=== PATIENT | male | born 1965 | race African-American/Black ===

== ENCOUNTER 2018-10-18 07:04 | Inpatient (IN) ==
[2018-10-18] MEDS ORDERED: LEVAQUIN 750 MG/D5W 750 MG/150 ML IVPB IV ONE (08:15)
[2018-10-18] MEDS ORDERED: NS 1,000 ML IV ONE ×3 (08:15→14:42)
[2018-10-18] MEDS ORDERED: TYLENOL PO ONE (08:15)
[2018-10-18 09:55] LABS: HEMATOCRIT 22.2 % (42.0-52.0); HEMOGLOBIN 7.2 g/dL (14.0-18.0); IMM GRAN# 0.03 X1000 (0.0-0.04); IMM GRAN% 5.1 % (0.0-0.5); LYMPH# 0.22 X1000 (1.2-3.4); LYMPH% 37.3 % (20.5-51.1); MCH 30.8 PG (27-31); MCHC 32.4 g/dL (33-37); MCV 94.9 FL (81-99); MONO# 0.06 X1000 (0.11-0.59); MONO% 10.2 % (1.7-9.3); NEUT# 0.28 X1000 (1.4-6.5); NEUT% 47.4 % (42.2-75.2); PLT 19 X1000 (130-400); RBC 2.34 XMIL (4.7-6.1); WBC 0.59 X1000 (4.8-10.8)
[2018-10-18 09:59] LABS: ALBUMIN 2.6 g/dL (3.5-5.0); CALCIUM 7.7 mg/dL (8.8-10.2); CREATININE 1.3 mg/dL (0.7-1.2); POTASSIUM 4.7 mmol/L (3.5-5.1); TOTAL PROTEIN 6.4 g/dL (6.3-8.3)
[2018-10-18 10:00] LABS: LYMPHS 36 % (21-51); MONO 8 % (1-9); SEGS 56 % (42-75)
[2018-10-18 10:01] LABS: ANISOCYTOSIS 3+; POIKILOCYTOSIS OCCASIONAL
--- NOTE | 2018-10-18 10:02 | Diag Imaging Result Doc PS360 ---
EXAM: CHEST-PORTABLE HISTORY: cough TECHNIQUE: Portable chest COMPARISON: 08/21/2018 FINDINGS: There is opacification of the right apex similar to the prior exam. The right middle and lower lobes are actually better expanded on the current study. The left lung remains well expanded and clear. No cardiomegaly. No change in the left jugular line. No pneumothorax. IMPRESSION: Slight interval improvement in the expansion of the right lung although there is persistent consolidation of the upper lobe. Electronically signed by Shelton Link 10/18/2018 10:00 AM
[2018-10-18 10:33] LABS: INFLUENZA A NEGATIVE (NEGATIVE); INFLUENZA B NEGATIVE (NEGATIVE)
[2018-10-18] MEDS ORDERED: ZOFRAN IV ONE (11:13)
[2018-10-18] MEDS ORDERED: MORPHINE IV ONE ×2 (11:13→12:30)
[2018-10-18 13:35] LABS: BILIRUBIN URINE NEGATIVE (NEGATIVE); BLOOD URINE 3+ (NEGATIVE); CLARITY CLEAR (CLEAR); COLOR AMBER; KETONE URINE NEGATIVE (NEGATIVE); LEUKOCYTES URINE 1+ (NEGATIVE); NITRITE URINE POSITIVE (NEGATIVE); PROTEIN URINE 1+(30 mg/dL) mg/dL (NEGATIVE); SP GRAVITY URINE 1.015; UROBILINOGEN URINE 4 mg/dL
[2018-10-18 13:45] LABS: URINE BACTERIA 2+ /HFP; URINE EPITHELIAL CELLS <10 /HPF (<10); URINE SOURCE CLEAN CATCH; URINE WBC <10 /HPF (<10)
[2018-10-18] MEDS ORDERED: VANCOMYCIN IV PER PHARMACY MISC SCH (14:30)
[2018-10-18] MEDS ORDERED: VANCOMYCIN 2,100 MG in NS 500 ML IV ONE (15:00)
[2018-10-18 15:04] LABS: UR AMPHETAMINES QUAL NONE DETECTED (NONE DETECT); UR BARBITUATES QUAL NONE DETECTED (NONE DETECT); UR BENZODIAZEPIN QUAL NONE DETECTED (NONE DETECT); UR COCAINE QUAL PRESUMPTIVE POSITIVE (NONE DETECT); UR METHADONE QUAL NONE DETECTED (NONE DETECT); UR METHAMPHETAMINE QUAL NONE DETECTED (NONE DETECT); UR OPIATES QUAL PRESUMPTIVE POSITIVE (NONE DETECT); UR OXYCODONE QUAL NONE DETECTED (NONE DETECT)
[2018-10-18 15:05] LABS: UR CANNABINOIDS QUAL NONE DETECTED (NONE DETECT); UR PCP QUAL NONE DETECTED (NONE DETECT); UR PROPOXYPHENE QUAL NONE DETECTED (NONE DETECT); UR TCA QUAL NONE DETECTED (NONE DETECT)
--- NOTE | 2018-10-18 19:22 | PROVIDER DOCUMENTATION ---
This chart was entered by Doreen Longo Scribe, acting as scribe for Asad Aburto MD. HPI-General Adult - General Chief Complaint: Generalized Pain Stated Complaint: pain Time Seen by Provider: 10/18/18 07:08 Source: patient Allergies/Adverse Reactions: Patient Allergies Allergy/AdvReac Type Severity Reaction Status Date / Time No Known Allergies Allergy Verified 08/16/18 11:10 Home Medications: Home Medication List Medication Instructions Recorded Confirmed Last Taken Type Carvedilol [Coreg] 12.5 mg PO Q12HR #60 tab 07/07/18 10/18/18 08/19/18 18:00 Rx Clopidogrel Bisulfate [Plavix] 75 mg PO DAILY #30 tab 07/07/18 10/18/18 08:00 Rx Folic Acid 1 mg PO DAILY #30 tab 07/07/18 10/18/18 08/19/18 08:00 Rx Guaifenesin/Dm [Robitussin-Dm] 10 ml PO Q4H PRN PRN #1 bottle 07/07/18 10/18/18 Unknown Rx Hydralazine [Apresoline] 50 mg PO TID #90 tab 07/07/18 10/18/18 08/19/18 08:00 Rx Hydrocodone/APAP 7.5 mg/325 mg 1 - 2 ea PO Q6H PRN PRN #30 tab 07/07/1808/20/18 12:00 Rx [Redding-7.5] Losartan [Cozaar] 100 mg PO DAILY #60 tab 07/07/18 10/18/18 08/19/18 08:00 Rx Metformin [Glucophage] 500 mg PO BID CC #60 tab 07/07/18 10/18/18 08/19/18 08: 00 Rx Hydrocodone/Acetaminophen [Redding 1 each PO Q4H PRN PRN #30 tablet 08/21/1810/18 Unknown Rx 5-325 Tablet] - History of Present Illness -Gen Adult Nature of Presenting Problems: 52 yobm presents to the ed with c/o generalized pain. pt sts went to the [employer] store 1 day prior and bought bengay and rubbed over his body. since he has had bodyaches. pt also c/o cough and nasal discharge (clear) Location of Pain/Injury: reports: generalized (bodyaches) Pain Radiation: reports: no radiation Quality of Pain: reports: aching Severity: reports: moderate Onset/Duration: reports: 24 hours ago Timing: reports: still present Context/Activities at Onset: reports: light activity Modifying Factors: improves with: nothing. worse with: movement, palpation Associated Symptoms: reports: cough, fatigue, fever/chills (99.9), genitourinary problems (hematuria), malaise, muscle aches, sinus congestion/ drainage. denies: back/neck pain, chest pain, diarrhea, dizziness, headaches, nausea, shortness of breath, weakness Similar Symptoms Previously?: No Recently seen or treated by another doctor?: Yes (sees dr david for cancer) Review of Systems - Adult - REVIEW OF SYSTEMS - ADULT Constitutional: reports: chills, fever (99.9) Eyes: reports: no symptoms reported Ears, Nose, Mouth & Throat: reports: see HPI, sinus problem. denies: nose pain (postive runny nose) Cardiovascular: reports: no symptoms reported Respiratory: reports: see HPI, cough. denies: shortness of breath, wheezing Gastrointestinal: denies: abdominal pain, diarrhea, nausea, vomiting Genitourinary: reports: see HPI, hematuria. denies: dysuria Musculoskeletal: reports: see HPI, muscle aches (generalized). denies: neck pain Integumentary: reports: no symptoms reported Neurological: denies: dizziness/vertigo, headache/migraines Psychiatric: reports: insomnia Endocrine: reports: no symptoms reported Hematologic/Lymphatic: reports: no symptoms reported Allergic/Immunologic: reports: no symptoms reported All Other Systems: Reviewed and Negative Past History - Adult - PAST MEDICAL HISTORY-ADULT Review of Records: reports: Old Records Reviewed, Nursing Assessment Review, Medications Reviewed, Social history reviewed & non-contributory. Major Childhood Illnesses: reports: other (HEP C) Cardiovascular: reports: blood clots, HTN Respiratory: reports: cancer Gastrointestinal: reports: GERD Genitourinary: reports: denies history Musculoskeletal: reports: cancer, chronic pain Neurological: reports: denies history Psychiatric: reports: denies history Endocrine/Immune: reports: Diabetes Diabetes Type: Type 2 Other Conditions: reports: denies history - PRIOR SURGERIES/PROCEDURES Surgical/Procedure History: reports: reviewed, not pertinent, other (port placed left upper chest wall) - IMMUNIZATION STATUS Childhood Immunizations: See Nurse Assessment Flu Vaccine: See Nurse Assessment - FAMILY HISTORY Family History: reviewed, not pertinent - SOCIAL HISTORY Smoking: cigarettes, greater than 1 pack/day Provider spent 3-5 mins advising pt. on dangers of tobacco.: Discussed manners to quit use, and f/u contacts for add'l counseling. Substance Use: denies Alcohol Use Frequency: never Living Situation: family Physical Exam-General - PHYSICAL EXAM-ADULT Initial Vital Signs Reviewed: Yes - CONSTITUTIONAL General Appearance: alert, no apparent distress - EYES Eyes: PERRL/EOMI, pink conjunctivae - HEAD, EARS, NOSE, MOUTH & THROAT HENMT: moist mucous membranes, normal ENT inspection - NECK Neck: full range of motion, supple, normal inspection - RESPIRATORY Respiratory: chest non-tender, lungs clear, normal breath sounds - CARDIOVASCULAR Cardiovascular: normal peripheral pulses, tachycardia (113) - CHEST (BREASTS) Chest/Breast: other (has port placed in left upper chest with drainage and crusting seen. pt has 1cm openoing of skin close to port. looks infected) - GASTROINTESTINAL (ABDOMEN) Abdominal Exam: normal bowel sounds, non tender, soft - GENITOURINARY Male Genitalia: deferred Rectal Exam: deferred Hemoccult Exam: deferred - LYMPHATIC Lymphatic: no adenopathy - MUSCULOSKELETAL Back Exam: normal inspection Extremity: normal range of motion, normal capillary refill, pelvis stable, tenderness (generalized) - SKIN Integumentary: normal color, normal turgor, warm/dry - NEUROLOGIC Neurologic: grossly normal - PSYCHIATRIC Psych/Mental Status: normal mood/affect, normal thought content, normal thought process, oriented x 3 Progress - PLAN OF CARE/RESULTS Progress/Plan/Lab Results: Vital Signs - 8 hr 10/18/18 07:06 Temperature 99.9 F H Pulse Rate 113 H Respiratory Rate 20 Blood Pressure 141/99 O2 Sat by Pulse Oximetry 94 L pt has lortab 5 for pain secondary to cancer pain per pt Result Diagrams: 10/18/18 09:07 10/18/18 09:07 - REASSESSMENT Reassessment #1 Time Reassessed: 08:26 (pt is resting in bed and in no distress) Status: improving - XRAY 1 XRAY: Bilateral XRAY Study: Chest (EXAM: CHEST-PORTABLE HISTORY: cough TECHNIQUE: Portable chest COMPARISON: 08/21/2018 FINDINGS: There is opacification of the right apex similar to the prior exam. The right middle and lower lobes are actually better expanded on the current study. The left lung remains well expanded and clear. No cardiomegaly. No change in the left jugular line. No pneumothorax. IMPRESSION: Slight interval improvement in the expansion of the right lung although there is persistent consolidation of the upper lobe. Electronically signed by Shelton Link 10/18/2018 10:00 AM 10/18/18 1000 Interpreting Physician: Shelton Link MD Dictated Date/Time: 10/18/18 0959 cc: None,PCP ; None,PCP) - CONSULTS/PCP/HOSPITALIST Notification #1 *Consult/PCP/Hospitalist*: hospitalist dr jones Time Discussed: 14:29 Reason/Comments: weakness and bodyaches Consult Disposition: Admit Departure - Departure Date of Disposition Decision: 10/18/18 Time of Disposition Decision: 14:40 DIAGNOSIS: Tobacco use disorder, Pancytopenia, Dehydration, Abnormal LFTs, Cocaine use Cancer of right lung Qualifiers: Lung location: unspecified part of lung Qualified Code(s): C34.91 - Malignant neoplasm of unspecified part of right bronchus or lung UTI (urinary tract infection) Qualifiers: Urinary tract infection type: site unspecified Hematuria presence: with hematuria Qualified Code(s): N39.0 - Urinary tract infection, site not specified ; R31.9 - Hematuria, unspecified Disposition: ADMITTED INPATIENT 09 Certified Medical Emergency: Emergent Condition: Serious Referrals and Follow-Ups: None,PCP [Primary Care Provider] - Discharge Education: Steps to Quit Smoking - Critical Care Note This patient required my direct & personal management of CC.: Yes Total Time (mins): 65 Critical Care Statement: This patient required my direct personal management to treat or rule out processes, the absence of which, could potentiallly result in sudden, clinically significant life or limb threatening deterioration. Comments: pt is possible sepsis with infected port in left ipper chest wall, fever 99.9 and tachycardiac 108. pt has stage 4 lung CA mets to bone Attestation - Physician/ OSCAR Attestation Patient care was provided by Advanced Practice Provider:: No The physician spent face to face time with patient:: Yes Advanced Practice Provider documentation review:: Supervising physician onsite and consulted in the evaluation and care of this patient. The physician did have a face to face encounter with the patient. This chart was documented by the indicated scribe, (Doreen Longo Scribe) and accurately reflects the services I performed and decisions made by me, Asad Aburto MD, as attested by the provider's signature.
[2018-10-18] MEDS ORDERED: NUBAIN ONE (20:15)
[2018-10-18] MEDS: NUBAIN IV PRN (20:26)
[2018-10-18] MEDS ORDERED: DUONEB (A & A) INH PRN (21:02)
[2018-10-18] MEDS: NS 1,000 ML IV SCH (21:02)
[2018-10-18] MEDS ORDERED: NEUPOGEN SUBQ ONE (21:02)
[2018-10-18] MEDS: ZOSYN 3.375 GM in NS 50 ML IV SCH (22:00)
[2018-10-19] MEDS: DUONEB (A & A) INH SCH ×5 (00:15→22:33)
[2018-10-19] MEDS: NUBAIN IV PRN ×4 (01:38→21:07)
--- NOTE | 2018-10-19 01:49 | HISTORY AND PHYSICAL ---
PRIMARY CARE PHYSICIAN: None. ONCOLOGIST: Dr. Ramires. CHIEF COMPLAINT: Generalized pain, cough, fatigue, and subjective fever. HISTORY OF PRESENTING ILLNESS: This is a 52-year-old male, who presents to [facility] ER with complaints of generalized pain, cough, fatigue, and subjective fever. He is noted to have stage IV lung cancer, and received chemotherapy on . Since that time, he has been feeling increasingly worse. He has a Port-A-Cath in his left upper chest that has drainage and crusting, with a 1 cm opening of the skin close to the port. The patient states that the port was used this past for his chemotherapy. He states that he has not placed anything in his port cath, but it is noted that his urine drug screen is presumptive positive for cocaine and opiates. The patient states that he has been using multiple pills that he has bought off the street apparently, for his pain, but denies having any cocaine use. His last chemo treatment again was on 10/12, and he received Alimta, carboplatin, and Keytruda, with a Neulasta injection on 10/13. His white blood cell count is 0.59, hemoglobin of 7.2, hematocrit 22.2, platelets 19,000, BUN of 29, with a creatinine of 1.3. Urinalysis with nitrite positive, 3+ blood, 1+ white blood cells, and 2+ bacteria. Urine drug screen again is positive for opiates and cocaine. Acetone level was negative. Influenza A and B were both negative. Chest x-ray showed slight interval improvement in the expansion of the right lung, although there is persistent consolidation of the right upper lobe. He will be admitted to the [facility] for further evaluation and treatment. PAST MEDICAL HISTORY: Hypertension, stage IV lung cancer with ongoing chemotherapy, GERD, chronic pain, and diabetes type 2. PAST SURGICAL HISTORY: Left upper chest port placement. FAMILY HISTORY: Reviewed and noncontributory. SOCIAL HISTORY: Currently lives with family. Smokes a pack of cigarettes a day. Denied any alcohol use. Would not admit to specific drug use, but states he has been using multiple pills that he has bought off the street to control his pain, that he "hurts down to the bone." He is also positive for cocaine, but would not admit to using. ALLERGIES: He has no known drug allergies. HOME MEDICATIONS: Will obtain a current list, and restart as appropriate. LABORATORY DATA: Showed a white blood cell count of 0.59, hemoglobin 7.2, hematocrit 22.2, platelets 19,000. Sodium 135, potassium 4.7, chloride 99, CO2 21, BUN of 29, creatinine 1.3, glucose 233. AST of 68, ALT 38. Plasma lactate was 1.4. Urinalysis showed 3+ blood, positive nitrites, 1+ white blood cells, and 2+ bacteria. Urine drug screen was presumptive positive for opiates and cocaine. Acetone level was negative. Influenza A and B were both negative. The chest x-ray showed slight interval improvement in the expansion of the right lung, although there was persistent consolidation of the upper lobe. REVIEW OF SYSTEMS: He was positive for a subjective fever, chills, body aches, fatigue, nonproductive cough, shortness of breath. Denied any abdominal pain, constipation, diarrhea, or burning or hurting with urination. PHYSICAL EXAMINATION: VITAL SIGNS: On arrival, he had a temperature of 99.9 degrees, a pulse of 113, respirations 20, blood pressure 141/99, saturating 94% on room air. HEENT: Normocephalic and atraumatic. Normal ENT inspection. Oropharynx and nares are clear. Pupils are equal, round, reactive to light and accommodation. Extraocular movements are intact. NECK: Normal inspection. Normal range of motion. LUNGS: Clear to auscultation bilaterally, with equal lung expansion and chest wall movement. To his left upper chest, he has a port placed that has some drainage and crusting to the upper part of it, with a 1 cm opening to the skin closest to the port. There is some erythema surrounding it as well. HEART: Regular rate and rhythm. No murmurs, rubs, or gallops. ABDOMEN: Soft, nontender, nondistended. Bowel sounds are present x4 quadrants. MUSCULOSKELETAL: He has 4/5 strength to 4 extremities. NEUROLOGICAL: The cranial nerves 2-12 appear grossly intact. ASSESSMENT: 1. Sepsis. 2. Pancytopenia. 3. Urinary tract infection. 4. Right upper lobe pneumonia. 5. Anemia. 6. Tobacco abuse. 7. Stage IV lung cancer, with current chemotherapy treatment. PLAN: He will be transferred to the [facility]. We will consult Oncology, and the decision will be made at that time whether his port is removed, or if it will be retained. He may need a surgical consult. We are going to go ahead and transfuse 1 unit of packed red blood cells and 1 unit of apheresis platelets. Place on normal saline at 125 mL an hour, Zosyn 3.375 g IV q.6. Neupogen [address] on reverse isolation due to his pancytopenia and neutropenia. Recheck a CBC, BMP. Further orders after seen by attending and by Oncology. Dictated by SOPHIA Phelps for Scott Dodge MD cc: SOPHIA Phelps MD
[2018-10-19] MEDS: ZOSYN 3.375 GM in NS 50 ML IV SCH ×4 (02:05→21:07)
--- NOTE | 2018-10-19 03:42 | HISTORY AND PHYSICAL ---
ADDENDUM: SUBJECTIVE: He came in for just weakness and chills, and not feeling well overall. This is a 52- year-old male with lung cancer, maybe stage IV. He has recently had chemotherapy per Dr. Ramires. He has had Alimta, carboplatin I think, and Keytruda on 10/12/2018, with Neulasta on 10/13/2018. Now he comes in neutropenic with evidence of pneumonia, acute kidney injury, and UTI. Also some abnormal liver enzymes. On exam, he does not actually look that bad, fortunately. He came in for evaluation and has been doing okay so he seems to be doing okay without any major difficulty. ASSESSMENT AND PLAN: 1. He does have irritation around his port. It looks like an impetigo kind of infection around the superficial area but it is dried and intact. 2. Neutropenic fever. Continue filgrastim, I would say daily until his counts improve. He did receive Neulasta. 3. Pneumonia. We will continue empiric antibiotics. He is on Zosyn and we will also do vancomycin per pharmacy as there is concern over possible port infection. 4. Pancytopenia. We will need to transfuse for hemoglobin and hematocrit and get his platelets probably at least above 20,000. He is not having any active bleeding. We will continue to see how he is doing. cc: Scott Dodge MD
[2018-10-19 08:28] LABS: HEMATOCRIT 22.3 % (42.0-52.0); HEMOGLOBIN 7.3 g/dL (14.0-18.0); IMM GRAN# 0.03 X1000 (0.0-0.04); IMM GRAN% 9.7 % (0.0-0.5); LYMPH# 0.15 X1000 (1.2-3.4); LYMPH% 48.4 % (20.5-51.1); MCH 30.4 PG (27-31); MCHC 32.7 g/dL (33-37); MCV 92.9 FL (81-99); MONO# 0.03 X1000 (0.11-0.59); MONO% 9.7 % (1.7-9.3); NEUT% 32.2 % (42.2-75.2); WBC 0.31 X1000 (4.8-10.8)
[2018-10-19 08:56] LABS: LYMPHS 42 % (21-51); MONO 4 % (1-9); SEGS 54 % (42-75)
[2018-10-19 09:03] LABS: AGAP 12; BUN 27 mg/dL (8-22); CHLORIDE 106 mmol/L (98-107); COSMO 285; CREATININE 1.2 mg/dL (0.7-1.2); ESTIMATED GFR > 60; GLUCOSE 207 mg/dL (70-104); POTASSIUM 4.4 mmol/L (3.5-5.1); SODIUM 137 mmol/L (136-145); TCO2 19 mmol/L (25-35)
[2018-10-19] MEDS: ARIXTRA SUBQ SCH (09:28)
[2018-10-19 09:37] LABS: CALCIUM 6.5 mg/dL (8.8-10.2)
--- NOTE | 2018-10-19 09:37 | GENERAL SURGERY CONSULTATION ---
DATE: 10/19/2018 REQUESTING PHYSICIAN: Hospitalist. REASON FOR CONSULTATION: Consult is concerning an infected port. HISTORY OF PRESENT ILLNESS: A 52-year-old, male in whom I had placed a port for stage IV lung cancer, that has been draining with crusty skin. The drain has been purulent. He has got a 1 cm opening near the port. He came in for generalized pain, cough, fatigue, and subjective fever. It was noted that he did have presumptive positive cocaine and opiates on his drug screen. He states he has been using multiple pills off the street for his pain but denies cocaine use. He has been receiving active chemotherapy. He has got persisting consolidation in his right upper lobe, consistent with pneumonia. He was transferred to the CICU from the [facility]. I was asked to evaluate the patient. PAST MEDICAL HISTORY: 1. Hypertension. 2. Stage IV lung cancer with ongoing chemotherapy. 3. Gastroesophageal reflux disease. 4. Chronic pain. 5. Diabetes mellitus. PAST SURGICAL HISTORY: Previous port placement. FAMILY HISTORY: Reviewed with patient and noncontributory. SOCIAL HISTORY: Presumptive positive drug screen noted. ALLERGIES: None. HOME MEDICATIONS: Reviewed. REVIEW OF SYSTEMS: A full 10 point review of systems was obtained and negative except as specified in the HPI. PHYSICAL EXAMINATION: Vital Signs: Patient is currently afebrile. Had a heart rate in the 100s, respiratory rate in the 20s, blood pressure 116/64. General Examination: No acute distress. Chronically ill-appearing male. Looks stated age. HEENT: Normocephalic, atraumatic. Pupils equal, round, react to light. Mucous membranes moist. Oropharynx benign. Neck: Supple. Trachea midline. Cardiovascular: Regular rate and rhythm. Lungs: Grossly clear. Chest Wall: Left port with purulence draining over it with crusted over wound. Abdomen: Soft, nontender, nondistended. Extremities: Moves all extremities. Neurologic: Grossly intact. Skin: No signs of jaundice. Vascular: All extremities perfused. LABORATORY: Reviewed. Of note, his platelet count is 19,000. Remainder of labs reviewed. Preliminary blood cultures do show gram-positive cocci. ASSESSMENT AND PLAN: A 52-year-old with infected port, bacteremia. Infected port. At this time, we will need to remove. We will need to type and cross him, and give him at least some platelets prior to removal. We will try to do this today. We will have to leave his port out while his bacteremia is addressed. cc: Leo Cheney MD
[2018-10-19] MEDS ORDERED: CALCIUM CHLORIDE 2 GM in NS 100 ML IV ONE (09:46)
[2018-10-19] MEDS ORDERED: VERSED ONE (10:50)
[2018-10-19] MEDS ORDERED: XYLOCAINE-MPF 2% ONE (10:52)
[2018-10-19] MEDS ORDERED: DIPRIVAN 1% ONE (10:52)
--- NOTE | 2018-10-19 11:25 | INFECTIOUS DISEASE CONSULT REP ---
DATE: 10/19/2018 CONCLUSION: The patient has methicillin-resistant Staph aureus bacteremia which I think originated from his infected left-sided Port-A-Cath. The patient also has a urinary tract infection with gram-positive cocci, which I think also will be identified as methicillin-resistant Staph aureus. The patient is neutropenic. RECOMMENDATIONS: I agree with the decision to treat the patient with vancomycin. Also, I plan to continue Zosyn; even though it does not have any activity against methicillin-resistant Staph aureus, it is should be continued because of the patient's neutropenia. I think however the Levaquin can be discontinued. The patient also has right upper lobe consolidation which most likely will be due to methicillin-resistant Staph aureus pneumonia. I think the patient is at high risk to have endocarditis in view of all the methicillin-resistant Staph aureus infections he has. Because of that, I am going to order an echocardiogram. I also agree with taking out the patient's Port-A-Cath which is to be done today. DISCUSSION: The patient was admitted to the hospital with generalized pain, especially in his extremities. He also was having cough, fatigue and fever. His CBC shows a white count of 310, hemoglobin 7.3, and platelet count 13,000. Creatinine is 1.2. GFR is greater than 60. Alkaline phosphatase 263. Urinalysis showed white cells and bacteria. Swab for influenza was negative. The patient's chest x-ray shows right upper lobe consolidation. The patient's blood cultures are growing methicillin-resistant Staph aureus. Cultures from the urine and from the patient's left- sided Port-A-Cath wound are growing gram-positive cocci, which most likely will wood turner to be methicillin-resistant Staph aureus also. PAST MEDICAL HISTORY/REVIEW OF SYSTEMS: Eyes and ears: He says he can see and hear okay. Neck: No stiffness. Extremities: Patient says that he is extremely weak and he has severe pain in his arms and legs. He told me that he was so weak that he cannot move his arms or legs. Cardiac: No chest pain or palpitations. GI: No nausea, vomiting, or diarrhea. Genitourinary: No dysuria or flank pain. Bones, joints, muscle: See present illness. Endocrine: The patient does have diabetes mellitus, but not thyroid disease. MEDICAL DISEASES: The patient has hypertension, stage IV lung cancer with ongoing chemotherapy, gastroesophageal reflux disease and diabetes mellitus. PAST SURGICAL HISTORY: The patient's past surgical history is positive for placement of a left upper chest Port-A-Cath. FAMILY HISTORY: Positive for diabetes mellitus and hypertension. SOCIAL HISTORY: The patient lives with family. He smokes cigarettes. He denies drinking alcoholic beverages, but he does use illicit drugs. ALLERGIES: He has no known drug allergies. HOME MEDICATIONS: Home medications include the following: Coreg, Plavix, Robitussin DM, Apresoline, hydrocodone, Cozaar and Glucophage. PHYSICAL EXAMINATION: Vital Signs: Temperature is 99.7 degrees, pulse 105, respirations 18, blood pressure 117/67. The patient is 5 feet 7 inches tall and weighs 168 pounds. General Examination: Generally this is an ill-appearing, middle-aged male. He told me that he is hurting so much in his arms and legs, and he is so weak that he cannot move him. Head/eyes/ears/nose/throat: He can hear my spoken words and see near objects. He does not have any white coating of his tongue. Neck: No stiffness. Lungs: Clear to auscultation. Cardiovascular: Regular heart rate. Abdomen: Soft and nontender. Extremities: If I squeeze his arms or legs, that did cause him to have pain. His sensation was intact to touch. There is also slight edema of the legs. Neurologic: The patient is awake. He is able to talk. When I asked him to move his arms and legs, he was not able to. This may in part be due to the fact that it was a very painful for him to do it. Thank you for the consult. cc: Reinier Mendoza MD
[2018-10-19] MEDS ORDERED: XYLOCAINE-MPF 1%/EPI 1:200,000 ONE (11:39)
[2018-10-19] MEDS ORDERED: MARCAINE 0.25% PF ONE (11:39)
[2018-10-19] MEDS ORDERED: KETAMINE ONE (12:16)
--- NOTE | 2018-10-19 13:15 | OPERATIVE NOTE ---
PROCEDURE DATE: 10/19/2018 PREOPERATIVE DIAGNOSIS: Infected left internal jugular vein port. POSTOPERATIVE DIAGNOSIS: Infected left internal jugular vein port. PROCEDURES: Removal of left internal jugular vein port. SURGEON: Leo Cheney MD. HAND DRAWER IN HELPER: None. ANESTHESIA: IV MAC anesthesia with local administered by the surgeon. FINDINGS: Purulence noted in the port pocket. COMPLICATIONS: None at time of dictation. ESTIMATED BLOOD LOSS: 5 mL. SPECIMENS REMOVED: Culture of tip. BRIEF HISTORY: A 52-year-old male who I placed the port in. He came in with infection, bacteremia, felt that he needed it removed. The risks, benefits, and alternatives were discussed. All questions answered. DESCRIPTION OF PROCEDURE: After informed consent was obtained, the patient was brought to the operative theater, transferred to the operative table, placed in supine position. IV MAC anesthesia was then performed without complication. A formal time-out was then performed confirming patient, procedure. All were in agreement. At that time attention was given to the left chest and left neck. We prepped and draped in standard sterile fashion. After the time-out we used local anesthetic to anesthetize the skin, made incision over the previous incision to encounter the port. We dissected the port out from the port pocket, pulled it in one continuous motion and the catheter came out intact. We held pressure in the neck for 10 minutes. We placed a Vashe wet-to-dry dressing into the wound. We did culture the tip. We elected to hold pressure for 10 minutes given the patient's thrombocytopenia. There was no obvious hematoma at the end of this case. The patient was transferred back to the recovery room in stable condition. We will watch his neck. cc: Leo Cheney MD
[2018-10-19] MEDS: OFIRMEV 1000 MG/ISOTONIC SOLN 1,000 MG/100 ML BOTTLE IV PRN (13:51)
[2018-10-19] MEDS: NS 1,000 ML IV SCH ×2 (13:52→21:10)
[2018-10-19] MEDS ORDERED: VANCOMYCIN 1,700 MG in NS 250 ML IV SCH (15:00)
[2018-10-19] MEDS: VANCOMYCIN 1,700 MG in NS 250 ML IV SCH (16:32)
[2018-10-19] MEDS: TYLENOL PO PRN (18:01)
--- NOTE | 2018-10-19 18:42 | PROGRESS NOTE ---
DATE: 10/19/2018 SUBJECTIVE: Patient is resting in bed. OBJECTIVE: Vital Signs: Temperature 102.1, pulse 131, respirations 26, blood pressure is 148/68, oxygen saturation is 100%. HEENT: Atraumatic, normocephalic. Cardiovascular: S1, S2. Respiratory: Has evidence of good air entry bilaterally. Abdomen: Soft, nontender. No masses felt. Extremities: No evidence of edema. Central Nervous System: No obvious focal deficit noted. LABS: WBC 0.31, hematocrit 22.3, with platelet count of 13,000. Sodium is 137 , potassium 4.4, chloride is 106, bicarb is 19, BUN 27, creatinine 1.2. Urine culture positive for gram-positive cocci. Wound culture positive for gram-positive cocci. Blood cultures positive for Staph aureus. ASSESSMENT AND PLAN: 1. MRSA bacteremia/probable urinary tract infection/pneumonia ,antibiotic management per ID 2. Pancytopenia. Follow up on CBC and transfuse blood products if needed. 3. History of fall lung cancer. Oncology consulted. 4. DVT prophylaxis. Arixtra. 5. GI prophylaxis. PPI. cc: Luís Blue MD [facility]
[2018-10-19] MEDS: ZOFRAN IV PRN (19:05)
[2018-10-19 21:13] LABS: PLT 13 X1000 (130-400)
[2018-10-20] MEDS: DUONEB (A & A) INH SCH ×4 (03:50→21:00)
[2018-10-20] MEDS: ZOSYN 3.375 GM in NS 50 ML IV SCH ×3 (04:08→16:01)
[2018-10-20] MEDS: NS 1,000 ML IV SCH ×2 (04:08→16:36)
[2018-10-20] MEDS: NUBAIN IV PRN ×2 (04:24→23:27)
[2018-10-20] MEDS: PROTONIX PO SCH ×2 (05:06→06:29)
--- NOTE | 2018-10-20 07:13 | GENERAL SURGERY PROGRESS NOTE ---
DATE: 10/20/2018 SUBJECTIVE: Patient doing okay no major issues. No neck swelling noted. OBJECTIVE: Vital Signs: Patient is currently afebrile. His vital signs stable. General: No acute distress. Chest Wall: Dressing removed. Some mild oozing, but overall chest incision looks okay. Cardiovascular: Regular rate and rhythm. Lungs: Grossly clear. ASSESSMENT AND PLAN: A 52-year-old status post removal of left-sided chest wall port. Postoperative state. At this time, patient seems to be doing okay. We will change his dressing changes to b.i.d. We will monitor him peripherally and will need to wait until his blood cultures are negative prior to placement of any new port. cc: Leo Cheney MD MTDD
--- NOTE | 2018-10-20 08:23 | ECHO REPORT ---
ORDER DATE: 10/19/2018 INTERPRETING PHYSICIAN: Dr. Valencia CLINICAL INDICATIONS: 52-year-old male with endocarditis, lung cancer. M-MODE MEASUREMENTS: Left ventricle end diastole: 4.5 cm. Left ventricle end systole: 2.8 cm. Posterior wall: 1.0 cm. Interventricular septum: 1.0 cm. Left atrium: 3.4 cm. Aortic root: 3.0 cm. SUMMARY OF 2-DIMENSIONAL IMAGING: The left ventricular function appears to be normal. Ejection fraction visually estimated at 60%. Patient is tachycardic. The right ventricle appears to be mildly enlarged. Aortic valve is normal. Color flow mapping unremarkable. There is no lesion in the aortic valve. The mitral valve is normal. Color flow mapping unremarkable. Tricuspid valve shows mild to moderate degree of regurgitation. There is no evidence of vegetation. Pulmonic valve appears to be grossly normal. Color flow mapping unremarkable. There is no pericardial effusion, mass and no thrombus. The pulse wave Doppler of mitral inflow shows mild reversal of the E/A ratio. Ratio 0.8. Tissue Doppler of septal and lateral mitral annulus averages 13 cm per second. There is no diastolic dysfunction. Pulmonary pressure is moderately elevated at 50 mmHg. Clinical correction recommended. cc: MD Reinier Reilly MD
[2018-10-20] MEDS: ARIXTRA SUBQ SCH (09:19)
[2018-10-20] MEDS: GRANIX SUBQ SCH (11:43)
--- NOTE | 2018-10-20 15:24 | PROGRESS NOTE ---
DATE: 10/20/2018 SUBJECTIVE: The patient is resting in bed. OBJECTIVE: Vital signs are as follows: Temperature 98.6, pulse 103, blood pressure is 118/67. Oxygen is 80% to 100%. HEENT: Atraumatic, normocephalic. Cardiovascular: S1, S2. Respiratory: Has evidence of good entry bilaterally. Abdomen soft, nontender. No masses felt. Extremities: No evidence of edema. Central nervous system: No obvious focal deficits noted. LABORATORY DATA: Labs are pending. ASSESSMENT AND PLAN: 1. Methicillin-resistant Staphylococcus aureus bacteremia/urinary tract infection/pneumonia. Antibiotic management by Infectious Disease team. 2. Pancytopenia. Follow up on CBC and transfuse blood products as needed. 3. History of lung cancer. Oncology consulted. 4. Deep vein thrombosis prophylaxis. Arixtra. 5. Gastrointestinal prophylaxis. PPI. cc: Luís Blue MD MTDD
[2018-10-20] MEDS: VANCOMYCIN 1,700 MG in NS 250 ML IV SCH (16:36)
--- NOTE | 2018-10-20 18:26 | INFECTIOUS DISEASE PROGRESS NO ---
DATE: 10/20/2018 PRESENT ILLNESS: Mr. Sparrow has a methicillin-resistant Staphylococcus aureus bacteremia which most likely originated from his Port-A-Cath on the left side, which has been removed. He also has a MRSA growing in his urine and a culture from his port removal yesterday has gram-positive cocci growing which most likely will be MRSA as well. The patient has a diagnosis of stage IV lung cancer with recent chemotherapy, and currently has a pancytopenia. MEDICATIONS: Today is day 2 of IV vancomycin per pharmacy dosing and Zosyn 3.375 g IV every 6 hours. PHYSICAL EXAMINATION: Vital Signs: Temperature is 98.6 degrees, pulse rate 103 , respiratory rate 20, blood pressure 118/67, O2 saturation is 100% on 2 L nasal cannula. General : This is a chronically ill-appearing, middle-aged gentleman. He is lying in the bed currently in mild distress. The nurse is at his side holding pressure to his Port-A-Cath site which is oozing blood at this time. He does have platelets and packed red cells infusing. HEENT: Atraumatic, normocephalic. Oral mucous membranes are pink and moist. Sclerae are icteric. Respiratory: Lung sounds are clear to auscultation and diminished. Respiratory excursion is normal and symmetric. Cardiovascular: Heart rate and rhythm are regular and tachycardic. Sinus tachycardia on the monitor. Pedal and radial pulses are palpable bilaterally. Abdomen: Soft, round and nontender. Bowel sounds are active. Neurologic: He is awake, alert, and oriented. He is able to move his extremities with some pain and generalized weakness noted. LABORATORY AND X-RAY: Today, there is no lab available. As mentioned before, he has grown a methicillin-resistant Staphylococcus aureus in his blood, his urine and the chest Port-A-Cath site. No imaging reports today. Echocardiogram done yesterday shows no evidence of mass or thrombus. Operative report yesterday did note purulence in the port pocket when his Port-A-Cath was removed. ASSESSMENT AND PLAN: Mr. Sparrow has a methicillin-resistant Staphylococcus aureus, bacteremia, urinary tract infection and most likely Port-A-Cath site infection. He has had his Port-A-Cath removed and is now having some bleeding due to low platelet counts. There are platelets infusing at this time. He does have pancytopenia. At this point, we will continue his IV vancomycin and change the Zosyn to Cefepime, in order to preserve his renal function. We will also obtain blood cultures on Tuesday in order to try to get a sterile, baseline set. The previous plans have been discussed with and recommended by Dr. Mendoza. COMORBIDITIES: For Mr. Sparrow include stage IV lung cancer with chemotherapy and pancytopenia, gastroesophageal reflux disease, and diabetes mellitus. Dictated by SOPHIA Bach for Reinier Mendoza MD This chart was documented by, SOPHIA Bach and accurately reflects the services performed, treatment plan and medical decisions as attested by the providers signature Reinier Mendoza MD. cc: Reinier Mendoza [facility]ary
[2018-10-20] MEDS: TYLENOL PO PRN (20:32)
[2018-10-20] MEDS: ZOFRAN IV PRN (20:44)
[2018-10-20] MEDS: MAXIPIME 2 GM in NS 100 ML IV SCH (21:13)
[2018-10-21] MEDS: DUONEB (A & A) INH SCH ×4 (03:30→20:45)
[2018-10-21] MEDS: NS 1,000 ML IV SCH ×2 (03:45→12:17)
[2018-10-21] MEDS: ZOFRAN IV PRN (03:46)
[2018-10-21] MEDS: NUBAIN IV PRN ×2 (03:46→10:03)
[2018-10-21] MEDS: ARIXTRA SUBQ SCH (08:53)
[2018-10-21] MEDS: MAXIPIME 2 GM in NS 100 ML IV SCH ×2 (08:53→21:10)
[2018-10-21] MEDS: PROTONIX PO SCH (10:02)
[2018-10-21] MEDS: GRANIX SUBQ SCH (10:03)
[2018-10-21] MEDS ORDERED: MIRALAX PO PRN (10:18)
[2018-10-21 11:13] LABS: AGAP 9; ALB/GLOB RATIO 0.6; ALBUMIN 1.7 g/dL (3.5-5.0); ALKALINE PHOSPHATASE 88 U/L (32-122); BUN 31 mg/dL (8-22); CHLORIDE 113 mmol/L (98-107); COSMO 289; CREATININE 1.1 mg/dL (0.7-1.2); ESTIMATED GFR > 60; GLUCOSE 191 mg/dL (70-104); GOT 52 U/L (10-34); GPT 29 U/L (10-44); SODIUM 139 mmol/L (136-145); TCO2 17 mmol/L (25-35); TOTAL BILIRUBIN 5.46 mg/dL (0.20-1.00); TOTAL PROTEIN 4.5 g/dL (6.3-8.3)
[2018-10-21 11:30] LABS: HEMOGLOBIN 4.5 g/dL (14.0-18.0); LYMPH# 0.19 X1000 (1.2-3.4); LYMPH% 73.1 % (20.5-51.1); MCH 29.2 PG (27-31); MCHC 32.1 g/dL (33-37); MCV 90.9 FL (81-99); MONO# 0.01 X1000 (0.11-0.59); MONO% 3.8 % (1.7-9.3); MPV 9.5 FL (7.4-10.4); NEUT# 0.06 X1000 (1.4-6.5); NEUT% 23.1 % (42.2-75.2); PLT 11 X1000 (130-400); RBC 1.54 XMIL (4.7-6.1); WBC 0.26 X1000 (4.8-10.8)
[2018-10-21] MEDS: NEURONTIN PO SCH ×2 (12:16→16:47)
[2018-10-21] MEDS: TUMS EXTRA STRENGTH PO SCH (14:15)
--- NOTE | 2018-10-21 16:09 | PROGRESS NOTE ---
DATE: 10/21/2018 INTERVAL HISTORY: The patient is complaining of diffuse largely chronic pain. Denies fever, chills, and increased cough. Pain is worse in lower extremities and described as burning. Also complaining of constipation. No acute events overnight. REVIEW OF SYSTEMS: Twelve point review of system are negative, except as per interval history. LABS: White count 0.26, hemoglobin 4.5, hematocrit 14, platelets 11. Sodium 139, potassium 4, chloride 113, bicarbonate 17. BUN 31, creatinine 1.1, glucose 191, calcium 6, ionized calcium 0.96, albumin 1.7. AST 52, ALT 29, alkaline phosphatase 88, bilirubin 5.4. OBJECTIVE: Vitals: T-max 98.9 degrees, pulse 104, respirations 22, blood pressure 103/56, O2 saturation 100% on 2 L by nasal cannula. General: No acute distress. Vitals as above. HEENT: Normocephalic, atraumatic. Moist mucous membranes. Neck: No cervical adenopathy. Cardiovascular: Minimally tachycardic, but regular. No murmurs, rubs, or gallops noted. Pulmonary: Largely clear to auscultation bilaterally. Abdomen: Soft, nontender, nondistended. Bowel sounds positive. Extremities: Peripheral pulses intact. No clubbing or cyanosis. Slight edema noted. Neurologic: Cranial nerves 2-12 grossly intact. The patient is globally weak, slightly more on the right than the left, but no new focal deficits noted. Psychiatric: Normal mood and affect. Awake, alert, oriented x3. Skin: No new rashes or lesions noted. ASSESSMENT AND PLAN: 1. Methicillin-resistant Staphylococcus aureus bacteremia and urinary tract infection. Patient with positive blood cultures on admission. Both urine and blood cultures growing methicillin- resistant Staphylococcus aureus. Infectious Disease following. Patient on antibiotics with vancomycin and cefepime. Will await further antibiotic recommendations per Infectious Disease. Repeat blood cultures pending for tomorrow. Transthoracic echocardiogram shows no clear evidence of vegetation, but if further fevers develop or repeat blood cultures remain positive, then we will likely need transesophageal echocardiogram to reassess. Some question of pneumonia as well given right upper lobe consolidation on chest x-ray, but this was slightly improved from previous, patient with known history of lung cancer that may be causing this, no respiratory symptoms, so uncertain if this represents true pneumonia. 2. Pancytopenia. Patient with continued worsening pancytopenia. White count, blood counts and platelets all decreased. Markedly neutropenic. On neutropenic precautions. This is likely chemotherapy-related as patient received chemotherapy the prior to admission. Transfusing 2 units of red cells and 2 units of platelets. No signs of or symptoms of active bleeding, but definitely high risk. Given high risk for bleeding, on ongoing anemia and ongoing thrombocytopenia, we will discontinue anticoagulation with fondaparinux. Continue monitoring blood counts closely. 3. Stage IV lung cancer on outpatient chemotherapy. The patient had left upper chest port on admission, but this has been removed as the suspected source of his bacteremia. Of note, the patient's urine drug screen was positive for cocaine and opiates, but the patient denies any illicit use of intravenous drugs. Did admit to buying pills off the street for chronic pain. 4. Gastroesophageal reflux disease. Continue proton pump inhibitor. 5. Diabetes mellitus. Placing patient on pattern blood sugars and sliding scale insulin. Will continue to monitor. 6. Hypocalcemia. Albumin low, but does not fully correct. An ionized calcium confirms moderately low calcium. We will give oral replacement and continue to monitor. 7. Diffuse pain. The patient describing burning pain primarily in the lower extremities, which is likely diabetic neuropathy, but could be chemotherapy-related neuropathy. We will start patient on gabapentin and monitor. 8. Constipation. We will start the patient on MiraLAX. 9. Deep vein thrombosis prophylaxis. Stopping blood thinners as above. We will place on sequential compression devices. [facility]
[2018-10-21] MEDS: HUMALOG SUBQ SCH ×2 (16:47→21:08)
[2018-10-21] MEDS: NORCO-7.5 PO PRN (16:47)
[2018-10-21] MEDS: MORPHINE IV PRN ×2 (18:31→23:24)
--- NOTE | 2018-10-21 19:11 | GENERAL SURGERY PROGRESS NOTE ---
DATE: 10/21/2018 TIME: 11:15 a.m. Mr. Sparrow' wounds inspected, there is no bleeding. Hemoglobin 7.3, hematocrit 22 actually 2 days ago. The plan is to continue his local wound care. No operative intervention is recommended at this time. cc: Asad Alvares MD
[2018-10-21] MEDS: VANCOMYCIN 1,700 MG in NS 250 ML IV SCH (23:24)
[2018-10-22] MEDS: NS 1,000 ML IV SCH ×4 (01:36→23:33)
[2018-10-22] MEDS: DUONEB (A & A) INH SCH ×4 (03:20→21:30)
[2018-10-22] MEDS: HUMALOG SUBQ SCH ×4 (06:10→20:52)
[2018-10-22] MEDS: PROTONIX PO SCH (06:10)
[2018-10-22 08:34] LABS: HEMATOCRIT 18.6 % (42.0-52.0); HEMOGLOBIN 6.2 g/dL (14.0-18.0); IMM GRAN# 0.02 X1000 (0.0-0.04); IMM GRAN% 6.5 % (0.0-0.5); LYMPH# 0.23 X1000 (1.2-3.4); LYMPH% 74.2 % (20.5-51.1); MCH 29.7 PG (27-31); MCHC 33.3 g/dL (33-37); MONO# 0.02 X1000 (0.11-0.59); MONO% 6.5 % (1.7-9.3); MPV 10.8 FL (7.4-10.4); NEUT# 0.04 X1000 (1.4-6.5); NEUT% 12.8 % (42.2-75.2); PLT 28 X1000 (130-400); RBC 2.09 XMIL (4.7-6.1); RDW 19.7 % (11.5-14.5); WBC 0.31 X1000 (4.8-10.8)
[2018-10-22 08:54] LABS: HYPOCHROM 1+; LYMPHS 90 % (21-51); SEGS 10 % (42-75)
[2018-10-22] MEDS: NEURONTIN PO SCH ×3 (09:46→20:52)
[2018-10-22] MEDS: GRANIX SUBQ SCH (09:46)
[2018-10-22] MEDS: TUMS EXTRA STRENGTH PO SCH (09:46)
[2018-10-22] MEDS: MAXIPIME 2 GM in NS 100 ML IV SCH ×2 (09:46→20:52)
[2018-10-22] MEDS: MORPHINE IV PRN ×2 (09:52→15:31)
[2018-10-22] MEDS: NORCO-7.5 PO PRN (11:09)
[2018-10-22] MEDS ORDERED: AYR NASAL SPRAY NAS PRN (12:00)
[2018-10-22] MEDS: AYR NASAL SPRAY NAS SCH ×2 (14:53→23:32)
--- NOTE | 2018-10-22 15:13 | GENERAL SURGERY PROGRESS NOTE ---
DATE: 10/22/2018 11:30 in the morning. He is afebrile. His bandage remained dry. There is no evidence of bleeding. His white count is 310, hemoglobin 6.2, hematocrit 18.6, platelet count 28,000. No operative intervention is needed at this time. cc: Asad Alvares MD
--- NOTE | 2018-10-22 18:50 | PROGRESS NOTE ---
DATE: 10/22/2018 SUBJECTIVE: Patient resting in bed comfortable. Not in any obvious distress. OBJECTIVE: Vital Signs: Temperature 98.3, pulse 102, blood pressure 150/58, oxygen is 95%. HEENT: Atraumatic, normocephalic. Cardiovascular: S1, S2. Respiratory: Has evidence of good air entry bilaterally. Abdomen: Soft, nontender. No masses felt. Extremities: No evidence of edema. Central Nervous System: No obvious focal deficits noted. LABS: WBC 8.31, hematocrit 18.6, with a platelet count of 28,000. ASSESSMENT AND PLAN: 1. MRSA bacteremia/urinary tract infection/pneumonia. Continue antibiotics as recommended by Infectious Disease. 2. Pancytopenia. We will type, cross, transfuse 2 units of packed red blood cells. 3. History of lung cancer. Oncology consulted. 4. Substance abuse. The patient will need counseling to stop drug use. 5. DVT prophylaxis. Arixtra. 6. GI prophylaxis. PPI. cc: Luís Blue MD
[2018-10-22] MEDS: VANCOMYCIN 1,700 MG in NS 250 ML IV SCH (23:27)
[2018-10-23] MEDS: NS 1,000 ML IV SCH
[2018-10-23] MEDS: NORCO-7.5 PO PRN ×2 (01:34→09:50)
[2018-10-23] MEDS: DUONEB (A & A) INH SCH ×4 (03:07→21:43)
[2018-10-23] MEDS: LASIX IV SCH ×4 (03:20→18:36)
--- NOTE | 2018-10-23 05:46 | GENERAL SURGERY PROGRESS NOTE ---
DATE: 10/23/2018 Reviewed notes from the weekend. Reviewed microbiology. His most recent blood cultures were taken from 10/22/2018. His wound did show Staphylococcus aureus. Blood cultures taken on 10/22/2018 show some gram-positive cocci on one of the cultures. At this point, we will continue to monitor him He still has significant pancytopenia. Again, we will continue to monitor him peripherally until his blood cultures are negative and his pancytopenia is improved somewhat to put him through an operation. cc: Leo Cheney MD MTDD
[2018-10-23] MEDS: HUMALOG SUBQ SCH ×4 (06:21→20:28)
--- NOTE | 2018-10-23 06:55 | INFECTIOUS DISEASE PROGRESS NO ---
DATE: 10/23/2018 PRESENT ILLNESS: Patient has a methicillin-resistant Staph aureus bacteremia which originated from his Port-A-Cath. He continues to have positive blood cultures despite the fact that the Port- A-Cath has been removed. MEDICATIONS: The patient is on a combination of vancomycin and cefepime. The patient has been receiving antibiotics for 5 days now. PHYSICAL EXAMINATION: Vital Signs: Temperature is 97.9, pulse 107, respirations 17, blood pressure 120/58. General: This is a chronically ill-appearing, middle-aged male. He has diffuse edema. HEENT: He can hear my spoken words and see near objects. He does not have any white coating on his tongue. Neck: No meningismus. Lungs: Clear to auscultation. Cardiovascular: Regular heart rate. Thorax: The patient's Port-A-Cath site on the left chest has a dressing on it, the dressing is intact. Lungs: Clear to auscultation. Cardiovascular: Regular heart rate. Abdomen: Soft and nontender. Neurologic: The patient is awake. He barely moves his arms and legs because he says he is weak and it also hurts him. There appears to be generalized edema in his legs and arms. Neurologic: The patient is awake. He, as mentioned above, can barely move his arms and legs because he says he is weak and because it hurts him. There is no tremor. LAB AND X-RAY: CBC for today shows a white count of 310, hemoglobin 6.2, and platelet count 28,000. Bilirubin is 5.46. Creatinine is 1.1. GFR is greater than 60. The methicillin- resistant Staph is growing from the patient's left chest Port-A-Cath site. One out of two repeat blood cultures drawn yesterday are growing gram-positive cocci. ASSESSMENT AND PLAN: Patient has methicillin-resistant Staph aureus bacteremia, urinary tract infection and a Port-A-Cath infection. He continues to have positive blood cultures. I have gone ahead and added rifampin to the vancomycin the patient already is receiving. I have ordered a chest x-ray to see if the patient has pneumonia. I have ordered a CBC for tomorrow morning. I have gone ahead and added rifampin 600 mg p.o. daily. The patient has a CMP which was ordered for today, the results of which are pending. I am going to continue the current antibiotic regimen, namely vancomycin, cefepime and also add rifampin as mentioned above. COMORBIDITIES: The main one is he has stage IV lung cancer. He is on chemotherapy and he has pancytopenia. He also has gastroesophageal reflux disease and diabetes mellitus. cc: Reinier Mendoza MD
[2018-10-23] MEDS: PROTONIX PO SCH (07:05)
[2018-10-23] MEDS: AYR NASAL SPRAY NAS SCH ×3 (08:19→20:36)
[2018-10-23] MEDS: MAXIPIME 2 GM in NS 100 ML IV SCH ×2 (08:19→20:30)
[2018-10-23] MEDS: RIFAMPIN PO SCH (08:19)
[2018-10-23] MEDS: NEURONTIN PO SCH ×3 (08:19→20:27)
--- NOTE | 2018-10-23 08:54 | Diag Imaging Result Doc PS360 ---
EXAM: CHEST-1 VIEW HISTORY: pmeumonia TECHNIQUE: Portable chest COMPARISON: 10/18/2018 FINDINGS: Opacification of the right upper lobe remains. The left jugular line has been removed. No pneumothorax. No pleural effusions identified. No cardiomegaly. IMPRESSION: No interval improvement. Electronically signed by Shelton Link 10/23/2018 8:52 AM
[2018-10-23] MEDS: ALBUMIN 25% IV SCH (09:43)
[2018-10-23 10:58] LABS: BASO# 0.02 X1000 (0.0-0.2); BASO% 1.9 % (0.0-0.8); EOS# 0.02 X1000 (0.0-0.7); EOS% 1.9 % (0.0-10.0); HEMATOCRIT 26.1 % (42.0-52.0); HEMOGLOBIN 9.1 g/dL (14.0-18.0); IMM GRAN# 0.02 X1000 (0.0-0.04); IMM GRAN% 1.9 % (0.0-0.5); LYMPH# 0.42 X1000 (1.2-3.4); LYMPH% 38.9 % (20.5-51.1); MCH 29.8 PG (27-31); MCHC 34.9 g/dL (33-37); MCV 85.6 FL (81-99); MONO# 0.04 X1000 (0.11-0.59); MONO% 3.7 % (1.7-9.3); MPV 11.8 FL (7.4-10.4); NEUT# 0.56 X1000 (1.4-6.5); NEUT% 51.7 % (42.2-75.2); RBC 3.05 XMIL (4.7-6.1); RDW 18.2 % (11.5-14.5); WBC 1.08 X1000 (4.8-10.8)
[2018-10-23 10:59] LABS: PLT 15 X1000 (130-400)
[2018-10-23] MEDS: GRANIX SUBQ SCH (11:28)
[2018-10-23] MEDS: MORPHINE IV PRN ×2 (11:28→20:27)
[2018-10-23 11:39] LABS: BANDS 4 % (0-1); LYMPHS 40 % (21-51); MONO 4 % (1-9); SEGS 52 % (42-75)
[2018-10-23 11:40] LABS: ANISOCYTOSIS 1+; HYPOCHROM OCCASIONAL; MICROCYTOSIS 1+
[2018-10-23 11:58] LABS: AGAP 17; ALB/GLOB RATIO 0.8; ALBUMIN 2.7 g/dL (3.5-5.0); ALKALINE PHOSPHATASE 183 U/L (32-122); BUN 25 mg/dL (8-22); CHLORIDE 105 mmol/L (98-107); COSMO 288; ESTIMATED GFR > 60; GLUCOSE 166 mg/dL (70-104); GOT 90 U/L (10-34); GPT 44 U/L (10-44); POTASSIUM 3.3 mmol/L (3.5-5.1); SODIUM 140 mmol/L (136-145); TCO2 18 mmol/L (25-35); TOTAL BILIRUBIN 9.22 mg/dL (0.20-1.00); TOTAL PROTEIN 5.9 g/dL (6.3-8.3)
[2018-10-23 12:00] LABS: CALCIUM 6.6 mg/dL (8.8-10.2)
[2018-10-23] MEDS ORDERED: CALCIUM GLUCONATE 2 GM in NS 100 ML IV ONE (12:04)
[2018-10-23] MEDS ORDERED: NS 500 ML ONE (12:51)
[2018-10-23] MEDS ORDERED: NS 500 ML IV SCH (13:00)
[2018-10-23] MEDS ORDERED: KLOR-CON PO ONE (15:10)
[2018-10-23] MEDS: VANCOMYCIN 1,700 MG in NS 250 ML IV SCH (21:08)
[2018-10-24] MEDS: DUONEB (A & A) INH SCH ×4 (03:31→22:45)
--- NOTE | 2018-10-24 03:52 | PROGRESS NOTE ---
DATE: 10/23/2018 SUBJECTIVE: The patient is resting in bed. He states that his arms and lungs are so swollen that he can barely move. OBJECTIVE: Vital Signs: Temperature 98.2 degrees, blood pressure 151/80, heart rate 93, respirations 18, O2 saturations 100% on 2 L nasal cannula. Urine output 2.5 L. General: This is a chronically ill-appearing elderly male lying in bed in no acute distress. Heart: S1, S2 normal. Tachycardic. Lungs: Equal air entry bilaterally. No wheezing, no rales. Abdomen: Positive bowel sounds, soft. Extremities: 3+ edema. Neuro: The patient is alert and oriented x3. LABS: White blood cell count 1, hemoglobin 9.1, hematocrit 26, platelets 15,000 , sodium 140, potassium 3.3, chloride 105, CO2 18, BUN 25, creatinine 1, glucose 166, calcium 6.6, total bilirubin 9.2, AST 90, ALT 44, alkaline phosphatase 183. ASSESSMENT AND PLAN: 1. Bacteremia secondary to methicillin-resistant Staphylococcus aureus. So far the patient's blood cultures are still positive. Will continue with antibiotic therapy as directed by Dr. Mendoza. 2. Urinary tract infection secondary to methicillin-resistant Staphylococcus aureus. Continue with antibiotic regimen as ordered. 3. Pancytopenia. This is likely secondary to the patient's recent chemotherapy. Will transfuse p.r.n. The patient is also on Granix. Will remain on neutropenic precautions. 4. Stage IV lung cancer status post chemotherapy. Management as per the oncologist. 5. Severe protein calorie malnutrition. The patient has been encouraged to eat more. Will also consult the dietitian for recommendations on supplements. 6. Volume overload. Will discontinue the IV fluids and start the patient on IV Lasix and albumin infusions. 7. Chronic pain. Continue on p.r.n. pain medication. 8. Elevated liver function tests. The patient has hepatitis C. Will repeat the hepatitis profile and obtain an abdominal ultrasound. cc: Dee Chambers MD MTDD
[2018-10-24] MEDS: LASIX IV SCH ×2 (06:34→17:31)
[2018-10-24] MEDS: PROTONIX PO SCH (06:35)
[2018-10-24] MEDS: HUMALOG SUBQ SCH ×4 (06:39→22:35)
[2018-10-24 07:51] LABS: EOS# 0.01 X1000 (0.0-0.7); EOS% 0.3 % (0.0-10.0); HEMOGLOBIN 9.1 g/dL (14.0-18.0); LYMPH# 0.63 X1000 (1.2-3.4); LYMPH% 18.4 % (20.5-51.1); MCH 29.9 PG (27-31); MCV 85.5 FL (81-99); MONO# 0.03 X1000 (0.11-0.59); MONO% 0.9 % (1.7-9.3); MPV 11.7 FL (7.4-10.4); NEUT# 2.75 X1000 (1.4-6.5); NEUT% 80.4 % (42.2-75.2); RBC 3.04 XMIL (4.7-6.1); RDW 18.7 % (11.5-14.5); WBC 3.42 X1000 (4.8-10.8)
[2018-10-24 07:53] LABS: PLT 15 X1000 (130-400)
[2018-10-24 08:08] LABS: AGAP 14; ALB/GLOB RATIO 0.9; ALBUMIN 2.7 g/dL (3.5-5.0); ALKALINE PHOSPHATASE 222 U/L (32-122); BUN 25 mg/dL (8-22); CHLORIDE 103 mmol/L (98-107); COSMO 283; ESTIMATED GFR > 60; GLUCOSE 115 mg/dL (70-104); GOT 97 U/L (10-34); GPT 51 U/L (10-44); MAGNESIUM 1.3 mg/dL (1.5-2.7); PHOSPHORUS 1.6 mg/dL (2.7-4.5); POTASSIUM 3.3 mmol/L (3.5-5.1); SODIUM 139 mmol/L (136-145); TCO2 22 mmol/L (25-35); TOTAL BILIRUBIN 12.71 mg/dL (0.20-1.00); TOTAL PROTEIN 5.6 g/dL (6.3-8.3)
[2018-10-24 08:14] LABS: HEMOGLOBIN A1C 5.5 % (4.8-6.0)
[2018-10-24 09:38] LABS: CALCIUM 6.9 mg/dL (8.8-10.2)
[2018-10-24] MEDS ORDERED: CALCIUM GLUCONATE 2 GM in NS 100 ML IV ONE (09:56)
--- NOTE | 2018-10-24 10:07 | Diag Imaging Result Doc PS360 ---
EXAM: US ABDOMEN-COMPLETE INDICATION: elevated lfts COMPARISON: None. FINDINGS: There is echogenic sludge that is layering in the gallbladder lumen. No shadowing stones are identified. There is no evidence of gallbladder wall thickening or pericholecystic fluid. The common bile duct is normal in diameter. The liver is grossly unremarkable. Portal venous flow is hepatopetal. The visualized pancreas is unremarkable by ultrasound. No discrete hepatic mass is identified. The aorta and IVC are grossly unremarkable. The spleen is mildly prominent measuring up to 13.8 cm. The kidneys are grossly unremarkable. IMPRESSION: 1.Echogenic sludge in the gallbladder lumen. 2.Mildly prominent spleen. Electronically signed by Bryson Alarcon 10/24/2018 10:05 AM
[2018-10-24] MEDS ORDERED: MAGNESIUM SULFATE 2 GM/S.W.I. 2 GM/50 ML IVPB IV ONE (11:00)
[2018-10-24] MEDS: NEURONTIN PO SCH ×3 (11:05→17:38)
[2018-10-24] MEDS: RIFAMPIN PO SCH (11:05)
[2018-10-24] MEDS: MAXIPIME 2 GM in NS 100 ML IV SCH (11:07)
[2018-10-24] MEDS: MORPHINE IV PRN ×2 (11:39→16:05)
[2018-10-24] MEDS ORDERED: POTASSIUM PHOSPHATE 40 MMOL in NS 250 ML IV ONE (12:00)
[2018-10-24] MEDS: GRANIX SUBQ SCH (12:09)
[2018-10-24] MEDS: AYR NASAL SPRAY NAS SCH ×3 (12:09→17:31)
[2018-10-24] MEDS: ALBUMIN 25% IV SCH (12:09)
--- NOTE | 2018-10-24 14:04 | INFECTIOUS DISEASE PROGRESS NO ---
DATE: 10/24/2018 PRESENT ILLNESS: Patient has a persistent Staph aureus bacteremia despite being on vancomycin and rifampin. The bacteremia originated from an infected Port-A-Cath, which has been removed. The patient does have a pulmonary infiltrate. If it is a pneumonia, I think it would be most likely due to methicillin-resistant Staph aureus and it occurred because the patient was bacteremic. MEDICATIONS: As mentioned above, patient is on vancomycin and rifampin. He also has been receiving cefepime. PHYSICAL EXAMINATION: Vital Signs: Temperature is 99.1, pulse 101, respirations 16, blood pressure 125/77. General: This is a chronically ill-appearing, middle-aged male. He is in no acute distress. His generalized edema is getting better. HEENT: He can hear my spoken words and see near objects. He does not have any white patches on his tongue. Neck: No stiffness. Lungs: Clear to auscultation. Cardiovascular: Regular heart rate. Thorax: The patient's left chest Port-A-Cath site is not swollen or tender. Abdomen: Soft and nontender. Neurologic: Patient is awake. He talks in a coherent fashion. He can move his extremities. LAB AND X-RAY: There is no new x-ray for today. The patient's ultrasound showed gallbladder sludge. Creatinine is 1. GFR is greater than 60. Bilirubin is 12. Alkaline phosphatase is 222. Repeat blood cultures are growing methicillin-resistant Staph aureus. ASSESSMENT AND PLAN: Patient continues to have bacteremia. I am going to switch him to daptomycin and discontinue vancomycin and rifampin. If the patient still has pneumonia, I think it would be due to Staph aureus and because the patient had bacteremia which could have seeded the lung. The patient is not having a symptomatic urinary tract infection, so I do not think treatment is necessary for that. I have switched the patient to daptomycin, and after 48 hours of being on daptomycin. I will repeat the patient's blood cultures. I have ordered a portable x-ray for tomorrow. COMORBIDITIES: The patient has stage IV lung cancer, for which he is on chemotherapy. He has pancytopenia. cc: Reinier Mendoza MD [facility]
--- NOTE | 2018-10-24 15:32 | PROGRESS NOTE ---
DATE: 10/24/2018 SUBJECTIVE: The patient is resting in bed. He states that he is still having a lot of difficulty moving his arms and legs due to swelling. He states that he does not have an appetite. OBJECTIVE: Vital Signs: Temperature 98.7, blood pressure 115/68, heart rate 101, respirations 18, O2 sats 99% on 2 L nasal cannula. Urine output is 7.1 L. General: This is a chronically ill- appearing elderly male lying in bed in no acute distress. Skin: No rashes, no lesions. Heart: S1, S2 normal. Regular rate and rhythm. Lungs: Equal air entry bilaterally. No crackles. No rales. Abdomen: Positive bowel sounds. Soft, nontender, mildly distended. Extremities: 3+ edema. Neurologic: The patient is alert and oriented x 3. No focal neurologic deficits noted. LABS: White blood cell count 3.4, hemoglobin 9.1, hematocrit 26, platelets 15, 000. Sodium 139, potassium 3.3, chloride 103, CO2 22, BUN 25, creatinine 1, glucose 115, calcium 6.9, phosphorus 1.6, magnesium 1.3, total bilirubin 12, direct bilirubin 9.8. AST 97, ALT 51, alkaline phosphatase 222, albumin 2.7. ASSESSMENT AND PLAN: 1. Bacteremia secondary to MRSA. Continue with antibiotic therapy as directed by Dr. Mendoza. 2. Status post removal of infected Port-A-Cath. Aware. 3. Urinary tract infection secondary to MRSA. Continue with antibiotic therapy. 4. Elevated LFTs. The elevation is worse today. GI has been consulted for further recommendations. 5. Pancytopenia. The patient is no longer neutropenic. We will continue to monitor and transfuse p.r.n. 6. Stage IV lung cancer status post chemotherapy. Management as per the oncologist. 7. Severe protein calorie malnutrition. Continue with meal supplements. 8. Volume overload. Improved. Continue on IV Lasix and albumin. 9. Chronic pain. Continue with p.r.n. pain medication. 10. GI prophylaxis. Continue on Protonix. 11. Diabetes mellitus type 2. Continue on sliding scale insulin. 12. Disposition. The patient will likely require inpatient rehab placement once he is medically stable. cc: Dee Chambers MD [facility]
[2018-10-24] MEDS: CUBICIN 500 MG in NS 100 ML IV SCH (15:57)
--- NOTE | 2018-10-24 19:46 | HEMO/ONC CONSULTATION ---
DATE: 10/24/2018 ADMITTING PHYSICIAN: Dr. Dodge. REQUESTING PHYSICIAN: Dr. Dodge. We appreciate this consult. CHIEF COMPLAINT: Stage IV non-small cell lung cancer. HISTORY OF PRESENT ILLNESS: Mr. Sparrow is a 52-year-old male well known to Dr. Ramires with a history of stage IV non-small cell lung cancer. He is currently on Keytruda/Alimta/carboplatin. His last treatment was on 10/12/2018. The patient presented to [facility] Emergency Department with complaint of generalized pain, cough, fatigue and subjective fever. The patient reports that he had been feeling increasingly worse after his last chemotherapy. Port-A-Cath in his left upper chest was found to have drainage with crusting and a 1 cm opening of the skin adjacent to the port. The patient denies using his port for anything; however, the patient's urine drug screen was positive for cocaine and opiates. The patient reports that he has been using multiple street drugs for his pain prior to admission. Of note, the patient also received Neulasta on 10/13 prior to admission. White blood cell count was noted to be 0.59, hemoglobin 7.2, hematocrit 22.2, platelet count 19,000. Urinalysis was nitrite positive with 3+ blood and 2+ bacteria. Urine drug screen was positive for opiates and cocaine. The patient underwent influenza A and B testing which were both negative. Chest x-ray revealed slight interval improvement in the expansion of the right lung with consolidation in right upper lobe. We are consulted as the patient is well known to us. PAST MEDICAL HISTORY: 1. Hypertension. 2. Stage IV lung cancer. 3. Gastroesophageal reflux disease. 4. Chronic pain. 5. Diabetes mellitus type 2. PAST SURGICAL HISTORY: Left upper chest port placement. FAMILY HISTORY: Negative for any hematologic or oncologic problems. SOCIAL HISTORY: The patient smokes 1 pack cigarettes daily. He denies alcohol use. He does not admit to specific drug use, but states that he used multiple street drugs to control his pain prior to admission. Additionally, his urine is positive for cocaine and opiates. MEDICATIONS ON ADMISSION: 1. Acetaminophen. 2. Lasix. 3. Gabapentin. 4. Hydrocodone, 5. Insulin Humalog. 6. Magnesium sulfate. ALLERGIES: The patient has no known drug allergies. REVIEW OF SYSTEMS: A 14-point review of systems was obtained and is negative except for mentioned in HPI. PHYSICAL EXAMINATION: Mr. Sparrow is a 52-year-old male lying supine in bed, somewhat dyspneic, wearing a nonrebreather. He is somnolent at this time. He is in no acute distress.Vital Signs: Temperature 99.6, blood pressure 114/61, heart rate 98, respirations 16, O2 saturation 94% on nonrebreather. HEENT: Normocephalic, atraumatic. Mucous membranes pale and somewhat dry. Sclerae is anicteric. Extraocular movements intact. Neck: Supple. Lungs: With coarse breath sounds throughout. Cardiovascular: S1, S2 heard. No murmurs, rubs or gallops. Abdomen: Nondistended. Extremities: Without clubbing, cyanosis or edema. Dermatologic: No rashes, bruises or lesions. Neurologic: The patient is somnolent; however, he is oriented x3. He has no focal deficits. LABORATORY DATA: Hemoglobin 7.3, hematocrit 22.3, white blood cell count is 0.31, platelets 13,000. ANC 0.10, sodium 137, potassium 4.4, chloride 106, CO2 is 19, BUN 27, creatinine 1.2, glucose is 207, calcium 6.5. Urine drug screen reveals positive opiates and positive for cocaine. ASSESSMENT AND PLAN: 1. Stage IV non-small cell lung cancer. On Keytruda/Alimta/carboplatin with treatment being 10/12/2018. Additionally, the patient received Neulasta on 10/13/2018. 2. Right upper lobe pneumonia, urinary tract infection and bacteremia. The patient is currently on vancomycin and Zosyn. 3. Pancytopenia. We would monitor CBC. Would give 1 unit packed red blood cells and 1 unit of platelets at this time. Additionally, we will place the patient on Granix daily. 4. We will follow along with you and make further recommendations pending outcomes. The above reflects the history exam, assessment and plan of Dr. Ramires. Dictated by SOPHIA Olivares for Ranjeet Ramires MD cc: SOPHIA Olivares MD
[2018-10-24] MEDS: NORCO-7.5 PO PRN (22:35)
[2018-10-25] MEDS: MORPHINE IV PRN ×2 (02:46→18:38)
[2018-10-25] MEDS: DUONEB (A & A) INH SCH ×4 (03:16→21:47)
[2018-10-25] MEDS: LASIX IV SCH ×2 (06:30→18:42)
[2018-10-25] MEDS: PROTONIX PO SCH (06:30)
[2018-10-25] MEDS: NORCO-7.5 PO PRN ×4 (06:31→21:44)
[2018-10-25] MEDS: HUMALOG SUBQ SCH ×4 (06:31→21:45)
--- NOTE | 2018-10-25 07:06 | Diag Imaging Result Doc PS360 ---
EXAM: CHEST-1 VIEW 10/25/2018 HISTORY: pneumonia TECHNIQUE: AP portable at 0559 COMMENT: There is apparent collapse of the right upper lobe, with increased volume loss since 08/21/2018. Considering differences in inspiration and technique there has been no appreciable change since 10/18/2018. IMPRESSION: Collapse of the right upper lobe with dense opacification and what appears to be a reversed S sign of Drew. This is highly suspicious for an endobronchial lesion with resulting atelectasis. This is consistent with the findings on the previous CT of the chest dated 06/30/2018. Electronically signed by John Yo 10/25/2018 7:03 AM
[2018-10-25 07:47] LABS: AGAP 14; ALBUMIN 2.9 g/dL (3.5-5.0); ALKALINE PHOSPHATASE 260 U/L (32-122); BUN 27 mg/dL (8-22); CALCIUM 7.2 mg/dL (8.8-10.2); CHLORIDE 98 mmol/L (98-107); COSMO 284; CREATININE 1.1 mg/dL (0.7-1.2); DIRECT BILIRUBIN > 10.00 mg/dL (0.00-0.20); ESTIMATED GFR > 60; GLUCOSE 164 mg/dL (70-104); GOT 94 U/L (10-34); GPT 43 U/L (10-44); MAGNESIUM 1.5 mg/dL (1.5-2.7); PHOSPHORUS 2.1 mg/dL (2.7-4.5); SODIUM 138 mmol/L (136-145); TCO2 26 mmol/L (25-35); TOTAL BILIRUBIN 14.04 mg/dL (0.20-1.00); TOTAL PROTEIN 5.8 g/dL (6.3-8.3)
[2018-10-25 07:59] LABS: BASO# 0.01 X1000 (0.0-0.2); BASO% 0.2 % (0.0-0.8); EOS# 0.01 X1000 (0.0-0.7); EOS% 0.2 % (0.0-10.0); HEMATOCRIT 25.2 % (42.0-52.0); HEMOGLOBIN 8.7 g/dL (14.0-18.0); IMM GRAN# 0.25 X1000 (0.0-0.04); IMM GRAN% 4.3 % (0.0-0.5); LYMPH# 0.74 X1000 (1.2-3.4); LYMPH% 12.9 % (20.5-51.1); MCH 29.5 PG (27-31); MCHC 34.5 g/dL (33-37); MCV 85.4 FL (81-99); MONO# 0.12 X1000 (0.11-0.59); MONO% 2.1 % (1.7-9.3); MPV 10.2 FL (7.4-10.4); NEUT# 4.62 X1000 (1.4-6.5); NEUT% 80.3 % (42.2-75.2); RBC 2.95 XMIL (4.7-6.1); WBC 5.75 X1000 (4.8-10.8)
[2018-10-25 08:02] LABS: PLT 9 X1000 (130-400)
[2018-10-25 08:18] LABS: LYMPHS 12 % (21-51); MONO 2 % (1-9); SEGS 86 % (42-75)
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
[2018-10-25] MEDS ORDERED: POTASSIUM CHLORIDE 60 MEQ in NS 500 ML IV ONE (09:37)
[2018-10-25] MEDS ORDERED: MAGNESIUM SULFATE 2 GM/S.W.I. 2 GM/50 ML IVPB IV ONE (09:37)
[2018-10-25] MEDS: AYR NASAL SPRAY NAS SCH ×4 (10:20→18:39)
[2018-10-25] MEDS: NEURONTIN PO SCH ×3 (10:20→18:42)
[2018-10-25 14:08] LABS: HEPATITIS PROFILE ACUTE SEE COMMENTS
--- NOTE | 2018-10-25 14:36 | PROGRESS NOTE ---
DATE: 10/25/2018 SUBJECTIVE: The patient states that the swelling is going down in his arms and legs. He states that he is trying to start working with the physical therapist more. OBJECTIVE: Vital Signs: Temperature 98.5, blood pressure 132/72, heart rate 84 , respirations 16, O2 sats 99% on room air. General: This is a chronically ill-appearing elderly male lying in bed in no acute distress. Heart: S1, S2 normal. Regular rate and rhythm. Lungs: Equal air entry bilaterally. No wheezing. No rales. Abdomen: Positive bowel sounds. Soft, nontender, nondistended. Extremities: 1+ edema. No cyanosis. No calf tenderness. Neurologic: The patient is alert and oriented x 3. LABS: White blood cell count 5.7, hemoglobin 8.7, hematocrit 25, platelets 9000. Sodium 138, potassium 3, chloride 98, CO2 26, BUN 27, creatinine 1.1, glucose 164, calcium 7.2, phosphorus 2.1, magnesium 1.5, total bilirubin 14, AST 94, ALT 43, albumin 2.9. Chest x-ray shows collapse of the right upper lobe with a dense opacification which appears to be an endobronchial lesion. ASSESSMENT AND PLAN: 1. Bacteremia secondary to MRSA. Continue with antibiotic therapy as directed by Dr. Mendoza. 2. Status post removal of an infected Port-A-Cath. Aware. 3. Urinary tract infection secondary to MRSA. Continue with antibiotic therapy. 4. Elevated LFTs. Unchanged. GI is following. 5. Hepatitis C. Aware. 6. Pancytopenia. Transfuse p.r.n. 7. Stage IV lung cancer status post chemotherapy. Management as per the oncologist. 8. Thrombocytopenia. Will transfuse 2 units of platelets today. 9. Volume overload. Improved. Continue with diuretic therapy. 10. Chronic pain. Continue p.r.n. pain medication. 11. GI prophylaxis. Continue on Protonix. 12. Diabetes mellitus type 2. Continue on sliding scale insulin. 13. Disposition. The patient will likely require inpatient rehab once he is medically stable. cc: Dee Chambers MD [facility]
[2018-10-25] MEDS: ALBUMIN 25% IV SCH (15:16)
--- NOTE | 2018-10-25 15:22 | PROGRESS NOTE ---
DATE: 10/25/2018 SUBJECTIVE: Patient states he is sore all over. I believe physical therapy is working with him. He still reports some abdominal tenderness. OBJECTIVE: Vital Signs: Temperature 98.5, pulse 99, respirations 16, blood pressure 112/69. General: Patient is awake, in no acute distress. Abdomen: Soft, but tender, worse at the right upper quadrant. LABORATORY: Hematology: WBC 5.75, hemoglobin 8.7, hematocrit 25.2, MCV 85.4, platelet 9000. Chemistry: Sodium 138, potassium 3.0 chloride 98, CO2 26, BUN 27, creatinine 1.1, glucose 164, calcium 7.2, total bilirubin 14.04. AST 94, ALT 43, alkaline phosphatase 260. Hepatitis panel showed reactive hepatitis C. ASSESSMENT AND PLAN: 1. Bacteremia secondary to MRSA, continuing on antibiotics. Following with Dr. Mendoza. 2. Removal of infected Port-A-Cath. 3. Urinary tract infection, on antibiotics. 4. Elevated liver function tests, elevated bilirubin, possibility of drug-induced liver injury. The patient also has hepatitis C. 5. Hepatitis C reactive. Will check viral load and genotype. 6. Stage IV lung cancer. Following with Dr. Ramires for chemotherapy. 7. Pancytopenia, thrombocytopenia. Patient will receive platelets today. 8. Will continue to follow. Further plans will be made according to his progress. Will repeat function tests tomorrow. Further plans will be made as needed. 9. I have discussed this case with Dr. Franks. Dictated by SOPHIA Calero for Homero Franks MD cc: SOPHIA Gilbert MD
--- NOTE | 2018-10-25 15:56 | Diag Imaging Result Doc PS360 ---
EXAM: CT THORAX W/O CONTRAST INDICATION: pneumonia/lung cancer TECHNIQUE: This exam was performed using automated exposure control, adjustment of mA or kV according to patient size, and/or use of iterative reconstruction technique. COMPARISON: 06/30/2018 FINDINGS: There is a known dominant mass in the right upper lobe peribronchial region that is causing obstructive atelectasis. The mass is very poorly defined and difficult to measure as it blends with the adjacent atelectasis, especially with no IV contrast. There is slightly better aeration of the right upper lobe adjacent to the mass, but this may be due to prior perilesional pneumonia that has improved. Mediastinal and right hilar lymphadenopathy has worsened significantly during the interval however, individual lymph nodes are difficult to distinguish from the surrounding vasculature and the right hilar mass due to lack of IV contrast. There are also several new smaller masses bilaterally. For reference, there is a new right middle lobe mass on image 56 of series 3 that measures up to 1.7 cm. There is a new left lower lobe mass on image 50 of series 3 that measures up to 1.8 cm in the greatest dimension. There are atelectasis and consolidations at both lung bases. There is trace pleural fluid bilaterally. There is no pneumothorax. The heart appears mildly enlarged. Limited views of the upper abdomen reveal mild splenomegaly that has developed during the interval. The spleen measures up to 15 cm in axial length. There is a small lytic foci at the inferior endplate of T11 and at the superior endplate of T6. Although it is possible that they represent new Schmorl's nodes, they are suspicious for metastatic foci. IMPRESSION: 1.Overall worsening with worsened lymphadenopathy and several new lung masses as detailed above. 2.Two new lytic foci involving the thoracic spine as described that are suspicious for metastatic lesions. Electronically signed by Bryson Alarcon 10/25/2018 3:53 PM
--- NOTE | 2018-10-25 16:12 | INFECTIOUS DISEASE PROGRESS NO ---
DATE: 10/25/2018 PRESENT ILLNESS: Mr. Sparrow has methicillin-resistant Staph aureus bacteremia which originated from his infected left Port-A-Cath that has been removed. There is also MRSA growing in his urinary tract. He has had a pancytopenia with some improvement noted, although thrombocytopenia and anemia persist. There are also elevated liver enzymes. MEDICATIONS: Today is day 1 of daptomycin 500 mg IV every 24 hours. PHYSICAL EXAMINATION: Vital Signs: Temp is 98.5, pulse rate 99, respiratory rate 16, blood pressure 112/69, O2 sat is 99% on 2 L nasal cannula. General: This is a chronically ill- appearing, middle-aged gentleman. He is lying in the bed currently in no acute distress. HEENT: Atraumatic, normocephalic. Mucous membranes are pink and moist. Sclerae are icteric. Neck: Supple. Trachea is midline. Cardiovascular: Heart rate and rhythm are regular. Normal sinus rhythm on the monitor. Pedal and radial pulses are palpable bilaterally. Respiratory: Lung sounds have some mild rhonchi noted in the upper lobes, diminished in the bases. Abdomen: Soft, round and tender. Bowel sounds are active. Integumentary: The site of the previous left chest Port-A-Cath is covered with a dressing which is dry and intact. Neurologic: He is awake, alert and oriented. Able to move all his extremities with generalized weakness noted. LABORATORY AND X-RAY: Today his white count is 5.75, hemoglobin 8.7, platelet count is 9000, absolute neutrophil count is 4.62. Creatinine is 1.1. Estimated GFR greater than 60. Total bilirubin is 14.04, direct bilirubin is greater than 10. AST 94, ALT 43, alkaline phosphatase 260. His urine, left chest and blood have all grown methicillin-resistant Staph aureus. Two sets of blood cultures have been positive for MRSA. Chest x-ray today shows collapse of the right upper lobe with dense opacification. ASSESSMENT AND PLAN: Mr. Sparrow has a methicillin-resistant Staphylococcus aureus bacteremia which has not responded well to vancomycin and rifampin. He has been changed to daptomycin which we will continue at this time. The plan is to repeat his blood cultures after he has received 48 hours of daptomycin, so we will order blood cultures for Tuesday morning. At this point, the chest x-ray appears to be atelectasis rather than pneumonia. These plans have been discussed with and recommended by Dr. Mendoza. COMORBIDITIES: For Mr. Sparrow include stage IV lung cancer with chemotherapy and pancytopenia, gastroesophageal reflux disease, and diabetes mellitus. Dictated by SOPHIA Bach for Reinier Mendoza MD This chart was documented by, SOPHIA Bach and accurately reflects the services performed, treatment plan and medical decisions as attested by the providers signature Reinier Mendoza MD. cc: Reinier Mendoza MD [facility]
[2018-10-25] MEDS: CUBICIN 500 MG in NS 100 ML IV SCH (16:18)
[2018-10-26] MEDS: DUONEB (A & A) INH SCH ×4 (03:55→22:14)
[2018-10-26] MEDS: MORPHINE IV PRN ×3 (04:43→14:02)
[2018-10-26] MEDS: TYLENOL PO PRN ×2 (04:53→20:27)
[2018-10-26] MEDS: LASIX IV SCH ×2 (05:05→17:10)
[2018-10-26] MEDS: PROTONIX PO SCH (06:14)
[2018-10-26] MEDS: HUMALOG SUBQ SCH ×4 (06:14→20:27)
[2018-10-26 07:44] LABS: AGAP 16; ALB/GLOB RATIO 1.1; ALBUMIN 3.3 g/dL (3.5-5.0); ALKALINE PHOSPHATASE 248 U/L (32-122); BUN 28 mg/dL (8-22); CALCIUM 7.7 mg/dL (8.8-10.2); CHLORIDE 95 mmol/L (98-107); COSMO 281; CREATININE 1.2 mg/dL (0.7-1.2); DIRECT BILIRUBIN > 10.00 mg/dL (0.00-0.20); ESTIMATED GFR > 60; GLUCOSE 136 mg/dL (70-104); GOT 92 U/L (10-34); GPT 40 U/L (10-44); MAGNESIUM 1.5 mg/dL (1.5-2.7); PHOSPHORUS 1.7 mg/dL (2.7-4.5); POTASSIUM 2.9 mmol/L (3.5-5.1); SODIUM 137 mmol/L (136-145); TCO2 26 mmol/L (25-35); TOTAL BILIRUBIN 15.74 mg/dL (0.20-1.00); TOTAL PROTEIN 6.2 g/dL (6.3-8.3)
[2018-10-26 07:54] LABS: BASO# 0.01 X1000 (0.0-0.2); BASO% 0.2 % (0.0-0.8); HEMATOCRIT 23.9 % (42.0-52.0); HEMOGLOBIN 8.2 g/dL (14.0-18.0); IMM GRAN% 1.8 % (0.0-0.5); LYMPH# 0.76 X1000 (1.2-3.4); LYMPH% 13.7 % (20.5-51.1); MCH 29.6 PG (27-31); MCHC 34.3 g/dL (33-37); MCV 86.3 FL (81-99); MONO# 0.15 X1000 (0.11-0.59); MONO% 2.7 % (1.7-9.3); MPV 10.3 FL (7.4-10.4); NEUT# 4.53 X1000 (1.4-6.5); NEUT% 81.6 % (42.2-75.2); PLT 36 X1000 (130-400); RBC 2.77 XMIL (4.7-6.1); RDW 17.7 % (11.5-14.5); WBC 5.55 X1000 (4.8-10.8)
[2018-10-26] MEDS ORDERED: POTASSIUM PHOSPHATE 40 MMOL in NS 250 ML IV ONE (07:59)
[2018-10-26] MEDS ORDERED: MAGNESIUM SULFATE 2 GM/S.W.I. 2 GM/50 ML IVPB IV ONE (08:00)
[2018-10-26 08:02] LABS: LYMPHS 24 % (21-51); MONO 2 % (1-9); SEGS 74 % (42-75)
[2018-10-26] MEDS: NEURONTIN PO SCH ×3 (09:50→17:10)
[2018-10-26] MEDS: AYR NASAL SPRAY NAS SCH ×3 (09:50→17:11)
--- NOTE | 2018-10-26 14:48 | PROGRESS NOTE ---
DATE: 10/26/2018 SUBJECTIVE: The patient is resting comfortably. He has not had any GI symptoms. He denies any nausea or vomiting but complains of some "soreness" in the abdomen area. He denies any problem with bowel movements OBJECTIVE: Vital Signs: Temperature 98.1, pulse is 92 per minute and regular, breathing at 18, blood pressure 123/66. On examination, he has got deeply icteric sclerae. Conjunctivae normal. Otherwise, no major change. Labs reviewed which showed WBC has gone up to 5.55, hemoglobin is 8.2 with hematocrit 23.9. His platelet is up from 9000; it is 36,000. Bilirubin has crept up to 15.74 mostly direct. AST 92, ALT is down to 40 now. Alkaline phosphatase is down to 248. IMPRESSION: Jaundice, mostly direct bilirubin elevated. Features suggestive of intrahepatic cholestasis and most likely iatrogenic secondary to medications. His transaminases are within acceptable range. Alkaline phosphatase slightly elevated. From GI point of view, there is not much we need to do. Continue current treatment, but I discussed the case with Dr. Mendoza. He may need some adjustment of his medication that will help his bilirubin level. Rest of the medical treatment as per team. cc: Homero Franks MD
[2018-10-26] MEDS ORDERED: DULCOLAX PR ONE (16:04)
--- NOTE | 2018-10-26 16:46 | Diag Imaging Result Doc PS360 ---
EXAM: ABDOMEN FLAT/UPRIGHT 10/26/2018 HISTORY: constipation TECHNIQUE: Flat and upright abdomen COMMENT: There is stool and gas throughout the colon including the rectum. There is no evidence of small bowel dilatation. The stomach is not distended and there is no evidence organomegaly or mass. IMPRESSION: Constipation. Electronically signed by John Yo 10/26/2018 4:44 PM
[2018-10-26] MEDS: CUBICIN 500 MG in NS 100 ML IV SCH (17:10)
--- NOTE | 2018-10-26 18:28 | INFECTIOUS DISEASE PROGRESS NO ---
DATE: 10/26/2018 HISTORY OF PRESENT ILLNESS: The patient has methicillin-resistant Staph aureus bacteremia which originated from his left-sided portacath. The port has been removed. The patient also has a methicillin-resistant Staph aureus urinary tract infection. The patient has pancytopenia. The patient has elevated liver enzymes. MEDICATIONS: This is the second day of treatment with daptomycin. PHYSICAL EXAMINATION: Vital Signs: Temperature is 98.1, pulse 92, respirations 18, blood pressure 123/66. General: This is a lzapksnyzkl-ezf-vwwoyvpvi middle-aged male. He is in no acute distress. HEENT: The patient has scleral icterus. He does not have any white patches on his tongue. There is no drainage from his nose or ears. Neck: No meningismus. Lungs: Clear to auscultation. Cardiovascular: Regular heart rate. Abdomen: Soft and nontender. Thorax: The patient's portacath site is not swollen. There is a small amount of serosanguineous drainage. Neurologic: The patient is awake. He can move his extremities, but he is weak. There is no tremor. LAB AND X-RAY: CT scan of the chest shows worsening adenopathy with multiple new lung masses and multiple new lytic spine lesions. His CBC shows a white count of 5550, hemoglobin of 8.2, and platelet count of 36,000. The patient's creatinine is 1.2. The GFR is greater than 60. The patient's bilirubin is 15.74. The alkaline phosphatase is 248. The patient's last blood cultures drawn on October 22 grew Staph aureus. ASSESSMENT/PLAN: The patient has a methicillin-resistant Staphylococcus aureus bacteremia and urinary tract infection. My plan is to continue daptomycin. Tomorrow we are going to repeat the blood cultures, and hopefully they will be negative. COMORBIDITY: The patient's comorbidities, the main one is that he has stage IV lung cancer with multiple metastatic lesions. The patient also has pancytopenia, gastroesophageal reflux disease, and diabetes mellitus. I plan to continue with daptomycin. cc: Reinier Mendoza MD [facility]ITAL[facility]
--- NOTE | 2018-10-26 18:37 | PROGRESS NOTE ---
DATE: 10/26/2018 SUBJECTIVE: The patient is resting comfortably in bed. He states that he has regained more of his mobility now that the fluid accumulation has decreased. OBJECTIVE: Vital Signs: Temperature 98.6, blood pressure 127/63, heart rate 103, respirations 16, O2 sats 100% on room air. General: This is a elderly male lying in bed in no acute distress. Heart: S1, S2 normal. Regular rate and rhythm. Lungs: Equal air entry bilaterally. No crackles. No rales. Abdomen: Distended, nontender. Positive bowel sounds. Extremities: Trace pedal edema. No cyanosis. No calf tenderness. Neurologic: The patient is alert and oriented x 3. LABS: White blood cell count 5.5, hemoglobin 8.2, hematocrit 23, platelets 36, 000. Chloride 95, CO2 26, BUN 28, creatinine 1.2, sodium 137, potassium 2.9, calcium 7.7, phosphorus 1.7, magnesium 1.5, total bilirubin 15. AST 92, ALT 40, alkaline phosphatase 248. ASSESSMENT AND PLAN: 1. Bacteremia secondary to MRSA. Continue with antibiotic therapy. 2. Status post removal of an infected Port-A-Cath. Aware. 3. Urinary tract infection secondary to MRSA. Continue with the current antibiotic regimen. 4. Elevated LFTs. Likely medication induced. GI is following. 5. Hepatitis C. Aware. 6. Pancytopenia. We will continue to monitor the counts and transfuse p.r.n. 7. Constipation. Will start the patient on scheduled laxative therapy. 8. Hypophosphatemia. Will replace the patient's phosphorus. 9. Hypokalemia. Will replace the patient's potassium. 10. Hypomagnesemia. Will replace the patient's magnesium. 11. Chronic pain. Continue with p.r.n. pain medication. 12. Volume overload. Slowly improving. We will continue with diuretic therapy. 13. Diabetes mellitus type 2. Continue on sliding scale insulin. 14. GI prophylaxis. Continue on Protonix. cc: Dee Chambers MD MTDD
[2018-10-26 19:23] LABS: MAGNESIUM 1.7 mg/dL (1.5-2.7); PHOSPHORUS 2.4 mg/dL (2.7-4.5); POTASSIUM 3.5 mmol/L (3.5-5.1)
[2018-10-26] MEDS: NORCO-7.5 PO PRN (20:27)
[2018-10-26] MEDS ORDERED: MIRALAX PO SCH (21:00)
[2018-10-26] MEDS ORDERED: LACTULOSE PO SCH (21:00)
[2018-10-27] MEDS: DUONEB (A & A) INH SCH ×4 (03:18→21:46)
[2018-10-27 05:44] LABS: ALB/GLOB RATIO 1.3; ALBUMIN 3.4 g/dL (3.5-5.0); ALKALINE PHOSPHATASE 247 U/L (32-122); DIRECT BILIRUBIN > 10.00 mg/dL (0.00-0.20); GOT 89 U/L (10-34); GPT 42 U/L (10-44); TOTAL BILIRUBIN 15.36 mg/dL (0.20-1.00)
[2018-10-27] MEDS: HUMALOG SUBQ SCH ×4 (06:43→21:54)
[2018-10-27] MEDS: MOVANTIK PO SCH (06:44)
[2018-10-27] MEDS: LASIX IV SCH (06:44)
[2018-10-27] MEDS: MORPHINE IV PRN ×3 (06:44→19:51)
[2018-10-27] MEDS: PROTONIX PO SCH (06:44)
--- NOTE | 2018-10-27 07:19 | Diag Imaging Result Doc PS360 ---
EXAM: CHEST-1 VIEW HISTORY: pneumonia TECHNIQUE: Portable chest COMPARISON: 10/25/2018 FINDINGS: The lungs are well expanded. The heart is not enlarged. The vessels are not distended. There is consolidation in the right upper lobe. The appearance is similar to the prior exam. Questionable small nodules in the lower lungs. Recent CT demonstrated several nodules. No effusion identified. IMPRESSION: No interval improvement. Electronically signed by Shelton Link 10/27/2018 7:16 AM
[2018-10-27 08:45] LABS: AGAP 16; BUN 32 mg/dL (8-22); CALCIUM 7.3 mg/dL (8.8-10.2); CHLORIDE 95 mmol/L (98-107); COSMO 284; CREATININE 1.3 mg/dL (0.7-1.2); ESTIMATED GFR > 60; GLUCOSE 166 mg/dL (70-104); MAGNESIUM 1.6 mg/dL (1.5-2.7); PHOSPHORUS 2.5 mg/dL (2.7-4.5); POTASSIUM 2.9 mmol/L (3.5-5.1); SODIUM 137 mmol/L (136-145); TCO2 26 mmol/L (25-35)
[2018-10-27 08:46] LABS: BASO# 0.01 X1000 (0.0-0.2); BASO% 0.2 % (0.0-0.8); EOS# 0.01 X1000 (0.0-0.7); EOS% 0.2 % (0.0-10.0); HEMATOCRIT 24.5 % (42.0-52.0); HEMOGLOBIN 8.4 g/dL (14.0-18.0); IMM GRAN# 0.09 X1000 (0.0-0.04); IMM GRAN% 1.7 % (0.0-0.5); LYMPH# 0.63 X1000 (1.2-3.4); LYMPH% 12.1 % (20.5-51.1); MCH 29.8 PG (27-31); MCHC 34.3 g/dL (33-37); MCV 86.9 FL (81-99); MONO# 0.24 X1000 (0.11-0.59); MONO% 4.6 % (1.7-9.3); MPV 10.8 FL (7.4-10.4); NEUT# 4.21 X1000 (1.4-6.5); NEUT% 81.2 % (42.2-75.2); PLT 24 X1000 (130-400); RBC 2.82 XMIL (4.7-6.1); RDW 17.8 % (11.5-14.5); WBC 5.19 X1000 (4.8-10.8)
[2018-10-27] MEDS ORDERED: MAGNESIUM SULFATE 2 GM/S.W.I. 2 GM/50 ML IVPB IV ONE (08:48)
[2018-10-27] MEDS ORDERED: POTASSIUM PHOSPHATE 40 MMOL in NS 250 ML IV ONE (08:48)
[2018-10-27] MEDS: NEURONTIN PO SCH ×3 (09:24→17:04)
[2018-10-27] MEDS: AYR NASAL SPRAY NAS SCH ×3 (09:25→17:04)
[2018-10-27 09:27] LABS: LYMPHS 12 % (21-51); SEGS 88 % (42-75)
[2018-10-27 10:58] LABS: HCV BY PCR SEE COMMENTS
--- NOTE | 2018-10-27 13:47 | PROGRESS NOTE ---
DATE: 10/27/2018 SUBJECTIVE: Patient states he feels a little bit better today. He has had decreased swelling. OBJECTIVE: Vital signs: Temperature 98.6, pulse 95, respirations 16, blood pressure 117/59. Generally: Patient is awake and alert, no acute distress. Abdomen: Soft. Positive bowel sounds. Nontender. LABORATORY: Hematology: WBC 5.19, hemoglobin 8.4, hematocrit 24.5, platelets 24. Chemistry: Sodium 137, potassium 2.9, chloride 95, CO2 of 26, BUN 32, creatinine 1.3. Calcium 7.0, phosphorus 2.5. ASSESSMENT AND PLAN: 1. Bacteremia secondary to MRSA on antibiotics following with infectious disease. 2. Infected Port-A-Cath has been removed. 3. Urinary tract infection on antibiotics. 4. Elevated liver function tests and jaundice. Features suggesting intrahepatic cholestasis, possibly secondary to medications. We will continue to monitor his liver function tests. I believe some of his medications have been adjusted. 5. History of lung cancer, following with Hematology/Oncology. 6. Fluid volume overload. Patient has received diuretics and swelling has improved. 7. Constipation. Patient has received laxatives. He states he has had some diarrhea since receiving the laxative. Will adjust as needed. Will repeat liver function tests tomorrow. 8. Further plans will be made according to his progress. I have discussed this case with Dr. Franks. Dr. Yadav will be on-call this weekend and chicken boner for Dr. Franks while he is on vacation. Dictated by SOPHIA Calero for Homero Franks MD cc: SOPHIA Gilbert MD
[2018-10-27] MEDS: CUBICIN 500 MG in NS 100 ML IV SCH (16:06)
--- NOTE | 2018-10-27 16:24 | PROGRESS NOTE ---
DATE: 10/27/2018 SUBJECTIVE: The patient is resting comfortably in bed. He said he had multiple bowel movements after receiving laxatives yesterday. OBJECTIVE: Vital Signs: Temperature 98.6, blood pressure 117/59, heart rate 95 , respirations 16, O2 saturation is 100% on 2 L nasal cannula. General: This is an elderly male, lying in bed in no acute distress. Heart: S1, S2 normal. Regular rate and rhythm. Lungs: Equal air entry bilaterally. No crackles. No rales. Abdomen: Positive bowel sounds. Soft, nontender, nondistended. Extremities: Trace pedal edema. Neurologic: The patient is alert and oriented x3. LABS: White blood cell count 5.1, hemoglobin 8.4, hematocrit 24, platelets 24. Sodium 137, potassium 2.9, chloride 95, CO2 of 26, BUN 32, creatinine 1.3, glucose 166, magnesium 1.6, phosphorus 2.5, calcium 7.3. ASSESSMENT AND PLAN: 1. Bacteremia secondary to methicillin-resistant Staphylococcus aureus. Will follow up on the repeat blood cultures. The patient is currently on IV antibiotic therapy. 2. Status post removal of an infected Port-A-Cath. Aware. 3. Urinary tract infection secondary to MRSA. Continue on the current antibiotic regimen. 4. Elevated liver function tests. We will continue to monitor for improvement. Gastroenterology is following. 5. Acute kidney injury. This is likely secondary to diuretic therapy. The diuretic has been discontinued. We will monitor the patient's renal function closely. 6. Hepatitis C. Aware. 7. Anemia. Stable. 8. Thrombocytopenia. We will continue to monitor closely and transfuse p.r.n. 9. Hypokalemia. Will replace the patient's potassium. 10. Hypomagnesemia. Will replace the patient's magnesium. 11. Hypophosphatemia. Will replace the patient's phosphorus. 12. Chronic pain. Continue with p.r.n. pain medication. 13. Diabetes mellitus type 2. Continue on sliding scale insulin. 14. Stage 4 lung cancer. Aware. 15. Gastrointestinal prophylaxis. Continue on Protonix. 16. Continue with physical therapy. cc: Dee Chambers MD [facility]
--- NOTE | 2018-10-27 21:05 | INFECTIOUS DISEASE PROGRESS NO ---
DATE: 10/27/2018 PRESENT ILLNESS: Patient has methicillin-resistant Staph aureus bacteremia which originated from his left-sided Port-A-Cath which has been removed. The patient also has a methicillin-resistant Staph aureus urinary tract infection. The patient has also has hepatitis C. MEDICATIONS: This is the third day of treatment with daptomycin. PHYSICAL EXAMINATION: Vital Signs: Temperature maximum was 103, now it is 98.8, pulse 106, respirations 18, blood pressure 116/61. General: This is a chronically ill-appearing, middle- aged male. He is in no acute distress. Head, eyes, ears, nose, and throat: He can hear my spoken words and see near objects. He does not have any white patches on his tongue. Neck: No meningismus. Lungs: Clear to auscultation. Cardiovascular: Regular heart rate. Thorax: The patient's Port-A-Cath site has a dressing on it. The dressing is intact. Neurologic: The patient is awake. He can move his extremities. There is no tremor. LAB AND X-RAY: CBC shows a white count of 5190, hemoglobin 8.4, and platelet count 24,000. Creatinine is 1.3. GFR is greater than 60. Hepatitis C, D and A was [id number]. Chest x-ray shows right upper lobe consolidation and small nodules in the lower part of the lungs. Repeat blood cultures are pending. ASSESSMENT AND PLAN: Patient has methicillin-resistant Staph aureus bacteremia and urinary tract infection. I plan to continue daptomycin. Most likely the consolidation in the patient's right upper lobe I think is they is due to the patient's lung cancer and the nodules may represent metastatic lesions. COMORBIDITIES: The patient has stage IV lung cancer with multiple metastatic lesions. The patient also has pancytopenia, gastroesophageal reflux disease, and diabetes mellitus. Repeat blood cultures are pending. cc: Reinier Mendoza MD
[2018-10-27 22:12] LABS: HEPATITIS C GENOTYPE SEE COMMENTS
[2018-10-28] MEDS: MORPHINE IV PRN ×3 (00:30→10:44)
[2018-10-28] MEDS: DUONEB (A & A) INH SCH ×3 (03:50→16:17)
[2018-10-28] MEDS: HUMALOG SUBQ SCH ×4 (06:30→20:49)
[2018-10-28] MEDS: PROTONIX PO SCH (06:30)
[2018-10-28] MEDS: MOVANTIK PO SCH (06:30)
[2018-10-28 07:31] LABS: ALB/GLOB RATIO 0.9; ALBUMIN 2.9 g/dL (3.5-5.0); ALKALINE PHOSPHATASE 224 U/L (32-122); GOT 91 U/L (10-34); GPT 39 U/L (10-44); TOTAL BILIRUBIN 13.89 mg/dL (0.20-1.00); TOTAL PROTEIN 6.3 g/dL (6.3-8.3)
[2018-10-28 07:32] LABS: DIRECT BILIRUBIN > 10.00 mg/dL (0.00-0.20)
[2018-10-28 07:40] LABS: CREATININE 1.5 mg/dL (0.7-1.2); MAGNESIUM 1.7 mg/dL (1.5-2.7); PHOSPHORUS 2.4 mg/dL (2.7-4.5); POTASSIUM 3.5 mmol/L (3.5-5.1)
[2018-10-28 07:46] LABS: BASO# 0.01 X1000 (0.0-0.2); BASO% 0.2 % (0.0-0.8); HEMATOCRIT 22.8 % (42.0-52.0); HEMOGLOBIN 7.9 g/dL (14.0-18.0); IMM GRAN# 0.09 X1000 (0.0-0.04); IMM GRAN% 1.8 % (0.0-0.5); LYMPH# 0.96 X1000 (1.2-3.4); LYMPH% 19.2 % (20.5-51.1); MCH 30.2 PG (27-31); MCHC 34.6 g/dL (33-37); MONO# 0.24 X1000 (0.11-0.59); MONO% 4.8 % (1.7-9.3); NEUT# 3.71 X1000 (1.4-6.5); RBC 2.62 XMIL (4.7-6.1); RDW 17.7 % (11.5-14.5); WBC 5.01 X1000 (4.8-10.8)
[2018-10-28 07:49] LABS: PLT 16 X1000 (130-400)
[2018-10-28 08:01] LABS: CALCIUM 6.2 mg/dL (8.8-10.2)
[2018-10-28] MEDS ORDERED: CALCIUM GLUCONATE 2 GM in NS 100 ML IV ONE (08:14)
[2018-10-28] MEDS ORDERED: NS 1,000 ML IV SCH (08:15)
[2018-10-28 08:38] LABS: LYMPHS 21 % (21-51); MONO 4 % (1-9); SEGS 75 % (42-75)
[2018-10-28] MEDS ORDERED: MIRALAX PO SCH (09:00)
[2018-10-28] MEDS: AYR NASAL SPRAY NAS SCH ×3 (09:41→18:35)
[2018-10-28] MEDS: NEURONTIN PO SCH ×3 (10:43→16:51)
[2018-10-28] MEDS: NS 1,000 ML IV SCH ×2 (10:44→18:35)
[2018-10-28] MEDS: TYLENOL PO PRN ×2 (10:51→20:45)
--- NOTE | 2018-10-28 13:12 | PROGRESS NOTE ---
DATE: 10/28/2018 SUBJECTIVE: The patient was noted to be febrile with a temp of a 102 degrees last night and early this morning. OBJECTIVE: Vital Signs: T-max 102 degrees, blood pressure 111/59, heart rate 99, respirations 18, O2 saturation 99% on 2 L nasal cannula. General: This is a chronically ill-appearing, elderly male, lying in bed in no acute distress. Heart: S1, S2 normal. Regular rate and rhythm. Lungs: Equal air entry bilaterally. No crackles. No rales. Abdomen: Positive bowel sounds. Soft, nontender, nondistended. Extremities: No edema, no cyanosis. Neurologic: The patient is alert and oriented x3. LABS: White blood cell count 5, hemoglobin 7.9, hematocrit 22, platelets 16. Sodium 134, potassium 3.5. BUN 32, creatinine 1.5, glucose 167. Calcium 6.2, phosphorus 2.4, magnesium 1.7, total bilirubin 13 with direct bilirubin greater than 10. AST 91, ALT 39, alkaline phosphatase 224. ASSESSMENT AND PLAN: 1. Persistent bacteremia secondary to methicillin-resistant Staphylococcus aureus. Continue with the current antibiotic regimen as directed by Dr. Mendoza. The repeat blood cultures from yesterday are now showing up as positive. 2. Status post removal of an infected Port-A-Cath. Aware. 3. Acute kidney injury. This is likely diuretic induced. The diuretics were discontinued yesterday. We will start the patient on gentle intravenous fluid hydration and check urine studies. 4. Elevated liver function tests. Slightly improved today. Continue to monitor closely. 5. Urinary tract infection secondary to methicillin-resistant Staphylococcus aureus. Continue on the current antibiotic regimen. 6. Hepatitis C. Aware. 7. Anemia. Continue to monitor closely and transfuse as necessary. 8. Thrombocytopenia. Will transfuse 1 unit of platelets today. 9. Chronic pain. Continue on the as-needed pain medication. 10. Diabetes mellitus type 2. Continue on sliding scale insulin. 11. Stage IV lung cancer. Aware. 12. Gastrointestinal prophylaxis. Continue on Protonix. cc: Dee Chambers MD
--- NOTE | 2018-10-28 13:42 | PROGRESS NOTE ---
DATE: 10/28/2018 SUBJECTIVE: The patient states that he is feeling better today. He denies abdominal pain. However, he was febrile overnight to a temperature of 102 degrees. This is being addressed by the primary service. He is tolerating his diet and denies other GI concerns. OBJECTIVE: On exam, his blood pressure is 111/59, pulse 99, respiration 18, T-max of 102.3. On pulmonary exam, his breath sounds are coarse. Cardiovascular exam reveals a resting tachycardia with a regular rhythm. Abdomen is soft and nontender. Laboratory data reveals a hemoglobin of 7.9 with hematocrit of 22.8 and a white count of 5.01. He has 16,000 platelets. Sodium is 134, potassium 3.5, chloride 94, CO2 of 24. BUN 32, creatinine 1.5 with a glucose of 167. Calcium is 6.2, phosphorus 2.4, magnesium 1.7, total bilirubin is 13.89 with a direct bilirubin greater than 10. His AST is 91 with an ALT of 39, and alkaline phosphatase of 224. Total bilirubin 6.3 with an albumin of 2.9. His hepatology serology is positive for hepatitis C genotype 1a with a viral titer of 3.47 million. RECOMMENDATIONS: 1. The patient has elevated liver function tests and untreated hepatitis C. The liver function tests are improving. Therefore, I recommend continued conservative management. 2. He has untreated hepatitis C, which will need to be addressed in the outpatient setting. 3. From a GI perspective, the patient is clinically stable. We will continue to monitor his labs and follow at a distance. Please feel free to contact us if there is an interval change in his clinical status from a GI perspective. cc: MD Dee Valentin MD Khurshid Yousuf, MD
[2018-10-28 14:08] LABS: UR CREAT RANDOM 64.8 mg/dL (14-26); UR PROT RANDOM 120.4 mg/dL
[2018-10-28] MEDS ORDERED: NS 250 ML ONE (14:30)
[2018-10-28] MEDS: NORCO-7.5 PO PRN ×2 (14:40→20:45)
[2018-10-28] MEDS: CUBICIN 500 MG in NS 100 ML IV SCH (16:51)
[2018-10-29] MEDS: DUONEB (A & A) INH SCH ×5 (03:58→23:00)
[2018-10-29] MEDS: HUMALOG SUBQ SCH ×3 (06:27→21:30)
[2018-10-29] MEDS: NS 1,000 ML IV SCH (06:27)
[2018-10-29] MEDS: PROTONIX PO SCH (06:28)
[2018-10-29 07:51] LABS: BASO# 0.01 X1000 (0.0-0.2); BASO% 0.2 % (0.0-0.8); EOS# 0.02 X1000 (0.0-0.7); EOS% 0.5 % (0.0-10.0); HEMATOCRIT 20.9 % (42.0-52.0); IMM GRAN# 0.03 X1000 (0.0-0.04); IMM GRAN% 0.7 % (0.0-0.5); LYMPH# 0.66 X1000 (1.2-3.4); LYMPH% 15.1 % (20.5-51.1); MCH 29.5 PG (27-31); MCHC 33.5 g/dL (33-37); MCV 88.2 FL (81-99); MONO# 0.32 X1000 (0.11-0.59); MONO% 7.3 % (1.7-9.3); MPV 10.5 FL (7.4-10.4); NEUT# 3.33 X1000 (1.4-6.5); NEUT% 76.2 % (42.2-75.2); PLT 45 X1000 (130-400); RBC 2.37 XMIL (4.7-6.1); RDW 17.9 % (11.5-14.5); WBC 4.37 X1000 (4.8-10.8)
[2018-10-29 07:57] LABS: AGAP 14; BUN 27 mg/dL (8-22); CHLORIDE 97 mmol/L (98-107); COSMO 279; CREATININE 1.3 mg/dL (0.7-1.2); ESTIMATED GFR > 60; GLUCOSE 166 mg/dL (70-104); MAGNESIUM 1.5 mg/dL (1.5-2.7); PHOSPHORUS 2.2 mg/dL (2.7-4.5); POTASSIUM 3.1 mmol/L (3.5-5.1); SODIUM 135 mmol/L (136-145); TCO2 24 mmol/L (25-35)
[2018-10-29 08:03] LABS: CALCIUM 5.8 mg/dL (8.8-10.2)
[2018-10-29] MEDS ORDERED: KLOR-CON PO ONE (08:06)
[2018-10-29] MEDS ORDERED: CALCIUM GLUCONATE 2 GM in NS 100 ML IV ONE (08:06)
[2018-10-29] MEDS ORDERED: POTASSIUM PHOSPHATE 40 MMOL in NS 250 ML IV ONE (08:07)
[2018-10-29] MEDS ORDERED: MAGNESIUM SULFATE 2 GM/S.W.I. 2 GM/50 ML IVPB IV ONE (08:08)
[2018-10-29 08:37] LABS: ALB/GLOB RATIO 0.8; ALBUMIN 2.7 g/dL (3.5-5.0); ALKALINE PHOSPHATASE 216 U/L (32-122); DIRECT BILIRUBIN > 10.00 mg/dL (0.00-0.20); GOT 98 U/L (10-34); GPT 38 U/L (10-44); TOTAL BILIRUBIN 12.74 mg/dL (0.20-1.00); TOTAL PROTEIN 6.1 g/dL (6.3-8.3)
[2018-10-29] MEDS: NEURONTIN PO SCH ×3 (08:57→17:52)
[2018-10-29] MEDS: AYR NASAL SPRAY NAS SCH ×3 (10:12→17:53)
[2018-10-29] MEDS: NORCO-7.5 PO PRN ×2 (10:24→16:47)
--- NOTE | 2018-10-29 12:00 | Diag Imaging Result Doc PS360 ---
EXAM: CHEST-PORTABLE - 10/29/2018 HISTORY: hemoptysis TECHNIQUE: Portable chest COMPARISON: 10/27/2018 FINDINGS: There is right upper lobe atelectasis similar to the prior exam. There is ill-defined left lower lung opacity similar to the prior exam. Compared to the exam, no acute changes are identified. IMPRESSION: Stable exam compared to prior. Electronically signed by Burt Polanco 10/29/2018 11:57 AM
[2018-10-29 12:18] LABS: INR 1.2; PROTIME 16.1 Seconds (11.0-16.0)
[2018-10-29 12:19] LABS: PTT 42.1 Seconds (22.3-41.8)
[2018-10-29] MEDS: OFIRMEV 1000 MG/ISOTONIC SOLN 1,000 MG/100 ML BOTTLE IV PRN ×2 (12:40→22:20)
[2018-10-29] MEDS: MORPHINE IV PRN ×2 (13:42→21:29)
--- NOTE | 2018-10-29 15:02 | PROGRESS NOTE ---
DATE: 10/29/2018 SUBJECTIVE: The patient complains of hemoptysis. OBJECTIVE: Vital Signs: Temperature 100.7, blood pressure 116/55, heart rate 94, respirations 18, O2 sats 98% on room air. Urine output 1.8 L. General: This is a chronically ill-appearing elderly male lying in bed in no acute distress. Heart: S1, S2 normal. Regular rate and rhythm. Lungs: Equal air entry bilaterally. No crackles. No rales. Abdomen: Positive bowel sounds. Soft, nontender, nondistended. Extremities: No edema, no cyanosis. Neurologic : The patient is alert and oriented x 3. LABS: White blood cell count 4.3, hemoglobin 7, hematocrit 20, platelets 45, 000. INR 1.2, sodium 135, potassium 3.1, chloride 97, CO2 24, BUN 27, creatinine 1.3, glucose 166, calcium 5.8, phosphorus 2.2, magnesium 1.5, total bilirubin. ASSESSMENT AND PLAN: 1. Hemoptysis. This is likely secondary to the patient's underlying lung cancer. We will continue to monitor the patient closely. We will consult with the electrical contacts adjuster. 2. Persistent bacteremia secondary to MRSA. The patient's blood cultures remain positive. Dr. Mendoza has increased the patient's daptomycin dosage. 3. Status post removal of an infected Port-A-Cath. Aware. 4. Acute kidney injury. Improved. 5. Elevated LFTs. Likely medication induced. Slightly improved. 6. Urinary tract infection secondary to MRSA. Continue with antibiotic therapy. 7. Anemia. Will transfuse 1 unit of packed red blood cells today. 8. Hepatitis C. Aware. 9. Chronic pain. Continue on p.r.n. pain medication. 10. Stage IV lung cancer. Aware. 11. Diabetes mellitus type 2. Continue on sliding scale insulin. 12. Thrombocytopenia. Improved. 13. Electrolyte imbalance. Will replace the potassium, magnesium and phos. 14. GI prophylaxis. Continue on Protonix. cc: Dee Chambers MD MTDD
[2018-10-29] MEDS: CUBICIN 750 MG in NS 100 ML IV SCH (17:51)
--- NOTE | 2018-10-29 19:08 | PULMONOLOGY CONSULTATION ---
DATE: 10/29/2018 REQUESTING PHYSICIAN: Dee Chambers MD. REASON FOR CONSULTATION: Hemoptysis. HISTORY OF PRESENT ILLNESS: Mr. Sparrow is a [id number]-black male with prior tobacco history who was diagnosed with stage 4 adenocarcinoma with obstruction of the right upper lobe in June. The patient had extensive bony disease at the time of presentation. He has been evaluated and treated by Dr. Ramires. A Port-A-Cath was placed. The patient was admitted to the hospital on 10/18/2018 with generalized pain and fatigue as well as fever. He had crusting over his port site. He had staph aureus grow from his blood stream, and his Port-A-Cath was removed on 10/19/2018. He has continued to have positive blood cultures with the most recent cultures obtained on 10/27/2018 despite appropriate treatment. The patient reports intermittent bloody sputum production. By description this is approximately two to three tablespoons per day. He is a difficult historian, but it does appear that he has had some intermittent hemoptysis since his diagnosis. Additional complicating features of this hospitalization include new onset liver failure with a bilirubin peaking at 15.7. He appeared to have some thickening of the gallbladder on his CT scan by my review, but ultrasonography performed on 10/24/2018 revealed echogenic sludge without evidence of gallbladder thickening or pericholecystic fluid. He has also undergone an echocardiogram which did not reveal evidence of vegetation. A CT scan of the chest was performed on 10/25/2018 which revealed increasing lymphadenopathy, multiple new pulmonary nodules with possibly two new lytic bone lesions. PAST MEDICAL HISTORY/PROBLEM LIST: 1. Stage 4 lung cancer as per above. 2. History of hepatitis C. 3. Hypertension. 4. Reflux. 5. Chronic pain syndrome. 6. Polysubstance abuse with drug screen positive for cocaine during this admission. 7. Gastroesophageal reflux disease. SOCIAL HISTORY: The patient reports he stopped smoking in June prior to his diagnosis of lung cancer. He lives with family. Drug use as per above. FAMILY HISTORY: Positive for hypertension and diabetes mellitus. REVIEW OF SYSTEMS: Notable for generalized aches and pains, bone pain, cough with bloody sputum production, generalized weakness. PHYSICAL EXAMINATION: General: This is a well-developed, well-nourished male who appears his stated age. Resting comfortably and in no distress. Vital signs: Blood pressure 115/60, heart rate 80, respiratory rate 19 and oxygen saturation 97% on 2 L per nasal cannula. HEENT: Pupils are equal and reactive. Oropharynx is clear. Neck: Supple. Chest: Reveals diminished breath sounds at the right apex with scattered rhonchi. Cardiac: S1, S2. Abdomen: Soft without hepatosplenomegaly. Extremities: Without edema. Fingernails and sclerae are icteric. LABORATORY: Sodium 135, potassium 3.1, chloride 97, bicarbonate 24, BUN 27, creatinine 1.3, bilirubin 12.7, alk phos 216, white blood count 4.37, hemoglobin 7.0, and platelet count 45,000. IMPRESSION: 52-year-old with stage 4 lung cancer, hemoptysis, ongoing methicillin resistant staph aureus bacteremia, with increased pulmonary nodules. His hemoptysis could be related to his thrombocytopenia or may be related to septic emboli. Etiology for ongoing positive blood cultures is not clear to this practitioner. He may have a septic thrombophlebitis related to the Port-A- Cath or he may have another site of ongoing infection. If the hemoptysis is related to his tumor, then there would be no significant treatment available. If it is related to the staph infection, then the treatment would be to control and eliminate the ongoing bacteremia. RECOMMENDATIONS: 1. Continue antibiotics per infectious disease. 2. Repeat blood cultures to identify ongoing bacteremia if present. 3. Oxygen for hypoxemic respiratory failure. 4. Would maintain platelet count at 70,000 or above if he is having ongoing hemoptysis. 5. Overall prognosis is poor given advanced disease. cc: Donnell Weber MD
[2018-10-29] MEDS ORDERED: NS 250 ML ONE (22:15)
[2018-10-30] MEDS: DUONEB (A & A) INH SCH ×4 (03:39→22:35)
[2018-10-30] MEDS: PROTONIX PO SCH (06:33)
[2018-10-30] MEDS: NORCO-7.5 PO PRN (06:33)
[2018-10-30] MEDS: HUMALOG SUBQ SCH ×4 (07:44→23:00)
--- NOTE | 2018-10-30 07:54 | Diag Imaging Result Doc PS360 ---
EXAM: CHEST-2 VIEWS HISTORY: abnormal exam TECHNIQUE: Chest two views COMPARISON: 10/29/2018 FINDINGS: Poor inspiratory effort. There is consolidation of the right upper lobe. Heart is borderline mildly prominent. Decreased pulmonary edema. No significant pleural fluid. IMPRESSION: Mild interval improvement. Electronically signed by Shelton Link 10/30/2018 7:52 AM
[2018-10-30 08:06] LABS: AGAP 15; BUN 20 mg/dL (8-22); CHLORIDE 101 mmol/L (98-107); COSMO 285; CREATININE 1.3 mg/dL (0.7-1.2); ESTIMATED GFR > 60; GLUCOSE 144 mg/dL (70-104); MAGNESIUM 1.8 mg/dL (1.5-2.7); PHOSPHORUS 2.2 mg/dL (2.7-4.5); POTASSIUM 4.5 mmol/L (3.5-5.1); SODIUM 140 mmol/L (136-145); TCO2 24 mmol/L (25-35)
[2018-10-30 08:10] LABS: ALB/GLOB RATIO 0.6; ALBUMIN 2.7 g/dL (3.5-5.0); DIRECT BILIRUBIN 9.7 mg/dL (0.00-0.20); TOTAL BILIRUBIN 12.66 mg/dL (0.20-1.00); TOTAL PROTEIN 6.9 g/dL (6.3-8.3)
[2018-10-30 08:16] LABS: HEMOGLOBIN 8.4 g/dL (14.0-18.0); MCH 30.1 PG (27-31); MCHC 33.6 g/dL (33-37); MCV 89.6 FL (81-99); MPV 11.6 FL (7.4-10.4); RBC 2.79 XMIL (4.7-6.1); RDW 17.4 % (11.5-14.5); WBC 6.02 X1000 (4.8-10.8)
[2018-10-30 08:38] LABS: CALCIUM 6.3 mg/dL (8.8-10.2)
[2018-10-30] MEDS: NEURONTIN PO SCH ×3 (09:51→18:28)
[2018-10-30] MEDS: AYR NASAL SPRAY NAS SCH ×3 (09:52→18:28)
[2018-10-30] MEDS: CALCIUM GLUCONATE 2 GM in NS 100 ML IV ONE ×2 (11:44)
--- NOTE | 2018-10-30 12:43 | PROGRESS NOTE ---
DATE: 10/30/2018 SUBJECTIVE: The patient resting in bed. OBJECTIVE: Vital signs: Temperature 99.3 degrees, with a pulse of 94, respiratory rate 16, blood pressure 133/66, oxygen saturation is 100%. HEENT: Atraumatic, normocephalic. Cardiovascular: S1, S2. Respiratory system: Has evidence of good air entry bilaterally. Abdomen: Soft, nontender. No masses felt. Extremities: No evidence of edema. LABS: WBC is 6.02, hematocrit is 25, with a platelet count of 447,000. Sodium is 140, potassium 4.5, chloride 101, bicarb 24, BUN is 20, creatinine is 1.3. Calcium level is 6.3. ASSESSMENT AND PLAN: 1. Methicillin-resistant Staphylococcus aureus bacteremia/methicillin-resistant Staphylococcus aureus urinary tract infection/pneumonia. Antibiotics as recommended by Infectious Disease. 2. Diabetes mellitus. Continue blood sugar monitoring as well as sliding scale insulin. 3. Anemia. Follow up on hemoglobin, hematocrit. Transfuse packed red blood cells as needed. 4. Thrombocytopenia. Follow up on platelet count. Transfuse platelets if the patient develops bleed or if platelet levels are significantly low. 5. Lung cancer. Oncology consulted. 6. Deep vein thrombosis prophylaxis. Sequential compression devices. cc: Luís Blue MD
[2018-10-30] MEDS: MORPHINE IV PRN ×2 (14:26→22:24)
--- NOTE | 2018-10-30 16:49 | PROGRESS NOTE ---
DATE: 10/30/2018 SUBJECTIVE: Patient feels a little better today. His liver function tests have had a slight improvement. OBJECTIVE: Vital Signs: Temperature 98 degrees, pulse 101, respirations 22, blood pressure 151/72. General: Patient is awake and alert. No acute distress. Abdomen: Soft. Positive bowel sounds. Nontender. DIAGNOSTIC RESULTS: Laboratory. Hematology. WBC 6.02, hemoglobin 8.4, hematocrit 25.0, MCV 89.6, platelets 47,000. Chemistry. Sodium 140, potassium 4.5, chloride 101, CO2 24, BUN 20, creatinine 1.3, glucose 144, total bilirubin 12.66, AST 104, ALT 39, alkaline phosphatase 295. ASSESSMENT AND PLAN: 1. Methicillin-resistant Staphylococcus aureus bacteremia and urinary tract infection/pneumonia. Infectious disease following. 2. Anemia with no evidence of active bleeding. Continue to monitor hemoglobin and hematocrit. 3. Thrombocytopenia. Dr. Ramires is following. 4. Lung cancer. Oncology following. 5. We will continue to follow his liver function tests. Further plans to be made according to his progress. Dictated by SOPHIA Calero for Homero Franks MD cc: SOPHIA Gilbert MD
[2018-10-30] MEDS: CUBICIN 750 MG in NS 100 ML IV SCH (18:26)
[2018-10-30] MEDS: TYLENOL PO PRN (18:30)
[2018-10-30] MEDS: OFIRMEV 1000 MG/ISOTONIC SOLN 1,000 MG/100 ML BOTTLE IV PRN (22:50)
[2018-10-31] MEDS: DUONEB (A & A) INH SCH ×4 (03:12→23:37)
--- NOTE | 2018-10-31 04:15 | INFECTIOUS DISEASE PROGRESS NO ---
DATE: 10/30/2018 SUBJECTIVE: The patient has a methicillin-resistant Staph aureus bacteremia, which originated from his left-sided Port-A-Cath, which has subsequently been removed. The patient also had a methicillin-resistant Staph aureus urinary tract infection. However, I think that has cleared. MEDICATIONS: This is the 6th day of treatment with daptomycin. The last 2 days, I have increased the dose to 750 mg daily. OBJECTIVE: Vital Signs: Temperature is 98 degrees, pulse 84, respirations 14, blood pressure 151/72. General: This is a chronically ill-appearing, middle-aged male. He is in no acute distress. Head, eyes, ears, nose, and throat: He can hear my spoken words and see near objects. He does not have any white patches on his tongue. Neck: No meningismus. Thorax: The patient's Port-A-Cath site is not swollen anymore. It is not draining. There is a little separation of the wound, where the Port-A-Cath was installed. Neurologic: Patient is alert. He can move his extremities. There is no tremor. LAB AND X-RAY: There is no new radiographic study. CBC today shows a white count of 6020, hemoglobin 8.4, and platelet count 47,000. Creatinine is 1.3. GFR is greater than 60. ASSESSMENT AND PLAN: The patient has methicillin-resistant Staphylococcus aureus bacteremia. I am ordering blood cultures tomorrow morning, which will be 2 days after the patient started daptomycin. Hopefully, they will turn negative. As mentioned yesterday, the patient does have a stable consolidation in the right upper lobe, which I think represents his lung cancer and not pneumonia. COMORBIDITIES FOR THE PATIENT: Stage IV lung cancer with multiple metastatic lesions. The patient also has anemia and thrombocytopenia as well as gastroesophageal reflux disease and diabetes mellitus. cc: Reinier Mendoza MD
--- NOTE | 2018-10-31 04:30 | INFECTIOUS DISEASE PROGRESS NO ---
DATE: 10/30/2018 ADDENDUM: The patient's comorbidities include stage IV lung cancer with multiple metastatic lesions, thrombocytopenia, anemia, as well as gastroesophageal reflux disease and diabetes mellitus. cc: Reinier Mendoza MD
[2018-10-31] MEDS: PROTONIX PO SCH (05:59)
[2018-10-31] MEDS: HUMALOG SUBQ SCH ×4 (06:10→20:59)
[2018-10-31] MEDS ORDERED: CALMOSEPTINE OINTMENT TOP PRN (06:36)
--- NOTE | 2018-10-31 07:13 | PULMONOLOGY PROGRESS NOTE ---
DATE: 10/30/2018 SUBJECTIVE: Patient is awake, alert and conversant. He reports his sputum production is yellow but he has not seen any blood today. OBJECTIVE: VITAL SIGNS: Maximum temperature in the last 24 hours 100.1 degrees. Blood pressure 151/72, heart rate 101, respiratory rate 22, oxygen saturation 99%. HEENT: Pupils are equal and reactive. Oropharynx is clear. NECK: Supple. CHEST: Reveals decreased breath sounds right apex with scattered rhonchi. CARDIAC: S1, S2. ABDOMEN: Soft. EXTREMITIES: Without edema. LABORATORIES: Chest x-ray reveals slight decrease in vascular prominence with continued consolidation right upper lobe. No new microbiology data. White blood count 6.02, hemoglobin 8.4, platelet count 47,000. IMPRESSION: 52-year-old with widely metastatic lung cancer, infected Port-A-Cath with ongoing bacteremia, hemoptysis, hepatitis C with acute liver failure, thrombocytopenia. Patient is stable to marginally improved. RECOMMENDATIONS: 1. Continue current antibiotics per Infectious Disease. 2. Continue oxygen for hypoxemic respiratory failure. 3. Replace platelets if patient has evidence of hemoptysis. 4. Overall prognosis is poor. cc: Donnell Weber MD
[2018-10-31 07:36] LABS: HEMATOCRIT 26.6 % (42.0-52.0); HEMOGLOBIN 8.9 g/dL (14.0-18.0); MCH 30.4 PG (27-31); MCHC 33.5 g/dL (33-37); MCV 90.8 FL (81-99); MPV 11.2 FL (7.4-10.4); RBC 2.93 XMIL (4.7-6.1); RDW 18.2 % (11.5-14.5); WBC 5.7 X1000 (4.8-10.8)
[2018-10-31 07:45] LABS: ALB/GLOB RATIO 0.7; ALBUMIN 2.6 g/dL (3.5-5.0); DIRECT BILIRUBIN 9.8 mg/dL (0.00-0.20); TOTAL BILIRUBIN 12.57 mg/dL (0.20-1.00); TOTAL PROTEIN 6.3 g/dL (6.3-8.3)
[2018-10-31 08:11] LABS: AGAP 13; BUN 17 mg/dL (8-22); CHLORIDE 102 mmol/L (98-107); COSMO 278; CREATININE 1.3 mg/dL (0.7-1.2); ESTIMATED GFR > 60; GLUCOSE 106 mg/dL (70-104); MAGNESIUM 1.4 mg/dL (1.5-2.7); PHOSPHORUS 2.2 mg/dL (2.7-4.5); POTASSIUM 4.4 mmol/L (3.5-5.1); SODIUM 138 mmol/L (136-145); TCO2 23 mmol/L (25-35)
[2018-10-31] MEDS: AYR NASAL SPRAY NAS SCH ×3 (09:38→17:51)
[2018-10-31] MEDS: TYLENOL PO PRN ×2 (09:38→21:00)
[2018-10-31] MEDS: CALMOSEPTINE OINTMENT TOP SCH ×4 (09:38→21:04)
[2018-10-31] MEDS: NEURONTIN PO SCH ×3 (09:38→17:50)
[2018-10-31] MEDS ORDERED: CALCIUM GLUCONATE 2 GM in NS 100 ML IV ONE (11:06)
--- NOTE | 2018-10-31 13:03 | PROGRESS NOTE ---
DATE: 10/31/2018 SUBJECTIVE: Patient resting in bed. No new complaints today. OBJECTIVE: Vital signs: Temperature 98.5 degrees, pulse 92, respirations 18, blood pressure 116/62, oxygen saturation 100%. HEENT: Head is atraumatic and normocephalic. Chest: Chest does have dressing on the left chest wall site of Port-A-Cath. Cardiovascular: S1, S2. Respiratory: Evidence of good entry bilaterally. Abdomen: Soft, nontender. No masses felt. Extremities: No evidence of edema. LABORATORY DATA: WBC 5.7, hematocrit 26.6, platelet count 37,000. Sodium 138, potassium 4.4, chloride 102, bicarb 23, BUN 17, creatinine 1.3, calcium 6.0. ASSESSMENT AND PLAN: 1. Methicillin-resistant Staphylococcus aureus bacteremia/methicillin-resistant Staphylococcus aureus urinary tract infection/pneumonia. Antibiotics as recommended by Infectious Disease. 2. Diabetes mellitus. Continue to monitor blood sugar levels and maintain patient on sliding scale insulin. 3. Anemia. Follow up on hemoglobin and hematocrit. Transfuse packed red blood cells as needed. 4. Thrombocytopenia. Will continue to follow up on platelet count. Will transfuse platelets if patient develops bleed or if platelet level significantly lower, less than 10,000. 5. Hypocalcemia. Will replete calcium level. I will check an ionized calcium along with 25- hydroxy vitamin D level, magnesium, and also phosphorus levels. 6. Lung cancer. Oncology consulted. 7. Deep vein thrombosis prophylaxis. Sequential compression devices. cc: Luís Blue MD
[2018-10-31] MEDS: CUBICIN 750 MG in NS 100 ML IV SCH (15:19)
[2018-10-31] MEDS: NORCO-7.5 PO PRN (17:55)
[2018-11-01] MEDS: DUONEB (A & A) INH SCH ×4 (03:35→21:12)
--- NOTE | 2018-11-01 06:13 | INFECTIOUS DISEASE PROGRESS NO ---
DATE: 10/31/2018 PRESENT ILLNESS: Mr. Sparrow has a methicillin-resistant Staph aureus bacteremia , which originated from the left Port-A-Cath, which has been removed. There was also a methicillin -resistant Staph aureus urinary tract infection, which seems to have cleared. MEDICATIONS: He is on day 2 of daptomycin 750 mg IV every 24 hours. PHYSICAL EXAM: Vital Signs: Temperature is 98.5 degrees. This morning, it was 100.8 and last night was 102.4. Currently his pulse is 92, respiratory rate 18, blood pressure 116/ 62, O2 saturation 100% on room air. General: This is a chronically ill-appearing, middle-aged gentleman. He is lying in bed, currently in no acute distress. HEENT: Atraumatic, normocephalic. Sclerae are icteric. Oral mucous membranes are pink and moist. Neck: Supple. Trachea is midline. Cardiovascular: Heart rate and rhythm are regular. Normal sinus rhythm on the monitor. Pedal and radial pulses are palpable bilaterally. No edema noted. Respiratory: Lung sounds are generally clear and slightly diminished with mild crackles noted to the left lower lobe. Abdomen: Soft, round and nontender. Bowel sounds are active. Chest: Port-A-Cath site to the left chest has a clean, dry, and intact dressing. Neurologic: He is awake, alert, and oriented. Able to move all his extremities in the bed with some weakness. No tremor noted. LABORATORY AND X-RAY: Today his white count is 5.7, hemoglobin 8.9, platelet count 37,000. Creatinine is 1.3. Estimated GFR greater than 60. His total bilirubin is 12.57 , direct bilirubin 9.8, AST 97, ALT 37, alkaline phosphatase 212. Creatine kinase 230. So far, he has had 4 sets of blood cultures, 3 of which have all been positive for methicillin- resistant Staph aureus. The fourth set is still preliminary but there is 1 out of 2 growing gram- positive cocci on the Gram stain. No imaging reports today. ASSESSMENT AND PLAN: Mr. Sparrow has a methicillin-resistant Staph aureus bacteremia. It has been difficult to get a sterile set of blood cultures on him, so he was increased to high-dosed daptomycin at 10 mg/kg, which we will continue. By this evening, he will have had 48 hours worth of the high-dosed daptomycin. We will recheck his blood cultures in the morning , hoping for a sterile set. He has had a procalcitonin ordered which has yet to be resulted. These plans have been discussed with and recommended by Dr. Mendoza. COMORBIDITIES: For Mr. Sparrow includes stage IV lung cancer with metastatic lesions, anemia, thrombocytopenia, diabetes mellitus, and gastroesophageal reflux disease. Dictated by SOPHIA Bach for Reinier Mendoza MD This chart was documented by, SOPHIA Bach and accurately reflects the services performed, treatment plan and medical decisions as attested by the providers signature Reinier Mendoza MD. cc: Reinier Mendoza MD [facility]
[2018-11-01] MEDS: HUMALOG SUBQ SCH ×4 (06:34→22:47)
[2018-11-01] MEDS: PROTONIX PO SCH (06:35)
[2018-11-01 07:25] LABS: MAGNESIUM 1.3 mg/dL (1.5-2.7); PHOSPHORUS 2.1 mg/dL (2.7-4.5)
[2018-11-01 07:28] LABS: HEMATOCRIT 21.3 % (42.0-52.0); HEMOGLOBIN 7.1 g/dL (14.0-18.0); MCH 30.5 PG (27-31); MCHC 33.3 g/dL (33-37); MCV 91.4 FL (81-99); MPV 11.3 FL (7.4-10.4); RBC 2.33 XMIL (4.7-6.1); RDW 17.8 % (11.5-14.5); WBC 6.46 X1000 (4.8-10.8)
[2018-11-01] MEDS: NEURONTIN PO SCH ×3 (09:01→16:14)
[2018-11-01] MEDS: AYR NASAL SPRAY NAS SCH ×3 (09:01→22:48)
[2018-11-01] MEDS: TYLENOL PO PRN ×2 (09:01→22:47)
[2018-11-01] MEDS ORDERED: MAGNESIUM SULFATE 2 GM/S.W.I. 2 GM/50 ML IVPB IV ONE (11:32)
--- NOTE | 2018-11-01 12:25 | PROGRESS NOTE ---
DATE: 11/01/2018 SUBJECTIVE: The patient is resting in bed. No new complaints today. OBJECTIVE: Vital signs are as follows: Temperature is 101.3, pulse 78, respiratory rate is 21, blood pressure 134/70, oxygen is 100%. HEENT: Atraumatic, normocephalic. Cardiovascular: S1, S2. Respiratory System has evidence of good air entry bilaterally. Abdomen is soft , nontender. No masses felt. Extremities: No evidence of edema. Central Nervous System: No obvious focal deficit noted. LABORATORY DATA: WBC 6.46, hematocrit 21.3, with a platelet count of 27,000. Phosphorus level is 2.1. Magnesium level is 1.3. ASSESSMENT AND PLAN: 1. Methicillin resistant Staphylococcus aureus bacteremia/Methicillin-resistant Staphylococcus aureus urinary tract infection/pneumonia. Antibiotic as recommended by Infectious Disease team. 2. Diabetes mellitus. Continue blood sugar monitor as well as sliding scale insulin. 3. Anemia. Follow up on hemoglobin, hematocrit. Transfuse PRBCs as needed. 4. Thrombocytopenia. Follow up on patient's platelet count. If the patient develops a bleed or has a significantly lower platelet levels, the patient will require platelet transfusion. 5. Multiple electrolyte abnormalities including hypocalcemia, hypomagnesemia, and also hypophosphatemia, correct electrolyte abnormalities and follow up on new levels. 6. Lung cancer. Oncology consulted. 7. Deep vein thrombosis prophylaxis. Sequential compression devices. cc: Luís Blue MD [facility]
[2018-11-01] MEDS: CALMOSEPTINE OINTMENT TOP SCH ×3 (12:29→16:13)
--- NOTE | 2018-11-01 14:20 | PROGRESS NOTE ---
DATE: 11/01/2018 SUBJECTIVE: The patient is sitting up in a chair, in no acute distress. OBJECTIVE: Vital signs: Temperature 101.3 degrees, pulse 89, respirations 22, blood pressure 134/70. General: Patient is awake and alert, in no acute distress. LABORATORY DATA: Hematology: WBC 6.46, hemoglobin 7.1, hematocrit 21.3, MCV 91.4, platelets 27,000. Chemistry on 10/31/2018: Sodium 138, potassium 4.4, chloride 102, CO2 23, BUN 17, creatinine 1.3, glucose 106. Phosphorus 2.1, magnesium 1.3, total bilirubin 12.57, AST 97, ALT 37, alkaline phosphatase 212. ASSESSMENT AND PLAN: 1. Methicillin-resistant Staphylococcus aureus bacteremia and methicillin-resistant Staphylococcus aureus urinary tract infection, pneumonia, on antibiotics, following with Infectious Disease. 2. Anemia is worse today. Transfuse packed red blood cells as needed. 3. Fever. Patient following with Dr. Mendoza. 4. Elevated liver function tests, elevated bilirubin. Bilirubin has slightly improved. Liver function tests are stable. Possibility of drug-induced liver injury. Will continue to monitor liver function tests. Dr. Yadav will be following during Dr. Franks's absence. Dictated by SOPHIA Calero for Homero Franks MD cc: SOPHIA Gilbert MD
[2018-11-01] MEDS: NEUTRA-PHOS PO SCH ×3 (14:35→22:47)
[2018-11-01] MEDS: VITAMIN D PO SCH (14:36)
[2018-11-01] MEDS: CUBICIN 750 MG in NS 100 ML IV SCH (16:10)
[2018-11-01] MEDS: NORCO-7.5 PO PRN (18:30)
[2018-11-01] MEDS: TEFLARO 600 MG in NS 250 ML IV SCH (18:51)
[2018-11-01] MEDS ORDERED: NS 250 ML IV SCH (22:15)
[2018-11-02] MEDS: DUONEB (A & A) INH SCH ×4 (04:55→22:01)
[2018-11-02] MEDS: TEFLARO 600 MG in NS 250 ML IV SCH ×2 (06:22→18:16)
[2018-11-02] MEDS: HUMALOG SUBQ SCH ×4 (06:23→20:55)
[2018-11-02] MEDS: PROTONIX PO SCH (06:23)
--- NOTE | 2018-11-02 07:24 | INFECTIOUS DISEASE PROGRESS NO ---
DATE: 11/01/2018 PRESENT ILLNESS: Mr. Sparrow has methicillin-resistant Staph aureus bacteremia originating from his left Port-A-Cath, which has been removed. He has also had a methicillin- resistant Staph aureus urinary tract infection. At this point, he is continuing to spike fevers of 101 to 102, and his procalcitonin level of 4.3 makes it highly likely that there is a respiratory tract infection. MEDICATIONS: Today is day 3 of daptomycin 750 mg IV every 24 hours. PHYSICAL EXAM: Vital Signs: Temp is 101.3, pulse rate 89, respiratory rate 22 , blood pressure 134/70, O2 saturations 99% on 4 L nasal cannula. General: This is a chronically ill-appearing, middle-aged gentleman. He is lying in the bed in no acute distress. HEENT: Atraumatic, normocephalic. Sclerae are icteric. Oral mucous membranes are pink and moist. Neck: Supple. Trachea is midline. Respiratory: Lung sounds are diminished bilaterally. Cardiovascular: Heart rate and rhythm are regular. Normal sinus on the monitor. Radial and pedal pulses are palpable bilaterally. No edema is noted. Integumentary: Skin is warm and dry. There is a Port-A-Cath site to the left chest with a clean, dry dressing in place. Abdomen: Soft, round, and nontender. Bowel sounds are active. Neurologic: He is awake, alert, and oriented. Able to move around in the bed with some weakness. No focal deficits. No tremor. LABORATORY AND X-RAY: Today, his white count is 6.46, hemoglobin 7.1, platelet count 27,000. No BMP today. His procalcitonin was 4.3. Blood cultures thus far have continued to grow a methicillin-resistant Staph aureus. Another redraw of blood cultures has been done this morning. No imaging reports today. ASSESSMENT AND PLAN: Mr. Sparrow has methicillin-resistant Staphylococcus aureus bacteremia. We are continuing to work towards getting a sterile set of blood cultures. For now, he will continue on high-dose daptomycin 10 mg/kg. We will go ahead and repeat a urine culture since there are continuing fevers. Also, with a high procalcitonin level, we know that there is a high likelihood of respiratory tract infection, so we will start him on ceftaroline 600 mg IV every 12 hours. These plans have been discussed with and recommended by Dr. Mendoza. COMORBIDITIES: Stage IV lung cancer with metastatic lesions, anemia, thrombocytopenia, gastroesophageal reflux disease, and diabetes mellitus. Dictated by SOPHIA Bach for Reinier Mendoza MD This chart was documented by, SOPHIA Bach and accurately reflects the services performed, treatment plan and medical decisions as attested by the providers signature Reinier Mendoza MD. cc: Reinier Mendoza MD [facility]
[2018-11-02 07:37] LABS: BASO# 0.02 X1000 (0.0-0.2); BASO% 0.3 % (0.0-0.8); EOS# 0.02 X1000 (0.0-0.7); EOS% 0.3 % (0.0-10.0); HEMATOCRIT 25.6 % (42.0-52.0); HEMOGLOBIN 8.4 g/dL (14.0-18.0); IMM GRAN# 0.08 X1000 (0.0-0.04); IMM GRAN% 1.1 % (0.0-0.5); LYMPH# 1.55 X1000 (1.2-3.4); LYMPH% 20.5 % (20.5-51.1); MCH 29.9 PG (27-31); MCHC 32.8 g/dL (33-37); MCV 91.1 FL (81-99); MONO# 1.07 X1000 (0.11-0.59); MONO% 14.1 % (1.7-9.3); NEUT# 4.83 X1000 (1.4-6.5); NEUT% 63.7 % (42.2-75.2); RBC 2.81 XMIL (4.7-6.1); RDW 18.7 % (11.5-14.5); WBC 7.57 X1000 (4.8-10.8)
[2018-11-02 07:42] LABS: PLT 29 X1000 (130-400)
[2018-11-02 07:51] LABS: AGAP 14; ALB/GLOB RATIO 0.7; ALBUMIN 2.6 g/dL (3.5-5.0); ALKALINE PHOSPHATASE 274 U/L (32-122); BUN 16 mg/dL (8-22); CHLORIDE 104 mmol/L (98-107); COSMO 280; CREATININE 1.3 mg/dL (0.7-1.2); ESTIMATED GFR > 60; GLUCOSE 96 mg/dL (70-104); GOT 109 U/L (10-34); GPT 39 U/L (10-44); MAGNESIUM 1.3 mg/dL (1.5-2.7); PHOSPHORUS 2.4 mg/dL (2.7-4.5); POTASSIUM 4.5 mmol/L (3.5-5.1); SODIUM 140 mmol/L (136-145); TCO2 22 mmol/L (25-35); TOTAL BILIRUBIN 11.06 mg/dL (0.20-1.00); TOTAL PROTEIN 6.5 g/dL (6.3-8.3)
[2018-11-02] MEDS: NEURONTIN PO SCH ×3 (08:19→17:26)
[2018-11-02] MEDS: OFIRMEV 1000 MG/ISOTONIC SOLN 1,000 MG/100 ML BOTTLE IV PRN ×2 (08:19→18:16)
[2018-11-02] MEDS: NEUTRA-PHOS PO SCH ×4 (08:19→20:44)
[2018-11-02] MEDS: AYR NASAL SPRAY NAS SCH ×3 (08:20→17:26)
--- NOTE | 2018-11-02 08:23 | PULMONOLOGY PROGRESS NOTE ---
DATE: 11/01/2018 SUBJECTIVE: The patient reports he is fatigued. He has had cough with trace blood in his sputum. OBJECTIVE: VITAL SIGNS: Maximum temperature in the last 24 hours is 102.3 degrees. Heart rate 89, respiration rate 22. HEENT: The pupils are equal and reactive. The oropharynx is clear. NECK: Supple. CHEST: Reveals diminished breath sounds right apex. CARDIAC: Regular rate. Normal S1, normal S2. ABDOMEN: Soft. EXTREMITIES: Reveal +1 edema. LABORATORIES: White blood count 6.46, hemoglobin 7.1, platelet count 27,000. IMPRESSION: A 52 year old with widely metastatic lung cancer, infected Port-A-Cath status post removal with ongoing bacteremia, hepatitis C, liver failure, thrombocytopenia. The patient's platelet count continues to drop. RECOMMENDATIONS: 1. Continue antibiotics per Infectious Disease. 2. Replace platelets if they drop further tomorrow morning. 3. Prognosis is poor. cc: Donnell Weber MD
[2018-11-02 08:29] LABS: CALCIUM 5.5 mg/dL (8.8-10.2)
[2018-11-02 09:08] LABS: LYMPHS 21 % (21-51); MONO 13 % (1-9); SEGS 66 % (42-75)
--- NOTE | 2018-11-02 13:18 | INFECTIOUS DISEASE PROGRESS NO ---
DATE: 11/02/2018 SUBJECTIVE: The patient has an ongoing methicillin-resistant Staphylococcus aureus bacteremia, which originated from his Port-A-Cath. Despite removing the Port-A-Cath, the patient continues to have positive blood cultures for methicillin-resistant Staphylococcus aureus. The patient is spiking fever and on x-ray, he has a right upper lobe infiltrate which could be due to a pneumonia or could be due to the patient's lung cancer. MEDICATIONS: This is the fourth day of treatment with daptomycin and the first day of treatment with ceftaroline. OBJECTIVE: Vital Signs: Temperature is 101.4, pulse 83, respirations 12, blood pressure 138/76. General: This is a chronically ill-appearing middle-aged male. He is in no acute distress. Head, eyes, ears, nose, and throat: He can hear my spoken words and see near objects. He does not have any white coating on his tongue. Neck: No meningismus. Thorax: The patient's Port-A- Cath on the left side is not swollen or purulent. Lungs: Clear to auscultation. Cardiovascular: Heart rate is regular. Abdomen: Soft and nontender. The patient says though when I was palpating his abdomen that he almost felt like he needed to throw up. Neurologic: The patient is slightly lethargic today. He can move his extremities. There is no tremor. LABORATORY AND X-RAY: There are no new radiographic study. The patient's CBC [place] 7570, hemoglobin 8.4 and platelet count 29,000. Creatinine is 1.3. GFR is greater than 60. The pro calcitonin level is 4.3. Blood cultures are pending. CK is 230. ASSESSMENT AND PLAN: The patient has methicillin-resistant Staphylococcus aureus bacteremia and possibly with involvement of the lungs as a pneumonia. My plan is to continue daptomycin and continue ceftaroline. COMORBIDITY: The patient's comorbidities are stage 4 lung cancer with metastatic lesions, chronic anemia, thrombocytopenia, gastroesophageal reflux disease, and diabetes mellitus. cc: Reinier Mendoza MD [facility]
[2018-11-02] MEDS ORDERED: MAGNESIUM SULFATE 2 GM/S.W.I. 2 GM/50 ML IVPB IV ONE (17:15)
[2018-11-02] MEDS ORDERED: CALCIUM GLUCONATE 2 GM in NS 100 ML IV ONE (17:15)
[2018-11-02] MEDS: CUBICIN 750 MG in NS 100 ML IV SCH (17:25)
[2018-11-02] MEDS: MORPHINE IV PRN ×2 (17:37→22:35)
[2018-11-02] MEDS: NORCO-7.5 PO PRN (20:44)
--- NOTE | 2018-11-02 20:52 | PROGRESS NOTE ---
DATE: 11/02/2018 SUBJECTIVE: Patient resting in bed. OBJECTIVE: Vital Signs: Temperature 99.2, pulse 78, blood pressure is 143/70, oxygen saturation 100%. HEENT: Atraumatic, normocephalic. Cardiovascular: S1, S2. Respiratory : Has evidence of good air entry bilaterally. Abdomen: Soft, nontender. No masses felt. Extremities: No significant edema in the lower extremities. Central Nervous System: No obvious focal deficits noted. LABS: WBC 7.53, hematocrit 25.6, with a platelet count of 29,000. Sodium is 140, potassium 4.5, chloride is 104, bicarb 20, BUN is 16, creatinine is 1.3, calcium is 5.5, phosphorus 2.4, magnesium 1.3. ASSESSMENT AND PLAN: 1. Methicillin resistant Staph aureus bacteremia / Methicillin resistant Staph aureus urinary tract infection/pneumonia. Antibiotic management per Infectious Disease. 2. Diabetes mellitus. Continue blood sugar monitor as well as sliding scale insulin. 3. Anemia. Follow up on hemoglobin and hematocrit. Transfuse PRBCs as needed. 4. Thrombocytopenia. Follow up on platelet count. If the patient develops a bleed or has a significantly low platelet count will transfuse platelets. 5. Multiple electrolyte abnormalities, including hypocalcemia, hypomagnesemia and also hypophosphatemia. Continue to correct electrolyte abnormalities accordingly. 6. Lung cancer. Oncology consulted. 7. DVT prophylaxis. SCDs. cc: Luís Blue MD [facility]
--- NOTE | 2018-11-02 21:38 | PULMONOLOGY PROGRESS NOTE ---
DATE: 11/02/2018 SUBJECTIVE: The patient reports he has not coughed up blood today. He continues to have fevers, with maximum temperature in the last 24 hours 102.5 degrees. Current temperature is 98.2 degrees. Blood pressure is 114/60, heart rate 86, respiratory rate 16 and unlabored, oxygen saturation 100%. OBJECTIVE: HEENT: Pupils are equal and reactive. The oropharynx is clear. Neck: Supple. Chest: reveals diminished breath sounds at the right base with occasional rhonchi bilaterally. Cardiac: S1 and S2. Abdomen: Soft and without hepatosplenomegaly. LABORATORIES: Microbiology reveals continued positivity of blood cultures. He has had blood cultures positive for methicillin-resistant Staph aureus continuously since 10/18/2018. White blood count 7.57, hemoglobin 8.4, platelet count 29,000. Sodium 140, potassium 4.5, chloride 104, bicarbonate 22, BUN 16, creatinine 1.3, glucose 180. Bilirubin 11.05. IMPRESSION: A 52-year-old with widely metastatic lung cancer, status post removal of an infected portacath, ongoing methicillin-resistant Staph aureus bacteremia, hemoptysis, hepatitis C, liver failure and thrombocytopenia. The possibility of an infected cardiac valve remains in the differential of his ongoing bacteremia, but he is not a surgical candidate for valve replacement. RECOMMENDATIONS: 1. Continue antibiotics per infectious disease . 2. Replace platelets with any sign of hemoptysis. 3. Prognosis remains poor. 4. X-rays tomorrow morning. cc: Donnell Weber MD
[2018-11-03] MEDS: NORCO-7.5 PO PRN ×2 (03:11→17:14)
[2018-11-03] MEDS: DUONEB (A & A) INH SCH ×4 (03:26→22:18)
[2018-11-03] MEDS: TEFLARO 600 MG in NS 250 ML IV SCH ×2 (06:01→17:13)
[2018-11-03] MEDS: PROTONIX PO SCH (06:02)
[2018-11-03] MEDS: HUMALOG SUBQ SCH ×4 (06:02→21:50)
--- NOTE | 2018-11-03 08:01 | Diag Imaging Result Doc PS360 ---
EXAM: CHEST-PORTABLE HISTORY: abnormal exam TECHNIQUE: Portable chest COMPARISON: 10/30/2018 FINDINGS: Poor inspiratory effort. There is opacification of the right apex similar to the prior exam. The heart is mildly prominent. No pleural effusions identified. Mild central vascular prominence. IMPRESSION: No improvement. Electronically signed by Shelton Link 11/03/2018 7:59 AM
[2018-11-03] MEDS: TYLENOL PO PRN (08:03)
[2018-11-03] MEDS: NEURONTIN PO SCH ×3 (08:03→17:14)
[2018-11-03] MEDS: NEUTRA-PHOS PO SCH ×4 (08:03→21:50)
[2018-11-03] MEDS: AYR NASAL SPRAY NAS SCH ×3 (08:04→17:51)
--- NOTE | 2018-11-03 11:39 | PROGRESS NOTE ---
DATE: 11/03/2018 SUBJECTIVE: The patient is sitting up on the side of the bed, in no acute distress. OBJECTIVE: Vital Signs: Temperature is 100.4 degrees, pulse 85, blood pressure 147/70. LABORATORY DATA: Hematology: WBC 7.57, hemoglobin 8.4, hematocrit 25.6, MCV 91.1, platelets 29,000. Chemistry: Sodium 140, potassium 4.5, chloride 104, CO2 of 22, BUN 16, creatinine 1.3, total bilirubin 11.06, AST 109, ALT 39, alkaline phosphatase 274. ASSESSMENT AND PLAN: 1. Staphylococcus aureus bacteremia, urinary tract infection/pneumonia. 2. Thrombocytopenia. 3. Lung cancer, following with Oncology. 4. Fever, following with infectious disease. 5. Elevated liver function tests, slowly improving. 6. History of hepatitis C without treatment. PLAN: Continue current management. GI will be available as needed. Recommend the patient follow up with us as an outpatient. I have discussed this case with Dr. Franks. Dictated by SOPHIA Calero for Homero Franks MD cc: SOPHIA Gilbert MD
[2018-11-03 12:26] LABS: BASO# 0.03 X1000 (0.0-0.2); BASO% 0.3 % (0.0-0.8); EOS# 0.02 X1000 (0.0-0.7); EOS% 0.2 % (0.0-10.0); HEMATOCRIT 26.1 % (42.0-52.0); HEMOGLOBIN 8.6 g/dL (14.0-18.0); IMM GRAN# 0.13 X1000 (0.0-0.04); IMM GRAN% 1.5 % (0.0-0.5); LYMPH# 1.51 X1000 (1.2-3.4); LYMPH% 17.1 % (20.5-51.1); MCH 30.2 PG (27-31); MCV 91.6 FL (81-99); MONO# 1.14 X1000 (0.11-0.59); MONO% 12.9 % (1.7-9.3); PLT 22 X1000 (130-400); RBC 2.85 XMIL (4.7-6.1); RDW 19.2 % (11.5-14.5); WBC 8.83 X1000 (4.8-10.8)
[2018-11-03 13:14] LABS: AGAP 14; ALB/GLOB RATIO 0.6; ALBUMIN 2.4 g/dL (3.5-5.0); ALKALINE PHOSPHATASE 287 U/L (32-122); BUN 19 mg/dL (8-22); CALCIUM 5.5 mg/dL (8.8-10.2); CHLORIDE 103 mmol/L (98-107); COSMO 276; CREATININE 1.3 mg/dL (0.7-1.2); ESTIMATED GFR > 60; GLUCOSE 95 mg/dL (70-104); GOT 109 U/L (10-34); GPT 38 U/L (10-44); POTASSIUM 4.5 mmol/L (3.5-5.1); SODIUM 137 mmol/L (136-145); TCO2 20 mmol/L (25-35); TOTAL BILIRUBIN 11.04 mg/dL (0.20-1.00); TOTAL PROTEIN 6.6 g/dL (6.3-8.3)
--- NOTE | 2018-11-03 14:35 | PROGRESS NOTE ---
DATE: 11/03/2018 SUBJECTIVE: Patient resting in bed. OBJECTIVE: Vital signs: Vital signs as follows: Temperature a 100.4 degrees, pulse 85, respiratory rate is 20, blood pressure 147/70, oxygen saturation is 100%. HEENT: Atraumatic, normocephalic. Cardiovascular System: S1, S2. Respiratory System: Has evidence of good air entry bilaterally. Abdomen: Soft, nontender. No masses felt. Extremities: No evidence of edema. Central nervous system: No obvious focal deficit noted. LABS: Labs pending, except blood sugar of 86. ASSESSMENT AND PLAN: 1. Methicillin-resistant Staphylococcus bacteremia/methicillin-resistant Staphylococcus urinary tract infection/pneumonia. Antibiotics per recommendation of Infectious Disease. 2. Diabetes mellitus. Monitor blood sugar levels and maintain patient on sliding scale insulin. 3. Anemia. Follow up on hemoglobin, hematocrit. Transfuse packed red blood cells as needed. 4. Thrombocytopenia. Follow up on platelet count. Transfuse platelets where clinically indicated. 5. Multiple electrolyte abnormalities, including hypocalcemia, hypomagnesemia, and also hypophosphatemia. Continue to replace electrolytes accordingly. Follow up on electrolyte levels. 6. Lung cancer. Oncology consulted. 7. Deep vein thrombosis prophylaxis. Sequential compression devices. cc: Luís Blue MD
[2018-11-03] MEDS: CUBICIN 750 MG in NS 100 ML IV SCH (17:14)
--- NOTE | 2018-11-03 20:26 | INFECTIOUS DISEASE PROGRESS NO ---
DATE: 11/03/2018 PRESENT ILLNESS: Mr. Sparrow has ongoing methicillin-resistant Staph aureus bacteremia from his Port-A-Cath that has been removed. He is still having fevers and x-ray still shows some opacification of the right apex which may represent some pneumonia. There is an underlying stage IV lung cancer with anemia and thrombocytopenia. MEDICATIONS: Today is day 5 of daptomycin 750 mg IV every 24 hours and day 2 of ceftaroline 600 mg IV every 12 hours. PHYSICAL EXAMINATION: Vital Signs: Temperature is 100.4 degrees, pulse rate 85 , respiratory rate 20, blood pressure 147/70, O2 saturation 95% on 3 L nasal cannula. General: This is a chronically ill-appearing middle-aged gentleman. He is lying in the bed currently in no acute distress. HEENT: Atraumatic, normocephalic. Sclerae are icteric. Oral mucous membranes are pink and moist. Neck: Supple. Trachea is midline. Cardiovascular: Heart rate and rhythm are regular. Normal sinus rhythm on the monitor. Pedal and radial pulses are palpable bilaterally. No edema noted. Respiratory: Lung sounds are bilaterally diminished. Mild scattered rales noted. Integumentary: Skin is warm and dry. Dressing in place to the left chest is clean and dry where his previous Port-A-Cath site was. Abdomen: Soft, round and nontender. Bowel sounds are active. Neurologic: He is awake, alert and oriented. He is able to move around the bed with some weakness. He does state that he has been walking some today. LABORATORY AND X-RAY: Today his white count is 8.83, hemoglobin 8.6, platelet count 22,000, creatinine is 1.3, estimated GFR greater than 60. AST is 109, ALT 38, alkaline phosphatase 287, direct bilirubin is 11.04. His urine culture showed no growth. After multiple sets of positive blood cultures, 1 out of 2 now has a gram-positive cocci. Chest x-ray today shows opacification of the right apex similar to the prior exam with mild central vascular prominence. ASSESSMENT AND PLAN: Mr. Sparrow has a methicillin-resistant Staph aureus bacteremia with pneumonia. We will continue daptomycin and ceftaroline as ordered. On Tuesday we will redraw labs and a creatine kinase. Previous plans have been discussed with and recommended by Dr. Mendoza. COMORBIDITIES: For Mr. Sparrow include stage IV lung cancer with metastatic lesions, chronic anemia and thrombocytopenia, gastroesophageal reflux disease and diabetes mellitus. Dictated by SOPHIA Bach for Reinier Mendoza MD This chart was documented by, SOPHIA Bach and accurately reflects the services performed, treatment plan and medical decisions as attested by the providers signature Reinier Mendoza MD. cc: Reinier Mendoza MD [facility]
[2018-11-03] MEDS: MORPHINE IV PRN (21:47)
[2018-11-04] MEDS: DUONEB (A & A) INH SCH ×4 (03:27→20:59)
[2018-11-04] MEDS: OFIRMEV 1000 MG/ISOTONIC SOLN 1,000 MG/100 ML BOTTLE IV PRN (04:46)
[2018-11-04] MEDS: TEFLARO 600 MG in NS 250 ML IV SCH ×2 (05:01→19:04)
[2018-11-04] MEDS: HUMALOG SUBQ SCH ×3 (06:05→19:03)
[2018-11-04] MEDS: PROTONIX PO SCH (06:18)
[2018-11-04] MEDS: NORCO-7.5 PO PRN (06:25)
[2018-11-04 07:36] LABS: MAGNESIUM 1.2 mg/dL (1.5-2.7); PHOSPHORUS 2.5 mg/dL (2.7-4.5)
[2018-11-04] MEDS ORDERED: MAGNESIUM SULFATE 2 GM/S.W.I. 2 GM/50 ML IVPB IV ONE (10:09)
[2018-11-04 10:49] LABS: AGAP 16; ALB/GLOB RATIO 0.6; ALBUMIN 2.2 g/dL (3.5-5.0); ALKALINE PHOSPHATASE 304 U/L (32-122); BUN 20 mg/dL (8-22); CALCIUM 5.4 mg/dL (8.8-10.2); CHLORIDE 108 mmol/L (98-107); COSMO 284; CREATININE 1.4 mg/dL (0.7-1.2); ESTIMATED GFR > 60; GLUCOSE 100 mg/dL (70-104); GOT 115 U/L (10-34); GPT 38 U/L (10-44); POTASSIUM 4.1 mmol/L (3.5-5.1); SODIUM 141 mmol/L (136-145); TCO2 17 mmol/L (25-35); TOTAL PROTEIN 6.1 g/dL (6.3-8.3)
--- NOTE | 2018-11-04 10:59 | PROGRESS NOTE ---
DATE: 11/04/2018 SUBJECTIVE: Patient is resting comfortably in bed. No new complaints. Yesterday, this patient had a fever of 103.1. Infectious Disease Department is following this patient closely. Continue with antibiotics. OBJECTIVE: Vital Signs: Temperature 98.3 degrees, pulse 76, respiratory rate 103/57, oxygen saturation 100% on 3 L of nasal cannula. HEENT: Head normocephalic. No trauma. PERRLA. Neck: Supple. No JVD. No masses. Central trachea. Chest: Right upper lobe crepitus, otherwise clear to auscultation. No wheezing. No rales. Abdomen: Soft, nontender, nondistended. No hepatosplenomegaly. Extremities: No edema. No clubbing. No cyanosis. Neurological examination: The patient is alert and oriented x3. No focal deficits. LABORATORY: Pending lab work at this moment. Phosphorus 2.5, magnesium 1.2. ASSESSMENT AND PLAN: 1. Methicillin-resistant Staphylococcus aureus bacteremia/methicillin-resistant Staphylococcus aureus urinary tract infection/pneumonia. Continue with the same management per Infectious Disease Department. He had a fever today, but right now he is feeling better. 2. Type 2 diabetes. Continue with the same treatment, the sliding scale insulin and pattern of blood sugar. 3. Anemia pending lab work today. We will follow hemoglobin and hematocrit, and we will transfuse as needed. 4. Thrombocytopenia. Again blood work pending; pending platelet count today. 5. Hypomagnesemia I will replace the magnesium. 6. Hypocalcemia pending lab work today. We have been replacing these electrolytes as well. 7. A lung cancer right upper lobe. Oncology has been requested for evaluation. 8. Deep vein thrombosis prophylaxis with sequential compression devices. cc: Jose Najera MD
[2018-11-04 11:20] LABS: BASO# 0.03 X1000 (0.0-0.2); BASO% 0.3 % (0.0-0.8); EOS# 0.04 X1000 (0.0-0.7); EOS% 0.4 % (0.0-10.0); HEMATOCRIT 23.7 % (42.0-52.0); HEMOGLOBIN 7.8 g/dL (14.0-18.0); IMM GRAN# 0.13 X1000 (0.0-0.04); IMM GRAN% 1.4 % (0.0-0.5); LYMPH# 1.87 X1000 (1.2-3.4); LYMPH% 20.7 % (20.5-51.1); MCH 30.5 PG (27-31); MCHC 32.9 g/dL (33-37); MCV 92.6 FL (81-99); MONO# 1.44 X1000 (0.11-0.59); MONO% 15.9 % (1.7-9.3); NEUT# 5.54 X1000 (1.4-6.5); NEUT% 61.3 % (42.2-75.2); PLT 27 X1000 (130-400); RBC 2.56 XMIL (4.7-6.1); RDW 19.4 % (11.5-14.5); WBC 9.05 X1000 (4.8-10.8)
[2018-11-04 11:28] LABS: TOTAL BILIRUBIN 10.64 mg/dL (0.20-1.00)
[2018-11-04] MEDS: NEURONTIN PO SCH ×3 (11:41→20:09)
[2018-11-04] MEDS: NEUTRA-PHOS PO SCH (11:41)
[2018-11-04] MEDS: AYR NASAL SPRAY NAS SCH ×3 (11:48→16:35)
[2018-11-04] MEDS: MORPHINE IV PRN ×3 (11:51→20:27)
[2018-11-04 11:54] LABS: BANDS 8 % (0-1); LYMPHS 16 % (21-51); MONO 4 % (1-9); SEGS 72 % (42-75)
[2018-11-04] MEDS ORDERED: CALCIUM GLUCONATE 4.65 MEQ in NS 50 ML IV ONE (16:00)
[2018-11-04] MEDS: CUBICIN 750 MG in NS 100 ML IV SCH (20:14)
[2018-11-05] MEDS: MORPHINE IV PRN ×5 (01:54→22:27)
[2018-11-05] MEDS: HUMALOG SUBQ SCH ×5 (01:54→20:52)
[2018-11-05] MEDS: DUONEB (A & A) INH SCH ×5 (03:41→21:38)
[2018-11-05] MEDS: TEFLARO 600 MG in NS 250 ML IV SCH ×2 (05:33→17:30)
[2018-11-05] MEDS: OFIRMEV 1000 MG/ISOTONIC SOLN 1,000 MG/100 ML BOTTLE IV PRN (05:35)
[2018-11-05] MEDS: PROTONIX PO SCH (05:59)
[2018-11-05 07:31] LABS: AGAP 11; ALB/GLOB RATIO 0.5; ALKALINE PHOSPHATASE 290 U/L (32-122); BASO# 0.04 X1000 (0.0-0.2); BASO% 0.3 % (0.0-0.8); BUN 17 mg/dL (8-22); CHLORIDE 106 mmol/L (98-107); COSMO 271; CREATININE 1.3 mg/dL (0.7-1.2); EOS# 0.02 X1000 (0.0-0.7); EOS% 0.2 % (0.0-10.0); ESTIMATED GFR > 60; GLUCOSE 116 mg/dL (70-104); GOT 128 U/L (10-34); GPT 41 U/L (10-44); HEMATOCRIT 23.3 % (42.0-52.0); HEMOGLOBIN 7.7 g/dL (14.0-18.0); IMM GRAN# 0.19 X1000 (0.0-0.04); IMM GRAN% 1.7 % (0.0-0.5); LYMPH# 2.48 X1000 (1.2-3.4); LYMPH% 21.6 % (20.5-51.1); MCH 30.8 PG (27-31); MCV 93.2 FL (81-99); MONO% 18.3 % (1.7-9.3); NEUT# 6.65 X1000 (1.4-6.5); NEUT% 57.9 % (42.2-75.2); POTASSIUM 4.2 mmol/L (3.5-5.1); RDW 19.6 % (11.5-14.5); SODIUM 134 mmol/L (136-145); TCO2 17 mmol/L (25-35); TOTAL PROTEIN 6.4 g/dL (6.3-8.3); WBC 11.48 X1000 (4.8-10.8)
[2018-11-05 07:37] LABS: BANDS 2 % (0-1); LYMPHS 18 % (21-51); MONO 6 % (1-9); PLT 27 X1000 (130-400); SEGS 74 % (42-75)
[2018-11-05 07:40] LABS: CALCIUM 5.2 mg/dL (8.8-10.2)
[2018-11-05] MEDS ORDERED: CALCIUM GLUCONATE 2 GM in NS 100 ML IV ONE (08:00)
[2018-11-05] MEDS: ZOFRAN IV PRN (11:30)
[2018-11-05] MEDS: NEURONTIN PO SCH ×3 (11:30→17:29)
[2018-11-05] MEDS: AYR NASAL SPRAY NAS SCH ×3 (11:31→17:29)
[2018-11-05] MEDS ORDERED: MAGNESIUM SULFATE 2 GM/S.W.I. 2 GM/50 ML IVPB IV ONE (14:37)
--- NOTE | 2018-11-05 15:00 | PROGRESS NOTE ---
DATE: 11/05/2018 SUBJECTIVE: Patient resting in bed. Not in any obvious distress. OBJECTIVE: Vital Signs: Temperature is 98.3, pulse 67, respirations 18, blood pressure 108/50, oxygen 100%. HEENT: Atraumatic, normocephalic. Cardiovascular: S1, S2. Respiratory: Has evidence of good air entry bilaterally. Abdomen: Soft, nontender. No masses felt. Extremities: No evidence of edema. Central Nervous System: No obvious focal deficit noted. LABS: WBC 11.4, hematocrit 23.3, with a platelet count of 427,000. Sodium is 134, potassium 4.2, chloride 106, bicarb 17, BUN is 17, creatinine 1.3. ASSESSMENT AND PLAN: 1. Methicillin resistant Staph bacteremia/methicillin resistant Staph urinary tract infection/pneumonia. Antibiotics as recommended by Infectious Disease. 2. Diabetes mellitus. Continue to monitor blood sugar levels as well as maintain patient on sliding scale insulin. 3. Anemia. Follow up on hemoglobin, hematocrit, transfuse packed red blood cells as needed. 4. Thrombocytopenia. Follow up on platelet count. Transfuse where clinically indicated. 5. Multiple electrolyte abnormalities, including hypocalcemia, hypomagnesemia and also hypophosphatemia. Continue to replace electrolytes accordingly. Follow up on electrolyte levels. 6. Lung cancer. Oncology consulted. 7. DVT prophylaxis, SCD. cc: Luís Blue MD MTDD
--- NOTE | 2018-11-05 19:46 | INFECTIOUS DISEASE PROGRESS NO ---
DATE: 11/05/2018 PRESENT ILLNESS: The patient has a methicillin-resistant Staph aureus bacteremia which originated from his Port-A-Cath. The Port-A-Cath has been removed; however, the patient continues with bacteremia and fever. He has on x-ray opacification of the right apex. This may represent his lung cancer, but possibly infection is involved, also. At one point, the patient had urinary tract infection; however, that has cleared. MEDICATIONS: This is day #7 of daptomycin and day #4 of ceftaroline. PHYSICAL EXAMINATION: Vital Signs: Temperature is 98.3; however, earlier it went to 101. Pulse is 67, respirations 18, blood pressure 108/53. General: This is a chronically ill-appearing middle-aged male. He is in no acute distress. Head, Eyes, Ears, Nose and Throat: He can hear my spoken words and see near objects. He does not have any white patches on his tongue. Neck: No stiffness. Thorax: No increased AP diameter of the chest. On the patient's chest where he had the catheter removed has a slight opening of the wound, but there is no swelling or purulent drainage and the area is not tender. Lungs: Clear to auscultation. Cardiovascular: Regular heart rate. Abdomen: Soft and nontender. Neurologic: The patient is awake. He can move his extremities. He does not have a tremor. LAB AND X-RAY: There is no recent chest x-ray. CBC shows a white count of 11,480, hemoglobin 7.7, and platelet count 27,000. Creatinine is 1.3. GFR is greater than 60. ASSESSMENT AND PLAN: Patient has methicillin-resistant Staph aureus bacteremia with possible pneumonia. I plan to continue with daptomycin and ceftaroline. For tomorrow I have ordered repeat blood cultures and a chest x-ray. COMORBIDITIES: The patient has stage IV lung cancer with metastatic lesions, chronic anemia and thrombocytopenia, gastroesophageal reflux disease and diabetes mellitus. cc: Reinier Mendoza MD
[2018-11-05] MEDS: CUBICIN 750 MG in NS 100 ML IV SCH (20:46)
[2018-11-05] MEDS: NORCO-7.5 PO PRN (20:47)
[2018-11-06] MEDS: NORCO-7.5 PO PRN ×4 (00:52→20:35)
[2018-11-06] MEDS: MORPHINE IV PRN ×5 (02:47→21:19)
[2018-11-06] MEDS: DUONEB (A & A) INH SCH ×4 (03:48→21:25)
[2018-11-06] MEDS: TEFLARO 600 MG in NS 250 ML IV SCH ×2 (05:03→17:01)
[2018-11-06] MEDS: HUMALOG SUBQ SCH ×4 (06:08→21:19)
--- NOTE | 2018-11-06 07:09 | Diag Imaging Result Doc PS360 ---
CHEST-1 VIEW - 11/06/2018 INDICATION: pneumonia COMPARISON: 11/03/2018 FINDINGS: Stable complete collapse of the right upper lobe. No new infiltrates. Heart size is top normal. IMPRESSION: No change from prior. Electronically signed by Jasbir Gregoyr 11/06/2018 7:06 AM
[2018-11-06 07:14] LABS: BASO# 0.03 X1000 (0.0-0.2); BASO% 0.3 % (0.0-0.8); EOS# 0.03 X1000 (0.0-0.7); EOS% 0.3 % (0.0-10.0); HEMATOCRIT 23.1 % (42.0-52.0); HEMOGLOBIN 7.4 g/dL (14.0-18.0); IMM GRAN# 0.24 X1000 (0.0-0.04); IMM GRAN% 2.2 % (0.0-0.5); LYMPH# 2.31 X1000 (1.2-3.4); LYMPH% 21.5 % (20.5-51.1); MCH 30.2 PG (27-31); MCV 94.3 FL (81-99); MONO% 14.9 % (1.7-9.3); MPV 11.1 FL (7.4-10.4); NEUT# 6.55 X1000 (1.4-6.5); NEUT% 60.8 % (42.2-75.2); PLT 21 X1000 (130-400); RBC 2.45 XMIL (4.7-6.1); RDW 20.4 % (11.5-14.5); WBC 10.76 X1000 (4.8-10.8)
[2018-11-06 07:16] LABS: AGAP 12; ALB/GLOB RATIO 0.5; ALBUMIN 2.2 g/dL (3.5-5.0); ALKALINE PHOSPHATASE 337 U/L (32-122); BUN 16 mg/dL (8-22); CHLORIDE 105 mmol/L (98-107); CK TOTAL 391 U/L (24-204); COSMO 270; CREATININE 1.4 mg/dL (0.7-1.2); ESTIMATED GFR > 60; GLUCOSE 103 mg/dL (70-104); GOT 126 U/L (10-34); GPT 42 U/L (10-44); MAGNESIUM 1.4 mg/dL (1.5-2.7); PHOSPHORUS 2.7 mg/dL (2.7-4.5); POTASSIUM 4.1 mmol/L (3.5-5.1); SODIUM 134 mmol/L (136-145); TCO2 17 mmol/L (25-35); TOTAL BILIRUBIN 10.09 mg/dL (0.20-1.00); TOTAL PROTEIN 6.4 g/dL (6.3-8.3)
[2018-11-06 07:29] LABS: CALCIUM 5.4 mg/dL (8.8-10.2)
[2018-11-06 07:39] LABS: BANDS 4 % (0-1); LYMPHS 12 % (21-51); MONO 8 % (1-9); SEGS 76 % (42-75)
[2018-11-06 07:40] LABS: ANISOCYTOSIS 2+; HYPOCHROM 1+; LARGE PLATELETS 1+
[2018-11-06] MEDS: NEURONTIN PO SCH ×3 (08:58→17:02)
[2018-11-06] MEDS: PROTONIX PO SCH (08:58)
[2018-11-06] MEDS: AYR NASAL SPRAY NAS SCH ×3 (09:02→17:07)
[2018-11-06] MEDS: TYLENOL PO PRN (09:08)
--- NOTE | 2018-11-06 10:34 | INFECTIOUS DISEASE PROGRESS NO ---
DATE: 11/06/2018 PRESENT ILLNESS: Mr. Sparrow has a methicillin-resistant Staph aureus bacteremia that came from his Port-A-Cath, which has been removed. Unfortunately, the bacteremia and fever have been persistent. There is also a possible pneumonia as noted with a previous elevated procalcitonin of 4.3 making it highly likely that there is a respiratory tract infection. MEDICATIONS: Today is day 8 of daptomycin 750 mg IV daily and day 5 of ceftaroline 600 mg IV every 12 hours. PHYSICAL EXAMINATION: Vital Signs: Temperature is 99.9 degrees, pulse rate 85 , respiratory rate is 20, blood pressure 128/73, O2 saturation is 100% on 3 L nasal cannula. General: This is a chronically ill-appearing, middle-aged gentleman. He is lying in bed, in no acute distress. HEENT: Atraumatic, normocephalic. Oral mucous membranes are pink and moist. Sclerae are icteric. Neck: Supple. Trachea is midline. Respiratory: Lung sounds are clear and diminished bilaterally. Cardiovascular: Heart rate and rhythm are regular. Pedal and radial pulses are palpable bilaterally. No edema noted. Integumentary: Skin is warm and dry. There is a dressing to the left chest where the previous Port-A-Cath site was, that is dry and intact. Abdomen: Soft, round, nontender. Bowel sounds are active. Neurologic: He is awake, alert, and oriented and able to move around in the bed with some generalized weakness. LABORATORY AND X-RAY: Today his white count is 10.76, hemoglobin 7.4, platelet count 21,000. Creatinine is 1.4. Estimated GFR is greater than 60. His total bilirubin is 10.09, AST 126, ALT 42, alkaline phosphatase 337. Creatine kinase is 391. Blood cultures have been drawn this morning and are preliminary. Last urine culture has shown no growth. Previous cultures have shown methicillin-resistant Staph aureus in his blood and urine. Chest x-ray shows stable complete collapse of the right upper lobe with no new infiltrates. ASSESSMENT AND PLAN: Mr. Sparrow has a methicillin-resistant Staph aureus bacteremia which has been very persistent, as well as a fever. There may be some signs of fever reduction, with his last spike above 100 being early, yesterday morning. So far in the last 24 hours he has stayed below 100. He does have a slightly elevated creatine kinase but at this point, the patient states he is not having any more aches and pains than usual. I have told him to let us know if he starts having worsening muscle aches and pains. For now we will continue to the daptomycin and ceftaroline to treat his bacteremia and pneumonia and hope for negative blood cultures. Previous plans have been discussed with and recommended by Dr. Mendoza. COMORBIDITIES: For Mr. Sparrow include stage IV lung cancer with metastatic lesions, chronic anemia and thrombocytopenia, diabetes mellitus, and gastroesophageal reflux disease. Dictated by SOPHIA Bach for Reinier Mendoza MD This chart was documented by, SOPHIA Bach and accurately reflects the services performed, treatment plan and medical decisions as attested by the providers signature Reinier Mendoza MD. cc: Reinier [facility]endoza MD [facility]
--- NOTE | 2018-11-06 12:43 | PROGRESS NOTE ---
DATE: 11/06/2018 SUBJECTIVE: This morning, Mr. Sparrow refers to be doing fairly stable. Denies any fever. OBJECTIVE: Vital signs: Blood pressure is 121/61, pulse is 79, respiration is 18, temperature 99.1 degrees. General: Mr. Sparrow, a 52-year-old gentleman. He was in bed. No distress. HEENT: Mucosa is pink and moist. Anicteric. Acyanotic. Neck: Supple. Chest: Air entry is bilaterally reduced, more so to the right upper lobe. No crackles. Cardiovascular: Regular rate and rhythm. Abdomen: Soft. Extremities: No pedal edema. 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 LABORATORY DATA: WBC is up to 10.74, hemoglobin is 7.4, platelet count is 21, 000. Chemistry is also reviewed unremarkable. DIAGNOSTIC STUDIES: A chest x-ray this morning shows stable complete collapse of the right upper lobe. No new infiltrates. ASSESSMENT: 1. Neutropenic fever on presentation, improved. 2. Sepsis associated with resistant MRSA bacteremia. Patient is being seen also by Infectious Disease. He is currently on double coverage with ceftaroline and daptomycin. 3. Central line associated bloodstream infection (CLABSI) with MRSA bacteremia. Noted. Line has been removed. 4. Right upper lobe, poorly differentiated adenocarcinoma of the lung with bilateral mediastinal and hilar lymph nodes. 5. Right upper lobe collapse secondary to malignancy with associated atelectasis and possible superimposed pneumonia. The patient is getting antibiotics. 6. Diabetes mellitus. We will continue with insulin regimen. 7. Acute kidney injury, fairly stable. PLAN: So, in general, I think Ms. Sparrow is fairly stable. She is no more febrile. Urine culture has now become negative. A repeat blood culture today is still pending. For now, patient is on double coverage of MRSA. He has been seen by Infectious Disease and Hematology/ Oncology. cc: Jm Elaine MD [facility]
[2018-11-06] MEDS: CUBICIN 750 MG in NS 100 ML IV SCH (20:37)
[2018-11-07] MEDS: DUONEB (A & A) INH SCH ×4 (03:42→18:06)
[2018-11-07] MEDS: TEFLARO 600 MG in NS 250 ML IV SCH ×2 (05:16→17:05)
[2018-11-07] MEDS: HUMALOG SUBQ SCH ×4 (06:07→20:36)
[2018-11-07] MEDS: PROTONIX PO SCH (06:16)
[2018-11-07] MEDS: NORCO-7.5 PO PRN ×4 (06:16→21:17)
[2018-11-07 07:47] LABS: BASO# 0.03 X1000 (0.0-0.2); BASO% 0.3 % (0.0-0.8); EOS# 0.01 X1000 (0.0-0.7); EOS% 0.1 % (0.0-10.0); HEMATOCRIT 23.5 % (42.0-52.0); HEMOGLOBIN 7.6 g/dL (14.0-18.0); IMM GRAN# 0.28 X1000 (0.0-0.04); IMM GRAN% 2.5 % (0.0-0.5); LYMPH# 2.28 X1000 (1.2-3.4); MCH 30.2 PG (27-31); MCHC 32.3 g/dL (33-37); MCV 93.3 FL (81-99); MONO# 1.61 X1000 (0.11-0.59); MONO% 14.1 % (1.7-9.3); NEUT# 7.21 X1000 (1.4-6.5); PLT 26 X1000 (130-400); RBC 2.52 XMIL (4.7-6.1); RDW 20.4 % (11.5-14.5); WBC 11.42 X1000 (4.8-10.8)
[2018-11-07 07:57] LABS: AGAP 13; ALBUMIN 2.2 g/dL (3.5-5.0); BUN 15 mg/dL (8-22); CHLORIDE 110 mmol/L (98-107); COSMO 280; CREATININE 1.4 mg/dL (0.7-1.2); ESTIMATED GFR > 60; GLUCOSE 87 mg/dL (70-104); PHOSPHORUS 2.4 mg/dL (2.7-4.5); SODIUM 140 mmol/L (136-145); TCO2 17 mmol/L (25-35)
[2018-11-07 07:58] LABS: CALCIUM 5.2 mg/dL (8.8-10.2)
[2018-11-07 08:41] LABS: LYMPHS 19 % (21-51); MONO 14 % (1-9); SEGS 67 % (42-75)
[2018-11-07] MEDS: AYR NASAL SPRAY NAS SCH ×3 (09:41→16:51)
[2018-11-07] MEDS: NEURONTIN PO SCH ×3 (09:42→16:45)
[2018-11-07] MEDS: MORPHINE IV PRN ×2 (13:45→20:03)
[2018-11-07] MEDS: MAGNESIUM SULFATE 2 GM/S.W.I. 2 GM/50 ML IVPB IV SCH ×2 (14:59→18:43)
[2018-11-07] MEDS: K-PHOS PO SCH ×2 (15:00→20:04)
[2018-11-07] MEDS: CITRACAL + D PO SCH (15:00)
--- NOTE | 2018-11-07 15:19 | PROGRESS NOTE ---
DATE: 11/07/2018 OVERNIGHT EVENT: He did have a fever episode overnight with temperature of 101.5 degrees. In the morning time, he states that he is feeling fine. SUBJECTIVE: When he came in a month ago, he was having extreme weakness of bilateral lower extremities, was short of breath. Now, he is feeling better. He was frustrated that he has been in the hospital for 3 weeks, and he wanted to know about discharge plan. I sat down and extensively discussed with him about his clinical condition and the fact that I will have to make sure that he is absolutely stable before I could discharge him. He understood it. I discussed with him about plan for awaiting negative blood culture results before we could decide the long- term antibiotic plan, and answered all of his questions. OBJECTIVE: Vital Signs: Currently vital signs 99.3, pulse 83 per minute, blood pressure 120/63, saturating 99% on room air. General appearance: On physical examination, does not appear in acute distress. Respiratory: Air entry bilaterally equal. No wheeze, rhonchi or crackles. Cardiovascular: S1, S2 normal. No murmur, rub, or gallop. Abdomen: Soft, nontender. He has a midline abdominal scar for previous surgery for peripheral arterial disease. Extremities: No lower extremity edema. LABS: Labs suggest leukocytosis, normocytic anemia, thrombocytopenia, neutrophilia, hyperchloremia, low bicarbonate, normal kidney function, persistent hypocalcemia , hypophosphatemia. He also had hypomagnesemia yesterday. MICROBIOLOGY: Blood culture drawn on November 06 is pending. ASSESSMENT AND PLAN: 1. Sepsis associated with resistant methicillin-resistant Staphylococcus aureus from infected Port-A-Cath, status post removal of Port-A-Cath. Continue intravenous ceftaroline and daptomycin. Follow up with blood cultures drawn on November 06. This was central line associated bloodstream infection due to methicillin-resistant Staphylococcus aureus. He had h/o aortofemoral graft. Infection and the seeding of the graft is also a likely possibility considering persistent bacteremia. 2. Non small cell lung cancer stage IV, poorly differentiated adenocarcinoma with bilateral mediastinal hilar lymph nodes, predominantly affecting the right upper lobe. He had received [place]-based chemotherapy with Keytruda, carboplatin and Alimta on 2017. He had also received a dose of Neulasta. 3. Right upper lobe collapse secondary to malignancy with associated atelectasis , possible superimposed pneumonia. Intravenous antibiotic plans as mentioned above. 4. Hypocalcemia with vitamin D deficiency. Continue vitamin D supplementation. Start patient on oral calcium. Replete magnesium and phosphorus, as well, for hypomagnesemia and hypophosphatemia. Follow up with parathormone tomorrow. I consider discontinuing the other medication which might contribute to hypocalcemia in the future considering pantoprazole. [place]-based chemotherapy including especially cisplatin that is associated with hypocalcemia as well. 5. Cancer-related chronic pain. Continue patient on gabapentin, [place], acetaminophen and morphine as needed. Continue MiraLAX for avoiding constipation. 6. Others. During this hospital admission, he was found to have urinary tract infection previously and also transaminitis. He also has hepatitis C, which is noted. 7. Disposition: Patient remains inside the hospital for persistently positive blood cultures. Plan of care is discussed with him. All of his questions have been answered. 8. History of non insulin-dependent diabetes mellitus and hypertension. Continue him on sliding scale insulin. His blood pressure currently has been within an acceptable range, and no need of antihypertensive medication. cc: Thang Christy MD [facility]
[2018-11-07] MEDS: CUBICIN 750 MG in NS 100 ML IV SCH (20:04)
[2018-11-08] MEDS: MORPHINE IV PRN ×5 (03:42→23:10)
[2018-11-08] MEDS: TEFLARO 600 MG in NS 250 ML IV SCH ×3 (04:13→17:57)
[2018-11-08] MEDS ORDERED: CALCIUM GLUCONATE 4.65 MEQ in NS 50 ML IV ONE (05:00)
[2018-11-08] MEDS: DUONEB (A & A) INH SCH ×4 (05:02→21:20)
[2018-11-08] MEDS: NORCO-7.5 PO PRN ×4 (06:02→21:19)
[2018-11-08] MEDS: PROTONIX PO SCH (06:02)
[2018-11-08] MEDS: HUMALOG SUBQ SCH ×3 (06:02→16:52)
[2018-11-08 07:25] LABS: CREATININE 1.5 mg/dL (0.7-1.2); MAGNESIUM 1.6 mg/dL (1.5-2.7); POTASSIUM 4.1 mmol/L (3.5-5.1)
[2018-11-08] MEDS: NEURONTIN PO SCH ×3 (09:03→16:48)
[2018-11-08] MEDS: CITRACAL + D PO SCH (09:03)
[2018-11-08] MEDS: AYR NASAL SPRAY NAS SCH ×3 (09:03→16:49)
[2018-11-08] MEDS: K-PHOS PO SCH ×2 (09:03→20:19)
[2018-11-08 11:12] LABS: BASO# 0.04 X1000 (0.0-0.2); BASO% 0.3 % (0.0-0.8); EOS# 0.03 X1000 (0.0-0.7); EOS% 0.2 % (0.0-10.0); IMM GRAN# 0.37 X1000 (0.0-0.04); LYMPH# 2.39 X1000 (1.2-3.4); LYMPH% 19.5 % (20.5-51.1); MCH 30.4 PG (27-31); MCHC 31.8 g/dL (33-37); MCV 95.7 FL (81-99); MONO# 1.59 X1000 (0.11-0.59); MONO% 12.9 % (1.7-9.3); MPV 11.6 FL (7.4-10.4); NEUT# 7.86 X1000 (1.4-6.5); NEUT% 64.1 % (42.2-75.2); RDW 21.3 % (11.5-14.5); WBC 12.28 X1000 (4.8-10.8)
[2018-11-08 11:13] LABS: PLT 31 X1000 (130-400)
[2018-11-08] MEDS: MAG-OX PO SCH ×2 (11:15→20:19)
[2018-11-08 11:32] LABS: LYMPHS 20 % (21-51); MONO 11 % (1-9); SEGS 69 % (42-75)
[2018-11-08] MEDS: VITAMIN D PO SCH (13:49)
--- NOTE | 2018-11-08 14:55 | PROGRESS NOTE ---
DATE: 11/08/2018 SUBJECTIVE: This morning Mr. Sparrow refers to be doing okay. No acute complaints. Mr. Sparrow did have a spike in temperature yesterday at 08:22 of 101.5. After that, his temperatures have been fairly normal. OBJECTIVE: Vital signs: Blood pressure is 111/56, pulse is 83, respirations 20, temperature is 99.1 degrees. The patient is saturating 98% on room air. General: Mr. Sparrow is a 53-year-old gentleman. He is in bed in no distress. Mucosa is pink and moist. Anicteric. Acyanotic. Neck: Supple. No JVD. Respiratory System: There is good air entry bilaterally. No crepitations. Cardiovascular: Regular rate and rhythm. No murmurs, no rubs, no gallops. GI: Abdomen is soft, nontender. Bowel sounds present. Extremities: No pedal edema. Distal pulses are present. 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 There is no focal neurological deficit. LABORATORY DATA: WBC is 12.28, hemoglobin is 7, platelet count of 33,000. The patient has 69% of segments. Chemistry is also reviewed. Creatinine is 1.5. Rest of chemistry is unremarkable. So far, urine and blood cultures have been negative for 48 hours. ASSESSMENT AND PLAN: 1. Neutropenic fever on presentation, resolved. 2. Sepsis associated with resistant methicillin-resistant Staphylococcus aureus bacteremia. Subsequent blood cultures have now cleared. Patient is on ceftaroline and daptomycin. 3. Central line associated bloodstream infection (CLABSI) with methicillin-resistant Staphylococcus aureus bacteremia. The port has been removed. 4. 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 The patient follows up with oncology (Dr. Ramires). Patient is on Keytruda, Alimta, and carboplatin. The last treatment was 10/12/2018 before he got admitted on 10/18/2018. 5. Right upper lobe collapse secondary to malignancy with associated atelectasis and possible superimposed pneumonia. The patient is on IV antibiotics. 6. Diabetes mellitus, controlled. 7. Acute kidney injury. Creatinine is fairly stable. The patient is making adequate urine. 8. Secondary hyperparathyroidism. I think this is reactive to the electrolyte abnormalities including vitamin D deficiency and hypomagnesemia. We will continue to replace these abnormalities, and hopefully the elevated PTH should be coming down. 9. Thrombocytopenia. This seems to be getting better. cc: Jm Elaine MD
[2018-11-08] MEDS: CUBICIN 750 MG in NS 100 ML IV SCH (22:00)
[2018-11-09] MEDS: HUMALOG SUBQ SCH ×5 (02:44→23:12)
--- NOTE | 2018-11-09 02:52 | HEMO/ONC PROGRESS NOTE ---
DATE: 11/08/2018 CHIEF COMPLAINT: "When can I go home." OBJECTIVE: General: The patient is sitting up in bed in no immediate distress. Vital Signs: Temperature 97.7 degrees, blood pressure 136/72, heart rate 81, respirations 20 , O2 saturation 98% on room air. HEENT: Normocephalic, atraumatic. Mucous membranes are pale and moist. Sclerae anicteric. Extraocular movements intact. Neck: Supple. Lungs: Clear to auscultation bilaterally. Chest expansion equal bilaterally. Cardiovascular: S1, S2 is heard. No murmurs, rubs or gallops. Abdomen: Nondistended. Extremities: Without clubbing, cyanosis, or edema. Dermatologic: No rashes, bruises or lesions. Neurologic: The patient is awake , alert, and oriented x3. He has no focal deficit. ASSESSMENT AND PLAN: 1. Stage IV non-small cell lung cancer on Keytruda, Alimta and carboplatin, last treatment was 10/12/2018. The patient did receive Neulasta on 10/13/2018. Treatment is currently on hold until the patient's acute illness improves. 2. Neutropenic fever on presentation, resolved at this time. 3. Sepsis with Methicillin-resistant Staphylococcus aureus bacteremia. The patient is currently on ceftaroline and daptomycin with clearing of subsequent blood cultures. 4. Central line associated bloodstream infection with Methicillin-resistant Staphylococcus aureus bacteremia. The port is status post removal. 5. Right upper lobe collapse secondary to malignancy and associated atelectasis and possible superimposed pneumonia. The patient is currently on antibiotics. 6. Anemia. Hemoglobin today is 7.0. The patient will receive 1 unit of packed red blood cells. 7. We will continue to follow along with you and make further recommendations pending outcome. The above reflects the history, examination, assessment and plan of Dr. Dent. Dictated by SOPHIA Olivares for Nury Dent MD cc: SOPHIA Olivares MD I have seen and examined the patient and the above note reflects my history, physical, assessment and plan. Nury Dent MD [facility]
[2018-11-09] MEDS: DUONEB (A & A) INH SCH ×5 (03:48→21:25)
[2018-11-09] MEDS: NORCO-7.5 PO PRN ×4 (05:36→20:18)
[2018-11-09 07:10] LABS: BASO# 0.07 X1000 (0.0-0.2); BASO% 0.6 % (0.0-0.8); EOS# 0.02 X1000 (0.0-0.7); EOS% 0.2 % (0.0-10.0); HEMOGLOBIN 6.9 g/dL (14.0-18.0); IMM GRAN# 0.38 X1000 (0.0-0.04); IMM GRAN% 3.2 % (0.0-0.5); LYMPH# 2.43 X1000 (1.2-3.4); LYMPH% 20.4 % (20.5-51.1); MCH 29.6 PG (27-31); MCHC 31.4 g/dL (33-37); MCV 94.4 FL (81-99); MONO# 1.59 X1000 (0.11-0.59); MONO% 13.3 % (1.7-9.3); MPV 13.1 FL (7.4-10.4); NEUT# 7.44 X1000 (1.4-6.5); NEUT% 62.3 % (42.2-75.2); RBC 2.33 XMIL (4.7-6.1); RDW 21.5 % (11.5-14.5); WBC 11.93 X1000 (4.8-10.8)
[2018-11-09 07:11] LABS: PLT 37 X1000 (130-400)
[2018-11-09] MEDS: TEFLARO 600 MG in NS 250 ML IV SCH ×2 (07:27→18:26)
[2018-11-09] MEDS: PROTONIX PO SCH (07:29)
[2018-11-09] MEDS: MORPHINE IV PRN ×4 (07:29→23:09)
[2018-11-09 07:35] LABS: AGAP 12; ALB/GLOB RATIO 0.5; ALBUMIN 2.1 g/dL (3.5-5.0); ALKALINE PHOSPHATASE 432 U/L (32-122); BUN 13 mg/dL (8-22); CHLORIDE 111 mmol/L (98-107); COSMO 279; CREATININE 1.4 mg/dL (0.7-1.2); ESTIMATED GFR > 60; GLUCOSE 96 mg/dL (70-104); GOT 135 U/L (10-34); GPT 42 U/L (10-44); SODIUM 140 mmol/L (136-145); TCO2 17 mmol/L (25-35); TOTAL BILIRUBIN 9.67 mg/dL (0.20-1.00); TOTAL PROTEIN 6.5 g/dL (6.3-8.3)
--- NOTE | 2018-11-09 07:40 | Diag Imaging Result Doc PS360 ---
EXAM: CHEST-1 VIEW 11/09/2018 HISTORY: SOB TECHNIQUE: AP portable at 0618 COMMENT: There continues to be apical opacity on the right. There is apparent pleural fluid on the left which is increased since 11/06/2018. IMPRESSION: Small left pleural effusion. Electronically signed by John Yo 11/09/2018 7:37 AM
[2018-11-09 07:46] LABS: CALCIUM 5.1 mg/dL (8.8-10.2)
[2018-11-09 08:13] LABS: LYMPHS 23 % (21-51); MONO 12 % (1-9); SEGS 65 % (42-75)
[2018-11-09] MEDS: NEURONTIN PO SCH ×3 (08:26→16:48)
[2018-11-09] MEDS: CITRACAL + D PO SCH (08:26)
[2018-11-09] MEDS: AYR NASAL SPRAY NAS SCH ×3 (08:26→16:49)
[2018-11-09] MEDS: MAG-OX PO SCH ×2 (08:26→20:18)
--- NOTE | 2018-11-09 10:46 | PROGRESS NOTE ---
DATE: 11/09/2018 SUBJECTIVE: This morning, Mr. Sparrow refers to be doing fairly okay, some abdominal discomfort. He has been having on and off fever as well. Earlier, he had 99.9. Three days ago, he did have a temp of 101.5 degrees. OBJECTIVE: Vital signs: Blood pressure is 140/67, pulse is 85, respirations 18, temperature is 100.1 degrees. General: Mr. Sparrow is a 53-year-old gentleman. He is in bed. No distress. HEENT: Mucosa is pink and moist. Anicteric. Acyanotic. Neck: Supple. Chest: Good air entry bilateral. There was no crepitations, no rhonchi. Cardiovascular: Regular rate and rhythm. No murmurs, no rubs, no gallops. GI: Abdomen is soft. There is an old midline surgical scar. There is also some tenderness to right upper quadrant with mild guarding. SHANK FAKER: Patient is awake, alert, oriented. There is no focal neurological deficit. Extremities: No pedal edema. Distal pulses are present. LABORATORY DATA: WBC is 11.96, hemoglobin is 6.9, platelet count of 37,000. Chemistry is also reviewed. Bicarb is 17. Creatinine is down to 1.4. Total bilirubin is still high at 9.67, AST is 135, ALT is normal, alkaline phosphatase is 432. ASSESSMENT: 1. Neutropenic fever on presentation, resolved. 2. Persistent recurrent intermittent fever. The patient's blood cultures have been negative, and he seems to be on the right antibiotics for the bacteremia. However, he continues to run a temperature. He has some tenderness in the right upper quadrant. He is not on any gram- negative coverage, and I am concerned if he has a gallbladder disease, then that could source of the intermittent fever, so we will scan him and then go from there. 3. Sepsis associated with methicillin-resistant Staphylococcus aureus bacteremia. This is improved. 4. Central line associated bloodstream infection. The port has been removed. 5. 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 The patient is status post chemo with Keytruda, Alimta, and carboplatin. Last treatment was 10/12/2018, and he follows up with Dr. Ramires. 6. Right upper lobe collapse secondary to malignancy with associated atelectasis and possible superimposed pneumonia. The patient is on antibiotics. 7. Acute kidney injury. Creatinine is fairly stable. 8. Secondary hyperparathyroidism due to vitamin D and hypomagnesemia. We will continue to replace these. 9. Thrombocytopenia, improving. 10. Anemia. Hemoglobin has gone down to 6.9, and this is even after transfusion. We are going to repeat this to make sure it is not wrong reading since platelet count seems to be going up, and patient does not have any overt signs of hemolysis or hemorrhaging. 11. Right upper quadrant pain associated with obstructive pattern of jaundice. Patient's alkaline phosphatase is high. Direct bilirubin is high. A previous ultrasound of the abdomen done on 10/24 showed echogenic sludge in the gallbladder lumen. I am going to repeat these studies to make sure patient has not developed acute cholecystitis or any other complication associated with the gallbladder. Will re-evaluate this patient later on this afternoon with the results of the investigations. With a fever, and jaundice, and elevated liver enzymes, there is also concern for ascending cholangitis, so going I am going to prophylactically start the patient on carbapenems until he is seen by ID to make any further changes. cc: Jm Elaine MD
[2018-11-09] MEDS: MERREM 1 GM in NS 50 ML IV SCH ×2 (11:05→21:29)
--- NOTE | 2018-11-09 12:24 | Diag Imaging Result Doc PS360 ---
EXAM: CT ABDOMEN/PELVIS W/O CONTRAST 11/09/2018 HISTORY: persistent fever/immunocompromised TECHNIQUE: This exam was performed using automated exposure control, adjustment of mA or kV according to patient size, and/or use of iterative reconstruction technique. COMMENT: The current examination is compared with the previous study of 07/04/2018. There is patchy opacity present in the lung bases particularly in the right lower lobe and lingula. This was not present at the time the previous examination and the possibility of pneumonia or pneumonitis is suggested. There are bilateral pleural effusions. There is ascites. There is some subcutaneous edema. These findings were not present at the time the previous study. There is splenomegaly, the spleen measuring in excess of 17 cm in AP dimension. This was not the case previously. There are no apparent gallstones. There are some arterial calcifications and there is an apparent aortobifemoral graft. Calcification seen in the renal hilus on both sides are probably vascular. There is what appears to be a hyperdense cyst laterally in the slightly lower portion of the left kidney. This was apparently present at the time the previous study. There is no evidence of hydronephrosis. There is some fluid in the small bowel and stool and gas in the colon without evidence of obstruction. There is no evidence of adenopathy. The urinary bladder is slightly distended. The regional skeleton is stable in appearance. IMPRESSION: Anasarca, pleural effusions, ascites. Bibasilar pneumonia/pneumonitis. Splenomegaly. The possibility of gastroenteritis cannot be excluded. Electronically signed by John Yo 11/09/2018 12:22 PM
[2018-11-09 12:37] LABS: INR 1.3; PROTIME 17.2 Seconds (11.0-16.0)
[2018-11-09 12:38] LABS: PTT 49.3 Seconds (22.3-41.8)
--- NOTE | 2018-11-09 12:46 | INFECTIOUS DISEASE PROGRESS NO ---
DATE: 11/09/2018 PRESENT ILLNESS: The patient has methicillin-resistant Staph aureus bacteremia which has been persistent. Fortunately, the blood cultures that were drawn on November 06 are both negative. Therefore, I plan to continue for 6 weeks from that date antibiotic treatment with the combination of daptomycin and ceftaroline. The patient has been started on meropenem because of the elevation of the liver function studies. Ultrasound and CT scan have been ordered and I have not seen the results of those. MEDICATIONS: The patient as mentioned above is on ceftaroline and daptomycin. This will be the 3rd day because the first day is counted as the first time that the patient's repeat blood cultures are sterile, which was 3 days ago. The patient also as mentioned above has been started on meropenem for some intra-abdominal pathology is most likely present. I am uncertain as to what might be happening because the results of the ultrasound and CT scan are not yet back. PHYSICAL EXAMINATION: Vital Signs: Temperature is 100.4 degrees, pulse 80, respirations 14, blood pressure 130/70. General: This is an ill-appearing, middle-aged male. He is in no acute distress. Head/eyes/ears/nose/throat: He can hear my spoken words and see near objects. He does not have any white patches on his tongue. Neck: No stiffness. Lungs: Clear to auscultation. Cardiovascular: Regular heart rate. Thorax: The site where the patient's Port-A-Cath was is not swollen, tender or draining. Neurologic: The patient is awake. He is able to ambulate. There is no tremor. Extremities: Both legs are not edematous or tender. LAB AND X-RAY: Chest x-ray shows a right upper lobe opacity which is felt to be where the patient's lung cancer is. The creatinine is 1.4. GFR is greater than 60. The liver function studies have all increased. On November 06 is the first day that the patient's repeat blood cultures were sterile[place] [address], hemoglobin 6.9, and platelet count 37,000. ASSESSMENT AND PLAN: As regarding the patient's bacteremia. I plan to continue daptomycin and ceftaroline. I have ordered a CK to make sure that daptomycin is not causing severe muscle toxicity. Also as mentioned above, the liver function studies are elevated and the CT scan and ultrasound have been ordered. COMORBIDITIES: Include stage IV lung cancer with metastatic lesions, chronic anemia and thrombocytopenia, diabetes mellitus, and gastroesophageal reflux disease cc: Reinier Mendoza MD
--- NOTE | 2018-11-09 13:26 | Diag Imaging Result Doc PS360 ---
EXAM: US GB < RUQ (LIMITED) INDICATION: Fever/ Elevated LFTs. r/o cholecytitis COMPARISON: None. FINDINGS: There is small volume ascites tracking around the liver. No gallstones are identified. The gallbladder wall is markedly thickened measuring up to 3.5 mm. However, this is probably due to the presence of the small amount of surrounding fluid. The common bile duct is normal in diameter. Sonographic Rivera's sign was reported to be negative. The liver is grossly unremarkable. No discrete hepatic mass is identified. Portal venous flow is hepatopetal. The visualized pancreas is unremarkable. The aorta and IVC are grossly unremarkable. The right kidney is grossly unremarkable. IMPRESSION: 1.Small volume ascites around the liver. 2.Marginal gallbladder wall thickening that is probably due to the ascites. No gallstones are appreciated. Electronically signed by Bryson Alarcon 11/09/2018 1:23 PM
--- NOTE | 2018-11-09 19:17 | HEMO/ONC PROGRESS NOTE ---
DATE: 11/09/2018 CHIEF COMPLAINT: No new complaints. OBJECTIVE: General: Mr. Sparrow is lying supine in bed in no immediate distress. Vital Signs: Temperature 98.2, blood pressure 138/72, heart rate 84, respirations 19, O2 saturation 97% on 2 L nasal cannula O2. HEENT: Normocephalic, atraumatic. Mucous membranes are pale and moist. Sclerae is icteric. Extraocular movements intact. Neck: Supple. Lungs: Clear to auscultation bilaterally. Chest: Chest expansion equal bilaterally. Cardiovascular: S1 , S2 is heard. No murmurs, rubs or gallops. Abdomen: Nondistended. Extremities: Without clubbing, cyanosis or edema. Dermatologic: No rashes, bruises or lesions. Neurologic: The patient is awake, alert and oriented x 3. There is no focal deficit. Gait is cautious. LABORATORY DATA: Hemoglobin 6.9, hematocrit 22.0, white blood cell count 11.93 , platelets are 37,000. Sodium 140, potassium 4.0, chloride 111, CO2 17, BUN 13, creatinine 1.4 and glucose is 96. Calcium is 5.1,, bilirubin 9.67, alkaline phosphatase 432, AST 135, ALT 42, IMAGING STUDIES: CT of the abdomen and pelvis reveals anasarca, pleural effusions, ascites, basilar pneumonia and pneumonitis, splenomegaly and a possibility of gastroenteritis. ASSESSMENT AND PLAN: 1. Stage IV non-small cell lung cancer on Keytruda, Alimta and carboplatin. Last treatment was 10/12/2018. The patient also received Neulasta on 10/13/2018. Treatment is currently on hold until the patient's acute illness improves. 2. Neutropenic fever, resolved. 3. Sepsis with methicillin resistant Staphylococcus aureus bacteremia. The patient is on antibiotics per Infectious Disease with subsequent blood cultures pending. 4. Central line associated bloodstream infection with methicillin resistant Staphylococcus aureus bacteremia Port status post removal. 5. Right upper lobe collapse secondary to malignancy and associated atelectasis with possible superimposed pneumonia. Patient is currently on antibiotics. 6. Anemia. Hemoglobin is 6.9 today. The patient will be transfused packed red blood cells. 7. Thrombocytopenia, unstable at this time. 8. Right upper quadrant abdominal pain with obstructive pattern of jaundice. Ultrasound of the abdomen revealed echogenic sludge on 10/24. Possible Gastroenterology consult pending. 9. We will follow along with you and make further recommendations pending outcomes. 10. The above reflects the history, exam, assessment and plan of Dr. Dent. Dictated by SOPHIA Olivares for Nury Dent MD cc: SOPHIA Olivares MD I have seen and examined the patient and the above note reflects my history, physical and assessment and plan. Nury Dent MD [facility] CENTERClary
[2018-11-10] MEDS: DUONEB (A & A) INH SCH ×4 (03:55→23:03)
[2018-11-10 07:19] LABS: BASO# 0.05 X1000 (0.0-0.2); BASO% 0.4 % (0.0-0.8); EOS# 0.02 X1000 (0.0-0.7); EOS% 0.2 % (0.0-10.0); HEMATOCRIT 20.7 % (42.0-52.0); HEMOGLOBIN 6.6 g/dL (14.0-18.0); IMM GRAN# 0.42 X1000 (0.0-0.04); IMM GRAN% 3.7 % (0.0-0.5); LYMPH# 2.07 X1000 (1.2-3.4); LYMPH% 18.4 % (20.5-51.1); MCH 30.3 PG (27-31); MCHC 31.9 g/dL (33-37); MONO# 1.61 X1000 (0.11-0.59); MONO% 14.3 % (1.7-9.3); MPV 12.9 FL (7.4-10.4); NEUT# 7.07 X1000 (1.4-6.5); RBC 2.18 XMIL (4.7-6.1); RDW 21.5 % (11.5-14.5); WBC 11.24 X1000 (4.8-10.8)
[2018-11-10 07:29] LABS: PLT 35 X1000 (130-400)
[2018-11-10 07:31] LABS: LYMPHS 20 % (21-51); MONO 20 % (1-9); SEGS 56 % (42-75)
[2018-11-10] MEDS: PROTONIX PO SCH (07:38)
[2018-11-10] MEDS: HUMALOG SUBQ SCH ×4 (07:38→21:51)
[2018-11-10] MEDS: TEFLARO 600 MG in NS 250 ML IV SCH ×2 (07:39→17:19)
[2018-11-10 07:43] LABS: AGAP 12; ALB/GLOB RATIO 0.5; ALBUMIN 2.1 g/dL (3.5-5.0); ALKALINE PHOSPHATASE 435 U/L (32-122); BUN 12 mg/dL (8-22); CHLORIDE 110 mmol/L (98-107); COSMO 279; CREATININE 1.3 mg/dL (0.7-1.2); ESTIMATED GFR > 60; GLUCOSE 97 mg/dL (70-104); GOT 131 U/L (10-34); GPT 40 U/L (10-44); POTASSIUM 4.3 mmol/L (3.5-5.1); SODIUM 140 mmol/L (136-145); TCO2 18 mmol/L (25-35); TOTAL BILIRUBIN 9.69 mg/dL (0.20-1.00); TOTAL PROTEIN 6.5 g/dL (6.3-8.3)
[2018-11-10 08:04] LABS: CALCIUM 5.1 mg/dL (8.8-10.2)
[2018-11-10] MEDS: MORPHINE IV PRN ×2 (11:17→21:43)
--- NOTE | 2018-11-10 11:19 | Diag Imaging Result Doc PS360 ---
HIDA SCAN W/ EJECTION FRACTION - 11/10/2018 INDICATION: GB disease COMPARISON: Ultrasound from 11/09/2018 FINDINGS: 5.2 millicuries of Choletec was administered. There is significantly delayed uptake and clearance by the liver. There is normal excretion into the gallbladder and small bowel. A fatty meal was given. The gallbladder ejection fraction is 77%. IMPRESSION: Delayed tracer uptake and excretion compatible with hepatic dysfunction. Normal gallbladder.. An abnormally low ejection fraction (less than 35%) can be present in patients without gallbladder dyskinesis or chronic cholelithiasis to have other medical conditions. These include but are not limited to, patients with diabetic mellitus, irritable bowel syndrome, , gastroenteritis. peptic ulcer disease, and patients receiving morphine or nifedipine. Electronically signed by Jasbir Gregory 11/10/2018 11:17 AM
[2018-11-10] MEDS: AYR NASAL SPRAY NAS SCH ×3 (12:13→16:00)
[2018-11-10] MEDS: NEURONTIN PO SCH ×3 (12:15→16:02)
[2018-11-10] MEDS: CITRACAL + D PO SCH (12:16)
[2018-11-10] MEDS: SODIUM BICARBONATE PO SCH ×2 (12:16→21:43)
[2018-11-10] MEDS: MAG-OX PO SCH ×2 (12:16→21:43)
--- NOTE | 2018-11-10 12:31 | PROGRESS NOTE ---
DATE: 11/10/2018 SUBJECTIVE: Went to round on patient today, and he was down for a HIDA scan. HIDA scan results were reviewed, showing delayed tracer uptake and excretion, compatible with hepatic dysfunction, but normal gallbladder. Ejection fraction was 77%. The patient does have elevated bilirubin which has improved over this hospitalization. It was thought in relation to intrahepatic cholestasis related to drug-induced liver injury. OBJECTIVE: Vital signs: Temperature 99.8 degrees, pulse 88, respirations 20, blood pressure 131/68. The patient was not seen due to being gone for his HIDA scan. The patient had a recent abdominal pelvis CT scan that showed anasarca, pleural effusion, ascites, bibasilar pneumonia/pneumonitis, splenomegaly. Abdominal ultrasound that showed small-volume ascites around the liver and marginal gallbladder wall thickening, probably due to ascites, with no gallstones noted. ASSESSMENT AND PLAN: 1. Fever. 2. Sepsis, on antibiotics, following with Dr. Mendoza. 3. Right upper lobe adenocarcinoma, following with Oncology. 4. Elevated bilirubin which has improved some over his hospitalization. 5. Anemia. He has had blood transfusions. 6. The patient has had a HIDA scan that shows 77% ejection fraction. Possibility of inconclusive studies related to elevated bilirubin. His bilirubin has improved some over his hospitalization. GI will be available as needed. The patient's records and results were also reviewed by Dr. Franks. Dictated by SOPHIA Calero for Homero Franks MD cc: SOPHIA Gilbert MD
[2018-11-10] MEDS: TYLENOL PO PRN (12:36)
[2018-11-10] MEDS: MERREM 1 GM in NS 50 ML IV SCH (14:40)
[2018-11-10] MEDS ORDERED: MERREM ONE (15:02)
[2018-11-10] MEDS: OFIRMEV 1000 MG/ISOTONIC SOLN 1,000 MG/100 ML BOTTLE IV PRN (15:37)
--- NOTE | 2018-11-10 15:44 | HEMO/ONC PROGRESS NOTE ---
DATE: 11/10/2018 CHIEF COMPLAINT: The patient has no new complaints. OBJECTIVE: General appearance: Mr. Sparrow is lying supine in bed in no immediate distress. Vital Signs: Temperature 100.7, blood pressure 139/62, heart rate 93, respirations 18, O2 saturation 94% on room air. HEENT: Normocephalic, atraumatic. Mucous membranes are pale and moist. Sclerae is anicteric. Extraocular movements intact. Neck: Supple. Lungs: Clear to auscultation bilaterally. Chest expansion is equal bilaterally. CV: S1, S2 is heard. No murmurs, rubs or gallops. Abdomen: Slightly distended. Tender to palpation diffusely. No rebound or guarding noted. Bowel sounds are positive in all quadrants. Dermatologic: No rashes, bruises or lesions. Neurologic: The patient is awake, alert, and oriented x3. He has no focal deficits. LABORATORY DATA: Hemoglobin 6.6, hematocrit 20.7, white blood cell count 11.24 , platelets 35,000. Sodium 140, potassium 4.3, chloride 110, CO2 is 18. BUN 12, creatinine 1.3, and glucose is 97. Calcium is 5.1. Bilirubin 9.69. Alkaline phosphatase 435, AST 131, ALT 40. ASSESSMENT AND PLAN: 1. Stage IV non-small cell lung cancer on Keytruda, Alimta and carboplatin. The patient's last treatment was on 10/12/2018. Additionally, the patient received Neulasta on 10/13/2018. Treatment is currently on hold until the patient's acute illness improved. 2. Neutropenic fever resolved; the fever does persist, however the patient has had repeat cultures. He is currently on antibiotics per Infectious Disease. 3. Methicillin-resistant Staphylococcus aureus bacteremia. Repeat blood cultures are currently pending. The patient is being seen by Infectious Disease. 4. Central line-associated bloodstream infection. The patient is status post port removal. 5. Right upper lobe collapse secondary to malignancy and associated atelectasis with possible superimposed pneumonia, currently on antibiotics with Infectious Disease. 6. Anemia and thrombocytopenia. Hemoglobin is 6.6 today after transfusion with 3 units packed red blood cells. Platelet count is 35,000. We will give 2 units of platelets at this time and continue to monitor. 7. Right upper quadrant abdominal pain with obstructive pattern of jaundice. HIDA scan was performed and results are currently pending. We will follow along with you and make further recommendations pending outcomes. The above reflects the history, exam, assessment and plan of Dr. Dent. Dictated by SOPHIA Olivares for Nury Dent MD cc: SOPHIA Olivares MD I have seen and examined the patient and the above note reflects my history, physical, assessment and plan. Nury MIRANDA
[2018-11-10] MEDS: NORCO-7.5 PO PRN (15:59)
--- NOTE | 2018-11-10 17:21 | PROGRESS NOTE ---
DATE: 11/10/2018 SUBJECTIVE: This morning, Mr. Sparrow refers to be doing fairly okay. He did not really have any complaints. Still minimum pain in the right upper quadrant, but for most part, he said he did not have any fever. However, during the course of the day, he was running a temperature. OBJECTIVE: Vital signs: Blood pressure is currently 122/72, pulse is 95, respiration is 18, temperature is 102.2 degrees. The patient was saturating 93%. General: Mr. Sparrow is a 53-year- old gentleman. He was in bed, in no distress. HEENT: Mucosa is pink and moist. Anicteric. Acyanotic. Neck: Supple. Chest: Good air entry bilateral, some few distant wheezing in the right upper lobe. There is also some basal crackles. Cardiovascular: Regular rate and rhythm. No murmurs, no rubs, no gallops. Abdomen: Soft. There is an old midline surgical scar. There is mild tenderness in the right upper quadrant. Central Nervous System: The patient is awake, alert, and oriented. There is no focal neurological deficit. LABORATORY DATA: WBC is 11.24, hemoglobin is 6.6, platelet count of 35,000. Chemistry is also reviewed. Creatinine is 1.3. CURRENT MEDICATIONS: Have been reviewed. She is on ceftaroline and meropenem. ASSESSMENT: 1. Persistent recurrent intermittent fever. So far, cultures have been negative. Initially, I thought this was related to gallbladder disease. However, both CT scan, ultrasound and a HIDA scan has been unremarkable. Probably, this is just of from the right upper lobe pneumonia. 2. Methicillin-resistant Staphylococcus aureus bacteremia. The patient has finally been negative on blood cultures. 3. Central line associated bloodstream infection. Port has been removed. 4. 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 The patient is on Keytruda, Alimta and carboplatin. Last treatment was 10/12/2018. Follows up with Dr. Ramires. 5. Right upper lobe collapse secondary to malignancy with associated atelectasis and possible superimposed pneumonia. The patient is on ceftaroline, meropenem was ordered to the antibiotics yesterday. 6. Anemia with thrombocytopenia. Patient is getting blood products. 7. Neutropenic fever on presentation. White cell count has improved. 8. Electrolytes abnormalities including hypocalcemia, hypomagnesemia and hypophosphatemia. We will continue to replace. 9. Obstructive jaundice secondary to intrahepatic cholestasis. Bilirubin is on downward trend. However, alkaline phosphatase and GGTP were slightly elevated. The patient' s CT scan of the abdomen ultrasound did not show any stones. 10. Acute kidney injury. Creatinine is on downward trend. PLAN: In General, Mr. Sparrow seems to be clinically stable however he continues spiking fever. Initially it was thought it could be related to gallbladder disease. However, this seems to be completely negative. We still think that it could be associated probably with the upper lobe pneumonia, especially if it is an obstructive pneumonia associated with a malignancy, then it is going to be extremely hard for it to be cleared. The patient is currently on ceftaroline and meropenem and ID, GI and Heme-Onc are seeing the patient as well. cc: Jm Elaine MD MTDD
[2018-11-10] MEDS: MERREM 2 GM in NS 100 ML IV SCH (21:43)
--- NOTE | 2018-11-10 22:38 | INFECTIOUS DISEASE PROGRESS NO ---
DATE: 11/10/2018 PRESENT ILLNESS: The patient has a methicillin-resistant Staph aureus bacteremia which finally had negative blood cultures drawn on November 06. However, the patient's CPK increased to 797, and I am stopping the daptomycin because it most likely caused the elevation in creatinine. I have changed the patient's antibiotics to a combination of ceftaroline and aztreonam. MEDICATIONS: As mentioned above, the patient now is on a combination of ceftaroline and meropenem. I did increase the dose of meropenem. PHYSICAL EXAMINATION: Vital Signs: Temperature is 102.2 degrees, pulse 95, respirations 18, blood pressure 122/73. General: This is a somewhat ill-appearing, middle-aged male. He is in no acute distress. Head, eyes, ears, nose, and throat: He can hear my spoken words and see near objects. He does not have any white patches on his tongue. Neck: No meningismus. Lungs: Clear to auscultation. Cardiovascular: Regular heart rate. Thorax: The patient's Port-A-Cath site on the left side is not swollen or draining. Neurologic: The patient is alert. He is able to ambulate without difficulty. Extremities: Both legs are not edematous or erythematous. LABORATORY AND X-RAY: CBC shows a white count of 11,240, hemoglobin 6.6, platelet count is 35,000. Creatinine is 1.3, GFR is greater than 60. The patient's alkaline phosphatase is 435. CK was 797. HIDA scan showed decreased ejection fraction. ASSESSMENT AND PLAN: The patient has bacteremia which appeared to be clearing, but now since daptomycin has stopped again, I am going to repeat the blood cultures. Also, I am ordering a repeat CPK to see if the CPK is coming down since daptomycin has been discontinued. COMORBIDITIES: He has stage IV lung cancer with metastatic lesions, chronic anemia, thrombocytopenia, diabetes mellitus, and gastroesophageal reflux disease. cc: Reinier Mendoza MD
[2018-11-11] MEDS: MORPHINE IV PRN ×5 (03:58→20:52)
[2018-11-11] MEDS: DUONEB (A & A) INH SCH ×4 (04:29→21:55)
[2018-11-11] MEDS: TEFLARO 600 MG in NS 250 ML IV SCH ×2 (05:05→18:22)
[2018-11-11] MEDS: MERREM 2 GM in NS 100 ML IV SCH ×3 (06:35→22:27)
[2018-11-11] MEDS: PROTONIX PO SCH (06:35)
[2018-11-11] MEDS: NORCO-7.5 PO PRN ×5 (06:38→23:57)
[2018-11-11] MEDS: HUMALOG SUBQ SCH ×4 (06:39→20:52)
[2018-11-11 07:18] LABS: BASO# 0.04 X1000 (0.0-0.2); BASO% 0.3 % (0.0-0.8); EOS# 0.02 X1000 (0.0-0.7); EOS% 0.2 % (0.0-10.0); HEMATOCRIT 23.2 % (42.0-52.0); HEMOGLOBIN 7.5 g/dL (14.0-18.0); IMM GRAN# 0.62 X1000 (0.0-0.04); IMM GRAN% 4.9 % (0.0-0.5); LYMPH# 1.73 X1000 (1.2-3.4); LYMPH% 13.5 % (20.5-51.1); MCH 30.1 PG (27-31); MCHC 32.3 g/dL (33-37); MCV 93.2 FL (81-99); MONO# 2.02 X1000 (0.11-0.59); MONO% 15.8 % (1.7-9.3); MPV 11.6 FL (7.4-10.4); NEUT# 8.34 X1000 (1.4-6.5); NEUT% 65.3 % (42.2-75.2); PLT 73 X1000 (130-400); RBC 2.49 XMIL (4.7-6.1); RDW 20.4 % (11.5-14.5); WBC 12.77 X1000 (4.8-10.8)
[2018-11-11 07:24] LABS: AGAP 10; ALB/GLOB RATIO 0.5; ALBUMIN 2.1 g/dL (3.5-5.0); ALKALINE PHOSPHATASE 438 U/L (32-122); BUN 13 mg/dL (8-22); CHLORIDE 110 mmol/L (98-107); COSMO 280; CREATININE 1.4 mg/dL (0.7-1.2); ESTIMATED GFR > 60; GLUCOSE 101 mg/dL (70-104); GOT 122 U/L (10-34); GPT 38 U/L (10-44); MAGNESIUM 1.3 mg/dL (1.5-2.7); PHOSPHORUS 2.5 mg/dL (2.7-4.5); POTASSIUM 3.9 mmol/L (3.5-5.1); SODIUM 140 mmol/L (136-145); TCO2 20 mmol/L (25-35); TOTAL PROTEIN 6.4 g/dL (6.3-8.3)
[2018-11-11 07:34] LABS: CALCIUM 4.8 mg/dL (8.8-10.2)
[2018-11-11 07:37] LABS: LYMPHS 12 % (21-51); MONO 8 % (1-9); SEGS 80 % (42-75)
[2018-11-11] MEDS: SODIUM BICARBONATE PO SCH ×3 (07:58→20:08)
[2018-11-11] MEDS: CITRACAL + D PO SCH ×2 (07:58→12:13)
[2018-11-11] MEDS: NEURONTIN PO SCH ×4 (07:58→16:39)
[2018-11-11] MEDS: MAG-OX PO SCH ×3 (07:59→20:08)
[2018-11-11] MEDS: AYR NASAL SPRAY NAS SCH ×3 (07:59→16:38)
[2018-11-11] MEDS ORDERED: CALCIUM GLUCONATE 2 GM in NS 100 ML IV ONE (08:06)
[2018-11-11] MEDS ORDERED: SODIUM PHOSPHATE 30 MEQ in NS 250 ML IV ONE (08:06)
[2018-11-11] MEDS ORDERED: MAGNESIUM SULFATE 2 GM/S.W.I. 2 GM/50 ML IVPB IV ONE (08:07)
--- NOTE | 2018-11-11 16:00 | PROGRESS NOTE ---
DATE: 11/11/2018 SUBJECTIVE: This morning Mr. Sparrow refers to be doing a lot better. He has not had any more fever. His last episode of fever was yesterday at about 1523. That was around the same time he was getting his blood transfusion. OBJECTIVE: Vital signs: Blood pressure is 111/56, temperature is 98.3, and pulse is 70. General: Mr. Sparrow is a [id number]--[place] gentleman who was in bed in no distress. HEENT: Mucous membranes are pink and moist. Anicteric. Acyanotic. Neck: Supple. Respiratory: There is good air entry bilaterally. A few basilar crepitations. Cardiovascular: Regular rate and rhythm. No murmurs, rubs or gallops. GI: Abdomen is soft. There is an old midline surgical scar. There is mild tenderness in the right upper quadrant, but that seems to be getting better. 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 No focal neurological deficits. LABORATORY: WBC is 12.77, hemoglobin 7.5, and platelet count is 73. Chemistry has also been reviewed. The patient still has a phosphorous of 2.5. Magnesium is 1.3. Total bilirubin is 9.10. Alkaline phosphatase is 438. ASSESSMENT: 1. Neutropenic fever on presentation, improved. 2. MRSA bacteremia. Subsequent blood cultures have been negative. 3. Central line associated blood stream infection. Ports have been removed. 4. 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 The patient follows up with Dr. Ramires. Recent chemotherapy regimen included Keytruda, Alimta and carboplatin. Last chemotherapy was 10/12/2018. 5. Right upper lobe collapse secondary to underlying malignancy with associated atelectasis and possible superimposed pneumonia. The patient is on ceftaroline an Meropenem. 6. Anemia with thrombocytopenia. Likely due to underlying malignancy and chemotherapy side effects. The patient has had multiple blood product transfusions. The numbers are still under the lower end. We are going to continue observing. 7. Electrolyte abnormality including hypophosphatemia, hypomagnesemia. We will continue to replace this. 8. Intrahepatic cholestasis noted. 9. Acute kidney injury. Stable. 10.Recurrent episodes of pyrexia. Unsure if this is due to any genuine underlying infection. It would most likely come from the lungs. However, it appears that this could be associated with blood products, febrile transfusion reaction. The patient's blood cultures have been negative for 48 hours. There is a repeat blood culture from the which was still pending. cc: Jm Elaine MD MTDD
[2018-11-12] MEDS: DUONEB (A & A) INH SCH ×4 (03:19→22:43)
[2018-11-12] MEDS: TEFLARO 600 MG in NS 250 ML IV SCH ×2 (05:03→17:20)
[2018-11-12] MEDS: MORPHINE IV PRN ×5 (05:09→22:49)
[2018-11-12] MEDS: HUMALOG SUBQ SCH ×4 (06:00→22:53)
[2018-11-12] MEDS: PROTONIX PO SCH (06:11)
[2018-11-12] MEDS: NORCO-7.5 PO PRN ×4 (06:11→19:55)
[2018-11-12] MEDS: MERREM 2 GM in NS 100 ML IV SCH ×3 (06:19→22:49)
[2018-11-12 07:39] LABS: BASO# 0.05 X1000 (0.0-0.2); BASO% 0.4 % (0.0-0.8); EOS# 0.05 X1000 (0.0-0.7); EOS% 0.4 % (0.0-10.0); HEMATOCRIT 23.9 % (42.0-52.0); HEMOGLOBIN 7.7 g/dL (14.0-18.0); IMM GRAN# 0.58 X1000 (0.0-0.04); IMM GRAN% 4.4 % (0.0-0.5); LYMPH# 2.21 X1000 (1.2-3.4); LYMPH% 16.6 % (20.5-51.1); MCH 30.3 PG (27-31); MCHC 32.2 g/dL (33-37); MCV 94.1 FL (81-99); MONO# 2.11 X1000 (0.11-0.59); MONO% 15.8 % (1.7-9.3); NEUT# 8.33 X1000 (1.4-6.5); NEUT% 62.4 % (42.2-75.2); PLT 48 X1000 (130-400); RBC 2.54 XMIL (4.7-6.1); RDW 21.5 % (11.5-14.5); WBC 13.33 X1000 (4.8-10.8)
[2018-11-12 07:48] LABS: AGAP 12; ALB/GLOB RATIO 0.5; ALKALINE PHOSPHATASE 480 U/L (32-122); BUN 12 mg/dL (8-22); CHLORIDE 109 mmol/L (98-107); COSMO 278; CREATININE 1.4 mg/dL (0.7-1.2); ESTIMATED GFR > 60; GLUCOSE 108 mg/dL (70-104); GOT 117 U/L (10-34); GPT 36 U/L (10-44); MAGNESIUM 1.3 mg/dL (1.5-2.7); PHOSPHORUS 2.4 mg/dL (2.7-4.5); POTASSIUM 3.6 mmol/L (3.5-5.1); SODIUM 139 mmol/L (136-145); TCO2 18 mmol/L (25-35); TOTAL BILIRUBIN 8.29 mg/dL (0.20-1.00); TOTAL PROTEIN 6.4 g/dL (6.3-8.3)
[2018-11-12 08:01] LABS: LYMPHS 26 % (21-51); MONO 12 % (1-9); SEGS 62 % (42-75)
[2018-11-12] MEDS ORDERED: POTASSIUM PHOSPHATE 30 MEQ in NS 250 ML IV ONE (08:12)
[2018-11-12] MEDS ORDERED: MAGNESIUM SULFATE 2 GM/S.W.I. 2 GM/50 ML IVPB IV ONE (08:12)
[2018-11-12 08:16] LABS: CALCIUM 4.7 mg/dL (8.8-10.2)
[2018-11-12] MEDS: AYR NASAL SPRAY NAS SCH ×4 (08:57→17:21)
[2018-11-12] MEDS: SODIUM BICARBONATE PO SCH ×2 (09:00→22:49)
[2018-11-12] MEDS: CITRACAL + D PO SCH (09:00)
[2018-11-12] MEDS: NEURONTIN PO SCH ×3 (09:00→17:20)
[2018-11-12] MEDS: MAG-OX PO SCH ×2 (09:00→22:49)
--- NOTE | 2018-11-12 13:01 | Diag Imaging Result Doc PS360 ---
EXAM: CHEST-2 VIEWS INDICATION: abnormal exam TECHNIQUE: 2 views COMPARISON: 11/09/2018 FINDINGS: There is better inspiration on the current study. The dense opacification of the right lung apex is essentially stable. The small left pleural effusion is unchanged. Interstitial thickening appears slightly improved during the interval. Cardiac silhouette is stable. IMPRESSION: Better inspiration and slight improvement of interstitial thickening. Stable chest, otherwise. Electronically signed by Bryson Alarcon 11/12/2018 12:59 PM
--- NOTE | 2018-11-12 14:39 | PROGRESS NOTE ---
DATE: 11/12/2018 SUBJECTIVE: This morning Mr. Sparrow referred to be doing a lot better. No complaints. He has been afebrile for the past 48 hours. OBJECTIVE: Vital Signs: Blood pressure is 123/73, pulse is 79, respirations 18, temperature 98.9. Patient was saturating 99% on 2 L. General: Mr. Sparrow is a 53-year-old gentleman. He is in bed in no distress. HEENT: Mucosa is pink and moist. Anicteric. Acyanotic. Neck: Supple. Chest: Good air entry bilaterally. There are a few crackles posteriorly. Cardiovascular: Regular rate and rhythm. No murmurs, no rubs, no gallops. Gastrointestinal: Abdomen is soft. There is an old midline surgical scar, but no tenderness and no hepatosplenomegaly. Central Nervous System: Patient is awake, alert, oriented. There is no focal neurologic deficit. LABORATORY DATA: WBC is 13.77, hemoglobin is 7.5, platelet count of 48,000. Chemistry is also reviewed. Creatinine is still 1.4. Rest of chemistry is unremarkable. Phosphorus is still low at 2.4, magnesium is 1.3, total bilirubin is going down. ASSESSMENT: 1. Neutropenic fever on presentation, improved. 2. MRSA bacteremia. Subsequent blood cultures negative. Patient is currently on ceftaroline and meropenem. 3. Central line with associated bloodstream infection. Port has been removed. 4. 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 Patient follows up with Dr. Ramires. Last chemotherapy was 10/12/2018. Regimen included Keytruda, Alimta and carboplatin. 5. Right upper lobe collapse likely associated with underlying malignancy with possible superimposed pneumonia. Patient is on antibiotics. 6. Anemia with thrombocytopenia likely due to underlying malignancy and chemotherapy side effects. The patient has had multiple blood product transfusions. 7. Transaminitis secondary to intrahepatic cholestasis noted. 8. Acute kidney injury, stable. 9. Recent episode of pyrexia, questionable if that was related to transfusion reaction. The patient has been has been afebrile for the past 48 hours. Blood cultures which were done at that time are negative. PLAN: So, in general, I think Mr. Sparrow is doing fairly okay. Blood cultures have not been negative. His numbers in terms of CBC are fairly stable except for platelet count which went down some after the transfusion. We are going to keep an eye on this for tomorrow. If he continues to be fairly stable and afebrile, I think the long-term plan will be to get him a PICC line to continue with his treatment for the bacteremia. cc: Jm Elaine MD
--- NOTE | 2018-11-12 15:49 | GENERAL SURGERY PROGRESS NOTE ---
DATE: 11/12/2018 SUBJECTIVE: He is in the bathroom having a bowel movement this morning. Denies any events overnight. No fevers. No tachycardia. OBJECTIVE: I reviewed labs. This morning, his white count 13. It has been about the same. Hematocrit is stable at 30. Creatinine is 1.4, potassium is low at 3.7, calcium is low at 4.7. His albumin is low as well. cc: Irina Roberts MD
[2018-11-13] MEDS: DUONEB (A & A) INH SCH ×3 (03:04→22:31)
[2018-11-13] MEDS: NORCO-7.5 PO PRN ×4 (05:31→20:33)
[2018-11-13] MEDS: TEFLARO 600 MG in NS 250 ML IV SCH ×2 (05:31→17:05)
[2018-11-13] MEDS: HUMALOG SUBQ SCH ×4 (06:21→20:32)
[2018-11-13] MEDS: PROTONIX PO SCH (06:38)
[2018-11-13] MEDS: MERREM 2 GM in NS 100 ML IV SCH ×2 (06:53→15:36)
[2018-11-13] MEDS: MORPHINE IV PRN ×3 (06:59→17:05)
[2018-11-13 07:19] LABS: BASO# 0.06 X1000 (0.0-0.2); BASO% 0.4 % (0.0-0.8); EOS# 0.03 X1000 (0.0-0.7); EOS% 0.2 % (0.0-10.0); HEMATOCRIT 23.8 % (42.0-52.0); HEMOGLOBIN 7.6 g/dL (14.0-18.0); IMM GRAN% 4.5 % (0.0-0.5); LYMPH# 2.43 X1000 (1.2-3.4); LYMPH% 18.2 % (20.5-51.1); MCH 30.4 PG (27-31); MCHC 31.9 g/dL (33-37); MCV 95.2 FL (81-99); MONO# 2.23 X1000 (0.11-0.59); MONO% 16.7 % (1.7-9.3); MPV 12.7 FL (7.4-10.4); NEUT# 7.99 X1000 (1.4-6.5); PLT 48 X1000 (130-400); RDW 22.1 % (11.5-14.5); WBC 13.34 X1000 (4.8-10.8)
[2018-11-13 07:27] LABS: ANISOCYTOSIS 1+; BASO 2 % (0-1); EOS 2 % (1-10); LYMPHS 28 % (21-51); MONO 4 % (1-9); SEGS 64 % (42-75)
[2018-11-13 07:55] LABS: AGAP 12; ALB/GLOB RATIO 0.4; ALKALINE PHOSPHATASE 425 U/L (32-122); BUN 12 mg/dL (8-22); CHLORIDE 107 mmol/L (98-107); COSMO 274; CREATININE 1.3 mg/dL (0.7-1.2); ESTIMATED GFR > 60; GLUCOSE 102 mg/dL (70-104); GOT 109 U/L (10-34); GPT 32 U/L (10-44); MAGNESIUM 1.5 mg/dL (1.5-2.7); POTASSIUM 3.8 mmol/L (3.5-5.1); SODIUM 137 mmol/L (136-145); TCO2 18 mmol/L (25-35); TOTAL BILIRUBIN 8.14 mg/dL (0.20-1.00); TOTAL PROTEIN 7.5 g/dL (6.3-8.3)
[2018-11-13 08:05] LABS: CALCIUM 4.9 mg/dL (8.8-10.2)
[2018-11-13 09:02] LABS: INR 1.23; PROTIME 16.5 Seconds (11.0-16.0)
[2018-11-13] MEDS: AYR NASAL SPRAY NAS SCH ×3 (09:24→18:41)
[2018-11-13] MEDS: NEURONTIN PO SCH ×3 (09:30→20:32)
[2018-11-13] MEDS: MAG-OX PO SCH ×2 (09:30→20:32)
[2018-11-13] MEDS: SODIUM BICARBONATE PO SCH ×2 (09:30→20:32)
--- NOTE | 2018-11-13 09:55 | PROGRESS NOTE ---
DATE: 11/13/2018 SUBJECTIVE: This morning, Mr. Sparrow referred to be doing fairly okay. Did not really have any complaints. OBJECTIVE: Vital Signs: Blood pressure is 126/64, pulse of 80, respirations are 18, temperature is 98.5 degrees. The patient's T-max was 100.4 degrees. This is the very first time in more than 72 hours that he had a mild elevation in the temperature. General Examination: Mr. Sparrow is a 53- year-old, gentleman. He was in bed. Not seemingly in distress. HEENT: Mucosa is pink and moist. Anicteric. Acyanotic. Neck: Supple. There was no JVD. Respiratory System: There was good air entry bilaterally. There were no crepitations. No rhonchi. Cardiovascular: Regular rate and rhythm. No murmurs, no rubs, no gallops. GI: Abdomen was soft. There is an old midline surgical scar in the anterior abdominal wall. No hepatosplenomegaly. 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 There is no focal neurological deficit. Extremities: No pedal edema. Distal pulses are present. Chest Wall: The left upper anterior chest wall does have an area of induration where the port was. Laboratory Data: WBC is 13.34, hemoglobin is 7.6, platelet count of 48,000 which is fairly the same as yesterday. Chemistry is also reviewed. Creatinine is 1.3, fairly the same as yesterday. Phosphorus and magnesium have been improving. AST is down to 109, ALT is normalized. Alkaline phosphatase is 425 which is also on a downward trend. ASSESSMENT: 1. Neutropenic fever on presentation, resolved. 2. Methicillin-resistant Staphylococcus aureus bacteremia associated with a port (central line associated bloodstream infection). The port has been removed. Subsequent blood cultures have been negative since November 06. The patient is on ceftaroline and meropenem. He has been on ceftaroline since the 01 of November. However, I think end of therapy will be decided from the very first time blood cultures became negative, which was on the . If it is only for the bacteremia, he would need a total of 2 weeks for this. However, the patient also has an aortic graft which is most likely seeded by the infection and is going to most likely prolong the antibiotic therapy. Infectious disease is on board and we will defer recommendation as to end of treatment to them. 3. Stage IV adenocarcinoma of the right upper lung. The patient follows up with Dr. Ramires. Last chemotherapy was 11/11/2018. Regimen included Keytruda, Alimta, and carboplatin. 4. Right upper lobe collapse, likely associated with underlying malignancy with possible superimposed pneumonia. The patient is currently on ceftaroline and meropenem. Subsequent x- ray yesterday shows some slight improvement of the interstitial thickening. 5. Transaminitis secondary to intrahepatic cholestasis, stable. 6. Anemia with thrombocytopenia, likely due to underlying malignancy and chemotherapy side effects. The patient has had a total of 11 platelet transfusions and 9 packed red blood cell transfusions. The numbers this morning look fairly acceptable so we are still going to just observe. 7. Acute kidney injury, stable. 8. Recent episode of pyrexia, questionable if it was related to transfusion reaction. The patient has been 72 hours without fever. However, this morning, his temperature went slightly up. We are going to keep an eye on this. PLAN: In general, Mr. Sparrow is a 53-year-old, gentleman who got admitted on 10/18/2018, mainly because of generalized weakness, cough, subjective fever, and was found to be severely neutropenic, septic, and was admitted. Over the course of the hospital stay, the patient was found to have MRSA bacteremia associated with his port. Port was removed. However, he continues to be bacteremic on three different occasions. Eventually, he has been negative on his blood tests since November 06. The patient is currently on ceftaroline and meropenem. During the hospital course, he also has had multiple supportive blood production transfusions including 11 platelet transfusion and 9 PRBCs. The patient's numbers are on the lower end but they are acceptable this morning. I would not transfuse him yet. His disposition is going to depend on how his numbers look like in the next 24 to 48 hours and the final recommendations from his oncologist as well as the ID specialist. Because his blood cultures have been negative, we have ordered a PICC line since we anticipate that he is going to be on IV antibiotics for an extended period of time. Patient rather prefers Port. will await his hemonc recommendations cc: MD RUBEN Ward
[2018-11-13] MEDS ORDERED: NS 0 ML ONE (11:13)
[2018-11-13] MEDS: CITRACAL + D PO SCH (12:28)
--- NOTE | 2018-11-13 13:57 | HEMO/ONC PROGRESS NOTE ---
DATE: 11/13/2018 SUBJECTIVE: "I am feeling better today." OBJECTIVE: Vital signs: Temp 98.5 degrees, blood pressure 126/64, heart rate 80, respirations 18, O2 saturation 98% on 3 L nasal cannula O2. HEENT: Normocephalic, atraumatic. Mucous membranes slightly pale and moist. Sclerae icteric. Extraocular movements intact. Neck: Supple. Lungs: Clear to auscultation bilaterally. Chest expansion equal bilaterally. CV: S1, S2 is heard without murmur, rub, or gallop. Abdomen: Slightly distended. Extremities: Without clubbing, cyanosis, or edema. Dermatologic: No rashes, bruises, or lesions. Neurologic: The patient is awake, alert, and oriented x3. He has no focal motor deficit. LABORATORY DATA: Hemoglobin 7.6, hematocrit 23.8, white blood cell count 13.34 , platelets 48,000. Sodium 137, potassium 3.8, chloride 107, CO2 is 18, BUN 12, creatinine 1.3, glucose is 102, calcium is 4.9, phosphorus 3.0, magnesium 1.5, bilirubin 8.14, AST 109, ALT 32, and alkaline phosphatase is 425. ASSESSMENT AND PLAN: 1. Stage IV non-small cell lung cancer. On Keytruda, Alimta, and carboplatin; last treatment being 10/12/2018. Patient's treatment is currently on hold until acute illness has improved. 2. Neutropenic fever. Resolved at this time. The patient is on antibiotics per Infectious Disease. 3. Methicillin-resistant Staphylococcus aureus bacteremia. The patient remains on antibiotics per Infectious Disease. 4. Right upper lobe collapse secondary to malignancy and associated atelectasis with superimposed pneumonia. The patient is on antibiotics per Infectious Disease. 5. Anemia and thrombocytopenia. Stable at this time. 6. Transaminitis secondary to intrahepatic cholestasis. Stable. 7. We will follow along with you and make further recommendations pending outcome. The above reflects the history, exam, assessment, and plan of Dr. Dent. Dictated by SOPHIA Olivares for Nury Dent MD cc: SOPHIA Olivares MD I have seen and examined the patient and the above note reflects my history, physical, assessment and plan. Nury Dent MD [facility]ITAL[facility]
--- NOTE | 2018-11-13 17:37 | PULMONOLOGY PROGRESS NOTE ---
DATE: 11/13/2018 SUBJECTIVE: The patient overall reports he feels better. He denies significant sputum production. He denies hemoptysis. He does have occasional chest pain. OBJECTIVE: The patient has been afebrile for the last 24 hours but did have a temperature of 100.4 degrees early this morning. Blood pressure is 137/65, heart rate 68, respiratory rate 18, oxygen saturation 100% on nasal cannula. HEENT: Pupils are equal and reactive. Oropharynx is clear. Neck is supple. Chest reveals diminished breath sounds at right apex but otherwise clear. Abdomen is soft and without hepatosplenomegaly. Extremities are without edema. DIAGNOSTIC DATA: Stable opacification right apex but small left effusion. No new microbiology data. Last 4 blood cultures continue to have no growth. White blood count is 13.3, hemoglobin 7.6, platelet count 48,000. Chemistry shows sodium 137, potassium 3.8, chloride 107, bicarbonate 18, BUN is 12, creatinine 1.3. IMPRESSION: A 53 year old with metastatic lung cancer, hemoptysis, methicillin-resistant Staphylococcus aureus bacteremia, with ongoing thrombocytopenia. Clinically he continues to slowly improve. RECOMMENDATIONS: 1. Continue antibiotics per Infectious Disease. 2. Continue to follow platelets. We will transfuse to above 50 if he develops significant hemoptysis. 3. Overall prognosis remains poor. cc: Donnell Weber MD
--- NOTE | 2018-11-13 19:30 | INFECTIOUS DISEASE PROGRESS NO ---
DATE: 11/13/2018 PRESENT ILLNESS: The patient has a methicillin-resistant Staph aureus bacteremia, and the patient has first started showing negative blood cultures on November 06. The patient recently had been put on meropenem. MEDICATIONS: The patient now is on ceftaroline, and as mentioned above, meropenem. PHYSICAL EXAMINATION: Vital Signs: Temperature is 97.9 degrees, pulse 68, respirations 18, blood pressure 137/65. General: This is a ill-appearing middle-aged male. He is in no acute distress. Head, Eyes, Ears, Nose, and Throat: He can hear my spoken words and see near objects. He does not have any white patches on his tongue. His sinuses are not tender. Neck: No stiffness. Lungs: Clear to auscultation. Cardiovascular: Regular heart rate. Thorax: The patient's Port-A-Cath site where the Port-A-Cath previously was is not swollen or tender. Neurologic: The patient is awake. He sometimes appears to be confused. Extremities: Both legs are not edematous or tender. LAB AND X-RAY: CBC shows a white count of 13,340, hemoglobin 7.6, and platelet count 48,000. Creatinine is 1.3. GFR is greater than 60. Alkaline phosphatase 425. Repeat blood cultures are negative, as mentioned above. ASSESSMENT AND PLAN: The patient has methicillin-resistant Staph aureus bacteremia. This is day 7 of treatment, with day 1 being the first day. The blood cultures are negative. The patient is only on ceftaroline. When he was on daptomycin, his CPK went up. When he was on rifampin, the liver function tests went up. When the patient was on vancomycin, the blood cultures remained positive. My plan is to continue ceftaroline. The patient has had an aortobifemoral bypass graft, and because of this, I plan to treat the patient for a total of 6 weeks, with day 1 being the first day. The blood cultures are negative. I have also today stopped the patient's meropenem. COMORBIDITIES: Stage IV lung cancer with metastatic lesions, chronic anemia, thrombocytopenia, diabetes mellitus, and gastroesophageal reflux disease. cc: Reinier Mendoza MD
[2018-11-14] MEDS: DUONEB (A & A) INH SCH ×3 (04:35→21:13)
[2018-11-14] MEDS: TEFLARO 600 MG in NS 250 ML IV SCH ×2 (06:30→17:43)
[2018-11-14] MEDS: HUMALOG SUBQ SCH ×4 (06:47→22:13)
[2018-11-14] MEDS: PROTONIX PO SCH (06:55)
[2018-11-14] MEDS: NORCO-7.5 PO PRN ×3 (06:55→22:13)
[2018-11-14] MEDS: MORPHINE IV PRN ×2 (10:32→17:43)
[2018-11-14] MEDS: CITRACAL + D PO SCH (10:32)
[2018-11-14] MEDS: SODIUM BICARBONATE PO SCH ×2 (10:33→22:13)
[2018-11-14] MEDS: MAG-OX PO SCH ×2 (10:33→22:13)
[2018-11-14] MEDS: NEURONTIN PO SCH ×3 (10:33→22:13)
[2018-11-14] MEDS: AYR NASAL SPRAY NAS SCH ×3 (10:33→19:06)
--- NOTE | 2018-11-14 15:32 | PROGRESS NOTE ---
DATE: 11/14/2018 SUBJECTIVE: Patient resting in bed. Not in any obvious distress. OBJECTIVE: Vital Signs: As follows: Temperature 98.4, pulse 74, respiratory 18, blood pressure 147/74, oxygen saturation is 100%. HEENT: Atraumatic, normocephalic. Cardiovascular: S1, S2. Respiratory: Has evidence of good air entry bilaterally. Abdomen: Soft, nontender. No masses felt. Extremities: No evidence of edema. Central Nervous System: No obvious focal deficit noted. LABS: Blood sugar 116. ASSESSMENT AND PLAN: 1. MRSA bacteremia. The patient is currently on ceftaroline, followed by the Infectious Disease team. Six weeks of treatment has been recommended because the patient does have a history of aortobifemoral bypass graft. 2. Lung cancer. Management by the [*] team. 3. Anemia with thrombocytopenia. Follow up blood count and transfuse blood products if needed. 4. Acute kidney injury. Stable. 5. Diabetes mellitus. Monitor blood sugar levels and maintain patient on sliding scale insulin. 6. DVT prophylaxis. SCD. 7. GI prophylaxis. PPI. 8. Deconditioning. Recommend PT. 9. Disposition: Plans for discharge possibly to rehab facility once okay with the Infectious Disease team. cc: Luís Blue MD
[2018-11-15] MEDS: DUONEB (A & A) INH SCH ×4 (04:35→16:10)
[2018-11-15] MEDS: PROTONIX PO SCH (06:11)
[2018-11-15] MEDS: TEFLARO 600 MG in NS 250 ML IV SCH ×2 (06:11→18:37)
[2018-11-15] MEDS: NORCO-7.5 PO PRN ×3 (06:11→18:40)
[2018-11-15] MEDS: HUMALOG SUBQ SCH ×4 (06:12→21:34)
[2018-11-15] MEDS: CITRACAL + D PO SCH (08:47)
[2018-11-15] MEDS: MAG-OX PO SCH ×2 (08:47→20:23)
[2018-11-15] MEDS: AYR NASAL SPRAY NAS SCH ×3 (08:47→18:37)
[2018-11-15] MEDS: SODIUM BICARBONATE PO SCH ×2 (08:47→20:23)
[2018-11-15] MEDS: NEURONTIN PO SCH ×3 (08:47→18:37)
[2018-11-15] MEDS: MORPHINE IV PRN ×2 (14:13→18:41)
[2018-11-15] MEDS: VITAMIN D PO SCH (14:17)
--- NOTE | 2018-11-15 14:24 | PROGRESS NOTE ---
DATE: 11/15/2018 SUBJECTIVE: Patient resting in bed. Not in any obvious distress. OBJECTIVE: Vital Signs: Vital signs as follows: Temperature 98.6 degrees, pulse 66, respirations 19, blood pressure 141/65, oxygen saturation 100%. HEENT: Atraumatic, normocephalic. Cardiovascular system: S1, S2. Respiratory system: Has evidence of good air entry bilaterally. Abdomen: Soft, nontender. No masses felt. Extremities: No evidence of edema. Central nervous system: No obvious focal deficits noted. LABS: None. ASSESSMENT AND PLAN: 1. Methicillin-resistant Staphylococcus aureus bacteremia. Continue ceftaroline. Six weeks of treatment has been recommended by Infectious Disease because the patient does have aortobifemoral bypass graft. 2. Lung cancer. Management by the oncology team. 3. Anemia with thrombocytopenia. Follow up on blood count. Transfuse blood products if needed. 4. Diabetes mellitus. Continue blood sugar monitor as well as sliding scale insulin. 5. Deep vein thrombosis prophylaxis. Sequential compression devices. 6. Gastrointestinal prophylaxis. Proton pump inhibitor. 7. Deconditioning. Physical therapy recommended. 8. Disposition: The patient's blood is sterile, and I will plan for possible discharge in the next 1 or 2 days. The patient may need a Port-A-Cath for access prior to discharge. cc: Luís Blue MD
--- NOTE | 2018-11-15 14:46 | INFECTIOUS DISEASE PROGRESS NO ---
DATE: 11/15/2018 PRESENT ILLNESS: The patient has a methicillin-resistant Staph aureus bacteremia that has been extremely difficult to treat and obtain negative blood cultures. Fortunately, on November 06, the patient's blood cultures turned negative. MEDICATIONS: The patient is on ceftaroline and yesterday meropenem was discontinued. The patient has now had nine days of treatment with ceftaroline with day one being the first day that the patient's blood cultures were sterile. PHYSICAL EXAMINATION: Vital Signs: Temperature is 98.6 degrees, pulse 66, respirations 19, blood pressure 141/65. General: This is an ill-appearing, middle-aged male. He is in no acute distress. Head, eyes, ears, nose, and throat: He can hear my spoken words and see near objects. He does not have any white patches on his tongue. Neck: No meningismus. Lungs: Clear to auscultation. Cardiovascular: Heart rate is regular. No murmur is heard. Thorax: The patient's Port-A-Cath site is healing well. Neurologic: The patient is awake. He can move his extremities. There is no tremor. LAB AND X-RAY: The patient did not have any new lab and x-ray for today. ASSESSMENT AND PLAN: The patient has methicillin resistant Staphylococcus aureus bacteremia. This is day 8 of treatment with ceftaroline. I put in a consultation for [facility] to supply the patient's home intravenous antibiotic. Dr. Blue is going to determine which type of intravenous access, namely PICC versus Port-A-Cath the patient will go home with. I have put a consultation in for [facility] to supply ceftaroline for 32 more days from tomorrow. I plan to have the patient seen in my office in 16 days. COMORBIDITIES: The patient's comorbidities include lung cancer with metastatic lesions, chronic anemia, thrombocytopenia, diabetes mellitus, and gastroesophageal reflux disease. cc: MD RUBEN Figueroa
[2018-11-15 18:45] LABS: BASO# 0.07 X1000 (0.0-0.2); BASO% 0.5 % (0.0-0.8); EOS# 0.01 X1000 (0.0-0.7); EOS% 0.1 % (0.0-10.0); HEMATOCRIT 24.9 % (42.0-52.0); IMM GRAN# 0.56 X1000 (0.0-0.04); IMM GRAN% 3.7 % (0.0-0.5); LYMPH# 2.88 X1000 (1.2-3.4); MCH 31.4 PG (27-31); MCHC 32.1 g/dL (33-37); MCV 97.6 FL (81-99); MONO# 2.13 X1000 (0.11-0.59); MPV 11.3 FL (7.4-10.4); NEUT# 9.53 X1000 (1.4-6.5); NEUT% 62.7 % (42.2-75.2); RBC 2.55 XMIL (4.7-6.1); WBC 15.18 X1000 (4.8-10.8)
[2018-11-15 18:46] LABS: RDW 24.2 % (11.5-14.5)
[2018-11-15 18:47] LABS: PLT 32 X1000 (130-400)
[2018-11-15 19:32] LABS: AGAP 12; ALB/GLOB RATIO 0.4; ALBUMIN 2.2 g/dL (3.5-5.0); ALKALINE PHOSPHATASE 564 U/L (32-122); BUN 9 mg/dL (8-22); CHLORIDE 109 mmol/L (98-107); COSMO 282; ESTIMATED GFR > 60; GLUCOSE 94 mg/dL (70-104); GOT 108 U/L (10-34); GPT 26 U/L (10-44); POTASSIUM 4.2 mmol/L (3.5-5.1); SODIUM 142 mmol/L (136-145); TCO2 21 mmol/L (25-35); TOTAL BILIRUBIN 7.04 mg/dL (0.20-1.00); TOTAL PROTEIN 7.5 g/dL (6.3-8.3)
[2018-11-15 19:36] LABS: CALCIUM 4.6 mg/dL (8.8-10.2)
[2018-11-15] MEDS ORDERED: CALCIUM GLUCONATE 1 GM in NS 50 ML IV ONE (20:48)
[2018-11-16] MEDS: MORPHINE IV PRN ×4 (00:14→17:24)
[2018-11-16] MEDS: DUONEB (A & A) INH SCH ×5 (02:52→22:44)
[2018-11-16] MEDS: TEFLARO 600 MG in NS 250 ML IV SCH ×2 (06:29→17:25)
[2018-11-16] MEDS: PROTONIX PO SCH (06:29)
[2018-11-16] MEDS: HUMALOG SUBQ SCH ×4 (06:30→22:55)
[2018-11-16 07:18] LABS: AGAP 9; BUN 10 mg/dL (8-22); CHLORIDE 110 mmol/L (98-107); COSMO 279; CREATININE 1.1 mg/dL (0.7-1.2); ESTIMATED GFR > 60; GLUCOSE 84 mg/dL (70-104); POTASSIUM 3.8 mmol/L (3.5-5.1); SODIUM 141 mmol/L (136-145); TCO2 22 mmol/L (25-35)
[2018-11-16 07:21] LABS: CALCIUM 4.9 mg/dL (8.8-10.2)
[2018-11-16 07:25] LABS: BASO# 0.06 X1000 (0.0-0.2); BASO% 0.4 % (0.0-0.8); EOS# 0.03 X1000 (0.0-0.7); EOS% 0.2 % (0.0-10.0); HEMOGLOBIN 7.5 g/dL (14.0-18.0); IMM GRAN# 0.45 X1000 (0.0-0.04); IMM GRAN% 3.3 % (0.0-0.5); LYMPH# 2.91 X1000 (1.2-3.4); LYMPH% 21.1 % (20.5-51.1); MCH 30.9 PG (27-31); MCHC 31.3 g/dL (33-37); MCV 98.8 FL (81-99); MONO# 2.06 X1000 (0.11-0.59); MONO% 14.9 % (1.7-9.3); NEUT# 8.31 X1000 (1.4-6.5); NEUT% 60.1 % (42.2-75.2); RBC 2.43 XMIL (4.7-6.1); RDW 24.6 % (11.5-14.5); WBC 13.82 X1000 (4.8-10.8)
[2018-11-16 07:26] LABS: PLT 36 X1000 (130-400)
[2018-11-16] MEDS: CITRACAL + D PO SCH (08:06)
[2018-11-16] MEDS: MAG-OX PO SCH ×2 (08:06→22:55)
[2018-11-16] MEDS: SODIUM BICARBONATE PO SCH ×2 (08:06→22:55)
[2018-11-16] MEDS: NEURONTIN PO SCH ×3 (08:07→17:25)
[2018-11-16] MEDS: AYR NASAL SPRAY NAS SCH ×3 (08:10→17:29)
--- NOTE | 2018-11-16 15:15 | PROGRESS NOTE ---
DATE: 11/16/2018 SUBJECTIVE: Patient resting comfortably in bed. OBJECTIVE: Vital Signs: As follows: Temperature 97.9, pulse 65, respiratory 20, blood pressure 126/65, oxygen 99%. HEENT: Atraumatic, normocephalic. Cardiovascular: S1, S2. Respiratory: Has evidence of good air entry bilaterally. Abdomen: Soft, nontender. No masses felt. Extremities: No evidence of edema. Central Nervous System: No obvious focal deficits noted. LABS: As follows: WBCs is 13.8, hematocrit 24.0, with a platelet count of 36,000. Sodium is 141, potassium 3.8, chloride is 110, bicarb 22, BUN is 10, creatinine 1.1. ASSESSMENT AND PLAN: 1. Methicillin-resistant Staphylococcus aureus bacteremia. Continue [*]. Antibiotic management by Infectious Disease. 2. Lung cancer. Management per Oncology. 3. Anemia and thrombocytopenia. Follow up on blood count, transfuse blood products if needed. 4. Diabetes mellitus. Continue blood sugar monitoring as well as sliding scale insulin. 5. DVT prophylaxis. SCD. 6. GI prophylaxis. PPI. 7. Deconditioning, PT recommended. 8. Disposition: Will plan for Port-A-Cath placement and once that has been placed the patient can be discharged home to complete antibiotic in the outpatient and he can also use port to continue his chemotherapy treatment whenever the oncologist considers it appropriate to start chemo. cc: Luís Blue MD
[2018-11-16] MEDS: NORCO-7.5 PO PRN ×2 (18:34→22:55)
[2018-11-17] MEDS: MORPHINE IV PRN ×4 (02:23→18:26)
--- NOTE | 2018-11-17 03:59 | INFECTIOUS DISEASE PROGRESS NO ---
DATE: 11/16/2018 PRESENT ILLNESS: Mr. Sparrow is being treated for a methicillin-resistant Staph aureus bacteremia. He is wanting to go home, but is awaiting Port-A-Cath insertion for home IV antibiotics. MEDICATIONS: He is on ceftaroline 600 mg IV every 12 hours. Today is day 10 of a 6-week treatment, based on the first day of sterile blood cultures. PHYSICAL EXAMINATION: Vital Signs: Temperature is 97.9 degrees, pulse rate 65 , respiratory rate 16, blood pressure 143/63. O2 saturation is 100% on 2 L nasal cannula. General: This is a chronically ill-appearing, middle-aged gentleman. He is lying in the bed, currently in no acute distress. HEENT: Atraumatic, normocephalic. Oral mucous membranes are pink and moist. Conjunctivae are pale. Neck: Supple. Trachea is midline. Cardiovascular: Heart rate is regular. Pedal and radial pulses are palpable bilaterally, +2. No edema noted. Respiratory: Lung sounds are clear to auscultation, diminished in the bases. Abdomen: Soft , round, and nontender. Bowel sounds are active. There is a dressing in place to the left chest, where his previous Port-A-Cath was removed. The dressing is clean, dry and intact. Neurologic: He is awake, alert, and oriented, able to move extremities with some generalized weakness. There is no tremor. LABORATORY AND X-RAY: Today, white count is 13.82, hemoglobin 7.5, platelet count 36,000. Creatinine is 1.1. Estimated GFR is greater than 60. Blood cultures have previously grown methicillin resistant Staph aureus. The first negative blood cultures were drawn on 11/06/2018. No imaging reports today. ASSESSMENT AND PLAN: Mr. Sparrow has methicillin-resistant Staph aureus bacteremia. Today is day 10 of treatment, based on his sterile blood cultures. The plan is for him to have 6 weeks of ceftaroline, due to the persistent nature of his bacteremia. At this point, he has had a surgical consult put in, and we are awaiting a Port-A-Cath placement, so that he can be discharged home with antibiotics. Orders have already been placed to consult G[facility] infusion [facility] for the remaining days of Ceftaroline required. We will see him in our office half way through the remaining treatment, and then again at the end of his treatment. These plans have been discussed with and recommended by Dr. Mendoza. COMORBIDITIES: Lung cancer with metastatic disease, chronic anemia and thrombocytopenia, diabetes mellitus, and gastroesophageal reflux disease. Dictated by SOPHIA Bach for Reinier Mendoza MD This chart was documented by, SOPHIA Bach and accurately reflects the services performed, treatment plan and medical decisions as attested by the providers signature Reinier Mendoza MD. cc: Reinier Mendoza MD [facility]
[2018-11-17] MEDS: DUONEB (A & A) INH SCH ×4 (04:28→22:00)
[2018-11-17] MEDS: PROTONIX PO SCH (06:48)
[2018-11-17] MEDS: TEFLARO 600 MG in NS 250 ML IV SCH ×2 (06:49→18:23)
[2018-11-17] MEDS: HUMALOG SUBQ SCH ×4 (06:49→23:47)
[2018-11-17] MEDS: CITRACAL + D PO SCH (08:35)
[2018-11-17] MEDS: MAG-OX PO SCH (08:35)
[2018-11-17] MEDS: SODIUM BICARBONATE PO SCH (08:35)
[2018-11-17] MEDS: NEURONTIN PO SCH ×3 (08:35→18:23)
[2018-11-17] MEDS: AYR NASAL SPRAY NAS SCH ×2 (10:53→14:18)
[2018-11-17] MEDS: NORCO-7.5 PO PRN (12:16)
[2018-11-17 14:14] LABS: HEMATOCRIT 22.7 % (42.0-52.0); HEMOGLOBIN 6.9 g/dL (14.0-18.0)
--- NOTE | 2018-11-17 14:44 | HEMO/ONC PROGRESS NOTE ---
DATE: 11/17/2018 CHIEF COMPLAINT: "I am going for a port placement today and will then be discharged". OBJECTIVE: Vital Signs: Temp 98, blood pressure 146/71, heart rate 62, respirations 18, and O2 saturation 100% on nasal cannula O2. HEENT: Normocephalic, atraumatic. Mucous membranes are pale and moist. Sclerae are anicteric. Extraocular movements intact. Neck: Supple. Lungs: Clear to auscultation bilaterally. Chest expansion is equal bilaterally. CV: S1 and S2 are heard. No murmurs, rubs, or gallops. Abdomen: Nondistended. Extremities: No clubbing, cyanosis, or edema. Dermatologic: No rashes, bruises, or lesions. Neuro: The patient is awake, alert, and oriented times 3. There is no focal deficit. LABORATORY DATA: Hemoglobin is 7.5, hematocrit 24, white blood cell count 13.82 , and platelets 36. Sodium is 141, potassium 3.8, chloride 110, CO2 22, BUN 10, creatinine 1.1 , and glucose 84. ASSESSMENT AND PLAN: 1. Stage IV [id number] lung cancer currently on Keytruda, Alimta, and carboplatin. Treatment has been on hold until the patient's acute illness has improved. The patient will be contacted for follow up in the clinic. 2. Neutropenic fever, resolved. 3. Methicillin-resistant Staphylococcus aureus bacteremia. The patient remains on antibiotics per Infectious Disease and will be discharged on antibiotics. 4. Anemia and thrombocytopenia. The patient is anemic at this time with a hemoglobin of 7.5. We will transfuse 1 unit of packed red blood cells. We will continue to monitor CBC. 5. We will follow along with you and make further recommendations pending outcomes. This is Aiyana Mccrary Nurse Practitioner, dictating a progress note on Leif Sparrow for Dr. Nury Dent. The above reflects the history, exam, assessment, and plan of Dr. Dent. Dictated by SOPHIA Olivares for Nury Dent MD cc: SOPHIA Olivares MD I have seen and examined the patient and the above note reflects my history, physical exam and assessment and plan. Nury MIRANDA
--- NOTE | 2018-11-17 15:38 | PROGRESS NOTE ---
DATE: 11/17/2018 SUBJECTIVE: The patient is resting in bed. OBJECTIVE: Vital signs are as follows: Temperature 98, pulse 60, respiratory rate 18, blood pressure 146/71, oxygen 100%. HEENT Atraumatic, normocephalic. Cardiovascular: S1, S2. Respiratory system Has evidence of good air entry bilaterally. Abdomen is soft, nontender. No masses felt. Extremities: No evidence of edema. Central Nervous System: No obvious focal deficit noted. LABORATORY DATA: Hematocrit is 22.73. ASSESSMENT AND PLAN: 1. Methicillin-resistant Staphylococcus aureus bacteremia. The patient is currently on ceftaroline and antibiotic management by the Infectious Disease team. The patient is now ready for discharge. I have requested for a Port-A-Cath placement, and once this can be placed in the patient, will discharge him home and continue antibiotics as an outpatient. 2. Lung cancer. Management per Oncology. 3. Anemia with thrombocytopenia. Follow up on blood count transfuse blood products if needed. 4. Diabetes mellitus. Continue blood sugar monitoring as well as sliding scale insulin. 5. Deep vein thrombosis prophylaxis. Sequential compression devices. 6. Gastrointestinal prophylaxis. Proton pump inhibitor. 7. Deconditioning. PT recommended. DISPOSITION: Once the patient has a Port-A-Cath has been placed in, the patient can be discharged to complete antibiotics in the outpatient, and the patient can also use the port for chemotherapy with regards to his history of lung cancer. cc: Luís Blue MD
[2018-11-17] MEDS ORDERED: NS 250 ML ONE (15:41)
[2018-11-18] MEDS: MAG-OX PO SCH ×3 (00:29→21:24)
[2018-11-18] MEDS: SODIUM BICARBONATE PO SCH ×3 (00:29→21:24)
[2018-11-18] MEDS: MORPHINE IV PRN ×4 (01:43→21:23)
--- NOTE | 2018-11-18 03:48 | INFECTIOUS DISEASE PROGRESS NO ---
DATE: 11/17/2018 PRESENT ILLNESS: The patient is being treated for methicillin-resistant Staph aureus bacteremia. MEDICATIONS: The patient has been on ceftaroline, this is day 11 of treatment with ceftaroline, and day 1 is the first day that the patient's blood cultures became negative. PHYSICAL EXAMINATION: Vital Signs: Temperature is 98.4 degrees, pulse 62, respirations 18, blood pressure 138/64. General: This is a sleeping middle-aged male. He is in no acute distress. Head/eyes/ears/nose/throat: No drainage noted from the nose or ears. Neck: No stiffness. Lungs: Clear to auscultation. Cardiovascular: Heart rate is regular. Thorax: The left-sided side of chest where the previous Port-A-Cath was is not swollen or draining. Abdomen: Soft and nontender. Extremities: Edema but no erythema of the legs. Neurologic: The patient is sleeping. There is no tremor. LAB AND X-RAY: There is no radiographic study done today. His labs show a CBC with a white count of 13,820, hemoglobin 7.5, and platelet count 36,000. Later in the day the patient's hemoglobin is 6.9, and hematocrit is 22.7. Creatinine is 1.1. GFR is greater than 60. The patient is receiving a transfusion now. ASSESSMENT AND PLAN: The patient has Staphylococcus aureus bacteremia. The plan is to treat him for a total of 6 weeks. He has had 11 days of treatment with day 1 being the first day that the repeat blood cultures are sterile. The patient has become anemic and is receiving transfusions. COMORBIDITIES: Lung cancer with metastatic disease, chronic anemia and thrombocytopenia, diabetes mellitus, gastroesophageal reflux disease. cc: Reinier Mendoza MD
[2018-11-18] MEDS: DUONEB (A & A) INH SCH ×4 (04:00→23:20)
--- NOTE | 2018-11-18 05:09 | GENERAL SURGERY CONSULTATION ---
DATE: 11/17/2018 TIME: 6:05 p.m. HISTORY OF PRESENT ILLNESS: Mr. Sparrow is a 52-year-old male who was admitted almost a month ago with an infected left subclavian port. It was removed by Dr. Cheney. He has been treated for that. Now he is ready for replacement of the port for continued chemotherapy. PAST MEDICAL HISTORY: Pertinent for hypertension, gastroesophageal reflux disease, chronic pain, diabetes mellitus, and he is being treated for stage IV lung cancer. FAMILY HISTORY: Noncontributory. SOCIAL HISTORY: Apparently, he has used drugs in the past. MEDICATIONS: His home medications are listed. ALLERGIES: He has no known drug allergies. REVIEW OF SYSTEMS: Negative for shortness of breath or chest pain and negative in the other subsystems. PHYSICAL EXAMINATION: He is afebrile, heart rate 64, respiratory rate 18, blood pressure 138/64. Skin: He has a left subclavian wound that is healing. There is no apparent wound on the right. Lungs: Bilateral breath sounds are present. No clavicular distortion. Neurologic: He is awake and alert. ASSESSMENT: 1. Stage IV lung cancer. 2. Resolution of his infected port and bacteremia. PLAN: Right-sided port placement. I have discussed this with him, the benefits and risks. He understands, and he wants to proceed so that he can get home. cc: Asad Alvares MD
[2018-11-18] MEDS: TEFLARO 600 MG in NS 250 ML IV SCH ×2 (05:28→18:31)
[2018-11-18] MEDS: HUMALOG SUBQ SCH ×4 (06:59→21:27)
[2018-11-18] MEDS: PROTONIX PO SCH (07:00)
[2018-11-18] MEDS ORDERED: XYLOCAINE 1%/EPI 1:100,000 ONE (07:23)
[2018-11-18] MEDS ORDERED: KEFZOL ONE (07:23)
[2018-11-18] MEDS ORDERED: NS 250 ML ONE (07:23)
[2018-11-18] MEDS ORDERED: DIPRIVAN 1% ONE ×3 (07:31→10:00)
[2018-11-18] MEDS ORDERED: QUELICIN (DOSE) ONE (07:32)
[2018-11-18] MEDS ORDERED: FENTANYL ONE ×2 (07:34→10:03)
[2018-11-18 07:41] LABS: BASO# 0.04 X1000 (0.0-0.2); BASO% 0.3 % (0.0-0.8); EOS# 0.01 X1000 (0.0-0.7); EOS% 0.1 % (0.0-10.0); HEMATOCRIT 23.7 % (42.0-52.0); HEMOGLOBIN 7.5 g/dL (14.0-18.0); LYMPH% 18.1 % (20.5-51.1); MCH 31.5 PG (27-31); MCHC 31.6 g/dL (33-37); MCV 99.6 FL (81-99); MONO# 1.99 X1000 (0.11-0.59); MPV 13.1 FL (7.4-10.4); NEUT% 66.5 % (42.2-75.2); RBC 2.38 XMIL (4.7-6.1); RDW 24.9 % (11.5-14.5); WBC 13.24 X1000 (4.8-10.8)
[2018-11-18 07:48] LABS: PLT 30 X1000 (130-400)
[2018-11-18] MEDS: CITRACAL + D PO SCH ×3 (08:15→16:54)
[2018-11-18] MEDS: AYR NASAL SPRAY NAS SCH ×3 (08:15→16:46)
[2018-11-18] MEDS: NEURONTIN PO SCH ×3 (08:16→16:46)
[2018-11-18] MEDS ORDERED: NORCO-7.5 ONE (09:19)
[2018-11-18] MEDS: NORCO-7.5 PO PRN ×2 (09:20→15:01)
[2018-11-18] MEDS ORDERED: XYLOCAINE-MPF 2% ONE (10:00)
[2018-11-18 10:52] LABS: AGAP 10; BUN 10 mg/dL (8-22); CHLORIDE 110 mmol/L (98-107); COSMO 282; CREATININE 1.1 mg/dL (0.7-1.2); ESTIMATED GFR > 60; GLUCOSE 93 mg/dL (70-104); POTASSIUM 3.9 mmol/L (3.5-5.1); SODIUM 142 mmol/L (136-145); TCO2 22 mmol/L (25-35)
[2018-11-18 10:53] LABS: ALB/GLOB RATIO 0.4; ALKALINE PHOSPHATASE 447 U/L (32-122); GOT 88 U/L (10-34); GPT 19 U/L (10-44); TOTAL BILIRUBIN 5.89 mg/dL (0.20-1.00); TOTAL PROTEIN 6.6 g/dL (6.3-8.3)
[2018-11-18 11:27] LABS: CALCIUM 4.7 mg/dL (8.8-10.2)
[2018-11-18] MEDS ORDERED: MAGNESIUM SULFATE 2 GM/S.W.I. 2 GM/50 ML IVPB IV ONE (11:30)
--- NOTE | 2018-11-18 11:53 | Diag Imaging Result Doc PS360 ---
EXAM: CHEST-1 VIEW 11/18/2018 HISTORY: SOB TECHNIQUE: AP portable at 1113 COMMENT: There is opacification of the right upper lobe with volume loss as there was on 11/12/2018. There is patchy opacity elsewhere including the left mid and lower lung field. IMPRESSION: Atelectasis of the right upper lobe probably due to obstruction of the bronchus. Atelectasis versus bronchopneumonia elsewhere. Electronically signed by John Yo 11/18/2018 11:50 AM
--- NOTE | 2018-11-18 14:46 | OPERATIVE NOTE ---
PROCEDURE DATE : 11/18/2018 PROCEDURE PERFORMED: Right subclavian port placement. SURGEON: Dr. Alvares MEDICAL IMAGING SPECIALIST: Shawna PREOPERATIVE DIAGNOSIS: Stage IV cancer of the lung. POSTOPERATIVE DIAGNOSIS: Stage IV cancer of the lung. DESCRIPTION OF PROCEDURE: After satisfactory monitored anesthesia care was established and IV sedation was accomplished, the right side of the neck and upper anterior chest were prepped and draped in a sterile fashion using Betadine. We anesthetized the skin at the deltopectoral groove using 1% lidocaine with epinephrine. We incised the skin, developed a subcutaneous pocket that would admit the port. Satisfactory hemostasis was achieved. We anesthetized the tissue below the clavicle. We then accessed the right subclavian vein. At first attempt, the wire would not pass. On second attempt at accessing the vein, the wire did pass into the superior vena cava under fluoroscopic guidance. We then passed the dilator and introducer sheath over the guidewire. We removed the dilator and guidewire and introduced the polyurethane catheter to the right atrium junction of the superior vena cava and the right atrium. We cut the catheter to the appropriate length, passed it onto the stem of the port and locked it in position. We then placed the port within the pocket. We secured the port there with 2-0 silk using through the subcutaneous tissue and the rim of the port. We irrigated out the port pocket with Kefzol impregnated saline. We then closed the subcutaneous tissue with 3-0 Polysorb. We accessed the port. It aspirated and irrigated easily. We gave the patient 4 mL of hep-lock. We then closed the skin with a 4-0 Polysorb subcuticular stitch. Telfa and sterile OpSite was applied. He tolerated it well and was sent to the recovery room in satisfactory condition. cc: Asad Alvares MD
--- NOTE | 2018-11-18 17:27 | PROGRESS NOTE ---
DATE: 11/18/2018 SUBJECTIVE: The patient is seen in his bed. Currently no complaints. He has not had Port-A-Cath placed yet. OBJECTIVE: Vital signs: Stable. Respiratory rate is 20. Blood pressure is stable. General: The patient is awake and alert. He is lying in the bed. He is watching television. He is in no distress. [*]CV: Regular. Chest: Clear. Abdomen: Soft and nondistended. Extremities: Moves all extremities. ASSESSMENT: 1. [*]. 2. Lung cancer. 3. Anemia of chronic disease with thrombocytopenia. 4. Diabetes. 5. Chronic deconditioning. PLAN: The patient is to receive a Port-A-Cath. He may be able to be discharged to home after his Port-A-Cath. Unclear at the moment as to if his antibiotics have been set up. He does have thrombocytopenia. Platelets are hanging at around 30. He has anemia of chronic disease, and this has not really changed. He will continue to follow up as an outpatient with oncology and infectious disease. cc: Phillip James MD
[2018-11-19] MEDS: DUONEB (A & A) INH SCH ×3 (04:00→16:25)
[2018-11-19] MEDS: OFIRMEV 1000 MG/ISOTONIC SOLN 1,000 MG/100 ML BOTTLE IV PRN (04:34)
[2018-11-19] MEDS: TEFLARO 600 MG in NS 250 ML IV SCH ×2 (06:47→18:59)
[2018-11-19] MEDS: PROTONIX PO SCH (06:53)
[2018-11-19] MEDS: HUMALOG SUBQ SCH ×4 (06:58→22:20)
--- NOTE | 2018-11-19 07:11 | Diag Imaging Result Doc PS360 ---
EXAM: CHEST-1 VIEW 11/19/2018 HISTORY: SOB TECHNIQUE: AP portable at 0515 COMMENT: Compared to the previous study of 11/18/2018 the inspiration is slightly better. There is increased opacity in the right costophrenic angle region which may be due to pulmonary edema or pneumonia. There is continued atelectasis/postobstructive pneumonia in the right upper lobe. IMPRESSION: Worsened pulmonary edema versus pneumonia particularly in the right lower lobe. Electronically signed by John Yo 11/19/2018 7:08 AM
--- NOTE | 2018-11-19 08:25 | GENERAL SURGERY PROGRESS NOTE ---
DATE: 11/19/2018 SUBJECTIVE: Mr. Sparrow' wound looks fine. His port is ready for use. He can be discharged from my perspective. cc: Aasd Alvares MD
[2018-11-19] MEDS: MAG-OX PO SCH ×2 (08:57→22:20)
[2018-11-19] MEDS: SODIUM BICARBONATE PO SCH ×2 (08:57→22:20)
[2018-11-19] MEDS: NEURONTIN PO SCH ×4 (08:57→16:55)
[2018-11-19] MEDS: NORCO-7.5 PO PRN ×3 (08:57→22:25)
[2018-11-19] MEDS: CITRACAL + D PO SCH ×4 (08:57→16:54)
[2018-11-19] MEDS: AYR NASAL SPRAY NAS SCH ×3 (08:57→16:56)
[2018-11-19 10:11] LABS: BASO# 0.04 X1000 (0.0-0.2); BASO% 0.3 % (0.0-0.8); HEMATOCRIT 24.5 % (42.0-52.0); HEMOGLOBIN 7.5 g/dL (14.0-18.0); IMM GRAN# 0.19 X1000 (0.0-0.04); IMM GRAN% 1.6 % (0.0-0.5); LYMPH# 2.01 X1000 (1.2-3.4); LYMPH% 16.8 % (20.5-51.1); MCH 30.6 PG (27-31); MCHC 30.6 g/dL (33-37); MONO# 1.91 X1000 (0.11-0.59); MPV 12.6 FL (7.4-10.4); NEUT# 7.81 X1000 (1.4-6.5); NEUT% 65.3 % (42.2-75.2); PLT 40 X1000 (130-400); RBC 2.45 XMIL (4.7-6.1); RDW 24.6 % (11.5-14.5); WBC 11.96 X1000 (4.8-10.8)
[2018-11-19] MEDS ORDERED: CALCIUM GLUCONATE IV ONE (10:21)
[2018-11-19] MEDS ORDERED: NS IV ONE (10:21)
[2018-11-19 10:33] LABS: AGAP 12; ALBUMIN 1.9 g/dL (3.5-5.0); BUN 10 mg/dL (8-22); CHLORIDE 109 mmol/L (98-107); COSMO 282; CREATININE 1.1 mg/dL (0.7-1.2); ESTIMATED GFR > 60; GLUCOSE 93 mg/dL (70-104); MAGNESIUM 1.3 mg/dL (1.5-2.7); PHOSPHORUS 2.6 mg/dL (2.7-4.5); POTASSIUM 3.7 mmol/L (3.5-5.1); SODIUM 142 mmol/L (136-145); TCO2 21 mmol/L (25-35)
[2018-11-19 10:37] LABS: CALCIUM 4.6 mg/dL (8.8-10.2)
--- NOTE | 2018-11-19 19:02 | PROGRESS NOTE ---
DATE: 11/19/2018 INTERVAL HISTORY: The patient is doing well on antibiotics for MRSA bacteremia related to port infection. Respiratory status is improved, largely stable aside from multiple electrolyte abnormalities as below. One fever overnight, this has not been repeated. No new complaints. REVIEW OF SYSTEMS: Twelve point review of systems negative except as per interval history. LABORATORY: White count 11.96, hemoglobin 10.5, hematocrit 24.5, and platelets 40,000. Ionized calcium 0.72, sodium 142, potassium 3.7, chloride 109, bicarb 21, BUN 10, creatinine 1.1, calcium measured at 4.2, phosphorus 2.6, mag 1.3, and albumin 1.9. VITALS: T-max 101.4 degrees, pulse 62, respirations 16, blood pressure 149/68, O2 saturation 95% on room air. PHYSICAL EXAMINATION: General: No acute distress. Vitals: As above. HEENT: Normocephalic, atraumatic. Moist mucous membranes. No JVD. No cervical adenopathy. Cardiovascular: Regular rate and rhythm. No murmurs, rubs, or gallops. Right port on right upper chest. Location of previous port on left upper chest, well healed. Duration of the site infection. Pulmonary: Clear to auscultation bilaterally. Extremities: Peripheral pulses decreased but intact. No clubbing, cyanosis, or edema. Neurologic: Cranial nerves 2-12 grossly intact. No focal motor or sensory deficits. Psychiatric: Normal mood and affect. Awake, alert, and oriented x3. Skin: No new rashes or lesions noted. ASSESSMENT AND PLAN: 1. MRSA bacteremia and port infection. He did have one fever overnight, but the last 2 sets of blood cultures negative. Previous initial 3+ sets of blood cultures, Staph and MRSA on antibiotics as per Infectious Disease. Replacement port now in place given last several negative blood cultures. If fevers do not recur, then hopefully home with IV antibiotics soon if electrolyte abnormalities can be improved. 2. Stage IV lung cancer treatment. Outpatient treatment as per Oncology. 3. Severe hypocalcemia likely related to PTHRP due to lung cancer as above. He has been on p.o. replacement with little improvement. We will give IV calcium and monitor. 4. Hypomagnesemia. Some improvement for repletion, but remains quite low. Will replete and monitor. 5. Hypophosphatemia, only minimally low. We will hold on repletion of phosphorus, but monitor closely. 6. Diabetes, reasonable control of glucose on current regimen. Continue to monitor. 7. Anemia and thrombocytopenia largely stable. Monitor blood counts for need for transfusion, but none at this time. 8. Deep vein thrombosis prophylaxis. SCD's.
[2018-11-20] MEDS: DUONEB (A & A) INH SCH ×2 (06:26→11:53)
[2018-11-20] MEDS: PROTONIX PO SCH (06:32)
[2018-11-20] MEDS: TEFLARO 600 MG in NS 250 ML IV SCH ×2 (06:32→17:49)
[2018-11-20] MEDS: HUMALOG SUBQ SCH ×4 (06:33→23:25)
[2018-11-20] MEDS: NORCO-7.5 PO PRN (06:51)
[2018-11-20] MEDS: CITRACAL + D PO SCH ×3 (09:48→17:43)
[2018-11-20] MEDS: NEURONTIN PO SCH ×3 (09:48→17:43)
[2018-11-20] MEDS: AYR NASAL SPRAY NAS SCH ×3 (09:48→17:43)
[2018-11-20] MEDS: SODIUM BICARBONATE PO SCH ×2 (09:51→22:58)
[2018-11-20] MEDS: MORPHINE IV PRN ×3 (09:51→23:18)
[2018-11-20] MEDS: MAG-OX PO SCH ×2 (10:08→22:58)
--- NOTE | 2018-11-20 15:59 | INFECTIOUS DISEASE PROGRESS NO ---
DATE: 11/20/2018 PRESENT ILLNESS: The patient is being treated for a methicillin-resistant Staph aureus bacteremia and possible pneumonia as well. MEDICATION: The patient is on ceftaroline. He has had already 2 weeks of antibiotic treatment for his staph infection. PHYSICAL EXAMINATION: Vital Signs: Temperature 98.3 degrees, pulse 66, respirations 17, blood pressure 131/62. General: This is a somewhat ill-appearing, middle-aged male. He is in no acute distress. Head, eyes, ears, nose, and throat: He can hear my spoken words and see near objects. He does not have any white patches on his tongue. He is not draining anything from his nose or ears. Neck: No stiffness. Thorax: The patient's Port-A-Cath site on the left side is healing well. It is not swollen or tender or draining. The patient has a Port-A-Cath present on the right side and the site is not swollen or draining either. Lungs: Clear to auscultation. Cardiovascular: Regular heart rate. Abdomen: Soft and nontender. Neurologic: The patient is alert. He can move his extremities. There is no tremor. LAB AND X-RAY: Chest x-ray shows continued right upper lobe atelectasis/right upper lobe postobstructive pneumonia. The patient also may have pulmonary edema versus small area of pneumonia in the base of the lung. The patient's CBC shows a white count of 11,960, hemoglobin 7.5, and platelet count 40,000. Creatinine is 1.1. GFR is greater than 60. ASSESSMENT AND PLAN: The patient has methicillin-resistant Staphylococcus aureus bacteremia and possible pneumonia as well. The patient has 27 more days of ceftaroline to take intravenously. I plan on seeing the patient in the office in 2 weeks and then again at 2 weeks, at which time hopefully we can stop his antibiotics. COMORBIDITIES: Lung cancer with metastatic disease, chronic anemia and thrombocytopenia, diabetes mellitus, and gastroesophageal reflux disease. cc: MD Luís Figueroa MD
--- NOTE | 2018-11-21 05:07 | DISCHARGE SUMMARY ---
ADMISSION DATE: 10/18/2018 DISCHARGE DATE: PRINCIPAL DIAGNOSIS: Methicillin-resistant Staphylococcus aureus bacteremia. SECONDARY DIAGNOSES: 1. Methicillin-resistant Staphylococcus aureus urinary tract infection. 2. Pneumonia. 3. Diabetes mellitus. 4. Pancytopenia. 5. Hypocalcemia. 6. Hypomagnesemia. 7. Hypophosphatemia. 8. Lung cancer. 9. Substance abuse. 10. Abnormal liver function tests. 11. Acute kidney injury. 12. Diabetes mellitus. DISCHARGE MEDICATIONS: 1. Intravenous ceftaroline, dose and duration to be determined by infectious disease. 2. Vitamin D2 50,000 units p.o. every 7 days. 3. Gabapentin 100 mg three times a day. 4. [place] 7.5 one p.o. every 4 hours as needed. 5. Magnesium oxide 400 mg p.o. twice a day. 6. Calcium with vitamin D one p.o. 3 times a day. 7. Plavix 75 mg p.o. once a day. 8. Folic acid 1 mg p.o. daily. 9. Robitussin DM 10 mL every 4 hours as needed. 10. Hydralazine 50 mg p.o. 3 times a day. 11. Metformin 500 mg p.o. twice a day. 12. Losartan 100 mg p.o. daily. CONSULTATIONS DONE DURING THIS HOSPITAL STAY: 1. Dr. Reinier Mendoza, infectious disease. 2. Dr. Homero Franks, GI. 3. Dr. Ranjeet Ramires,hematology/oncology. 4. Dr. Donnell Weber, pulmonology. PROCEDURES DONE DURING THIS HOSPITAL STAY: Echocardiogram on 10/29/2018. Removal of left internal jugular vein port on 10/19/2018. Abdominal ultrasound on 10/24/2018. Chest CT on 10/25/2018. Abdomen and pelvis CT on 11/09/2018. Placement of right subclavian port on 11/18/2018. HOSPITAL COURSE: Mr. Leif Sparrow is a 53-year-old male who was admitted to the hospital as a case of sepsis, urinary tract infection, as well as pneumonia. The patient was managed accordingly. He was maintained on antibiotics. Antibiotic management was done by Dr. Reinier Mendoza of the infectious disease team. Echocardiogram did not show any evidence of vegetations. The patient had a left internal jugular vein port discontinued by Dr. Cheney. The patient's hospital stay was very much prolonged. He received 10 units of packed red blood cells and 11 units of platelets during the course of the hospital stay. At this time, the patient seemed to have done fairly well. He is stable. He can be discharged home. The patient will be going home to stay with his sister. PHYSICAL EXAMINATION: Vital Signs: During my evaluation today, temperature 98.3 degrees, pulse 66, respiratory rate 17, blood pressure 131/62, oxygen saturation is 98%. HEENT: Atraumatic and normocephalic. Cardiovascular System: S1 and S2. Respiratory System: Has evidence of good air entry bilaterally. Abdomen: Soft, nontender. No masses felt. Extremities: No evidence of edema. Central Nervous System: No obvious focal deficits noted. PLAN: Discharge home to go stay with a [*] daughter. The patient will require [*] followup appointments including infectious disease with Dr. Reinier Mendoza, Dr. Asad Alvares of surgery, and also primary care physician. cc: Luís Blue MD
[2018-11-21] MEDS: PROTONIX PO SCH (06:12)
[2018-11-21] MEDS: TEFLARO 600 MG in NS 250 ML IV SCH ×2 (06:13→18:14)
[2018-11-21] MEDS: MORPHINE IV PRN ×3 (06:27→20:09)
[2018-11-21] MEDS: HUMALOG SUBQ SCH ×4 (06:30→21:28)
[2018-11-21 07:46] LABS: HEMATOCRIT 23.1 % (42.0-52.0); HEMOGLOBIN 6.9 g/dL (14.0-18.0); MCH 30.1 PG (27-31); MCHC 29.9 g/dL (33-37); MCV 100.9 FL (81-99); RBC 2.29 XMIL (4.7-6.1); RDW 24.2 % (11.5-14.5); WBC 10.61 X1000 (4.8-10.8)
[2018-11-21 07:47] LABS: BASO# 0.02 X1000 (0.0-0.2); BASO% 0.2 % (0.0-0.8); EOS# 0.01 X1000 (0.0-0.7); EOS% 0.1 % (0.0-10.0); IMM GRAN# 0.08 X1000 (0.0-0.04); IMM GRAN% 0.8 % (0.0-0.5); LYMPH# 1.79 X1000 (1.2-3.4); LYMPH% 16.9 % (20.5-51.1); MONO# 1.51 X1000 (0.11-0.59); MONO% 14.2 % (1.7-9.3); MPV 11.3 FL (7.4-10.4); NEUT% 67.8 % (42.2-75.2)
[2018-11-21 07:48] LABS: PLT 36 X1000 (130-400)
[2018-11-21 08:02] LABS: AGAP 12; ALB/GLOB RATIO 0.4; ALBUMIN 1.9 g/dL (3.5-5.0); ALKALINE PHOSPHATASE 358 U/L (32-122); BUN 10 mg/dL (8-22); CALCIUM 5.3 mg/dL (8.8-10.2); CHLORIDE 108 mmol/L (98-107); COSMO 278; CREATININE 1.2 mg/dL (0.7-1.2); ESTIMATED GFR > 60; GLUCOSE 84 mg/dL (70-104); GOT 68 U/L (10-34); GPT 15 U/L (10-44); PHOSPHORUS 3.2 mg/dL (2.7-4.5); POTASSIUM 3.7 mmol/L (3.5-5.1); SODIUM 140 mmol/L (136-145); TCO2 20 mmol/L (25-35); TOTAL BILIRUBIN 4.97 mg/dL (0.20-1.00); TOTAL PROTEIN 6.6 g/dL (6.3-8.3)
[2018-11-21] MEDS ORDERED: CALCIUM CHLORIDE 1 GM in NS 100 ML IV ONE ×2 (08:14→17:35)
[2018-11-21] MEDS ORDERED: MAGNESIUM SULFATE 4 GM/S.W.I. 4 GM/100 ML IVPB IV ONE (09:30)
[2018-11-21] MEDS: DUONEB (A & A) INH SCH ×3 (09:43→23:00)
[2018-11-21] MEDS: CITRACAL + D PO SCH ×3 (09:49→18:14)
[2018-11-21] MEDS: MAG-OX PO SCH ×2 (09:49→20:08)
[2018-11-21] MEDS: NEURONTIN PO SCH ×3 (09:50→18:14)
[2018-11-21] MEDS: NORCO-7.5 PO PRN (09:50)
[2018-11-21] MEDS: SODIUM BICARBONATE PO SCH ×2 (09:50→20:08)
[2018-11-21] MEDS: AYR NASAL SPRAY NAS SCH ×3 (09:51→18:19)
[2018-11-21] MEDS ORDERED: NS 250 ML ONE (15:16)
--- NOTE | 2018-11-21 15:39 | NEPHROLOGY CONSULTATION ---
DATE: 11/21/2018 REASON FOR ADMISSION: Infected left port. PRINCIPAL DIAGNOSIS: Methicillin-resistant staphylococci S aureus. REASON FOR CONSULT: Electrolyte imbalance.Consulting physician: Dr. Dee Chambers. HISTORY OF PRESENT ILLNESS: Mr. Sparrow is a 53-year-old male who is admitted to the hospital care on 10/18/2018 with sepsis, urinary tract infection, and pneumonia. The patient has stage IV lung cancer with metastasis. He has been managed during the hospital stay by Dr. Reineir Mendoza with Infectious Disease, prescribing his antibiotics. He has had an echocardiogram that did not show any vegetation. He had a left internal jugular vein port discontinued per Dr. Cheney with a new port placed to the right IJ. During his hospitalization, the patient has received 10 units of packed red blood cells and 11 units of platelets. His hemoglobin at this time still remains low at 6.9. Prior to his hospital stay, the patient has been receiving chemotherapy per Dr. Ramires. He has been on carboplatin and is at this time preparing to be discharged home in the care of his daughter. On rounds this a.m., it was noted that patient had a calcium level of 5.3, an albumin level of 1.9, and a magnesium level of 1. The rest of his electrolytes are fairly stable. The patient states that he has not been eating well during his hospitalization. Upon evaluation in the room, it was found that he has been ordered Ensure to be placed on all meal trays. The patient states that he has not been eating or drinking any of these. He denies chest pain. No increased work of breathing. He still has some tenderness noted to the left chest wall secondary to port removal. He denies any nausea or vomiting. No recent diarrhea, though he continues to have decreased appetite. He has not had any fever or chills, and it is noted that his white count is now stable at 10.6. He continues on antibiotics per his port with Dr. Mendoza following. PAST MEDICAL HISTORY: Stage IV lung cancer with metastasis, history of hepatitis C, hypertension, reflux, chronic pain syndrome, polysubstance abuse with drug screen positive for cocaine during this admission. He is also had gastroesophageal reflux. PAST SURGICAL HISTORY: He has had a left subclavian port placed for chemotherapy. SOCIAL HISTORY: He states that he quit smoking approximately in June, at the time of diagnosis of his lung cancer. He lives with his sister. Reported positive for cocaine on this admission. States that he has an occasional drink. FAMILY HISTORY: Positive for hypertension and diabetes mellitus. ALLERGIES: Listed as no known drug allergies. HOME MEDICATIONS: Listed as Plavix, folic acid, Robitussin DM, Apresoline, [place], Glucophage, Coreg, Cozaar, and carboplatin. REVIEW OF SYSTEMS: Review of systems x10 with pertinent positives listed above in the HPI. VITAL SIGNS: The patient's most recent vital signs show temperature 99.1 degrees, blood pressure 132/66, heart rate 71, respirations 18. LABORATORY DATA: Sodium 140, potassium 3.7, chloride 108, CO2 20, BUN 10, creatinine 1.2, glucose 84. Anion gap 12, calcium 5.3, phosphorus 3.2, albumin 1.9, magnesium of 1. White count 10.61, hemoglobin 6.9, hematocrit 23.1 with a platelet count of 36,000. PTH 106. Hydroxy D25 of 18. It is noted that his corrected calcium level is 6.979% per his albumin. The patient has positive blood cultures indicating MRSA per left port. This is followed by Dr. Mendoza. He is now on Teflaro. DIAGNOSTIC STUDIES: The patient had a chest x-ray completed on 11/19/2018 showing pulmonary edema versus pneumonia. PHYSICAL EXAMINATION: General: This is a 53-year-old male. He is currently resting quietly in bed. Head of the bed is slightly elevated. He denies any pain. He has no increased work of breathing. He is currently on room air. HEENT: Normocephalic, atraumatic. Conjunctivae pale. He has CHICA. Mucous membranes dry. Neck: Supple. Trachea midline. He has no evidence of JVD in the upright position. Cardiovascular: Regular rate and rhythm. S1-S2 noted without murmur or gallop. Lungs: Clear to auscultation bilaterally. Equal excursion on room air. Abdomen: Soft and nontender. Positive bowel sounds. Genitourinary : Not inspected. The patient has been voiding adequate amount. He has approximately 300 in his urinal at this time. Extremities: No edema. No clubbing or cyanosis. Neurological: He is awake and alert. Able to assist with exam. Moves all 4 extremities well. ASSESSMENT AND PLAN: Altered electrolytes with hypocalcemia. This appears to be more than likely multifactorial. The patient's low calcium has been probably caused by his low magnesium. His low magnesium is related to his carboplatin secondary to his bone metastases treatment. The patient has received magnesium 4 g intravenously supplement today and calcium chloride 1 ampule. He remains on ergocalciferol and magnesium oxide. In this regard, we will encourage continued vitamin D and calcium supplement replacements while the patient is continuing to receive any further chemotherapy treatments. I would like to thank you for allowing us to follow with this patient. Dictated by SOPHIA Bullard for Brant Juarez MD cc: SOPHIA Bullard MD Clement Okinedo, MD [facility]
[2018-11-21 17:28] LABS: CALCIUM 5.9 mg/dL (8.8-10.2); MAGNESIUM 1.7 mg/dL (1.5-2.7)
[2018-11-21] MEDS ORDERED: MAGNESIUM SULFATE 2 GM/S.W.I. 2 GM/50 ML IVPB IV ONE (17:35)
--- NOTE | 2018-11-21 19:18 | PROGRESS NOTE ---
DATE: 11/21/2018 SUBJECTIVE: The patient is resting comfortably in bed. He has no complaints at this time. OBJECTIVE: Vital Signs: Temperature 98.5, blood pressure 144/72, heart rate 76 , respiratory rate 16, O2 sats 95% on room air. General: This is a chronically ill-appearing elderly male lying in bed in no acute distress. HEENT: Head normocephalic, atraumatic. Neck: Supple, no JVD. Heart: S1, S2 normal. Regular rate and rhythm. Lungs: Equal air entry bilaterally. No wheezing. No rales. No rhonchi. Abdomen: Positive bowel sounds. Soft, nontender, nondistended. Extremities: No edema, no cyanosis. Neurologic: The patient is alert and oriented x 4. LABS: White blood cell count 10, hemoglobin 6.9, hematocrit 23, platelets 39, 000. Sodium 140, potassium 3.7, chloride 108, CO2 20, BUN 10, creatinine 1.2, glucose 110, calcium 5.9, phosphorus 3.2, magnesium 1.7, total bilirubin 4.9. AST 68, ALT 15. Albumin 1.9, vitamin D level 18, intact PTH 106. ASSESSMENT AND PLAN: 1. Bacteremia secondary to MRSA. Continue with IV antibiotic therapy as directed by Dr. Mendoza. The arrangements have been made for the patient to continue IV antibiotic therapy as an outpatient. We are awaiting insurance approval for home antibiotics. 2. Pneumonia secondary to MRSA. Continue with antibiotic therapy. 3. Severe hypocalcemia. Multifactorial. Will continue with oral and IV calcium supplementation. The patient is on vitamin D replacement as well. 4. Hypomagnesemia. Will replace the patient's magnesium. 5. Anemia. Will transfuse 1 unit of packed red blood cells today. 6. Thrombocytopenia. Stable. 7. Status post Port-A-Cath removal with replacement. Stable. 8. Metastatic lung cancer. Management as per the oncologist. 9. Hepatitis C. Aware. 10. Vitamin D deficiency. Continue vitamin D replacement. 11. Disposition: Once the patient is medically stable and we get approval for the patient's home IV antibiotics, he can be discharged home. cc: MD Luís Cyr MD MTDD
--- NOTE | 2018-11-21 19:45 | INFECTIOUS DISEASE PROGRESS NO ---
DATE: 11/21/2018 PRESENT ILLNESS: Mr. Sparrow is being treated for methicillin-resistant Staph aureus bacteremia and a possible pneumonia. MEDICATIONS: He is currently receiving ceftaroline 600 mg IV every 12 hours. Based on the blood cultures he is on day 15 of a 6 week treatment. PHYSICAL EXAMINATION: Vital Signs: Temperature is 99.1 degrees, pulse rate 71 , respiratory rate 18, blood pressure 132/66, O2 saturation 90% on room air. General: This is a chronically ill- appearing middle-aged gentleman. He is lying in bed in no acute distress. HEENT: Atraumatic, normocephalic. Oral mucous membranes are pink and moist. Conjunctivae are pale and yellow. Neck: Supple. Trachea is midline. Respiratory: Lung sounds are clear to auscultation. Cardiovascular: Heart rate is regular. Pedal and radial pulses +1 bilaterally . Integumentary: Skin is warm and dry. Port-A-Cath site to his right chest is clean and dry without any edema, erythema or drainage. The previous Port-A-Cath site on the left side is healing well, without drainage or edema. Abdomen: Soft, round, nontender. Bowel sounds are active. Neurologic : He is awake, alert, oriented; able to move all extremities well in the bed. There is no tremor. LABORATORY AND X-RAY: Today his white count is 10.61, hemoglobin 6.9, platelet count 36,000, creatinine is 1.2. Estimated GFR is greater than 60. AST is 68, ALT 15, alkaline phosphatase 358. No imaging reports today. ASSESSMENT AND PLAN: Mr. Sparrow has a methicillin-resistant Staph aureus bacteremia with a possible pneumonia as well. At this point he needs 27 more days of treatment with ceftaroline IV in order to treat his bacteremia. Right now he is awaiting Medicaid approval for antibiotics at home. He states he has sisters at home that can help him with his treatment. We will plan to see him in our office at 2 weeks and then again at 4 weeks at which time he should be done with his antibiotics. These plans have been discussed with and recommended by Dr. Mendoza. COMORBIDITIES: Include lung cancer with metastatic disease, chronic anemia and thrombocytopenia, diabetes mellitus and gastroesophageal reflux disease. Dictated by SOPHIA Bach for Reinier Mendoza MD This chart was documented by, SOPHIA Bach and accurately reflects the services performed, treatment plan and medical decisions as attested by the providers signature Reinier Mendoza MD. cc: MD Luís Figueroa MD MTDD
[2018-11-22] MEDS: DUONEB (A & A) INH SCH ×6 (03:15→22:00)
[2018-11-22] MEDS: NORCO-7.5 PO PRN ×2 (05:58→18:19)
[2018-11-22] MEDS: TEFLARO 600 MG in NS 250 ML IV SCH ×2 (05:58→18:11)
[2018-11-22] MEDS: HUMALOG SUBQ SCH ×4 (05:59→23:11)
[2018-11-22 07:58] LABS: AGAP 8; BUN 10 mg/dL (8-22); CHLORIDE 110 mmol/L (98-107); COSMO 277; CREATININE 1.1 mg/dL (0.7-1.2); ESTIMATED GFR > 60; GLUCOSE 99 mg/dL (70-104); MAGNESIUM 1.9 mg/dL (1.5-2.7); PHOSPHORUS 3.1 mg/dL (2.7-4.5); POTASSIUM 3.7 mmol/L (3.5-5.1); SODIUM 139 mmol/L (136-145); TCO2 21 mmol/L (25-35)
[2018-11-22 08:04] LABS: BASO# 0.02 X1000 (0.0-0.2); BASO% 0.2 % (0.0-0.8); EOS# 0.02 X1000 (0.0-0.7); EOS% 0.2 % (0.0-10.0); HEMATOCRIT 24.5 % (42.0-52.0); HEMOGLOBIN 7.5 g/dL (14.0-18.0); IMM GRAN# 0.05 X1000 (0.0-0.04); IMM GRAN% 0.6 % (0.0-0.5); LYMPH# 1.38 X1000 (1.2-3.4); LYMPH% 15.4 % (20.5-51.1); MCH 30.2 PG (27-31); MCHC 30.6 g/dL (33-37); MCV 98.8 FL (81-99); MONO# 1.65 X1000 (0.11-0.59); MONO% 18.4 % (1.7-9.3); MPV 12.4 FL (7.4-10.4); NEUT# 5.83 X1000 (1.4-6.5); NEUT% 65.2 % (42.2-75.2); PLT 40 X1000 (130-400); RBC 2.48 XMIL (4.7-6.1); RDW 23.3 % (11.5-14.5); WBC 8.95 X1000 (4.8-10.8)
[2018-11-22 08:06] LABS: CALCIUM 6.4 mg/dL (8.8-10.2)
[2018-11-22 08:14] LABS: BANDS 8 % (0-1); LYMPHS 2 % (21-51); MONO 2 % (1-9); NRBC 1 % (0-0); SEGS 88 % (42-75)
[2018-11-22] MEDS ORDERED: CALCIUM CHLORIDE 1 GM in NS 100 ML IV ONE (08:19)
[2018-11-22] MEDS ORDERED: ROCALTROL PO SCH (09:00)
[2018-11-22] MEDS: NEURONTIN PO SCH ×3 (10:10→18:12)
[2018-11-22] MEDS: SODIUM BICARBONATE PO SCH ×2 (10:10→23:10)
[2018-11-22] MEDS: PROTONIX PO SCH (10:11)
[2018-11-22] MEDS: CITRACAL + D PO SCH ×3 (10:11→18:12)
[2018-11-22] MEDS: MAG-OX PO SCH ×2 (10:11→23:10)
[2018-11-22] MEDS: MORPHINE IV PRN ×3 (10:27→21:47)
[2018-11-22] MEDS: ROCALTROL PO SCH (10:28)
[2018-11-22] MEDS: AYR NASAL SPRAY NAS SCH ×3 (10:29→18:11)
--- NOTE | 2018-11-22 13:44 | NEPHROLOGY PROGRESS NOTE ---
DATE: 11/22/2018 TIME SEEN: 0810. SUBJECTIVE: Mr. Sparrow is resting in bed. He denies any discomfort. He states that he would like to go home today. OBJECTIVE: His most recent vital signs: Temperature 98.2, blood pressure 122/ 57, heart rate 77, respirations 18. He is on room air. Last recorded saturation 94%. He has had 1090 in. He has had 1325 out to void. LABORATORY DATA: Sodium is 139, potassium 3.7, chloride 110, CO2 of 21, BUN 10 , creatinine 1.1, glucose 99. The patient has an anion gap of 8. Calcium is 6.4, phosphorus 3.1, magnesium 1.9. White count 8.95, hemoglobin 7.5, hematocrit 24.5 with a platelet count of 40, 000. PHYSICAL EXAMINATION: General: This is a 53-year-old -[place]ish male. He is resting quietly in bed. Head of the bed is elevated. He appears chronically ill though in no acute distress. Skin is warm and dry. HEENT: Normocephalic, atraumatic. Conjunctivae pale pink. He has CHICA. Mucous membranes are dry. Neck is supple. Trachea midline. No evidence of JVD. Cardiovascular: Regular rate and rhythm without murmur or gallop. Lungs are clear to auscultation bilaterally. Equal excursion. He is on room air. Abdomen is soft, nontender. Positive bowel sounds. Genitourinary: Not inspected. Patient has been voiding an adequate amount to his urinal. Extremities have no edema. No clubbing or cyanosis. Neurological: He is alert and oriented x3. ASSESSMENT AND PLAN: Altered electrolytes with hypocalcemia. The patient's calcium has improved. It is 6.4 this a.m. We have changed his herbal calciferol to Rocaltrol 1 mcg daily and continue supplemental po CaCarbonate. We will be glad to see him as an outpatient if desired. devonte I would like to thank you for allowing us to follow with this patient. Dictated by SOPHIA Bullard for Brant Juarez MD Face to face encounter, data reviewed, discussed with Perez Davis on 11/22/17. I agree with the above assessment and plan of care. devonte cc: SOPHIA Bullard, MD Clement Okinedo, MD [facility]
[2018-11-22] MEDS: CALCIUM CHLORIDE 1 GM in NS 100 ML IV ONE ×2 (21:47→22:22)
--- NOTE | 2018-11-22 22:40 | PROGRESS NOTE ---
DATE: 11/22/2018 SUBJECTIVE: The patient is resting comfortably in bed. He has no complaints. No acute events noted overnight. OBJECTIVE: Vital Signs: Temperature 98.6 degrees, blood pressure 150/66, heart rate 67, respirations 16, O2 saturation 91% on room air. General: This is a chronically ill-appearing male lying in bed, in no acute distress. Heart: S1, S2 normal. Regular rate and rhythm. Lungs: Clear to auscultation bilaterally. Abdomen: Positive bowel sounds. Soft, nontender, nondistended. Extremities: No edema. No cyanosis. Neurologic: The patient is alert and oriented x4. LABORATORIES: White blood cell count 8.9, hemoglobin 7.5, hematocrit 24, platelets 40,000. Sodium 139, potassium 3.7, chloride 110, CO2 of 21, BUN 10, creatinine 1.1, glucose 120, calcium 6.4. Phosphorus 3.1. Magnesium 1.9. ASSESSMENT AND PLAN: 1. Bacteremia secondary to methicillin-resistant Staphylococcus aureus. Continue with IV antibiotic therapy. The patient will continue this treatment regimen as outpatient. He will also follow up with Dr. Mendoza as scheduled. 2. Pneumonia secondary to methicillin-resistant Staphylococcus aureus. Improved. Continue with antibiotic therapy. 3. Hypocalcemia. Improved. Continue with calcium and vitamin D supplementation. 4. Anemia. Slightly improved. The patient received 1 unit of packed red blood cells yesterday. 5. Thrombocytopenia. Stable. 6. Status post Port-A-Cath removal with replacement. It is stable. 7. Metastatic lung cancer status post chemoradiation. Management as per the oncologist. The patient will follow up with Dr. Ramires upon discharge from the hospital. 8. Hepatitis C. Aware. 9. Vitamin D deficiency. Continue with vitamin D replacement. 10. Disposition. The patient will be discharged home once his insurance approves home IV antibiotic therapy. cc: MD Luís Cyr MD MTDD
--- NOTE | 2018-11-22 23:54 | INFECTIOUS DISEASE PROGRESS NO ---
DATE: 11/22/2018 PRESENT ILLNESS: Mr. Sparrow is being treated for methicillin-resistant Staph aureus bacteremia as well as a possible pneumonia. MEDICATIONS: He is receiving ceftaroline 600 mg IV every 12 hours, and today is day 16 of a 6- week treatment. PHYSICAL EXAMINATION: Vital Signs: Temperature is 98.6 degrees, pulse rate 58 , respiratory rate 18, blood pressure 152/71, O2 saturations 92%. General: This is a chronically ill-appearing, middle-aged gentleman. He is lying in the bed, currently in no acute distress. HEENT: Atraumatic, normocephalic. Oral mucous membranes are pink and moist. Conjunctivae are pale and yellow. Sclerae are icteric. Neck: Supple. Trachea is midline. Respiratory: Lung sounds are clear to auscultation. Cardiovascular: Heart rate is regular and slow. Pedal and radial pulses are +1 bilaterally. There is a trace right lower extremity edema noted. Integumentary: Skin is warm and dry. Port-A-Cath site to the right chest is clean and dry without edema, erythema, or drainage. The left chest previous Port-A-Cath site has a scabby, dry incision which is healing well without edema, drainage, or erythema. Abdomen: Soft, round, nontender. Bowel sounds are active. Neurologic: He is awake, alert, and oriented. Able to move all his extremities fairly well in the bed without a tremor. LABORATORY AND X-RAY: Today his white count is 8.95, hemoglobin 7.5, platelet count 40,000. Creatinine is 1.1, estimated GFR greater than 60. Blood cultures have been sterile since November 06. Previous blood cultures x5 sets have all grown methicillin-resistant Staph aureus. No imaging reports today. ASSESSMENT AND PLAN: Mr. Sparrow has a methicillin-resistant Staphylococcus aureus bacteremia with a possible pneumonia. He is going to need 26 more days of treatment to complete the 42 days required to treat his bacteremia. We will continue ceftaroline as ordered. We are awaiting Medicaid approval for his home antibiotics. I have spoken with Ramirez, the [facility] technology sales representative, who is hoping that he will be able to go home tomorrow. The patient states he has sisters at home that can help him with his antibiotics. We plan to see him in our office in 2 weeks and then again at 4 weeks, at which time he should be done with his treatment. These plans have been discussed with and recommended by Dr. Mendoza. COMORBIDITIES: for Mr. Sparrow include lung cancer with metastatic disease, chronic anemia and thrombocytopenia, diabetes mellitus, and gastroesophageal reflux disease. Dictated by SOPHIA Bach for Reinier Mendoza MD This chart was documented by, SOPHIA Bach and accurately reflects the services performed, treatment plan and medical decisions as attested by the providers signature Reinier Mendoza MD. cc: MD Luís Figueroa MD MTDD
[2018-11-23] MEDS: DUONEB (A & A) INH SCH ×3 (03:56→16:06)
[2018-11-23] MEDS: MORPHINE IV PRN ×2 (05:33→09:13)
[2018-11-23] MEDS: TEFLARO 600 MG in NS 250 ML IV SCH (05:36)
[2018-11-23] MEDS: PROTONIX PO SCH (06:00)
[2018-11-23] MEDS: HUMALOG SUBQ SCH ×2 (06:01→15:10)
[2018-11-23 07:05] LABS: HEMATOCRIT 23.5 % (42.0-52.0); HEMOGLOBIN 7.1 g/dL (14.0-18.0); MCH 30.6 PG (27-31); MCHC 30.2 g/dL (33-37); MCV 101.3 FL (81-99); MPV 12.5 FL (7.4-10.4); RBC 2.32 XMIL (4.7-6.1); RDW 23.4 % (11.5-14.5); WBC 6.89 X1000 (4.8-10.8)
[2018-11-23 07:55] LABS: MAGNESIUM 1.6 mg/dL (1.5-2.7); PHOSPHORUS 3.1 mg/dL (2.7-4.5)
[2018-11-23 07:57] LABS: AGAP 11; BUN 8 mg/dL (8-22); CHLORIDE 109 mmol/L (98-107); COSMO 279; CREATININE 1.1 mg/dL (0.7-1.2); ESTIMATED GFR > 60; GLUCOSE 88 mg/dL (70-104); POTASSIUM 3.9 mmol/L (3.5-5.1); SODIUM 141 mmol/L (136-145); TCO2 21 mmol/L (25-35)
[2018-11-23] MEDS ORDERED: MAGNESIUM SULFATE 4 GM/S.W.I. 4 GM/100 ML IVPB IV ONE (08:53)
[2018-11-23] MEDS ORDERED: CALCIUM CHLORIDE 2 GM in NS 100 ML IV ONE (08:54)
[2018-11-23] MEDS: AYR NASAL SPRAY NAS SCH ×2 (09:13→15:09)
[2018-11-23] MEDS: SODIUM BICARBONATE PO SCH (09:15)
[2018-11-23] MEDS: MAG-OX PO SCH (09:15)
[2018-11-23] MEDS: ROCALTROL PO SCH (09:16)
[2018-11-23] MEDS: NEURONTIN PO SCH ×2 (09:16→15:09)
[2018-11-23] MEDS: NORCO-7.5 PO PRN (09:16)
[2018-11-23] MEDS: CITRACAL + D PO SCH ×2 (09:16→15:09)
[2018-11-23] MEDS ORDERED: NS 500 ML ONE (11:41)
--- NOTE | 2018-11-23 15:05 | NEPHROLOGY PROGRESS NOTE ---
DATE: 11/23/2018 TIME SEEN: 0720. SUBJECTIVE: Mr. Sparrow is resting quietly in bed. Head of the bed is elevated. He denies any pain or increased work of breathing. He states that he is waiting for his breakfast. OBJECTIVE: Vital Signs: Temperature 98.5, blood pressure 132/83, heart rate 63 , respirations 18. He is on 2 L nasal cannula. Last recorded saturation 97%. He has had 540 In. He has had 1700 out. LABORATORY DATA: Sodium 141, potassium 3.9, chloride 109, CO2 of 21. BUN 8, creatinine 1.1, glucose 88. His anion gap is 11. His calcium is 7, phosphorus 3.1, magnesium 1.6. White count 6.89, hemoglobin 7.1, hematocrit 23.5, with a platelet count of 42,000. PHYSICAL EXAMINATION: General: This is a 53-year-old -[place] male. He is currently resting quietly in bed. He is in no acute distress. His skin is warm and dry. HEENT: Normocephalic, atraumatic. Conjunctivae pale pink. He has CHICA. Mucous membranes are dry. Neck is supple. Trachea midline. No JVD. Cardiovascular: Regular rate and rhythm without murmur or gallop. Lungs are clear to auscultation anterior. Equal excursion on O2. Abdomen is soft, nontender, positive bowel sounds. Genitourinary: Not inspected. Patient has been voiding adequate amounts. Extremities: Have no edema. No clubbing or cyanosis. Neurologic: Alert and oriented x3. ASSESSMENT AND PLAN: Altered electrolytes with hypocalcemia. The patient's calcium has improved up to 7 today. He continues on Rocaltrol 1 mcg daily along with p.o. calcium carbonate. He has no symptoms related to his hypocalcemia. I would like to thank you for allowing us to follow with this patient. Dictated by SOPHIA Bullard for Brant Juarez MD Face to face encounter, data reviewed, discussed with Perez Davis on 11/23/18. I agree with the above assessment and plan of care. cc: SOPHIA Bullard MD Clement Okinedo, MD [facility]
[2018-11-23 15:19] VITALS: BP 157/73
--- NOTE | 2018-11-24 07:29 | DISCHARGE SUMMARY ---
ADMISSION DATE: 10/18/2018 DISCHARGE DATE: 11/23/2018 FINAL DISCHARGE DIAGNOSES: 1. Bacteremia secondary to Methicillin-resistant Staphylococcus aureus. 2. Status post removal of an infected Port-A-Cath. 3. Pneumonia secondary to Methicillin-resistant Staphylococcus aureus. 4. Hypocalcemia. 5. Hypomagnesemia. 6. Hypokalemia. 7. Anemia of chronic disease. 8. Thrombocytopenia. 9. Hepatitis C. 10. Vitamin D deficiency. 11. Metastatic lung cancer with metastasis to the spine. 12. Diabetes mellitus type 2. 13. Hypertension. CONSULTATIONS: 1. ID consultation with Dr. Mendoza. 2. GI consultation with Dr. Franks. 3. General Surgery consultation with Dr. Alvares. 4. Oncology consultation with Dr. Ramires. 5. Pulmonary consultation with Dr. Weber. HOSPITAL COURSE: Mr. Sparrow is a 53-year-old male with a history of metastatic lung cancer, diabetes, hypertension, and hepatitis C, who presented to the ER with a chief complaint of fever, generalized fatigue and cough. On admission a chest x-ray was done that showed pneumonia. The patient was also noted to have a urinary tract infection and he was noted to be neutropenic with a white blood cell count of 0.5. In light of these findings, the patient was admitted to the hospitalist service. Blood, sputum and urine cultures were obtained. The patient was started on broad-spectrum antibiotics. The patient was placed on neutropenic precautions. Oncology and Infectious Disease were consulted. The 1st set of blood cultures came back positive for MRSA. In light of this it was thought that the patient's Port-A-Cath was the source and so General Surgery was consulted for removal of the Port-A-Cath. On 10/19/2018 the patient was taken to the OR and the right internal jugular vein port was removed and the tip was cultured. This also came back positive for methicillin-resistant Staphylococcus aureus. The patient's antibiotics were adjusted several times over the course of the hospitalization because the patient had several positive blood cultures that kept coming back with methicillin-resistant Staphylococcus aureus. Finally on 11/06/2018, the patient was noted to have negative blood cultures. The patient had a prolonged hospitalization coupled with blood transfusions due to pancytopenia. Eventually the patient's white blood cell count recovered. He was taken off of neutropenic precautions. The patient, prior to admission, had had chemotherapy. The patient was noted to be hypocalcemic, so Nephrology was consulted for further recommendations. The patient was noted to be vitamin D deficient. Initially, the patient was treated with vitamin D. However, this was changed to calcitriol which is helping to improve the patient's calcium level. The patient was also noted to have elevated LFTs and it was thought that this was secondary to the patient's hepatitis C. The patient continued to improve clinically. Arrangements were made for the patient to continue IV antibiotic therapy as outpatient under the care of Dr. Mendoza. [facility] was consulted to provide the IV antibiotic therapy at home. The patient's antibiotics were approved on 11/23/2018. The patient is currently stable for discharge home. The patient will receive 1 unit of packed red blood cells today prior to discharge. DISCHARGE MEDICATIONS: 1. Gabapentin 100 mg p.o. 3 times a day. 2. Magnesium oxide 400 mg p.o. twice a day. 3. Calcium citrate with vitamin D 1 tab oral 3 times a day. 4. Calcitriol 1 mcg oral daily. 5. Tussionex 5 mL oral every 12 hours p.r.n. for cough. 6. [place] 10/325 one tab oral every 8 hours p.r.n. for pain. 7. Hydralazine 50 mg p.o. 3 times a day. 8. Metformin 500 mg p.o. twice a day. 9. Folic acid 1 mg p.o. daily. 10. Cozaar 100 mg p.o. daily. DISCHARGE DIET: 1800 ADA diet. ACTIVITY: As tolerated. FOLLOWUP INSTRUCTIONS: The patient will need to follow up with Dr. Reinier Mendoza as scheduled. The patient will also need to follow up with Dr. Ramires-as scheduled by his clinic. cc: MD Luís Cyr MD
== END 2018-11-23 17:44 | disposition home or self-care (01) | DRG 981 ==
LOC: P.ED 07:04 → EDIPHOLD 17:42 → SUATTDRO 17:42 → 3S 21:55 → 3N 10-23 22:23
PROVIDERS: ADMIT Internal Medicine; ATTEND Internal Medicine
CPT/HCPCS: 36430; 71010; 71020; 71045; 71046; 71250; 74019; 74020; 74176; 76700; 76705; 77001; 78227; 80048; 80053; 80069; 80074; 80076; 80104; 80202; 80301; 80305; 81001; 82009; 82306; 82310; 82330; 82550; 82570; 82948; 82977; 83010; 83036; 83605; 83615; 83735; 83880; 83935; 83970; 84100; 84132; 84145; 84156; 84300; 84540; 85014; 85018; 85025; 85027; 85384; 85610; 85730; 86850; 86900; 86901; 86920; 87040; 87070; 87075; 87077; 87088; 87186; 87205; 87275; 87276; 87522; 87804; 87902; 88300; 93306; 94640; 94761; 96361; 96365; 96366; 96367; 96375; 96376; 97110; 97162; 97166; 97530; 99285; A9270; A9537; C1788; G0431; G0434; G0477; J0131; J0330; J0610; J0690; J0692; J0712; J0878; J1441; J1442; J1446; J1447; J1652; J1815; J1940; J1956; J2185; J2250; J2270; J2300; J2405; J2543; J3010; J3370; J3475; J3480; J7030; J7040; J7050; P9016; P9035; P9047; S0020; XXXXX

== ENCOUNTER 2018-12-11 16:41 | Inpatient (IN) ==
--- NOTE | 2018-12-11 18:04 | PROVIDER DOCUMENTATION ---
HPI-General Adult - General Chief Complaint: Abnormal Lab[s] Stated Complaint: ABNORMAL LABS Time Seen by Provider: 12/11/18 17:29 Source: patient Allergies/Adverse Reactions: Patient Allergies Allergy/AdvReac Type Severity Reaction Status Date / Time No Known Allergies Allergy Verified 08/16/18 11:10 Home Medications: Home Medication List Medication Instructions Recorded Confirmed Last Taken Type Calcium Citrate/Vitamin D 1 each PO TID tablet 11/20/18 Unknown Rx [Citracal + D] Gabapentin [Neurontin] 100 mg PO TID capsule 11/20/18 Unknown Rx Magnesium Oxide [Mag-Ox] 400 mg PO BID tablet 11/20/18 Unknown Rx Calcitriol [Rocaltrol] 1 microgm PO DAILY #30 cap 11/23/18 Unknown Rx Folic Acid 1 mg PO DAILY #30 tab 11/23/18 Unknown Rx Hydralazine [Apresoline] 50 mg PO TID #90 tab 11/23/18 Unknown Rx Hydrocodone/Acetaminophen [[place] 1 each PO Q8H PRN PRN #30 tablet 11/23/18 Unknown Rx 10-325 Tablet] Hydrocodone/Chlorphen Polis 5 ml PO Q12H PRN PRN #120 ml 11/23/18 Unknown Rx [Tussionex Liquid] Losartan [Cozaar] 100 mg PO DAILY #60 tab 11/23/18 Unknown Rx Metformin [Glucophage] 500 mg PO BID CC #60 tab 11/23/18 Unknown Rx - History of Present Illness -Gen Adult Nature of Presenting Problems: PATIENT AND FAMILY ARE POOR HISTORIAN; NOT SURE WHAT MEDICATION HE IS ON AND UNSURE WHEN LAST CHEMOTHERAPY WAS. THIS IS A 53 YEAR OLD MALE WITH HISTORY OF LUNG AND BONE CANCER STAGE 4. PATIENT STATES HE HAD HIS PORT "CLEANED" TODAY AND WHEN HE WAS AT HOME, HE RECEIVED A PHONE CALL AND WAS INSTRUCTED TO COME IN BECAUSE OF BLOOD WORK THAT SHOWS LOW PLATELET COUNT. PATIENT AND FAMILY STATES HE IS ON ANTIBIOTICS FOR UNKNOWN PURPOSE AND NOT SURE WHAT HE IS ON. THEY THINK HE HAD LAST CHEMOTHERAPY ON 12/01. CURRENTLY PATIENT DENIES BEING IN ANY DISCOMFORT. JANIS SUBJECTIVE FEVER, CHILL , NIGHT SWEATS, DIZZINESS, LIGHTHEADEDNESS, BLURRY VISION, CHEST DISCOMFORT, PALPITATION, DYSPNEA, ABDOMINAL DISCOMFORT (DENIES RIGHT LOWER QUADRANT PAIN), NAUSEA, VOMITING, DIARRHEA, CONSTIPATION, MYALGIA, ARTHRALGIA, NEW RASH/LESION, AND HEAT OR COLD INTOLERANCE. PATIENT AND FAMILY MEMBER STATES HE WOULDN'T HAVE CAME IN IF HE WAS NOT INFORMED TO COME IN. Review of Systems - Adult - REVIEW OF SYSTEMS - ADULT Constitutional: reports: no symptoms reported, see HPI Eyes: reports: no symptoms reported, see HPI Ears, Nose, Mouth & Throat: reports: no symptoms reported, see HPI Cardiovascular: reports: no symptoms reported, see HPI Respiratory: reports: no symptoms reported, see HPI Gastrointestinal: reports: no symptoms reported, see HPI Genitourinary: reports: no symptoms reported, see HPI Musculoskeletal: reports: no symptoms reported, see HPI Integumentary: reports: no symptoms reported, see HPI Neurological: reports: no symptoms reported, see HPI Psychiatric: reports: no symptoms reported, see HPI Endocrine: reports: no symptoms reported, see HPI Hematologic/Lymphatic: reports: no symptoms reported, see HPI Allergic/Immunologic: reports: no symptoms reported, see HPI Past History - Adult - PAST MEDICAL HISTORY-ADULT Review of Records: reports: Old Records Reviewed Major Childhood Illnesses: reports: other (HEP C) Cardiovascular: reports: blood clots, HTN Respiratory: reports: cancer Gastrointestinal: reports: GERD Genitourinary: reports: denies history Musculoskeletal: reports: cancer, chronic pain Neurological: reports: denies history Psychiatric: reports: denies history Endocrine/Immune: reports: Diabetes Other Conditions: reports: denies history - PRIOR SURGERIES/PROCEDURES Surgical/Procedure History: reports: reviewed, not pertinent, other (port placed left upper chest wall) - IMMUNIZATION STATUS Childhood Immunizations: See Nurse Assessment Flu Vaccine: See Nurse Assessment - FAMILY HISTORY Family History: reviewed, not pertinent Physical Exam-General - PHYSICAL EXAM-ADULT Initial Vital Signs Reviewed: Yes - CONSTITUTIONAL General Appearance: no apparent distress, cachetic, thin, lethargic, slow to respond, other (PATIENT FELT ASLEEP) - EYES Eyes: PERRL/EOMI, pink conjunctivae - HEAD, EARS, NOSE, MOUTH & THROAT HENMT: normocephalic/atraumatic, moist mucous membranes - NECK Neck: non-tender, full range of motion - RESPIRATORY Respiratory: chest non-tender, other (DECREASED RIGHT LUNG SOUND) - CARDIOVASCULAR Cardiovascular: normal peripheral pulses, regular rate, rhythm - GASTROINTESTINAL (ABDOMEN) Abdominal Exam: normal bowel sounds, non tender, soft, no organomegaly, no pulsatile mass - MUSCULOSKELETAL Back Exam: normal inspection, no CVA tenderness, no vertebral tenderness Extremity: normal range of motion, non-tender, normal gait - SKIN Integumentary: normal color, normal turgor - NEUROLOGIC Neurologic: grossly normal - PSYCHIATRIC Psych/Mental Status: normal mood/affect, normal thought content, normal thought process, oriented x 3 Progress - PLAN OF CARE/RESULTS Progress/Plan/Lab Results: Vital Signs - 8 hr 12/11/18 17:11 Temperature 100.1 F H Pulse Rate 91 H Respiratory Rate 22 Blood Pressure 143/67 O2 Sat by Pulse Oximetry 96 Orders Category Date Time Status Nursing [[facility]. NRSG Communication Order] DIRECTED Care 12/11/18 17:48 Active - REASSESSMENT Reassessment #1 Time Reassessed: 19:51 Status: other (I WAS INFORMED BY RN EARLIER THAT PATIENT DESAT INTO LOW 80S AND STARTED ON OXYGEN. CXR OBTAINED WITH POSSIBLE PNA AT RIGHT UPPER LOBE. PATIENT AFEBILE AFTER MULTIPLE REPEAT OF TEMPERATURE. REEVALUATION, PATIENT APPEARS FATIGUE AND DOSED OFF DURING MY REEVALUATION. PATIENT STILL UNSURE WHAT ANTIBIOTICS HE IS ON. WILL TALK TO HOSPITLIAST FOR OBSERVATION VS ADMISSION.) Reassessment #2 Time Reassessed: 20:00 Status: other (SPOKE TO HOSPITALIST WITH CONCERN OF STAGE 4 CANCER PATIENT ON UNKNOWN ANTIBITOICS FOR UNKNOWN REASON WAS TOLD TO COME FOR LOW PLATELET COUNT. DURING ENCOUNTER; INITLA TEMP OF 100.1 AND TEMP DOWN WITHOUT TREATMENT BUT RN IFNORMED ME PATIENT DESAT TO 80S. CXR REVEALING RIGHT UPPER LOBE PNEUMONIA WHICH I STARTED PATIENT ON CEFEPIME. APPRECIATE HOSPITALIST ASSITANCE.) Departure - Departure Date of Disposition Decision: 12/11/18 Time of Disposition Decision: 20:01 DIAGNOSIS: Pneumonia, Thrombocytopenia Disposition: ADMITTED INPATIENT 09 Certified Medical Emergency: Emergent Condition: Fair Referrals and Follow-Ups: Reinier Mendoza MD [Primary Care Provider] - - Critical Care Note This patient required my direct & personal management of CC.: No Attestation - Physician/ OSCAR Attestation Patient care was provided by Advanced Practice Provider:: No The physician spent face to face time with patient:: Yes Advanced Practice Provider documentation review:: Supervising physician onsite and consulted in the evaluation and care of this patient. The physician did have a face to face encounter with the patient.
[2018-12-11] MEDS ORDERED: DUONEB (A & A) INH ONE (18:29)
--- NOTE | 2018-12-11 19:40 | Diag Imaging Result Doc PS360 ---
EXAM: CHEST-2 VIEWS 12/11/2018 HISTORY: STAGE 4 CANCER; DESAT; R/O ACUTE PULMONARY PROCESS TECHNIQUE: AP and lateral chest COMMENT: There is opacification the right upper lobe which appears worse than on 11/19/2018. There is a loculated pleural fluid collection versus pleural thickening on the right. IMPRESSION: Worsened atelectasis and/or pneumonia right upper lobe. Electronically signed by John Yo 12/11/2018 7:37 PM
[2018-12-11] MEDS ORDERED: MAXIPIME 2 GM in NS 100 ML IV ONE (19:54)
[2018-12-11 20:42] LABS: ALLEN TEST YES; BE 0.2 mmoll (-3.0-3.0); BLOOD TYPE ARTERIAL; METHB 1.1 % (0.0-1.5); MODALITY CANNULA; O2(CT) 10.8 mL/dL (15.0-23.0); PCO2(98.6) 43 mmHg (35-45); PO2(98.6) 62 mmHg (60-100); SAMPLE BLOOD; SAO2 94.2 % (95.0-100.0); THB 8.6 g/dL (11.5-17.4); pH(98.6) 7.38 (7.35-7.45)
[2018-12-11 20:45] LABS: O2HB 89.1 % (95.0-99.0)
[2018-12-11 21:13] LABS: URINE SOURCE CLEAN CATCH
[2018-12-11 21:20] LABS: BILIRUBIN URINE NEGATIVE (NEGATIVE); BLOOD URINE TRACE (NEGATIVE); COLOR YELLOW; GLUCOSE URINE NEGATIVE (NEGATIVE); KETONE URINE NEGATIVE (NEGATIVE); LEUKOCYTES URINE NEGATIVE (NEGATIVE); NITRITE URINE NEGATIVE (NEGATIVE); PROTEIN URINE 30 mg/dL (NEGATIVE); SP GRAVITY URINE 1.001; TURBIDITY URINE CLEAR (CLEAR); UROBILINOGEN URINE NORMAL (NORMAL)
[2018-12-11 21:21] LABS: UR EPITHELIAL CELLS <10 /HPF (<10); URINE BACTERIA NEGATIVE /HPF; URINE WBC <10 /HPF (<10)
[2018-12-11 21:29] LABS: INR 1.14; PROTIME 15.5 Seconds (11.0-16.0)
[2018-12-11 21:30] LABS: PTT 42.8 Seconds (22.3-41.8)
[2018-12-11 21:31] LABS: ESTIMATED GFR > 60
[2018-12-11 21:33] LABS: UR AMPHETAMINES QUAL PRESUMPTIVE POSITIVE (NONE DETECT); UR BARBITUATES QUAL NONE DETECTED (NONE DETECT); UR BENZODIAZEPIN QUAL NONE DETECTED (NONE DETECT); UR CANNABINOIDS QUAL NONE DETECTED (NONE DETECT); UR COCAINE QUAL NONE DETECTED (NONE DETECT); UR METHADONE QUAL NONE DETECTED (NONE DETECT); UR OPIATES QUAL PRESUMPTIVE POSITIVE (NONE DETECT); UR OXYCODONE QUAL NONE DETECTED (NONE DETECT); UR PCP QUAL NONE DETECTED (NONE DETECT)
[2018-12-11 21:33] LABS: AGAP 12; ALB/GLOB RATIO 0.5; ALBUMIN 2.4 g/dL (3.5-5.0); ALKALINE PHOSPHATASE 15 U/L (32-122); BUN 7 mg/dL (8-22); CALCIUM 7.2 mg/dL (8.8-10.2); CHLORIDE 101 mmol/L (98-107); CK PROFILE 27 U/L (24-204); COSMO 269; CREATININE 0.8 mg/dL (0.7-1.2); GLUCOSE 81 mg/dL (70-104); GOT 22 U/L (10-34); GPT 8 U/L (10-44); MAGNESIUM 1.2 mg/dL (1.5-2.7); POTASSIUM 3.3 mmol/L (3.5-5.1); SODIUM 136 mmol/L (136-145); TCO2 23 mmol/L (25-35); TOTAL BILIRUBIN 2.73 mg/dL (0.20-1.00); TOTAL PROTEIN 7.5 g/dL (6.3-8.3)
[2018-12-11] MEDS ORDERED: KLOR-CON PO ONE (21:45)
[2018-12-11] MEDS ORDERED: MAGNESIUM SULFATE 1 GM/D5W 1 GM/100 ML IVPB IV ONE (21:47)
[2018-12-11] MEDS ORDERED: NORCO-10 PO ONE (21:48)
[2018-12-11] MEDS ORDERED: ZOFRAN IV PRN (21:49)
[2018-12-11] MEDS ORDERED: TEFLARO 600 MG in NS 250 ML IV SCH (23:00)
[2018-12-11] MEDS ORDERED: NS 1,000 ML IV SCH ×2 (23:15)
[2018-12-12] MEDS: SODIUM CHLORIDE 0.9% INJ SCH (00:23)
[2018-12-12] MEDS: PROTONIX IV SCH ×2 (00:23→23:21)
[2018-12-12] MEDS: TESSALON PO PRN ×3 (01:25→13:47)
[2018-12-12] MEDS: NORCO-10 PO PRN ×2 (01:25→09:18)
[2018-12-12] MEDS: DUONEB (A & A) INH SCH ×4 (03:51→23:25)
--- NOTE | 2018-12-12 07:01 | HISTORY AND PHYSICAL ---
PRIMARY CARE PROVIDER AND ONCOLOGIST: Dr. Ramires. CHIEF COMPLAINT: Abnormal labs as well as shortness of breath. HISTORY OF PRESENT ILLNESS: Mr. Sparrow is a 53-year-old male who has a past medical history most notable for metastatic stage IV nonsmall cell lung cancer with metastases to the bone. He has also had recent problems with pancytopenia. He also has a history of hepatitis C, hypertension, diabetes mellitus, and gastroesophageal reflux disease. The patient was just recently discharged from our facility. He was admitted on 10/18/2018 and was discharged on 11/23/2018. During this admission, he was treated for bacteremia secondary to MRSA, pneumonia secondary to MRSA as well as removal of a left infected Port-A-Cath. The patient was seen by Dr. Weber with Pulmonology, Dr. Ramires with Oncology, as well as Dr. Mendoza with Infectious Disease. Dr. Mendoza discharge him with IV antibiotics of Teflaro. The patient is still currently receiving this antibiotic. The patient states that he was seen by Dr. Mendoza today and they did perform a CBC. He was instructed to come to the ER due to abnormal labs. According to the labs that he had drawn earlier today, his white blood cell count is 1680, platelet count 39,000, and according to my calculations, his absolute neutrophil count is 252. The patient states that he has had a cough since being discharged so this is slightly worsened. He reports that it is productive with a thick white sputum. He also reports that he has been having worsening shortness of breath as well. He does report that he has orthopnea. He is dyspneic at rest though does have worsening dyspnea with exertion. Normally, the patient does not require oxygen supplementation though according to the ER note, one time in the ER prior to admission without oxygen, his oxygen saturation level did dip into the high 80s, though the patient is on nasal cannula at 2 liters at this time, and he is maintaining adequate oxygen saturations in the 96-99 range. The patient also reports that he has had body aches and chills, and felt as though he has had a fever, though he has not checked this. In the ER upon initial arrival, his temperature was 100.1 orally. He also reports that he has been having multiple episodes of loose stools x2 days. He denies any headache, dizziness, chest pain, abdominal pain, nausea, vomiting. He denies any hematochezia or melena. He denies any dysuria or urinary frequency. He does have some chronic pain related to his cancer, but other than this, he denies any other pain, numbness, tingling, or swelling in extremities. The patient states he is actively receiving chemotherapy at this time and his last chemotherapy treatment was 1 week ago. They did perform chest x-ray in the ER which did show that the patient does have an opacification in the right upper lobe which appears to be worse than his previous x-ray on 11/19/2018. There was also a loculated pleural fluid collection versus pleural thickening on the right. This was concerning for worsening atelectasis and/or pneumonia in the right upper lobe. Urinalysis did not show any signs of infection. At this time, given the patient's history of lung cancer and receiving chemotherapy as well as his worsening respiratory symptoms and now development of fever, we will admit him for treatment and evaluation of his pneumonia and pancytopenia. REVIEW OF SYSTEMS: A 14-point review of systems was conducted with the patient and all were negative except for pertinent positives mentioned above in HPI. PAST MEDICAL HISTORY: 1. History of stage IV nonsmall cell lung cancer with metastases to the bone, currently receiving ongoing chemotherapy with Dr. Ramires. 2. History of hepatitis C. 3. Hypertension. 4. Diabetes mellitus type 2. 5. Chronic pain. 6. Gastroesophageal reflux disease. PAST SURGICAL HISTORY: 1. Placement of left upper chest Port-A-Cath with recent removal due to infected port with MRSA. 2. Recent placement of a right upper chest Port-A-Cath. 3. Reported vascular surgery on his right lower extremity with stent placement performed at [facility]. The patient states that he was previously on Plavix, Pletal and aspirin, though due to recent complications which is likely his pancytopenia, these medications have been discontinued. SOCIAL HISTORY: The patient is a former smoker. He did quit smoking a couple of days ago. Prior to this, he did smoke 1 pack per day for approximately 20 years. He denies any alcohol use. He denies any illicit drug use though today he was positive for amphetamines and has previously been positive for cocaine. Looking back at his previous medical records. He has denied any illicit drug use in the past as well. The patient states that he is on disability at this time. He does live along but has family that lives close by that can help him if needed. FAMILY HISTORY: Positive for his mother having a history of breast cancer with metastases to the brain. His father had a history of colon cancer. ALLERGIES: The patient reports no known allergies. HOME MEDICATIONS: The patient was not able to verify his entire medication list. We can contact [facility] in the morning or possibly have one of his family members bring his medication bottles to the hospital, though he was able to verify the following medicines: 1. Hydralazine 50 mg p.o. t.i.d. 2. [place] 10 mg 1 tablet p.o. q.6 hours p.r.n. 3. Losartan 100 mg p.o. daily. 4. Metformin 500 mg p.o. b.i.d. DIAGNOSTIC DATA/LABORATORY RESULTS: White blood cell count is 1680, hemoglobin 8.8, hematocrit 29.1, platelet count 39,000. Absolute neutrophil count is 252. PT 15.5, INR 1.14, PTT 42.8. Sodium 136, potassium 3.3, chloride 101, serum bicarb 23, BUN 7, creatinine 0.8 with a glucose of 81, calcium 7.2, magnesium 1.2. Total bilirubin is 2.73, AST 22, ALT 8, alkaline phosphatase 15, ammonia level 28. CK 27, troponin less than 0.01. Plasma lactate is 1.2. Arterial blood gases were obtained on nasal cannula with FIO2 of 28%. The pH was 7.38, pCO2 43, pO2 62, HCO3 25 with base excess of 0.2, oxyhemoglobin 89.1, O2 saturation 94.2. Urine drug screen was positive for opiates and amphetamines. Urinalysis was positive for protein, trace blood, and was negative for glucose, ketones, nitrites, leukocytes, white blood cells and bacteria. Chest x-ray did show an opacification in the right upper lobe which appears to be worse than previous x-ray on 11/19/2018. There was also a loculated pleural fluid collection versus pleural thickening on the right. It was noted that the impression was worsened atelectasis and/or pneumonia in the right upper lobe. Pending diagnostic studies are EKG, blood culture, sputum culture, and stool studies. PHYSICAL EXAMINATION: VITAL SIGNS: Temperature 99, heart rate 91, respirations 20, blood pressure 145/83, oxygen saturation 96% nasal cannula at 2 liters. GENERAL: Mr. Sparrow is a pleasant 53-year-old male who was resting on the ER stretcher. He was in no acute distress. He was awake alert and able to answer questions appropriately. HEENT: Head is atraumatic, normocephalic. Pupils are equal, round and reactive to light, 3 mm bilaterally and brisk. Sclerae did have jaundice noted. Oral mucosa is moist. Oropharynx clear. NECK: Supple. Trachea midline. CARDIOVASCULAR: The patient has normal S1 and S2. No murmurs, gallops or rubs appreciated. Regular rate and rhythm. PULMONARY: The patient has symmetrical chest expansion bilaterally. Lungs sounds in bilateral full rashid did have expiratory wheezing noted though the patient does have some faint coarse crackles noted in the left lung base, though he did have diminished lung sounds in the right upper and lower lung rashid. ABDOMEN: Soft and nondistended. The patient did report some very mild generalized tenderness upon palpation though there was no rebound tenderness noted. Bowel sounds were present in all four quadrants and were normoactive. EXTREMITIES: No cyanosis or edema noted. Pulse, motor and sensory were intact in all extremities. Radial pulses and pedal pulses were 2+ bilaterally. INTEGUMENTARY: The patient's skin is pink, warm, and dry. NEUROLOGIC: The patient is alert and oriented x4. There does not appear to be any focal neurologic deficits noted. ASSESSMENT AND PLAN: 1. Right upper lobe pneumonia. The patient's x-ray did show worsened atelectasis and/or pneumonia in the right upper lobe. There was also possibility of a loculated pleural fluid collection versus pleural thickening on the right as well. For treatment of this, we will continue the patient's Teflaro 600 mg IV q.12 hours. Sputum culture as well as blood cultures have been ordered. Will continue with aggressive pulmonary toilet, scheduled DuoNeb treatments, and incentive spirometry. We have placed a consult with Dr. Weber from Pulmonology as well as Dr. Mendoza with Infectious Disease. The patient did have recent history of bacteremia and pneumonia secondary to methicillin resistant Staphylococcus aureus. We will continue to follow his respiratory status closely and await Pulmonology and Infectious Disease evaluation and further recommendations for management. 2. Stage IV nonsmall cell lung cancer with metastases to bone. We have placed a consult with Dr. Ramires who is the patient's oncologist. We will await his evaluation and further recommendations for management. 3. Pancytopenia. The patient's platelet count has been low since October 2018. It is slightly lower than his previous reading on 12/07/2018 of 48,000. At this time, he does not appear to have any bleeding complications. We will continue to follow closely and transfuse if necessary. We will hold any anticoagulants or antiplatelets at this time secondary to this. 4. The patient does have neutropenia as well and has had low grade fever and is reporting body aches and chills. We will continue with antibiotics as previously mentioned above. We have ordered sputum culture, blood cultures, and will add on stool studies as well given his reported diarrhea and that he has been on IV antibiotics. We will place him with neutropenic precautions as well as neutropenic diet. We will continue to follow. 5. Diarrhea. Will continue treatment as mentioned above. We are awaiting stool study results at this time. 6. Mild electrolytes abnormalities. The patient did have a slightly low potassium as well as magnesium level. These have been replaced. We will recheck in the morning and continue to follow. 7. Hypertension. Will continue the patient's Losartan and hydralazine. 8. Diabetes mellitus. Will continue the patient's metformin. 9. History of hepatitis C. The patient does have elevated total bilirubin level though looking back on his previous labs, this has improved at this time. We will continue to monitor this closely. 10.Gastroesophageal reflux disease. For this, the patient has been placed on Protonix 40 mg IV q.24 hours. 11.Deep venous thrombosis prophylaxis will be provided with sequential compression devices. Will hold any anticoagulants given the patient's pancytopenia. He has been placed on the medical floor with telemetry. He will have vital signs q.4 hours. Will do strict intake and output, incentive spirometry. We did discuss resuscitation status with the patient. He does wish to be a FULL CODE. He does want intubation, chest compressions, emergency cardiac medications as well as defibrillation. An order for a FULL CODE status has been placed in the computer. Further orders and recommendations pending hospital course, diagnostic studies, and physician evaluation. Dictated by SOPHIA Guillen for Jose Najera MD cc: Jose Najera MD
[2018-12-12 07:37] LABS: BASO# 0.01 X1000 (0.0-0.2); BASO% 0.8 % (0.0-0.8); HEMATOCRIT 28.2 % (42.0-52.0); HEMOGLOBIN 8.3 g/dL (14.0-18.0); LYMPH# 0.63 X1000 (1.2-3.4); LYMPH% 52.9 % (20.5-51.1); MCH 29.3 PG (27-31); MCHC 29.4 g/dL (33-37); MCV 99.6 FL (81-99); MONO# 0.53 X1000 (0.11-0.59); MONO% 44.5 % (1.7-9.3); MPV 11.1 FL (7.4-10.4); NEUT% 1.8 % (42.2-75.2); RBC 2.83 XMIL (4.7-6.1); RDW 18.7 % (11.5-14.5); WBC 1.19 X1000 (4.8-10.8)
[2018-12-12 07:39] LABS: PLT 30 X1000 (130-400)
[2018-12-12 07:40] LABS: NEUT# 0.02 X1000 (1.4-6.5)
[2018-12-12 07:57] LABS: BANDS 4 % (0-1); LYMPHS 44 % (21-51); MONO 40 % (1-9); SEGS 8 % (42-75)
[2018-12-12 07:58] LABS: AGAP 9; ALB/GLOB RATIO 0.5; ALBUMIN 2.2 g/dL (3.5-5.0); ALKALINE PHOSPHATASE 219 U/L (32-122); ANISOCYTOSIS 1+; BUN 7 mg/dL (8-22); CALCIUM 7.1 mg/dL (8.8-10.2); CHLORIDE 104 mmol/L (98-107); COSMO 270; CREATININE 0.8 mg/dL (0.7-1.2); ESTIMATED GFR > 60; GLUCOSE 75 mg/dL (70-104); GOT 21 U/L (10-34); GPT 7 U/L (10-44); HYPOCHROM 1+; MAGNESIUM 1.4 mg/dL (1.5-2.7); POTASSIUM 3.7 mmol/L (3.5-5.1); SODIUM 137 mmol/L (136-145); TCO2 24 mmol/L (25-35); TOTAL BILIRUBIN 2.79 mg/dL (0.20-1.00)
[2018-12-12] MEDS ORDERED: VANCOMYCIN IV PER PHARMACY MISC SCH (09:00)
[2018-12-12] MEDS ORDERED: MORPHINE IV PRN (09:10)
--- NOTE | 2018-12-12 09:14 | INFECTIOUS DISEASE PROGRESS NO ---
DATE: 12/12/2018 PRESENT ILLNESS: The patient is admitted to the hospital with neutropenic fever and a right upper lobe pneumonia. MEDICATIONS: The patient was on ceftaroline. I have changed him to a combination of vancomycin and cefepime. PHYSICAL EXAMINATION: Vital Signs: Temperature is 100 degrees, pulse 97, respirations 20, blood pressure 164/75. Height/weight: The patient is 5 feet 7 inches tall, weighs 152 pounds. General: This is an ill-appearing middle-aged male. He is in no acute distress. Head/eyes/ears/nose/throat: He can hear my spoken words and see near objects. He does not have any white patches on his tongue. Neck: No meningismus. Thorax: Where the patient previously had his Port-A-Cath is not swollen or draining. Lungs: Clear to auscultation. Cardiovascular: Heart rate is regular. Abdomen: Soft and nontender. Neurologic: Patient is alert. He can move his extremities. There is no tremor. LABORATORY AND X-RAY: Chest x-ray shows worsening right upper lobe infiltrate. It could be due to atelectasis and/or pneumonia. The patient's CBC shows a white count of 1190 with an absolute neutrophil count of 20. Blood cultures are pending. Creatinine is 0.8. Alkaline phosphatase is 219. ASSESSMENT AND PLAN: 1. The patient has a right upper lobe infiltrate which could be due to pneumonia and/or atelectasis or possibly due to the patient's lung cancer. My plan is to treat the patient with vancomycin and Cefepime, and I have also ordered a noncontrasted CT scan of the chest. 2. Comorbidities: His main comorbidity is that he has lung cancer which is metastatic to bone. cc: Reinier Mendoza MD
[2018-12-12] MEDS ORDERED: MORPHINE ONE ×2 (09:17→09:22)
[2018-12-12] MEDS: GLUCOPHAGE PO SCH ×2 (09:18→18:31)
[2018-12-12] MEDS: APRESOLINE PO SCH ×3 (09:18→18:30)
[2018-12-12] MEDS: COZAAR PO SCH (09:19)
--- NOTE | 2018-12-12 09:40 | EKG Report ---
Test Performed on : 12/12/2018 09:30:20 AM Test Reason : SOB Blood Pressure : / mmHG Vent. Rate : 107 BPM Atrial Rate : 107 BPM P-R Int : 162 ms QRS Dur : 068 ms QT Int : 358 ms P-R-T Axes : 065 011 066 degrees QTc Int : 477 ms Sinus tachycardia. Anteroseptal infarct (cited on or before 03-JUL-2018) Abnormal ECG When compared with ECG of 03-JUL-2018 10:41, Questionable change in initial forces of Anterior leads Non-specific change in ST segment in Lateral leads Nonspecific T wave abnormality now evident in Anterior leads Confirmed by Chetan JONES, Robin Mckeon ([id number]) on 12/12/2018 9:43:31 AM
[2018-12-12] MEDS ORDERED: VANCOMYCIN 2,000 MG in NS 500 ML IV ONE (10:00)
--- NOTE | 2018-12-12 13:25 | Diag Imaging Result Doc PS360 ---
EXAM: CT THORAX W/O CONTRAST INDICATION: RUL mass TECHNIQUE: This exam was performed using automated exposure control, adjustment of mA or kV according to patient size, and/or use of iterative reconstruction technique. COMPARISON: 10/25/2018 FINDINGS: There is collapse of a significant portion of the right upper lobe. The collapse right upper lobe is heterogeneous, which obscures the known mass. The atelectasis and likely the associated dominant mass has worsened. It measures approximately 12.7 x 7.1 cm axially (10.7 x 6.7 cm previously). There is also now a fairly large right pleural effusion and there is significant right lower lobe atelectasis. Most of the smaller secondary masses seen on the previous study have actually decreased in size, however. For reference, there is a left lower lobe mass on image 51 of series 3 that measures up to 0.9 cm (1.8 cm previously). There is worsening airspace consolidation suggesting pneumonia, especially in the left upper lobe. Mediastinal lymphadenopathy is similar to the previous study. Limited views of the upper abdomen reveals stable splenomegaly. Lytic foci involving the T11 and T6 vertebra are essentially stable. There is also a lytic lesion involving the inferior scapula on the left that is stable. There are vague mixed lytic and sclerotic foci involving the fifth and seventh ribs anteriorly on the left and the posterior aspect of the ninth rib and eighth rib on the left. This can also be seen on the previous study. Although it is possible they represent healing fractures, they're suspicious for metastatic foci as well. IMPRESSION: 1.Interval increase in size of the right upper lobe lung mass with worsening associated right upper lobe collapse. 2.Decrease in size in most of this all are secondary mass is seen in both lungs. 3.Development of a fairly large right pleural effusion and significant right lower lobe atelectasis. 4.Bilateral airspace infiltrates that is worst at the left upper lobe and is suspicious for pneumonia. 5.Findings suspicious for skeletal metastatic disease that is essentially stable. Electronically signed by Bryson Alarcon 12/12/2018 1:23 PM
[2018-12-12] MEDS ORDERED: DILAUDID ONE (13:38)
[2018-12-12] MEDS: MAXIPIME 2 GM in NS 100 ML IV SCH ×2 (13:48→18:31)
[2018-12-12] MEDS: GRANIX SUBQ SCH (13:48)
[2018-12-12] MEDS: TYLENOL PO PRN (13:48)
--- NOTE | 2018-12-12 16:38 | PROGRESS NOTE ---
DATE: 12/12/2018 SUBJECTIVE: Patient reports having chest pain that is definitely much better after we provide pain medications. OBJECTIVE: Vital Signs: Temperature 100.1, heart rate 103, respiratory rate 20, blood pressure 156/73, O2 saturation 96% on nasal cannula at 2 liters/minute. General examination: This is a chronically ill-looking, 53-year-old, male, lying in bed in no acute distress. HEENT: Head is normocephalic, atraumatic. Neck: No JVD noted. No carotid bruits. No lymphadenopathy. Cardiovascular exam: S1, S2 heard. No murmurs, gallops, or rubs. Regular rate and rhythm. Respiratory exam: Clear bilaterally to auscultation. Expiratory wheezing noted in both pulmonary rashid with coarse breath sounds present in both bases, as well as crackles. Patient is not using any accessory muscles or having work of breathing. Abdomen: Soft, nontender to palpation. Bowel sounds present. No organomegaly. Extremities: No clubbing, cyanosis, or edema. Peripheral pulses present in both legs. Neurologic exam: Patient alert and oriented x3. Moves 4 extremities. LABORATORY DATA: White cell count 1.19 with hemoglobin 8.3, hematocrit 28.2, platelets 30, neutrophil count 2250. ASSESSMENT AND PLAN: 1. Right upper lobe pneumonia. Patient has been on Teflaro since he was discharged. Dr. Mendoza from Infectious Disease has been consulted. He has been started on cefepime and vancomycin. We will continue with the same management. Because we are not completely sure that this could be only a pneumonia, procalcitonin has been ordered. Pulmonary has been consulted. We will follow recommendations. 2. Stage IV non-small cell lung cancer with metastasis to the bone. Dr. Ramires from Oncology has been consulted. We will follow recommendations. 3. Pancytopenia. Because of this finding of course this patient is not a candidate for any chemotherapy. We will follow recommendations from Oncology. 4. Acute diarrhea; stool study has been ordered. It could be related to infection, but also to chemotherapy. I do not know for how long ago he received his last chemotherapy. In any case, we will continue to monitor this patient and make sure that this patient gets hydrated. 5. Hypertension. Blood pressure is under control. We will continue with the same management. 6. Diabetes mellitus type 2. We will continue with metformin. 7. History of hepatitis C, aware. 8. Gastroesophageal reflux disease. We will continue with Protonix. 9. Disposition: We will follow recommendations from Oncology and Pulmonary and Infectious Disease. cc: Chuck Smith MD
[2018-12-12] MEDS: DILAUDID IV PRN ×3 (16:43→21:24)
[2018-12-13] MEDS: TYLENOL PO PRN (00:25)
[2018-12-13] MEDS: DILAUDID IV PRN ×6 (00:25→18:36)
[2018-12-13] MEDS: MAXIPIME 2 GM in NS 100 ML IV SCH ×3 (00:31→17:11)
[2018-12-13] MEDS: DUONEB (A & A) INH SCH ×4 (03:18→21:40)
[2018-12-13 07:26] LABS: AGAP 12; BUN 11 mg/dL (8-22); CHLORIDE 105 mmol/L (98-107); COSMO 275; CREATININE 1.1 mg/dL (0.7-1.2); ESTIMATED GFR > 60; GLUCOSE 94 mg/dL (70-104); POTASSIUM 4.2 mmol/L (3.5-5.1); SODIUM 138 mmol/L (136-145); TCO2 21 mmol/L (25-35)
[2018-12-13 07:30] LABS: BASO# 0.01 X1000 (0.0-0.2); BASO% 0.5 % (0.0-0.8); CALCIUM 7.1 mg/dL (8.8-10.2); EOS# 0.06 X1000 (0.0-0.7); EOS% 2.8 % (0.0-10.0); HEMATOCRIT 29.5 % (42.0-52.0); HEMOGLOBIN 8.5 g/dL (14.0-18.0); LYMPH# 0.67 X1000 (1.2-3.4); LYMPH% 30.9 % (20.5-51.1); MCH 29.9 PG (27-31); MCHC 28.8 g/dL (33-37); MCV 103.9 FL (81-99); MONO# 0.93 X1000 (0.11-0.59); MONO% 42.9 % (1.7-9.3); MPV 10.6 FL (7.4-10.4); NEUT% 22.9 % (42.2-75.2); PLT 27 X1000 (130-400); RBC 2.84 XMIL (4.7-6.1); RDW 19.3 % (11.5-14.5); WBC 2.17 X1000 (4.8-10.8)
[2018-12-13 07:42] LABS: LYMPHS 32 % (21-51); MONO 28 % (1-9); NRBC 1 % (0-0)
[2018-12-13 07:43] LABS: BANDS 22 % (0-1); SEGS 2 % (42-75)
[2018-12-13] MEDS: COZAAR PO SCH (09:34)
[2018-12-13] MEDS: GLUCOPHAGE PO SCH ×2 (09:34→17:11)
[2018-12-13] MEDS: APRESOLINE PO SCH ×3 (09:34→17:10)
[2018-12-13] MEDS: VANCOMYCIN 1,700 MG in NS 250 ML IV SCH (11:21)
--- NOTE | 2018-12-13 11:27 | PROGRESS NOTE ---
DATE: 12/13/2018 SUBJECTIVE: The patient is sleepier and a little bit of obtunded because of pain medication he just received. Basically, he is not complaining of anything. He reports that his chest pain is getting better. OBJECTIVE: Vital Signs: Temperature 97.3 degrees, heart rate 80, respiratory rate 16, blood pressure 105/81, O2 saturation 94% on 2 L nasal cannula. General Examination: This is a chronically ill-looking, 53-year-old, male, lying in bed, in no acute distress. HEENT: Head is normocephalic and atraumatic. Mucous membranes dry. Neck: No JVD noted. No carotid bruits. No lymphadenopathy. No thyromegaly. Cardiovascular Examination: S1 and S2 heard. No murmurs, gallops, or rubs. Regular rate and rhythm. Respiratory Examination: Minimal coarse breath sounds in both pulmonary bases. Expiratory wheezing noted in both pulmonary rashid as well. The patient is not using any accessory muscles or having work of breathing. Abdomen: Soft, nontender to palpation. Nondistended. Bowel sounds present. No organomegaly. No signs of peritoneal irritation. Extremities: No clubbing, cyanosis, or edema. Peripheral pulses present in both legs. Neurological Examination: The patient is a little bit sleepy because of pain medication but had coherent speech and moves 4 extremities. Laboratory Data: White cell count 2.17, hemoglobin 8.5, hematocrit 29.5, platelets 27,000, with neutrophil count 500. BMP unremarkable. ASSESSMENT AND PLAN: 1. Right upper lobe pneumonia. The patient currently is on vancomycin and cefepime. He has been on Teflaro as per Dr. Mendoza. White cell count, because of his pancytopenia , is not elevated. Actually, it was very low but he is receiving Neupogen in order to increase the white cell count numbers. At this point, he has not spiked any fever. We will continue to monitor this patient closely and check CBC daily. 2. Stage IV non-small cell lung cancer with metastasis to the bone. Oncology is following this patient. We will see if they are planning to do anything with him while he has this pneumonia. 3. Pancytopenia, getting better. Patient is receiving Granix 480 mcg daily. We will continue to monitor this patient closely. 4. Hypertension. Blood pressure is under control. We will continue with the same medications. 5. Diabetes mellitus type 2. Patient is on metformin at home. I think we will hold it today, even though the renal function is okay. 6. History of hepatitis C. Aware. 7. Gastroesophageal reflux disease. We will continue with Protonix. 8. Disposition. At this point, we will continue treating the pneumonia. We will monitor this patient closely. We will follow recommendations from oncology. cc: Chuck Smith MD MTDClary
[2018-12-13] MEDS: GRANIX SUBQ SCH (11:47)
[2018-12-13] MEDS: TESSALON PO PRN (13:29)
--- NOTE | 2018-12-14 00:29 | HEMO/ONC CONSULTATION ---
DATE: 12/12/2018 ADMITTING PHYSICIAN: Dr. Ramos. REQUESTING PHYSICIAN: Dr. Ramos. We appreciate this consult. CHIEF COMPLAINT: Non-small cell lung cancer. HISTORY OF PRESENT ILLNESS: Mr. Leif Sparrow is a 53-year-old male, well-known to Dr. Ramires, with a history of metastatic stage IV non-small cell lung cancer, with metastasis to the bone. The patient has been maintained on Keytruda and Xgeva. His last dose was given on December 01 in clinic. The patient has had progression on his last scan performed after that time. The patient recently experienced a protracted hospital stay secondary to a port infection, with subsequent sepsis. The patient ultimately underwent removal of port, with placement of a new port. The patient presents to [facility] the day of admission due to worsening shortness of breath and cough, with body aches and chills, and fever. Upon presentation to [facility] Emergency Department, the patient's temperature was noted to be 100.1 orally. Additionally, the patient reported diarrhea at that time. Chest x-ray was performed, which revealed opacification of the right upper lobe, appearing worse than previous x-ray on 11/19/2018. Loculated pleural fluid versus pleural thickening on the right was seen as well, concerning for worsening atelectasis versus pneumonia of the right upper lobe. Mr. Sparrow was admitted for the same. PAST MEDICAL HISTORY: 1. Metastatic stage IV non-small cell lung cancer to the bone. 2. Hepatitis C. 3. Hypertension. 4. Diabetes mellitus type 2. 5. Chronic pain. 6. Gastroesophageal reflux disease. PAST SURGICAL HISTORY: 1. Port-A-Cath placement, with removal, secondary to infection. 2. Subsequent Port-A-Cath placement. 3. Vascular surgery to right lower extremity, with stent placement. SOCIAL HISTORY: The patient has a history of smoking one pack daily x20 years. He denies alcohol use. He denies illicit drug use. However, his urine drug screen was positive for amphetamines. He has a history of urine drug screen positive for cocaine. FAMILY HISTORY: Significant for a mother with breast cancer, with metastasis to the brain, and a father with colon cancer. MEDICATIONS ON ADMISSION: 1. Hydralazine. 2. [place]. 3. Losartan. 4. Metformin. ALLERGIES: The patient has no known drug allergies. REVIEW OF SYSTEMS: A 14-point review of systems was obtained and is negative, except for as mentioned in the HPI. PHYSICAL EXAMINATION: General: Mr. Sparrow is a 53-year-old male, lying supine in bed, in no immediate distress. Vital Signs: Temperature 99.9 degrees, blood pressure 164/75, heart rate 97, respirations 20, O2 saturation 96% on nasal cannula O2. HEENT: Normocephalic, atraumatic. Mucous membranes pale and moist. Sclerae anicteric. Extraocular movements intact. Neck: Supple. Lungs: Clear to auscultation bilaterally. Chest expansion equal bilaterally. CV: S1, S2 is heard. No murmurs, rubs, or gallops. Abdomen: Nondistended. Extremities: Without clubbing, cyanosis, or edema. Dermatologic: No rashes, bruises, or lesions. Neurologic: The patient is awake, alert, and oriented x3. He has no focal deficit. LABORATORY DATA: Hemoglobin 8.3, hematocrit 28.2, white blood cell count 1.19, platelets 30,000. ANC 0.02. Sodium 137, potassium 3.7, chloride 104, CO2 is 24, BUN 7, creatinine 0.8, and glucose is 75. Bilirubin is 2.79, alkaline phosphatase 219, AST 21, ALT is 7. Urinalysis is negative for a urinary tract infection. Urine drug screen is positive for opiates. IMAGING STUDIES: Chest x-ray reveals worsened atelectasis and right upper lobe pneumonia. ASSESSMENT AND PLAN: 1. Stage IV non-small cell lung cancer, with metastasis to the bone. Currently, on Keytruda and Xgeva, last dose being December 01. Subsequent scan reveals progression of disease. The patient will need additional chemotherapy when his acute illness has improved. 2. Right upper lobe pneumonia. Infectious Disease has been consulted, and placed the patient on vancomycin and cefepime. 3. Neutropenia. The white blood cell count has decreased to 1190. ANC is 0.02. We will place the patient on Granix at this time and monitor the CBC closely. 4. Anemia. Stable at this time. Will continue to monitor CBC and transfuse packed red blood cells if the hemoglobin is less than 8.0, or in the setting of acute bleeding. 5. Thrombocytopenia, stable. Will monitor, and transfuse if platelets less than 20,000, or for any active bleeding. 6. Diarrhea. Stool studies are currently pending. 7. Hepatitis C. Known. 8. We will follow along with you and make further recommendations, pending outcome. The above reflects the history, exam, assessment, and plan of Dr. Ramires. Dictated by SOPHIA Olivares for Ranjeet Ramires MD cc: SOPHIA Olivares MD
--- NOTE | 2018-12-14 00:34 | INFECTIOUS DISEASE PROGRESS NO ---
DATE: 12/13/2018 PRESENT ILLNESS: The patient was admitted with neutropenic fever. He has become afebrile. Unfortunately, the CT scan of the chest shows increased size in the right upper lobe mass, with worsening associated right upper lobe collapse. There also are bilateral airspace infiltrates, which are suspicious for pneumonia. Also, there are findings suspicious for skeletal metastatic disease that is stable. MEDICATION: The patient is on a combination now of vancomycin and cefepime. This is day 1 of treatment. PHYSICAL EXAMINATION: Vital Signs: Temperature is 97.9 degrees, pulse 90, respirations 20, blood pressure 114/56. General: This is an ill-appearing middle-aged male. He is in no acute distress. Head, Eyes, Ears, Nose, and Throat: He can hear my spoken words and see near objects. He does not have any oral ulcers. He does not have any white patches on his tongue. Neck: No stiffness. Thorax: The patient's Port-A-Cath site is not swollen or draining. Lungs: There are diminished breath sounds, but I did not hear any rales or rhonchi. Cardiovascular: Heart rate is regular. Abdomen: Soft and nontender. Neurologic: The patient is alert. He can move his extremities. He talks in a coherent fashion. There is no tremor. LAB AND X-RAY: CBC today shows a white count of 2170, hemoglobin is 8.5, and platelet count is 27,000. The patient's absolute neutrophil count is close to 400. Creatinine is 1.1. GFR is greater than 60. Blood cultures thus far are negative. The patient's CAT scan shows worsening of the right upper lobe mass. He does have infiltrates in the lungs, which are getting better. ASSESSMENT AND PLAN: The patient has pulmonary infiltrates. The right upper lobe I think most likely is being caused by the patient's lung cancer. However, I do think he has pneumonia in addition. My plan is to continue with vancomycin and cefepime. COMORBIDITIES: His main one is that he has metastatic lung cancer. cc: Reinier Mendoza MD
[2018-12-14] MEDS: DILAUDID IV PRN ×3 (00:44→15:11)
[2018-12-14] MEDS: PROTONIX IV SCH ×2 (00:45→23:28)
[2018-12-14] MEDS: MAXIPIME 2 GM in NS 100 ML IV SCH ×3 (02:46→18:39)
--- NOTE | 2018-12-14 02:49 | PULMONOLOGY CONSULTATION ---
DATE: 12/13/2018 REQUESTING PHYSICIAN: Dr. Leal. REASON FOR CONSULTATION: Pneumonia, with metastatic lung cancer and pancytopenia. HISTORY OF PRESENT ILLNESS: Mr. Sparrow is a 53-year-old black male with stage IV lung cancer, with metastasis to the bone, who is currently on Keytruda. He had a prolonged hospital course from 10/18/2018 until 11/23/2018, in which he had ongoing MRSE bacteremia, with an unclear cause. The patient's blood cultures eventually became negative, and he was discharged home on IV antibiotics, and was followed by Dr. Reinier Mendoza. The patient was evaluated by Dr. Mendoza, and found to have neutropenic fever, with an absolute neutrophil count of 20. The patient had been initiated on antibiotics. He underwent a CT scan of the thorax, which reveals a tumor in the right upper lobe, with complete obstruction of the right upper lobe entrance, with subsequent complete collapse of the right upper lobe, along with a new right-sided pleural effusion. The patient had multiple nodules on prior scan, likely related to his MRSA bacteremia, which have diminished in size. He continues to have lytic foci in his vertebral bodies. PAST MEDICAL HISTORY/PROBLEM LIST: 1. Stage IV lung cancer, with probable progression of tumor in the right upper lobe. 2. Prolonged methicillin-resistant Staph aureus bacteremia during his hospital stay in October. 3. Hepatitis C. 4. Hypertension. 5. Chronic pain syndrome. 6. Polysubstance abuse. The patient has been positive for cocaine on previous admission. He is positive for amphetamines during this admission. SOCIAL HISTORY: Patient reports he stopped smoking last June. He denies alcohol use. FAMILY HISTORY: Positive for diabetes and hypertension. REVIEW OF SYSTEMS: Notable for generalized aches and pains. He was not having any bloody sputum recently. PHYSICAL EXAMINATION: General: Reveals a well-developed, well-nourished, chronically ill- appearing male, in no distress. Vital Signs: Blood pressure 131/65, heart rate 110, respiratory rate 20, oxygen saturation 94% on nasal cannula. HEENT: Pupils are equal and reactive. Oropharynx is clear. Neck: Supple. Chest: Reveals diminished breath sounds, right apex and right base. Cardiac: Increased rate, regular rhythm. Abdomen: Soft , without hepatosplenomegaly. Extremities: Without edema. IMPRESSION: 1. A 53-year-old with metastatic lung cancer, complete atelectasis of the right upper lobe, likely related to tumor, this is unlikely to improve. 2. Neutropenic fever. 3. New pleural effusion, with atelectasis at the left base. 4. Acute hypoxemic respiratory failure. RECOMMENDATIONS: 1. Continue antibiotic regimen per Dr. Reinier Mendoza. 2. Continue bronchial hygiene as you are doing. 3. Recommend sampling pleural fluid, given new pleural effusion, fevers, and prolonged MRSA bacteremia. His platelet count is currently 27, making thoracentesis difficult. I will give a unit of platelets tonight, and recheck platelet level in the morning to see if thoracentesis can be performed. cc: Donnell Weber MD MTDD
[2018-12-14] MEDS: NORCO-10 PO PRN (02:53)
[2018-12-14] MEDS: DUONEB (A & A) INH SCH ×4 (03:44→21:20)
[2018-12-14 07:23] LABS: BASO# 0.02 X1000 (0.0-0.2); BASO% 0.7 % (0.0-0.8); EOS# 0.02 X1000 (0.0-0.7); EOS% 0.7 % (0.0-10.0); HEMATOCRIT 30.8 % (42.0-52.0); HEMOGLOBIN 8.9 g/dL (14.0-18.0); IMM GRAN# 0.03 X1000 (0.0-0.04); IMM GRAN% 1.1 % (0.0-0.5); LYMPH% 31.7 % (20.5-51.1); MCH 29.4 PG (27-31); MCHC 28.9 g/dL (33-37); MCV 101.7 FL (81-99); MONO# 0.83 X1000 (0.11-0.59); MONO% 29.2 % (1.7-9.3); MPV 10.8 FL (7.4-10.4); NEUT# 1.04 X1000 (1.4-6.5); NEUT% 36.6 % (42.2-75.2); RBC 3.03 XMIL (4.7-6.1); WBC 2.84 X1000 (4.8-10.8)
[2018-12-14 07:24] LABS: PLT 37 X1000 (130-400)
[2018-12-14 07:45] LABS: CALCIUM 7.1 mg/dL (8.8-10.2); CREATININE 1.6 mg/dL (0.7-1.2); POTASSIUM 3.8 mmol/L (3.5-5.1)
[2018-12-14] MEDS: GRANIX SUBQ SCH (10:38)
[2018-12-14] MEDS: GLUCOPHAGE PO SCH (10:44)
[2018-12-14] MEDS: APRESOLINE PO SCH ×3 (10:44→18:54)
[2018-12-14] MEDS: COZAAR PO SCH (10:44)
[2018-12-14] MEDS: VANCOMYCIN 1,700 MG in NS 250 ML IV SCH (10:46)
[2018-12-14] MEDS: ATIVAN IV PRN ×3 (11:41→23:27)
--- NOTE | 2018-12-14 11:45 | PROGRESS NOTE ---
DATE: 12/13/2018 SUBJECTIVE: The patient is definitely more obtundent. Actually, his mental status is getting worse. Every single day after he was admitted to the hospital. She is not able today to have a good conversation with me. OBJECTIVE: Vital Signs: Temperature 97.6 degrees, heart rate 97, respiratory rate 20, blood pressure 115/50, O2 saturation 94% on nasal cannula at 2 L/minute. General: This is a chronically ill-looking 53-year-old male, lying in bed, in no acute distress. HEENT: Head is normocephalic and atraumatic. Mucous membranes dry. Neck: No JVD noted. No carotid bruits. No lymphadenopathy. No thyromegaly. Cardiovascular: S1, S2 heard. No murmurs, gallops, or rubs. Regular rate and rhythm. Respiratory: Minimal coarse breath sounds noted in both pulmonary bases. Patient is not using any accessory muscles or having work of breathing. Abdomen: Soft, nontender to palpation. Nondistended. Bowel sounds present. No organomegaly. No signs of peritoneal irritation. Extremities: No clubbing, cyanosis, or edema. Peripheral pulses present in both legs. Neurological: Patient continues to get worse in terms of mental status. More encephalopathic. He does not have any coherent speech. He does not answer any questions at this time. Moves 4 extremities spontaneously. LABORATORY DATA: White cell count 2.84, hemoglobin 8.9, hematocrit 30.8, platelets 37,000 with a neutrophil count 1.04, and creatinine 1.6. ASSESSMENT AND PLAN: 1. Right upper lobe pneumonia. That is the reason why this patient was admitted to the hospital. Dr. Mendoza is directing antibiotics. He is on vancomycin and cefepime. There is also possibility that this mass is an enlargement of the lung cancer. Pulmonary has been consulted and considering that this patient has pleural effusions and history of fever, some pronged methicillin-resistant Staphylococcus aureus bacteremia, he prefers to perform a thoracentesis, but unfortunately platelets are very low. So there was 1 unit of platelets transfused, but unfortunately the platelet count is still 37. So we will leave the decision to perform that procedure on the timing to Dr. Weber. 2. Stage IV [id number]-lung cancer with metastasis to bone. They are not planning to intervene. This patient is currently stable. Unfortunately, this patient is getting worse. Because of his mental status changes, I will order an MRI of the brain with and without contrast and if that shows metastasis to the brain, I think the better option for him will be hospice. 3. Pancytopenia. White cell count is still low, but at least neutrophil count is better. The patient is still thrombocytopenic. Will follow recommendations from Hematology/Oncology. 4. Hypertension. Blood pressure is under control. We will continue with the same medications. 5. Diabetes mellitus type 2. Patient is on sliding scale insulin and Accu-Cheks before meals and also at bedtime. 6. History of hepatitis C, aware. 7. Gastroesophageal reflux disease. We will continue with Protonix. 8. Disposition. At this point, we will continue with antibiotics directed by Dr. Mendoza. Unfortunately, I think his cancer is getting worse and now, I am afraid that this cancer has disseminated to the brain. In that regard, we have ordered an MRI of the brain with and without contrast. We will follow the results. cc: Chuck Smith MD
[2018-12-14] MEDS ORDERED: NS 1,000 ML ONE (11:54)
[2018-12-14] MEDS ORDERED: NS 500 ML IV ONE (12:27)
--- NOTE | 2018-12-14 12:39 | Diag Imaging Result Doc PS360 ---
EXAM: MRI BRAIN W/WO CONTRAST INDICATION: brain mets COMPARISON: None. FINDINGS: There is a tiny focus of apparent cortical restricted diffusion involving the superior parietal lobe on image 20 of series 7 and also in the periventricular white matter of the left frontal lobe on image 13 of series 7. There is little if any corresponding low signal on the ADC map. As such, these more than likely represent T2 shine through artifact. However, small acute lacunar infarcts are possible. There is no corresponding T2/FLAIR signal abnormality. The deep white matter signal is unremarkable. There is a small focus of subcortical low signal involving the superior right parietal lobe on the coronal gradient sequence suggesting trace hemosiderin, perhaps from an old microhemorrhage. There is no discrete intracranial mass, mass effect, or acute intracranial hemorrhage. No abnormal intracranial enhancement is appreciated. The surrounding soft tissues and bony structures are essentially unremarkable. IMPRESSION: 1.A couple of tiny foci of apparent restricted diffusion with little if any corresponding ADC low signal suggesting likely T2 shine through artifact. However, tiny acute infarcts are possible. 2.No intracranial metastatic disease is identified. Electronically signed by Bryson Alarcon 12/14/2018 12:37 PM
--- NOTE | 2018-12-14 16:22 | INFECTIOUS DISEASE PROGRESS NO ---
DATE: 12/14/2018 PRESENT ILLNESS: Mr. Sparrow is admitted for neutropenic fever. At this point, his fever seems to be resolving and pancytopenia is improving somewhat. He is also being treated for pneumonia. MEDICATIONS: Today is day 2 of cefepime 2 g IV every 8 hours and vancomycin per pharmacy dosing. PHYSICAL EXAMINATION: Vital Signs: Temperature is 96.9 degrees pulse rate 100 , respiratory rate 21. Blood pressure 119/77, O2 saturation is 96% on 2 L nasal cannula. General : This is a chronically ill-appearing, middle-aged gentleman. He is lying in the bed, lethargic and sleeping, but arousable. HEENT: Atraumatic, normocephalic. Oral mucous membranes are pink and moist. Conjunctivae are pale. Neck: Supple. Trachea is midline. Cardiovascular: Heart rate is regular. Radial and pedal pulses are +2 bilaterally. Respiratory: Lung sounds have wheezes noted in the upper lobes, diminished in the bases. Abdomen: Soft, round and nontender. Bowel sounds are active. Integumentary: Skin is warm and dry. There is a Port-A- Cath in place to the right chest. The site is without edema, erythema, or drainage. LABORATORY AND X-RAY: Today his white count is 2.84, hemoglobin 8.9, platelet count 37,000, absolute neutrophil count 1.04. Creatinine is 1.6. GFR 55. Blood cultures have shown no growth since admission. He had a brain MRI today which showed no brain METS. ASSESSMENT AND PLAN: Mr. Sparrow has had some improvement of his neutropenia and fever. He is also being treated for pneumonia. Unfortunately, his creatinine has gone up to 1.6 which is most likely due to the vancomycin, which we will discontinue at this time. We will replace that with Zyvox 600 mg by mouth every 12 hours and continue cefepime as ordered. Also, we will check a chest x-ray in the morning. For now, the plan is to have a thoracentesis done by ultrasound guidance this afternoon. These plans have been discussed with and recommended by Dr. Mendoza. COMORBIDITIES: Comorbidities for Mr. Sparrow include metastatic lung cancer, diabetes mellitus, and gastroesophageal reflux disease. Dictated by SOPHIA Bach for Reinier Mendoza MD This chart was documented by, Tegan S. Jim, ECOLOGIST TECHNICIAN and accurately reflects the services performed, treatment plan and medical decisions as attested by the providers signature Reinier Mendoza MD. cc: Reinier Mendoza MD [facility]
[2018-12-14] MEDS ORDERED: LASIX ONE (20:52)
[2018-12-14] MEDS ORDERED: LASIX IV ONE (21:00)
--- NOTE | 2018-12-14 21:05 | PULMONOLOGY PROGRESS NOTE ---
DATE: 12/14/2018 SUBJECTIVE: Patient is arousable but did receive Ativan for agitation. OBJECTIVE: Vital signs: He is afebrile this morning, but had a temperature of 101.7 degrees at midnight, blood pressure 116/73, heart rate 100, respiratory rate 20, oxygen saturation 90% on nasal cannula. HEENT: Pupils are equal and reactive. Oropharynx is clear. Neck: Supple. Chest: Decreased breath sounds right upper and right base. Abdomen: Soft. Extremities: Without edema. DIAGNOSTIC STUDIES: White blood count 2.84, hemoglobin 8.9, platelet count 37, 000. Sodium 137, potassium 3.8, chloride 104, bicarbonate 20, BUN 19, creatinine 1.6. MRI is negative for acute disease. IMPRESSION: A 53-year-old with stage IV lung cancer, complete consolidation of the right upper lobe, likely related to obstruction of the right upper lobe entrance. This is unlikely to improve. The patient also has a right pleural effusion, acute hypoxemic respiratory failure, fevers, neutropenia, dyspnea, altered mental status, and thrombocytopenia. Dr. Mendoza would like the right-sided pleural effusion evaluated. The patient has received platelets. I discussed the case with Dr. Gregory earlier. The patient is currently receiving platelets, and he believes he will be a safe candidate for a thoracentesis following platelets. PLAN: 1. Complete current platelet regimen. 2. Request approval for procedure through a family member, given patient's change in mental status. 3. Pleural culture (orders have been placed). 4. Overall prognosis is guarded to poor. cc: Donnell Weber MD [facility]
[2018-12-14] MEDS ORDERED: MORPHINE IV ONE (21:43)
[2018-12-14 21:45] LABS: ALLEN TEST YES; BE -11.1 mmoll (-3.0-3.0); BLOOD TYPE ARTERIAL; HCO3-(ACT) 16.3 mmoll (20.0-26.0); METHB 1.3 % (0.0-1.5); MODALITY BI PAP; O2(CT) 12.6 mL/dL (15.0-23.0); O2HB 96.8 % (95.0-99.0); PCO2(98.6) 46 mmHg (35-45); PO2(98.6) 296 mmHg (60-100); SAMPLE BLOOD; SAO2 100.2 % (95.0-100.0); THB 8.7 g/dL (11.5-17.4); pH(98.6) 7.17 (7.35-7.45)
[2018-12-14 22:36] LABS: MPV 10.9 FL (7.4-10.4)
[2018-12-14] MEDS: ZYVOX PO SCH (23:12)
[2018-12-14] MEDS: SODIUM BICARBONATE 8.4% IV PUSH SCH (23:12)
[2018-12-14] MEDS: SODIUM CHLORIDE 0.9% INJ SCH (23:28)
[2018-12-15 01:17] LABS: URINE SOURCE CATH
[2018-12-15 01:19] LABS: BILIRUBIN URINE NEGATIVE (NEGATIVE); BLOOD URINE TRACE (NEGATIVE); COLOR YELLOW; GLUCOSE URINE NEGATIVE (NEGATIVE); KETONE URINE NEGATIVE (NEGATIVE); LEUKOCYTES URINE NEGATIVE (NEGATIVE); NITRITE URINE NEGATIVE (NEGATIVE); PROTEIN URINE 50 mg/dL (NEGATIVE); TURBIDITY URINE HAZY (CLEAR); UROBILINOGEN URINE NORMAL (NORMAL)
[2018-12-15 01:30] LABS: UR EPITHELIAL CELLS <10 /HPF (<10); URINE BACTERIA NEGATIVE /HPF; URINE RBC <10 /HPF (<10); URINE WBC <10 /HPF (<10)
[2018-12-15] MEDS: HALDOL IM PRN ×6 (01:46→23:54)
[2018-12-15] MEDS: SODIUM BICARBONATE 8.4% IV PUSH SCH (01:46)
[2018-12-15] MEDS: SOLU-CORTEF IV SCH ×2 (01:46→08:32)
[2018-12-15 02:13] LABS: URINE YEAST PRESENT
[2018-12-15] MEDS: MAXIPIME 2 GM in NS 100 ML IV SCH ×3 (02:59→17:52)
[2018-12-15] MEDS ORDERED: LASIX IV SCH (03:00)
[2018-12-15] MEDS: DUONEB (A & A) INH SCH ×4 (03:21→22:40)
[2018-12-15 04:39] LABS: ALLEN TEST YES; BE -6.7 mmoll (-3.0-3.0); BLOOD TYPE ARTERIAL; HCO3-(ACT) 19.7 mmoll (20.0-26.0); METHB 1.6 % (0.0-1.5); O2(CT) 10.9 mL/dL (15.0-23.0); O2HB 93.4 % (95.0-99.0); PCO2(98.6) 46 mmHg (35-45); PO2(98.6) 78 mmHg (60-100); SAMPLE BLOOD; SAO2 96.8 % (95.0-100.0); THB 8.2 g/dL (11.5-17.4); pH(98.6) 7.25 (7.35-7.45)
[2018-12-15 04:40] LABS: MODALITY BI PAP
[2018-12-15] MEDS: ATIVAN IV PRN ×2 (05:00→09:45)
--- NOTE | 2018-12-15 05:56 | Diag Imaging Result Doc PS360 ---
EXAM: CHEST-PORTABLE HISTORY: pulm edema? TECHNIQUE: Portable chest single view COMPARISON: 12/11/2018 FINDINGS: There is persistent opacification of the right upper hemithorax. Slightly improved aeration there is at least a moderate-sized pleural effusion. Worsening infiltrates in the left lung. No cardiomegaly. No change in right sided portacatheter. IMPRESSION: Mixed areas of improvement and worsening. Electronically signed by Shelton Link 12/15/2018 5:54 AM
--- NOTE | 2018-12-15 06:34 | Diag Imaging Result Doc PS360 ---
EXAM: CHEST-PORTABLE HISTORY: abnormal exam TECHNIQUE: Portable chest single view COMPARISON: 12/14/2018 FINDINGS: No change in the appearance of either hemithorax with partial opacification of the right hemithorax and infiltrates throughout the lungs. No change in the pleural fluid. No change in the right portacatheter. IMPRESSION: No interval improvement. Electronically signed by Shelton Link 12/15/2018 6:32 AM
[2018-12-15 07:01] LABS: BASO# 0.01 X1000 (0.0-0.2); BASO% 0.3 % (0.0-0.8); EOS# 0.02 X1000 (0.0-0.7); EOS% 0.6 % (0.0-10.0); HEMATOCRIT 25.8 % (42.0-52.0); HEMOGLOBIN 7.3 g/dL (14.0-18.0); IMM GRAN# 0.04 X1000 (0.0-0.04); IMM GRAN% 1.2 % (0.0-0.5); LYMPH# 0.68 X1000 (1.2-3.4); LYMPH% 20.1 % (20.5-51.1); MCH 28.9 PG (27-31); MCHC 28.3 g/dL (33-37); MONO# 0.74 X1000 (0.11-0.59); MONO% 21.8 % (1.7-9.3); MPV 11.4 FL (7.4-10.4); PLT 40 X1000 (130-400); RBC 2.53 XMIL (4.7-6.1); RDW 18.9 % (11.5-14.5); WBC 3.39 X1000 (4.8-10.8)
[2018-12-15 07:20] LABS: CREATININE 1.9 mg/dL (0.7-1.2); POTASSIUM 3.8 mmol/L (3.5-5.1)
[2018-12-15 07:28] LABS: CALCIUM 6.6 mg/dL (8.8-10.2)
[2018-12-15] MEDS ORDERED: CALCIUM GLUCONATE 1 GM in NS 50 ML IV ONE (08:05)
[2018-12-15] MEDS: COZAAR PO SCH ×2 (08:32→08:35)
[2018-12-15] MEDS: APRESOLINE PO SCH ×4 (08:32→17:52)
[2018-12-15] MEDS: ZYVOX PO SCH ×2 (08:32→08:37)
--- NOTE | 2018-12-15 09:19 | PROGRESS NOTE ---
DATE: 12/15/2018 SUBJECTIVE: Patient is more calmed down. Now wearing a BiPAP mask. According to nursing staff, he has been very agitated. The oxygen needs started to drop, but since he is using BiPAP, patient is more stable. OBJECTIVE: Vital Signs: Temperature 97.3 degrees, heart rate 86, respiratory rate 12, blood pressure 99/50, O2 100% on BiPAP. General Examination: This is a chronically ill-looking, 53- year-old, male, lying in bed in no acute distress, wearing a BiPAP mask. HEENT: Head is normocephalic, atraumatic. Mucous membranes dry. Neck: No JVD noted. No carotid bruits, no lymphadenopathy, no thyromegaly. Cardiovascular exam: S1, S2 heard. No murmurs gallops or rubs. Regular rate and rhythm. Respiratory exam: Minimal coarse breath sounds still noted in both pulmonary bases. Patient is not using any accessory muscles or having work of breathing. Abdomen: Soft. Nontender to palpation. Nondistended. Bowel sounds present. No organomegaly noted. No signs of peritoneal irritation. Extremities: No clubbing, cyanosis, or edema. Peripheral pulses present in both legs. Neurological exam: The patient is sleepy, open eyes to verbal stimuli, but he is not able to say anything. Moves 4 extremities spontaneously. LABORATORY DATA: White cell count 3.39 with hemoglobin 7.3, hematocrit 25.8 and platelets are 40. The ABG shows pH 7.15 with pCO2 46, PO2 78 with BMP remarkable for creatinine 1.9 and calcium 6.6. ASSESSMENT AND PLAN: 1. Right upper lobe pneumonia. The patient is on vancomycin and cefepime. I think also there is an enlargement of the lung cancer that is playing a very important role. At this point, Pulmonary has been consulted. The plan was to try to do thoracenteses, but for unknown reasons, The patient was not able to undergo that exam. 2. Stage IV non-small cell lung cancer with metastases to the bone. Oncology following this patient. MRI of the brain did not show any brain metastases, but it shows what looks like apparently acute lacunar infarct. 3. Pancytopenia is getting better slowly. We will continue to monitor complete blood count daily. 4. Hypertension. Blood pressure is under control. We will continue with the same medications. 5. Diabetes mellitus type 2. We will continue with sliding scale insulin and Accu-Chek before meals and also at bedtime. 6. History of hepatitis C, aware. 7. Gastroesophageal reflux disease. We will continue with Protonix. 8. Disposition: Acute lacunar infarct. We will consult Neurology and we will go from there. 9. We will continue to monitor this patient closely. cc: Chuck Smith MD
[2018-12-15] MEDS: ZYVOX 600 MG/D5W 600 MG/300 ML IVPB IV SCH ×2 (09:44→20:27)
[2018-12-15] MEDS: GRANIX SUBQ SCH (09:49)
--- NOTE | 2018-12-15 09:55 | INFECTIOUS DISEASE PROGRESS NO ---
DATE: 12/15/2018 PRESENT ILLNESS: Mr. Sparrow is being treated for neutropenic fever and bilateral pneumonia. He has been transferred to the ICU due to change in mental status. MEDICATIONS: Today is day 3 of cefepime 2 g IV every 8 hours, and day 1 of Zyvox 600 mg IV every 12 hours. PHYSICAL EXAMINATION: Vital Signs: Temperature is 97.3 degrees, pulse rate 104 , respiratory rate 21, blood pressure 92/72, O2 saturation is 96% on 50% Ventimask. General: This is a critically ill-appearing middle-aged gentleman who is lying in the bed in 4 point restraints, delirious and pulling against his restraints. HEENT: Atraumatic, normocephalic. Oral mucous membranes are pink and dry. Conjunctivae are pale. Neck: Supple. Trachea is midline. Cardiovascular: Heart rate is regular and tachycardic. Sinus tach on the monitor. He does have occasional PVCs. Pedal and radial pulses are palpable bilaterally. No edema noted. Respiratory: Lung sounds are difficult to auscultate. He sounds diminished. Abdomen: Soft, round and nontender. Bowel sounds are active. Integumentary: Skin is warm and moist. There is a Port-A- Cath in place to the right chest. The site is without edema, erythema, or drainage. Neurologic: The patient is awake, alert, and will make eye contact. He did open his eyes and stick out his tongue on command. He seems to be equally strong on both sides, based on his movements. His words are unintelligible at this point, although he did seem to nod his head appropriately. LABORATORY AND X-RAY: Today his white count is 3.39, hemoglobin 7.3, platelet count 40,000. This morning on 50% BiPAP his pH was 7.25, pCO2 46, pO2 78, HCO3 19.7. Creatinine is 1.9. GFR 45. Cath urine yesterday showed no bacteria and less than 10 WBCs. Chest x-ray, last night showed mixed areas of improvement and worsening, and this morning the chest x-ray showed partial opacification of the right hemithorax and infiltrates throughout the lungs. ASSESSMENT AND PLAN: Mr. Sparrow is doing poorly today, with a change in his mental status. He does have a pneumonia and we will continue Zyvox and cefepime at this time for that. He has been afebrile, and his pancytopenia seems to be improving at this point. He did have a brain MRI done yesterday which showed the possibility of some tiny acute infarcts. The patient is kicking and pulling against restraints. Dr. Augustine has been consulted this morning, and at this point, Dr. Mendoza would like to have an LP done if possible. These plans have been discussed with and recommended by Dr. Mendoza. COMORBIDITIES: for Mr. Sparrow include metastatic lung cancer, diabetes mellitus , and gastroesophageal reflux disease. Dictated by SOPHIA Bach for Reinier Mendoza MD This chart was documented by, SOPHIA Bach and accurately reflects the services performed, treatment plan and medical decisions as attested by the providers signature Reinier Mendoza MD. cc: Reinier Mendoza MD [facility]ITAL[facility]ary
[2018-12-15] MEDS: DILAUDID IV PRN ×4 (10:11→23:53)
[2018-12-15] MEDS ORDERED: XYLOCAINE-MPF 1% INJ ONE (11:14)
--- NOTE | 2018-12-15 12:33 | CONSULTATION ---
DATE OF CONSULTATION: 12/15/2018 HISTORY: Mr. Sparrow is 53 years old, and he was admitted with evidence of right upper lobe pneumonia and pancytopenia. There is history of non-small cell lung cancer with bony metastatic disease. He has hepatitis C, hypertension, and diabetes mellitus. On admission , he was noted to be alert and oriented x4. Exam was nonfocal. WBC was 1.19 on 12/12/2018 up to 3.39 today. He had temperature 101.7 degrees F. on 12/13/2018, and he has been afebrile since then. Brain MRI done with and without contrast 12/14/2018 showed some very small signals with uncertain significance, no definite significant finding. No evidence of inflammation, enhancement, increased pressure or mass. Infectious Disease has been following Mr. Sparrow and recommended we consider lumbar puncture. PHYSICAL EXAMINATION: On exam, Mr. Sparrow is supine, sometimes seeming to be asleep, but easily waked and at least intermittently attentive. He followed some very simple commands inconsistently. He has full lateral eye movements spontaneously. Facial motility is symmetric. Head is unremarkable. There is no meningismus. Limb tone is symmetric. He moved each limb a little bit spontaneously but not well enough for me to document a particular level of motor power. Lumbar puncture was done at the L4 space with opening pressure 34 cm. He tolerated that well. Fluid was sent to the lab. IMPRESSION: Global encephalopathy, uncertain etiology. Elevated CSF pressure is noted. Negative MRI is reassuring. By report, there has been deterioration in his alertness. In light of his immunocompromised state, almost anything is impossible. Further plans will depend on the CSF report and on his clinical course. If he has fluctuating levels of consciousness, we might consider EEG when practical. I do not think we need further brain imaging right now. Thanks for asking Neurology to see Mr. Sparrow. cc: MD RUBEN Hidalgo III
--- NOTE | 2018-12-15 12:35 | OPERATIVE NOTE ---
PROCEDURE DATE: 12/15/2018 Lumbar puncture was done at the L4 space with opening pressure 34 cm of CSF. Crystal clear fluid was obtained and sent to the lab. Closing pressure was approximately 16 to 18 cm. He tolerated this well. cc: Maria Antonia Augustine III, MD
[2018-12-15 12:53] LABS: APPEARANCE CLEAR; RBC BF 1 /cumm; WBC BF 1 /cumm
[2018-12-15 13:35] LABS: UR AMPHETAMINES QUAL NONE DETECTED (NONE DETECT); UR BARBITUATES QUAL NONE DETECTED (NONE DETECT); UR BENZODIAZEPIN QUAL NONE DETECTED (NONE DETECT); UR CANNABINOIDS QUAL NONE DETECTED (NONE DETECT); UR COCAINE QUAL NONE DETECTED (NONE DETECT); UR METHADONE QUAL NONE DETECTED (NONE DETECT); UR OPIATES QUAL PRESUMPTIVE POSITIVE (NONE DETECT); UR OXYCODONE QUAL NONE DETECTED (NONE DETECT); UR PCP QUAL NONE DETECTED (NONE DETECT)
[2018-12-15] MEDS ORDERED: NS 250 ML ONE (13:58)
[2018-12-15] MEDS: PROTONIX IV SCH (23:53)
[2018-12-16] MEDS: NS 250 ML IV SCH ×2 (00:02→05:55)
[2018-12-16] MEDS: MAXIPIME 2 GM in NS 100 ML IV SCH ×3 (02:00→17:32)
[2018-12-16] MEDS: ATIVAN IV PRN ×3 (02:01→18:07)
[2018-12-16] MEDS: DUONEB (A & A) INH SCH ×4 (03:39→22:07)
[2018-12-16 04:34] LABS: ALLEN TEST YES; BE -8.6 mmoll (-3.0-3.0); BLOOD TYPE ARTERIAL; HCO3-(ACT) 18.2 mmoll (20.0-26.0); METHB 1.1 % (0.0-1.5); O2(CT) 14.5 mL/dL (15.0-23.0); O2HB 96.5 % (95.0-99.0); PCO2(98.6) 46 mmHg (35-45); PO2(98.6) 118 mmHg (60-100); SAMPLE BLOOD; SAO2 99.5 % (95.0-100.0); THB 10.5 g/dL (11.5-17.4); pH(98.6) 7.22 (7.35-7.45)
[2018-12-16 04:47] LABS: MODALITY BI PAP
[2018-12-16 05:03] LABS: BASO# 0.03 X1000 (0.0-0.2); BASO% 0.3 % (0.0-0.8); EOS# 0.05 X1000 (0.0-0.7); EOS% 0.4 % (0.0-10.0); HEMATOCRIT 34.6 % (42.0-52.0); HEMOGLOBIN 10.3 g/dL (14.0-18.0); IMM GRAN# 0.17 X1000 (0.0-0.04); IMM GRAN% 1.5 % (0.0-0.5); LYMPH# 1.04 X1000 (1.2-3.4); LYMPH% 8.9 % (20.5-51.1); MCH 29.5 PG (27-31); MCHC 29.8 g/dL (33-37); MCV 99.1 FL (81-99); MONO# 1.94 X1000 (0.11-0.59); MONO% 16.6 % (1.7-9.3); NEUT# 8.48 X1000 (1.4-6.5); NEUT% 72.3 % (42.2-75.2); RBC 3.49 XMIL (4.7-6.1); RDW 20.4 % (11.5-14.5); WBC 11.71 X1000 (4.8-10.8)
[2018-12-16 05:06] LABS: PLT 26 X1000 (130-400)
[2018-12-16 05:30] LABS: CREATININE 2.4 mg/dL (0.7-1.2); POTASSIUM 4.3 mmol/L (3.5-5.1)
[2018-12-16 06:13] LABS: BANDS 4 % (0-1); LYMPHS 16 % (21-51); SEGS 78 % (42-75)
[2018-12-16] MEDS ORDERED: NS 1,000 ML IV ONE (07:46)
[2018-12-16] MEDS: ZYVOX 600 MG/D5W 600 MG/300 ML IVPB IV SCH ×2 (07:56→19:44)
[2018-12-16] MEDS ORDERED: APRESOLINE IV PRN (07:56)
[2018-12-16] MEDS: NS 1,000 ML IV SCH ×3 (07:56→19:43)
[2018-12-16] MEDS ORDERED: CALCIUM GLUCONATE 2 GM in NS 100 ML IV ONE (08:04)
[2018-12-16] MEDS: DILAUDID IV PRN ×2 (08:06→14:40)
[2018-12-16] MEDS: HALDOL IM PRN ×2 (08:06→14:41)
[2018-12-16] MEDS: APRESOLINE PO SCH ×3 (08:10→17:32)
[2018-12-16] MEDS: COZAAR PO SCH (08:10)
[2018-12-16] MEDS: GRANIX SUBQ SCH (09:11)
--- NOTE | 2018-12-16 09:45 | Diag Imaging Result Doc PS360 ---
EXAM: CT THORAX/ABD/PELVIS W/O CON 12/16/2018 HISTORY: abd pain/distention/lung mass/effusion TECHNIQUE: This exam was performed using automated exposure control, adjustment of mA or kV according to patient size, and/or use of iterative reconstruction technique. COMMENT: The current examinations are compared with the previous CT of the chest of 12/12/2018 and the abdominal/pelvic CT of 11/09/2018. Thorax: There continues to be complete collapse of the right upper lobe and large parts of the right lower lobe. The middle lobe is still largely pneumatized. There is a massive right pleural effusion. The volume of pleural fluid and the degree of atelectasis have worsened since the previous examination. There is worsened subcutaneous edema. There is groundglass opacity throughout the left lower lobe and upper lobe which has definitely worsened since the previous examination. The regional skeleton is stable in appearance. ABDOMEN/pelvis without contrast: The spleen is enlarged measuring over 14.8 cm in AP dimension. This is actually slightly smaller than the 17 cm which was the case at the time the previous study of 11/09/2018. There is some free fluid which is slightly improved since the previous study. There is nodularity of the liver consistent with cirrhosis. There is slightly more fluid or edema around the pancreas and on the previous study and there is worsened anasarca. The kidneys are stable in appearance without evidence of hydronephrosis. There is no evidence of bowel obstruction. There is a Ordoñez catheter in the bladder. There is no evidence of appendicitis. The regional skeleton is stable in appearance. IMPRESSION: 1. Worsened right pleural effusion and atelectasis/pneumonia in the right lung. Pulmonary edema and/or pneumonia throughout the left lung. 2. Worsened anasarca. Ascites. The possibility of pancreatitis cannot be excluded. Improved splenomegaly. Cirrhosis. Electronically signed by John Yo 12/16/2018 9:43 AM
--- NOTE | 2018-12-16 10:01 | PROGRESS NOTE ---
DATE: 12/16/2018 SUBJECTIVE: The patient is definitely more agitated, more combative. He was restless overnight and pulled out his IV access and also mask. Now he is in 4 point restraints. He continues to require BiPAP. OBJECTIVE: VITAL SIGNS: Temperature is 97.4 degrees, heart rate 88, respiratory rate 13, blood pressure 100/65, O2 saturation 96% on BiPAP at FIO2 of 60%. GENERAL: This is a chronically ill looking 53-year-old -[place] male lying in bed, restless, not answering any questions. HEENT: Head is normocephalic, atraumatic. Mucous membranes are dry. NECK: No JVD. No carotid bruits, no lymphadenopathy, no thyromegaly. CARDIOVASCULAR: S1, S2 heard. No murmurs, gallops or rubs. Regular rate and rhythm. RESPIRATORY: Coarse breath sounds noted in both bilateral bases. Patient is not using any accessory muscles or having work of breathing. ABDOMEN: Soft, apparently not tender to palpation. Abdomen is a little bit more stiff but I am not able to evaluate him because of when he tries to move, he contracts his abdominal wall muscles. EXTREMITIES: No cyanosis, clubbing or edema. Peripheral pulses present in both lower extremities. NEUROLOGICAL: The patient is agitated, restless, does not answer any questions, does not follow any commands. Moves 4 extremities spontaneously. LABORATORY DATA: White cell count 11.71, hemoglobin 10.3, hematocrit 34.6, platelets 26,000. ABG shows pH 7.32, PO2 46, PCO2 118, bicarbonate is 18 with creatinine 2.4, BUN 37, calcium 7.0. ASSESSMENT AND PLAN: 1. Global encephalopathy. Reason for this condition is uncertain to me at this point. Patient's mental status has been getting worse and worse since his admission. He is now in 4 point restraints to prevent him to harm himself. Patient is getting sedating medication. We will continue with the same management. Also because of suspicion for any [employer] infection or dissemination of the cancer, we have performed LP result of those exams are currently normal. 2. Right upper lobe pneumonia. The patient is on vancomycin and cefepime. There is also suspicion for enlargement of the lung cancer and I think that is playing an important role in the prognosis in this patient. We will follow recommendations. 3. Pancytopenia. Patient is receiving Granix and neutrophil count is better. 4. Hypertension. Blood pressure is getting a little bit higher. Because this patient is not able to take medication by mouth, we will place him on hydralazine p.r.n. 5. Diabetes mellitus type 2. We will continue with sliding scale insulin and Accu-Cheks before meals and also bedtime. 6. History of hepatitis C, aware. 7. Abdominal pain. Abdomen looks to be more firm and rigid so at this point, I will do a CT of abdomen and pelvis and see what it shows. 8. Acute kidney injury. Renal function was normal on admission and for the next 2 days, but it is getting worse and worse. We put him on IV fluids and 1 bolus of normal saline to see how his urine output does and will consult Nephrology. 9. Gastroesophageal reflux disease. We will continue with Protonix. DISPOSITION: At this point, the patient is really critically ill. We will continue to monitor this patient closely. cc: Chuck Smith MD [facility]TD[facility]
[2018-12-16] MEDS: LEVOPHED 8 MG in D5 1/2 NS 250 ML IV SCH (15:21)
[2018-12-16 15:45] LABS: URINE SOURCE CATH
[2018-12-16 15:53] LABS: BILIRUBIN URINE NEGATIVE (NEGATIVE); BLOOD URINE LARGE (NEGATIVE); COLOR YELLOW; GLUCOSE URINE TRACE mg/dL (NEGATIVE); KETONE URINE 10 mg/dL (NEGATIVE); LEUKOCYTES URINE TRACE (NEGATIVE); NITRITE URINE NEGATIVE (NEGATIVE); PH URINE 5.5; PROTEIN URINE 300 mg/dL (NEGATIVE); SP GRAVITY URINE 1.016; TURBIDITY URINE TURBID (CLEAR); UROBILINOGEN URINE NORMAL (NORMAL)
[2018-12-16 16:13] LABS: UR EPITHELIAL CELLS >10 /HPF (<10); URINE BACTERIA NEGATIVE /HPF; URINE RBC TNTC /HPF (<10); URINE WBC TNTC /HPF (<10)
[2018-12-16 16:14] LABS: URINE CASTS GRANULAR PRESENT; URINE CRYSTALS NONE SEEN; URINE YEAST NONE SEEN
[2018-12-16 16:15] LABS: URINE SMALL ROUND CELLS NONE SEEN
[2018-12-16 16:44] LABS: UR PROT RANDOM 321.1 mg/dL
[2018-12-16 16:45] LABS: UR CREAT RANDOM 56.7 mg/dL (14-26)
--- NOTE | 2018-12-16 19:39 | NEPHROLOGY CONSULTATION ---
DATE: 12/16/2018 REASON FOR CONSULTATION: Acute kidney injury. HISTORY OF PRESENT ILLNESS: Mr. Sparrow is a 53-year-old man with normal kidney function as recently as the 12 of December. He has been in the hospital since the because of worsening respiratory status. He has severe [id number] lung cancer which is locally metastatic as well as metastatic to bone. He has a history of hepatitis C, hypertension, diabetes, reflux disease etc. In this context, he has worsening respiratory status such that he has been treated with broad-spectrum antibiotics and he has required BiPAP for support. He has undergone lumbar puncture. Despite all the intervention that he has received, his status has been progressively worse. He has developed worsening hypotension throughout the hospitalization. Despite this, he has been in positive fluid balance of as much as 5 L. Urine output has been decreasing steadily over the last 48 hours and his creatinine has been rising. On this basis, we are asked to assist with his management. Unfortunately he is not able to converse with me at all. He is on BiPAP and he has been sedated. The staff states that when he is not sedated he is kicking and biting and difficult to keep in the bed. PAST MEDICAL HISTORY: As above. CURRENT MEDICATIONS: Include Tylenol, Mcqueeney, Tessalon, Protonix, DuoNeb, Apresoline, Cozaar (not given), Maxipime, Ativan, Dilaudid, Haldol, Zyvox, Levophed, Apresoline p.r.n. ALLERGIES: None. Social history, family history, review of systems are not obtainable otherwise aside from what is listed in the notes. PHYSICAL EXAMINATION: Vital Signs: Blood pressure 105/81, heart rate 95, respirations 16, afebrile. General: He is in modest respiratory distress. Sedated but arousable. Skin is warm and dry. Conjunctivae are pink. Pupils are equal. Oropharynx is not examined. Neck: Neck veins are not visible with mask in place. Trachea is midline. Lungs: Have increased work of breathing, scattered coarse crackles and rhonchi. Decreased breath sounds on the right. Heart: Is difficult to auscultate but regular. Abdomen: Soft, nontender. Bowel sounds are present. Extremities: Have no edema, clubbing, or cyanosis. IMPRESSION: Acute kidney injury. Most likely, he has acute tubular necrosis secondary to hypotension, sepsis, etc. I discussed the case directly with Dr. Leal and we are administering IV fluids through the day today and we will observe. We will recheck urine electrolytes, etc. No further imaging is required. I have reviewed his medications and no changes are required. I will go ahead and discontinue the losartan even though it has not been administered. Overall poor prognosis. He is not a good candidate for dialysis in his current state. We will continue to reassess. cc: Brant Juarez MD
[2018-12-16] MEDS: PROTONIX IV SCH (22:32)
[2018-12-17] MEDS: LEVOPHED 8 MG in D5 1/2 NS 250 ML IV SCH ×2 (00:26→16:19)
[2018-12-17] MEDS: NS 1,000 ML IV SCH ×5 (02:30→23:38)
[2018-12-17] MEDS: MAXIPIME 2 GM in NS 100 ML IV SCH ×3 (02:30→17:07)
[2018-12-17] MEDS: DILAUDID IV PRN ×3 (02:53→15:31)
[2018-12-17] MEDS: DUONEB (A & A) INH SCH ×4 (03:20→21:30)
[2018-12-17 04:57] LABS: ALLEN TEST YES; BE -13.1 mmoll (-3.0-3.0); BLOOD TYPE ARTERIAL; HCO3-(ACT) 14.5 mmoll (20.0-26.0); METHB 1.3 % (0.0-1.5); O2(CT) 12.1 mL/dL (15.0-23.0); PO2(98.6) 56 mmHg (60-100); SAMPLE BLOOD; SAO2 90.2 % (95.0-100.0); THB 9.8 g/dL (11.5-17.4)
[2018-12-17 05:00] LABS: MODALITY BI PAP
[2018-12-17 05:01] LABS: O2HB 87.2 % (95.0-99.0); PCO2(98.6) 52 mmHg (35-45)
[2018-12-17] MEDS ORDERED: SODIUM BICARBONATE 8.4% IV PUSH ONE (05:48)
[2018-12-17 06:43] LABS: BASO# 0.04 X1000 (0.0-0.2); BASO% 0.2 % (0.0-0.8); CREATININE 2.9 mg/dL (0.7-1.2); EOS# 0.04 X1000 (0.0-0.7); EOS% 0.2 % (0.0-10.0); HEMATOCRIT 31.9 % (42.0-52.0); HEMOGLOBIN 9.5 g/dL (14.0-18.0); IMM GRAN# 0.25 X1000 (0.0-0.04); IMM GRAN% 1.2 % (0.0-0.5); LYMPH# 1.41 X1000 (1.2-3.4); LYMPH% 6.8 % (20.5-51.1); MCH 29.8 PG (27-31); MCHC 29.8 g/dL (33-37); MONO% 11.6 % (1.7-9.3); MPV 11.6 FL (7.4-10.4); NEUT# 16.61 X1000 (1.4-6.5); POTASSIUM 4.1 mmol/L (3.5-5.1); RBC 3.19 XMIL (4.7-6.1); RDW 20.4 % (11.5-14.5); WBC 20.75 X1000 (4.8-10.8)
[2018-12-17 06:46] LABS: CALCIUM 6.6 mg/dL (8.8-10.2); PLT 13 X1000 (130-400)
[2018-12-17] MEDS: ZYVOX 600 MG/D5W 600 MG/300 ML IVPB IV SCH ×2 (08:01→21:07)
[2018-12-17 08:21] LABS: BANDS 16 % (0-1); EOS 1 % (1-10); HYPOCHROM 1+; LYMPHS 1 % (21-51); MONO 5 % (1-9); NRBC 1 % (0-0); SEGS 74 % (42-75)
[2018-12-17] MEDS: APRESOLINE PO SCH ×3 (10:14→16:49)
[2018-12-17 10:47] LABS: ALLEN TEST YES; BLOOD TYPE ARTERIAL; HCO3-(ACT) 15.4 mmoll (20.0-26.0); METHB 0.6 % (0.0-1.5); O2(CT) 12.4 mL/dL (15.0-23.0); PCO2(98.6) 42 mmHg (35-45); PO2(98.6) 54 mmHg (60-100); SAMPLE BLOOD; SAO2 92.3 % (95.0-100.0); SRATE 12 BPM; THB 9.8 g/dL (11.5-17.4)
[2018-12-17 10:49] LABS: MODALITY BI PAP; O2HB 89.8 % (95.0-99.0); pH(98.6) 7.18 (7.35-7.45)
--- NOTE | 2018-12-17 11:21 | PROGRESS NOTE ---
DATE: 12/17/2018 SUBJECTIVE: The patient continues to be altered and combative. He is on BiPAP and his O2 saturation on FiO2 of 100% drops to high 80s. He is still in 4 point restraints. OBJECTIVE: Vital Signs: Temperature 95.9, heart rate 95, respiratory rate 27, blood pressure 118/76, O2 saturation 93% on BiPAP machine, FiO2 80%. General Examination: This is a chronically ill looking, 53-year-old, male, lying in bed, in no acute distress. Now restless. Not answering any questions. HEENT: Head is normocephalic and atraumatic. Mucous membranes dry. Neck: No JVD noted. No carotid bruits. No lymphadenopathy. No thyromegaly. Cardiovascular Examination: S1 and S2 heard. No murmurs, gallops, or rubs. Regular rate and rhythm. Respiratory Examination: Coarse breath sounds noted in both pulmonary bases as well as mild wheezing. Patient is not using any accessory muscles or having work of breathing. Abdomen: Soft. Nontender to palpation. Abdomen is firm. Bowel sounds present. No organomegaly. No signs of peritoneal irritation. Extremities: No clubbing, cyanosis, or edema. Peripheral pulses present in both legs. Neurological Examination: The patient is obtunded and confused and restless, and does not follow commands at all. Moves 4 extremities spontaneously. Laboratory Data: White cell count 20.75, hemoglobin 9.5, hematocrit 31.9, platelets 13,000. The ABG from this morning shows pH 7.10, with pCO2 of 52, PO2 56. That was on BiPAP 100%. BMP showed a calcium of 6.6, with lipase 1209, creatinine 2.9. ASSESSMENT AND PLAN: 1. Global encephalopathy. Continues to get worse. The patient has been evaluated by neurology and a lumbar puncture has been done but no signs of infection on that. We will continue to monitor. 2. Right upper lobe pneumonia. Patient is on vancomycin and cefepime, although there is a suspicion for enlargement of this lung cancer. In any case, we will continue with both antibiotics. 3. Acute pancreatitis. That is the description for the CT that we had done yesterday because the patient's abdomen tends to be more stiff. The lipase that we have checked today showed 1200. At this point, the patient is on intravenous fluids at 150 mL per hour. We will provide pain medication as well. 4. Pancytopenia. The patient has been receiving Granix and white cell count is back to normal so we will stop it. 5. Hypertension. Blood pressure is fine but I think we may need to restart vasopressors shortly. 6. Diabetes mellitus type 2. We will continue with sliding scale insulin and Accu-Cheks before meals and also at bedtime. 7. History of hepatitis C. Aware. 8. Acute kidney injury. The patient is completely anuric even though he is receiving intravenous fluids. The patient is not a candidate for dialysis according to Dr. Juarez. We appreciate his help. We will follow his recommendations. 9. Gastroesophageal reflux disease. We will continue with Protonix. 10. Disposition. We have informed the family that we need to intubate the patient down the road. They said that they needed to talk with the rest of the family in order to make the decision regarding Do Not Resuscitate. At this point, we will continue to monitor this patient closely. We will follow recommendations from pulmonary and we will consult gastroenterology for acute pancreatitis. cc: Chuck Smith MD [facility]
[2018-12-17] MEDS ORDERED: QUELICIN IV ONE (16:08)
[2018-12-17] MEDS ORDERED: AMIDATE IV ONE (16:08)
[2018-12-17] MEDS ORDERED: AMIDATE ONE (16:11)
[2018-12-17] MEDS ORDERED: QUELICIN ONE (16:11)
[2018-12-17] MEDS: MORPHINE IV PRN ×2 (16:18→22:39)
[2018-12-17] MEDS: ATIVAN IV PRN ×2 (16:19→22:40)
--- NOTE | 2018-12-17 16:31 | Diag Imaging Result Doc PS360 ---
EXAM: CHEST-PORTABLE 12/17/2018 HISTORY: ETT placement TECHNIQUE: AP portable supine at 1623 COMMENT: There is pleural fluid versus thickening on the right with complete opacification of the right upper lobe. There is hazy opacity throughout both lungs. This is worsened somewhat with respect to the parahilar portion of the left upper lobe since the previous study of 12/15/2018. There is an endotracheal tube with its tip at the thoracic inlet. IMPRESSION: Worsening pulmonary edema and/or pneumonia. Large right pleural effusion. Atelectasis versus pneumonia right upper lobe. Electronically signed by John Yo 12/17/2018 4:29 PM
[2018-12-17] MEDS: PROTONIX IV SCH (23:38)
[2018-12-18] MEDS: HALDOL IM PRN (01:40)
[2018-12-18] MEDS: ATIVAN IV PRN ×2 (02:19→09:51)
[2018-12-18] MEDS: MORPHINE IV PRN ×5 (02:19→23:53)
[2018-12-18] MEDS: MAXIPIME 2 GM in NS 100 ML IV SCH ×2 (03:00→09:50)
[2018-12-18] MEDS: DUONEB (A & A) INH SCH ×4 (03:30→21:12)
[2018-12-18 04:50] LABS: BASO# 0.02 X1000 (0.0-0.2); BASO% 0.1 % (0.0-0.8); EOS# 0.02 X1000 (0.0-0.7); EOS% 0.1 % (0.0-10.0); HEMATOCRIT 31.4 % (42.0-52.0); IMM GRAN# 0.18 X1000 (0.0-0.04); IMM GRAN% 1.1 % (0.0-0.5); LYMPH# 1.41 X1000 (1.2-3.4); LYMPH% 8.5 % (20.5-51.1); MCH 28.8 PG (27-31); MCHC 28.7 g/dL (33-37); MCV 100.6 FL (81-99); MONO% 7.2 % (1.7-9.3); MPV 11.9 FL (7.4-10.4); NEUT# 13.74 X1000 (1.4-6.5); RBC 3.12 XMIL (4.7-6.1); RDW 20.8 % (11.5-14.5); WBC 16.57 X1000 (4.8-10.8)
[2018-12-18 04:51] LABS: PLT 18 X1000 (130-400)
[2018-12-18 05:03] LABS: CREATININE 3.3 mg/dL (0.7-1.2); POTASSIUM 4.1 mmol/L (3.5-5.1)
[2018-12-18 05:04] LABS: CALCIUM 6.2 mg/dL (8.8-10.2)
[2018-12-18 05:34] LABS: ALLEN TEST YES; BE -14.5 mmoll (-3.0-3.0); BLOOD TYPE ARTERIAL; HCO3-(ACT) 13.6 mmoll (20.0-26.0); METHB 1.2 % (0.0-1.5); O2(CT) 13.5 mL/dL (15.0-23.0); PO2(98.6) 142 mmHg (60-100); SAMPLE BLOOD; SAO2 99.6 % (95.0-100.0); SRATE 14 BPM; THB 9.7 g/dL (11.5-17.4); TVOL 500 mL
[2018-12-18 05:35] LABS: MODALITY VENTILATOR; PCO2(98.6) 52 mmHg (35-45)
[2018-12-18 05:36] LABS: pH(98.6) 7.07 (7.35-7.45)
[2018-12-18] MEDS ORDERED: SODIUM BICARBONATE 8.4% IV PUSH ONE (05:54)
[2018-12-18] MEDS: NS 1,000 ML IV SCH (06:13)
[2018-12-18 07:12] LABS: ANISOCYTOSIS 1+; BANDS 5 % (0-1); HYPOCHROM 1+; LYMPHS 11 % (21-51); MONO 4 % (1-9); SEGS 79 % (42-75)
--- NOTE | 2018-12-18 07:23 | Diag Imaging Result Doc PS360 ---
EXAM: CHEST-PORTABLE INDICATION: Patient intubated TECHNIQUE: One view COMPARISON: 12/17/2018 FINDINGS: Support tubes and lines are in stable positions. Bilateral consolidations throughout both lungs including dense opacification of the right upper lung zone is stable. No new consolidation is identified. Cardiac silhouette is stable. IMPRESSION: Stable chest. Electronically signed by Bryson Alarcon 12/18/2018 7:21 AM
[2018-12-18] MEDS: LEVOPHED 8 MG in D5 1/2 NS 250 ML IV SCH ×2 (07:37→23:01)
[2018-12-18] MEDS: ZYVOX 600 MG/D5W 600 MG/300 ML IVPB IV SCH (07:44)
[2018-12-18] MEDS: APRESOLINE PO SCH ×3 (09:27→16:57)
--- NOTE | 2018-12-18 10:03 | PROGRESS NOTE ---
DATE: 12/18/2018 SUBJECTIVE: The patient was intubated yesterday because of respiratory failure. He is on sedation as well. OBJECTIVE: Vital Signs: Temperature 97.9, heart rate 71, respiratory rate 16, blood pressure 99/51. O2 saturation 96% on mechanical ventilator at FiO2 100%. General: This is a chronically ill-looking, 53-year-old, male, lying in bed in no acute distress. HEENT: Head is normocephalic and atraumatic. Mucous membranes dry. Neck: No JVD noted. No carotid bruits. No lymphadenopathy. No thyromegaly. Cardiovascular: S1, S2 heard. No murmurs , gallops, or rubs. Regular rate and rhythm. Respiratory: Coarse breath sounds still noted in both pulmonary bases. Patient is not using any accessory muscles or having work of breathing. Abdomen is soft, somewhat a little bit distended. Bowel sounds present. No organomegaly noted. No signs of peritoneal irritation. Extremities: No clubbing, cyanosis, or edema. Peripheral pulses present in both legs. Neurologic: Patient is sedated and intubated. LABORATORY DATA: White cell count 16.57, hemoglobin 9.0, hematocrit 31.4, platelets 18,000. ABG does show a pH 7.07, pCO2 of 52, PO2 142 with bicarbonate of 13.6 and that was on ventilator with FiO2 100%. BMP indicates a creatinine of 3.3 with GFR of 24. BUN 47. Calcium 6.2. Albumin 2.5. Lipase 134. ASSESSMENT AND PLAN: 1. Acute respiratory failure, on ventilator. The patient was really struggling for air yesterday. Finally, we needed to intubate him; now requiring oxygen at FiO2 of 100%. We will continue monitoring this patient closely in the unit and Pulmonary is following this patient as well. 2. Right upper lobe pneumonia. Patient on vancomycin and cefepime. White cell count is still elevated. We will continue with more antibiotics. 3. Acute pancreatitis. Lipase is getting better. This is a finding that we noticed in the CT scan of the abdomen. At this point, we will continue with conservative treatment which means pain medications and IV fluids. We will continue with the same management. 4. Pancytopenia, improving, although platelets still very low. 5. Hypertension. Blood pressure is low. He is requiring vasopressors. We will continue with same management. 6. Diabetes mellitus, type 2. We will continue with sliding scale insulin. Accu-Chek before meals and also at bedtime. 7. History of hepatitis C, aware. 8. Acute kidney injury. The patient is completely anuric. ABG shows a mix of respiratory acidosis and metabolic acidosis as well. At this point, we will leave to Dr. Juarez the decision to dialyze this patient or not. We will follow recommendations. 9. Non small cell lung cancer. Getting worse according to Oncology. Will monitor him closely. 10. CODE STATUS. FULL CODE. cc: Chuck Smith MD MTDD
--- NOTE | 2018-12-18 11:16 | Diag Imaging Result Doc PS360 ---
CHEST-PORTABLE - 12/18/2018 10:49 AM INDICATION: NGT placement COMPARISON: 5:47 AM FINDINGS: There is a new nasogastric tube, the tip is not well seen but appears most likely to be in the left upper quadrant. Stable endotracheal tube in good position. Stable right chest port. No changes in the lungs. IMPRESSION: Nasogastric tube is not well seen but the tip is probably in the left upper quadrant. Electronically signed by Jasbir Gregory 12/18/2018 11:13 AM
--- NOTE | 2018-12-18 11:31 | PULMONOLOGY PROGRESS NOTE ---
DATE: 12/18/2018 INTERIM HISTORY: Events were reviewed. The patient had altered mental status throughout the weekend with progressive hypoxemic and hypercapnic respiratory failure. The patient has been intubated and initiated on mechanical ventilation. He is on vasopressors. CT scan of the abdomen and pelvis was performed for an elevated lipase level, which revealed anasarca, ascites, splenomegaly, cirrhosis, and pancreatitis could not be completely eliminated. PHYSICAL EXAMINATION: General/Vital Signs: Exam reveals an intubated male on mechanical ventilation. He appears comfortable with current sedation level. He has been afebrile for the last 24 hours and has actually had mild hypothermia at 95.9 degrees. BP 99/51, heart rate 71, respiratory rate 16, oxygen saturation 96%. HEENT: Pupils are equal, but sluggish. Oropharynx appears clear. Neck: Supple. Chest: Coarse rhonchi bilaterally with decreased breath sounds right base. Cardiac: Regular rate. Normal S1, normal S2. Abdomen: Soft. Diminished bowel sounds. Extremities: 1+ edema and mild coolness to the touch. DIAGNOSTIC STUDIES: Chest x-ray reveals endotracheal tube in good position, consolidation of the right upper lobe, right-sided effusion, diffuse infiltrates at the right base and throughout the left lung. LABORATORY DATA: White blood count 16.6, hemoglobin 9.0, platelet count 18,000. Arterial blood gas on BiPAP reveals pH 7.07, pCO2 52, PO2 142. Sodium 143, potassium 4.1, chloride 111, bicarbonate 15, anion gap 17, BUN 47, creatinine 3.3. IMPRESSION: A 53-year-old with: 1. Metastatic lung cancer. 2. Bilateral pneumonia. 3. Pleural effusions. 4. Cirrhosis. 5. Acute hypoxemic respiratory failure. 6. Acute hypercapnic respiratory failure. 7. Renal failure. 8. Altered mental status with negative lumbar puncture. 9. Thrombocytopenia. 10. Anasarca. 11. Possible pancreatitis. 12. Protein-calorie malnutrition with multiorgan dysfunction listed above. His overall prognosis is poor. His chances of surviving and leaving the hospital to undergo additional chemotherapy are extremely low. Family continues to request aggressive care. 13. Septic shock. RECOMMENDATIONS: 1. Continue vasopressors for septic shock. 2. Continue broad-spectrum antibiotics under the direction of Dr. Reinier Mendoza. 3. Continue full ventilatory support. 4. Platelet transfusion. 5. Attempt NG tube placement following platelets in an attempt to initiate tube feeds. 6. Renal management per Nephrology. 7. Overall prognosis is dismal. End of life discussions recommended. cc: Donnell Weber MD
[2018-12-18] MEDS: SODIUM BICARBONATE 8.4% 100 MEQ in D5W 1,000 ML IV SCH ×2 (12:19→23:01)
--- NOTE | 2018-12-18 12:23 | Diag Imaging Result Doc PS360 ---
EXAM: ABDOMEN FLAT/UPRIGHT INDICATION: NGT placement TECHNIQUE: 2 views COMPARISON: 10/26/2018 FINDINGS: The tip of the NG tube is now clearly identified. It projects well below the diaphragm and is assumed to be in the lumen of the stomach in expected position. There are unremarkable bowel gas and stool patterns. There is no obstructive bowel pattern. There is no evidence of large volume free abdominal gas. IMPRESSION: Newly placed NG tube in expected position projecting below the diaphragm. Electronically signed by Bryson Alarcon 12/18/2018 12:21 PM
--- NOTE | 2018-12-18 12:24 | Diag Imaging Result Doc PS360 ---
EXAM: CHEST-PORTABLE INDICATION: NGT placement TECHNIQUE: One view COMPARISON: 12/18/2018 FINDINGS: The ET tube is in stable position. The NG tube is now more clearly identified projecting well below the diaphragm and assumed to be in the lumen of the stomach in expected position. Bilateral consolidations are stable as compared to the earlier prior study performed today. IMPRESSION: NG tube identified projecting below the diaphragm in the expected position. Stable chest, otherwise. Electronically signed by Bryson Alarcon 12/18/2018 12:22 PM
--- NOTE | 2018-12-18 12:51 | NEPHROLOGY PROGRESS NOTE ---
DATE: 12/18/2018 TIME SEEN: 07 SUBJECTIVE: Mr. Sparrow is resting quietly in bed head of the bed is slightly elevated. He appears in no acute distress. He remains ventilatory support with sedation. OBJECTIVE: Vital Signs: Temperature 97 degrees, blood pressure 102/51, his heart rate is 71. He remains on 100% FiO2. Last recorded saturation is 97%. He has had 4825 in, he has only had 10 mL out to void through his catheter. LABS: Sodium 143, potassium 4.1, chloride 111, CO2 15, BUN 47, creatinine 3.3, glucose 113, anion gap is 17, calcium 6.2, white count 16.57, hemoglobin 9, hematocrit 31.4 with a platelet count of 18,000. The patient has a lipase level of 834 this a.m. ABGs pH 7.07, CO2 52, PO2 142, bicarb 13.6 on 100%. PHYSICAL EXAM: This is a 53-year-old male. He is resting quietly in bed. He appears chronically ill but no acute distress. His skin is warm and dry.HEENT: Normocephalic, atraumatic. Conjunctiva is pale pink. He has CHICA. Mucous membranes are dry. Neck: Supple. Trachea midline, unable to determine JVD. Cardiovascular: Regular rate and rhythm. Lungs: Have coarse breath sounds bilateral with faint crackles to bilateral bases. He remains on ventilatory support. Abdomen: Slightly distended, soft, nontender. Hypoactive bowel sounds. Genitourinary: Not inspected. The patient has had minimal urine out this a.m. Extremities: Has 1 to 2+ lower extremity edema. No clubbing or cyanosis. Neurological: As above. ASSESSMENT AND PLAN: 1. Acute kidney injury. The patient more likely has acute tubular necrosis secondary to hypotension and sepsis. Due to his lack of urine output we will discuss with the family today about possible Vas-Cath placement for dialysis assist to see if we can help the patient bridge over to his kidneys waking up during his hospital stay. 2. Electrolytes and acid-base balance. Patient's CO2 is at 15 again with hopes for correction on dialysis. 3. Anemia. Hemoglobin is at 9. 4. Sepsis. Patient remains on Zyvox and Maxipime. 5. Neutropenia and pancytopenia. Oncology remains on board. I would like to thank you for allowing us to follow with this patient. Dictated by SOPHIA Bullard for Brant Juarez MD Face to face encounter, data reviewed, discussed with Perez Davis on 12/18/18. I agree with the above assessment and plan of care. cc: SOPHIA Bullard MD [facility]
--- NOTE | 2018-12-18 14:35 | PROGRESS NOTE ---
DATE: 12/18/2018 SUBJECTIVE: Mr. Sparrow continues intubated. He has had some periods of restlessness, and has received haloperidol 5 mg p.r.n. with 1 dose in the last 24 hours, hydromorphone 1 mg p.r.n. with 2 doses in the last 24 hours, lorazepam 2 mg three times in the last 24 hours, morphine 4 mg 3 doses in the last 24 hours. His spinal fluid reports were all unremarkable. PHYSICAL EXAMINATION: On exam now, he is intubated and appears awake at times. He did not consistently follow commands, but did wiggle toes on one foot after being asked to move his foot. This may or may not have been voluntary command following. Limb tone is symmetric. There is some withdrawal with noxious stimulation over each limb. There is full lateral eye movement. Facial motility is difficult to manufacturing storeperson with tube and tape but appears symmetric. Neck is supple without meningismus. IMPRESSION: Lung cancer, documented metastatic disease, hypoxemic respiratory failure, periods of agitation, and possible baseline cognitive impairment. At this point, I do not think I have anything to add from neurologic standpoint. We might better manufacturing storeperson his mental status with less sedating medicine, but that will not be possible until he is less agitated. Thank you for asking Neurology to see Mr. Sparrow. cc: MD RUBEN Hidalgo III
[2018-12-18] MEDS: TEFLARO 400 MG in NS 250 ML IV SCH (19:54)
[2018-12-18] MEDS: PROTONIX IV SCH (23:50)
--- NOTE | 2018-12-19 00:08 | INFECTIOUS DISEASE PROGRESS NO ---
DATE: 12/18/2018 PRESENT ILLNESS: The patient has bilateral pulmonary infiltrates. Certainly a big part of it is due to his lung cancer. There could be a superimposed infection also. MEDICATION: This is day 6 of cefepime and day 4 of Zyvox. PHYSICAL EXAMINATION: Vital Signs: Temperature is 98 degrees, pulse 87, respirations 15, blood pressure 120/63. General: The patient is intubated and sedated. Head/eyes/ears/nose/throat: An orotracheal tube is in place. There is no drainage from the nose or ears. Neck: No meningismus. Lungs: Diminished breath sounds bilaterally. Cardiovascular: Heart rate is regular. Abdomen: Soft and nontender. Neurologic: The patient is obtunded. LAB AND X-RAY: Chest x-ray shows bilateral infiltrates. The patient's cerebral spinal fluid, white blood cell count was 1 and the cerebral spinal fluid meningitis encephalitis panel was completely negative. Patient's CBC shows a white count of 16,570, hemoglobin 9, platelet count 18,000. Arterial blood gases show a pH of 7.07, a pO2 of 142, and a pCO2 of 52. Creatinine is 3.3. GFR is 24. ASSESSMENT AND PLAN: The patient has metastatic lung cancer. He also has bilateral pulmonary infiltrates that could represent an infection. Because the platelet count is so low, I am going to discontinue Zyvox and also discontinue cefepime and place the patient on ceftaroline the dose of which will be modified because of the patient's renal failure. COMORBIDITIES: The patient has metastatic lung cancer, diabetes mellitus, and gastroesophageal reflux disease. cc: Reinier Mendoza MD
[2018-12-19] MEDS: ATIVAN IV PRN ×3 (00:10→16:17)
[2018-12-19] MEDS: DUONEB (A & A) INH SCH ×4 (03:45→22:22)
[2018-12-19 04:41] LABS: ALLEN TEST YES; BE -16.7 mmoll (-3.0-3.0); BLOOD TYPE ARTERIAL; HCO3-(ACT) 11.8 mmoll (20.0-26.0); METHB 1.1 % (0.0-1.5); O2(CT) 15.6 mL/dL (15.0-23.0); O2HB 93.1 % (95.0-99.0); PCO2(98.6) 43 mmHg (35-45); PO2(98.6) 71 mmHg (60-100); SAMPLE BLOOD; SAO2 96.1 % (95.0-100.0); SRATE 20 BPM; THB 11.9 g/dL (11.5-17.4); TVOL 500 mL
[2018-12-19 04:43] LABS: MODALITY VENTILATOR
[2018-12-19 04:44] LABS: pH(98.6) 7.08 (7.35-7.45)
[2018-12-19 04:59] LABS: BASO# 0.01 X1000 (0.0-0.2); BASO% 0.1 % (0.0-0.8); EOS# 0.01 X1000 (0.0-0.7); EOS% 0.1 % (0.0-10.0); HEMATOCRIT 30.8 % (42.0-52.0); IMM GRAN# 0.12 X1000 (0.0-0.04); IMM GRAN% 0.7 % (0.0-0.5); LYMPH# 0.89 X1000 (1.2-3.4); LYMPH% 5.5 % (20.5-51.1); MCH 29.3 PG (27-31); MCHC 29.2 g/dL (33-37); MCV 100.3 FL (81-99); MONO# 0.79 X1000 (0.11-0.59); MONO% 4.9 % (1.7-9.3); NEUT# 14.34 X1000 (1.4-6.5); NEUT% 88.7 % (42.2-75.2); PLT 14 X1000 (130-400); RBC 3.07 XMIL (4.7-6.1); RDW 20.2 % (11.5-14.5); WBC 16.16 X1000 (4.8-10.8)
[2018-12-19] MEDS: MORPHINE IV PRN ×3 (05:16→20:46)
[2018-12-19 05:34] LABS: BANDS 6 % (0-1); LYMPHS 4 % (21-51); SEGS 90 % (42-75)
[2018-12-19 05:57] LABS: CREATININE 3.5 mg/dL (0.7-1.2); POTASSIUM 3.4 mmol/L (3.5-5.1)
[2018-12-19 05:59] LABS: CALCIUM 5.7 mg/dL (8.8-10.2)
[2018-12-19] MEDS ORDERED: CALCIUM GLUCONATE 2 GM in NS 100 ML IV ONE ×2 (06:29→07:04)
[2018-12-19] MEDS ORDERED: SODIUM BICARBONATE 8.4% IV PUSH ONE ×2 (06:30→08:47)
--- NOTE | 2018-12-19 07:12 | Diag Imaging Result Doc PS360 ---
EXAM: CHEST-PORTABLE 12/19/2018 HISTORY: respiratory failure TECHNIQUE: AP portable at 0534 COMMENT: There is an endotracheal tube with its tip slightly below the thoracic inlet and an NG tube which passes below the diaphragm. There is a large right pleural fluid collection plus minus pleural thickening. The right upper lobe is completely opacified. There is generalized alveolar opacity throughout the left lung. Compared to 12/18/2018, the right lower lobe is less well-expanded. IMPRESSION: Right upper lobe atelectasis versus pneumonia. Pulmonary edema/ARDS. Worsened atelectasis right lower lobe. Pleural thickening and/or loculated effusion on the right. Electronically signed by John Yo 12/19/2018 7:10 AM
[2018-12-19] MEDS: TEFLARO 400 MG in NS 250 ML IV SCH ×2 (08:44→20:39)
[2018-12-19] MEDS ORDERED: NS 2,000 ML MISC PRN (08:54)
[2018-12-19] MEDS ORDERED: TIGHT: 0.2 ML/HR FOR DIALYSIS MISC PRN (08:54)
[2018-12-19] MEDS ORDERED: HEPARIN IV PRN (08:54)
[2018-12-19] MEDS ORDERED: ALBUMIN 25% IV ONE (08:55)
[2018-12-19] MEDS: APRESOLINE PO SCH ×3 (09:03→16:29)
[2018-12-19] MEDS: SODIUM BICARBONATE 8.4% 100 MEQ in D5W 1,000 ML IV SCH ×2 (09:46→23:22)
--- NOTE | 2018-12-19 10:46 | PROGRESS NOTE ---
DATE: 12/19/2018 SUBJECTIVE: Patient continues to be sedated and intubated. No acute issues noted, as per nursing overnight. OBJECTIVE: Vital Signs: Temperature 96.7, heart rate 80, respiratory rate 16, blood pressure 103/86, O2 saturation 91% on mechanical ventilator at FiO2 of 80%. General: This is a chronically ill-looking 53-year-old, male, lying in bed, in no acute distress. HEENT: Head is normocephalic and atraumatic. Mucous membranes dry. Patient intubated. Neck: No JVD noted. No carotid bruits. No lymphadenopathy. No thyromegaly. Cardiovascular: S1, S2 heard. No murmurs, gallops, or rubs. Regular rate and rhythm. Respiratory: Coarse breath sounds noted in both pulmonary bases. Patient not using any accessory muscles or having work of breathing. Abdomen: A little bit distended. Bowel sounds present. No organomegaly noted. No signs of peritoneal irritation. Extremities: No clubbing, cyanosis, or edema. Peripheral pulses present in both legs. Neurological: Patient is sedated and intubated. LABORATORY DATA: White cell count 16.16, hemoglobin 9.0, hematocrit 30.8, platelets 14,000. ABG shows pH 7.08, pCO2 43, pO2 71 with bicarbonate 11.8 and lactate is 7.8. The patient is on ventilator, FiO2 of 80%. BMP shows a critically low calcium of 5.7 with creatinine 3.5, potassium 3.4. ASSESSMENT AND PLAN: 1. Acute respiratory failure on ventilator. Unfortunately, this patient continues to require high amounts of oxygen. He is requiring still 80% of FiO2. At this point, we will continue to monitor this patient closely. Pulmonary is following this patient as well. 2. Acute kidney injury. Patient continues to be completely anuric. His creatinine continues to get worse, and his pH shows severe metabolic acidosis. Nephrology has been consulted, and they agreed to do dialysis. We are still waiting for the family to give us an answer to authorize Vas-Cath placement. They have been called yesterday multiple times. We are going to continue to try to contact them. 3. Pancytopenia. White cell count is normal, actually a little bit elevated. But platelet continues to be low. In case we need to place a Vas-Cath today, we can transfuse 2 units of platelets and then have that procedure done. 4. Right upper lobe pneumonia. Patient has been on Zyvox and cefepime. But Dr. Mendoza, from Infectious Disease, has changed to ceftaroline. We will continue monitoring this patient closely. 5. Acute pancreatitis. Lipase is getting a little bit lower. Will continue with IV fluids. 6. Hypertension. Blood pressure actually low. Continue to require vasopressors. We will continue with same management. 7. Diabetes mellitus type 2. We will continue with sliding scale insulin. Accu -Chek before meals and also at bedtime. 8. History of hepatitis C, aware. 9. [id number] lung cancer getting worse, according to neurology. But at this point, of course, clinically we are not going to provide any treatment to them. 10. Code status. Full code. 11. Disposition. I have personally talked with the family, a son and apparently a sister, who was at bedside the day patient was intubated. I talked to them, explaining the clinical situation of the patient. Apparently, they were okay to continue with care. Today, we are trying to contact them again because we need an authorization to place Vas- Cath. As per nurse, apparently there are some members of the family, who are agree with palliative care. We will see what they have to say today. cc: Chuck Smith MD MTDClary
--- NOTE | 2018-12-19 11:44 | INFECTIOUS DISEASE PROGRESS NO ---
DATE: 12/19/2018 PRESENT ILLNESS: The patient has pulmonary infiltrates and opacified right upper lobe and a large right pleural effusion. MEDICATIONS: Yesterday, I started the patient on ceftaroline. This is day 1 of treatment. PHYSICAL EXAMINATION: Vital Signs: Temperature is 97 degrees, pulse 76, respirations 20, blood pressure 93/47. General: This patient is intubated and sedated. Head/eyes/ears/nose/throat: No drainage noted from the nose or ears. The patient's eyes were closed. Neck: He has an orotracheal tube in place. Neck with no meningismus. Lungs: Clear to auscultation. Cardiovascular: Heart rate is regular. Abdomen: Soft and does not appear to be tender. Neurologic: The patient is obtunded. He does not make any spontaneous movements. LAB AND X-RAY: CBC shows a white count of 16,160, hemoglobin 9, platelet count 114,000. Creatinine is 3.5. GFR is 22. Blood gases show a pH of 7.08, a pO2 of 71, and a pCO2 of 43. ASSESSMENT AND PLAN: Patient has metastatic lung cancer and he may well have a pneumonia. I plan on continuing ceftaroline. COMORBIDITIES: The patient has metastatic lung cancer, diabetes mellitus, and gastroesophageal reflux disease. cc: Reinier Mendoza MD
--- NOTE | 2018-12-19 11:45 | OPERATIVE NOTE ---
PROCEDURE DATE: 12/19/2018 SURGEON: Asad Alvares MD. REASON FOR PROCEDURE: I had been asked to place a Vas-Cath for dialysis purposes and IV access. The patient is thrombocytopenic, and I decided to go to his groin in case we had bleeding. Of course, one complication is the fact that he has had incisions in both groins apparently for vascular surgery. PROCEDURE IN DETAIL: The left groin was prepped and draped in a sterile fashion. We did ultrasound the left groin and appeared to identify the femoral vein. Under direct visualization. We did cannulate the vessel. First, it appeared pulsatile, so we withdrew the needle and held gentle pressure. Hemostasis was achieved. We then once again, identified what we felt was to be the vein medial to the artery and then accessed that vein and got dark blood that is nonpulsatile. We passed the guidewire without difficulty. We then dilated the tract sequentially and passed the Trialysis catheter and dark blood came back in each lumen spontaneously. We then flushed each lumen with saline, secured the flange to the skin with a nylon. We did use the ChloraPrep once again around the exit site and then covered it with an OpSite. He tolerated it well. cc: Asad Alvares MD
[2018-12-19] MEDS: LEVOPHED 8 MG in D5 1/2 NS 250 ML IV SCH ×2 (11:49→22:41)
[2018-12-19 12:49] LABS: INR 1.69; PROTIME 21.2 Seconds (11.0-16.0)
[2018-12-19 12:50] LABS: PTT 38.6 Seconds (22.3-41.8)
--- NOTE | 2018-12-19 14:48 | NEPHROLOGY PROGRESS NOTE ---
DATE: 12/19/2018 TIME SEEN: 0800. SUBJECTIVE: Mr. Sparrow is resting quietly, ventilator dependent and sedated. OBJECTIVE: Vital Signs: Temperature 96.7, blood pressure 98/57, heart rate 81, respirations 20. He is on 80% FiO2. Last recorded saturation is 98. He has had 3622 In. He has had 0 recorded Out in the last 24 hours. LABORATORY DATA: Sodium 144, potassium 3.4, chloride 108, CO2 of 13. BUN 50, creatinine 3.5, glucose 159. Anion gap 23. Calcium of 5.7. White count 16.16, hemoglobin 9, hematocrit 30.8 with a platelet count of 14,000. ABGs: pH 7.08, CO2 of 43, PO2 of 71, bicarb 11.8 on 80% FiO2. PHYSICAL EXAMINATION: General: This is a 53-year-old -[place] male resting quietly in bed. He is ventilator dependent. He appears chronically ill in no acute distress. Skin is warm and dry. HEENT: Normocephalic, atraumatic. Conjunctivae is pale. He has CHICA. Mucous membranes dry. Neck supple. Trachea midline. No JVD. Cardiovascular: Regular rate and rhythm. Lungs have coarse breath sounds bilateral. He does continue with faint crackles to the bases. He remains on ventilatory support. Abdomen is slightly distended, nontender. Hypoactive bowel sounds. Genitourinary: Not inspected. Ordoñez catheter is in place. No urine output has been recorded in 24 hours. Extremities have 2+ lower extremity edema. No clubbing or cyanosis. Neurologic: As above. ASSESSMENT AND PLAN: 1. Acute kidney injury. The patient more than likely has acute tubular necrosis secondary to hypotension and sepsis. Decreased urinary output. We have spoken to the family. We will have a Vas-Cath placed. Surgeon has been notified. We will plan for dialysis today at the bedside. We will place him on a 2 K bath. He is to dialyze for 3.5 hours. We will attempt to pull 3 to 4 L of ultrafiltration as blood pressure tolerates. We will also plan to give 50 g of albumin prior to starting his treatment. 2. Electrolytes and acid-base balance with correction on dialysis. 3. Anemia. This is low but stable. 4. Sepsis. Patient remains on Zyvox and Maxipime. Remains in leukocytosis, followed by the primary care and Dr. Mendoza. 5. Neutropenia and pancytopenia. Oncology is following. 6. Respiratory failure. Continues to be followed by pulmonology and primary care. I would like to thank you for allowing us to follow with this patient. Dictated by SOPHIA Bullard for Brant Juarez MD Face to face encounter, data reviewed, discussed with Perez Davis on 12/20/18. I agree with the above assessment and plan of care. cc: SOPHIA Bullard MD [facility]
--- NOTE | 2018-12-19 16:03 | PROGRESS NOTE ---
DATE: 12/19/2018 Mr. Sparrow continues intubated, mechanically ventilated, sedated. As I approached the bedside, he was still. With light forehead tap or stimulation over the limbs, he opened his eyes briskly and had some random roving conjugate eye movement. He did not fix his gaze on me. He did not follow commands or communicate. Lateral eye movement is full. Facial motility is symmetric. Neck is supple. Limb tone is symmetric. IMPRESSION: Global encephalopathy. There may be baseline cognitive impairment with possible recent anoxic injury and there may also be at least partial relationship to his baseline cancer with combinations of toxic and metabolic effects. I do not have any urgent suggestion today from neurologic standpoint. We might consider EEG later but that would not change his management right now. Thanks for asking Neurology to see Mr. Sparrow. cc: MD RUBEN Hidalgo III
--- NOTE | 2018-12-19 20:06 | PULMONOLOGY PROGRESS NOTE ---
DATE: 12/19/2018 SUBJECTIVE: The patient is on mechanical ventilation. He is sedated. He is on Levophed. OBJECTIVE: Vital Signs: Blood pressure 107/56, heart rate 78, respiratory rate 20, oxygen saturation 96% on 80% FiO2. Peak airway pressure is 39. HEENT: Pupils are equal, but sluggish. Oropharynx is clear. Neck: Supple. Chest: Reveals coarse rhonchi bilaterally. Cardiac: Regular rate. Normal S1, normal S2. Abdomen: Soft, with diminished bowel sounds. Extremities: Reveal 1+ peripheral edema. LABORATORIES: White blood count 16, hemoglobin 9.0, platelet count 14,000. Chemistries: Sodium 144, potassium 3.4, chloride 103, bicarbonate 13, anion gap 23, BUN 50, creatinine 3.5, calcium 5.7. Arterial blood gas: PH 7.08, pCO2 of 43, PO2 of 71, with a lactate of 7.8. Chest x-ray: Consolidation right upper lobe, small to moderate effusion on the right, diffuse infiltrates bilaterally. IMPRESSION: A 53-year-old with acute hypoxemic respiratory failure, acute hypercapnic respiratory failure, metastatic lung cancer, bilateral pneumonia/ARDS, pleural effusions, cirrhosis, renal failure, altered mental status with negative lumbar puncture, persistent thrombocytopenia, anasarca,-possible pancreatitis, protein calorie malnutrition, septic shock. RECOMMENDATION: 1. Continue full ventilatory support. His peak airway pressures are elevated and his tidal volumes will be decreased in an attempt to protect the lungs. 2. Continue broad-spectrum antibiotics. 3. Hemodialysis, per Dr. Juarez. 4. NG tube residual was low today. Consider tube feeds tomorrow. 5. Overall prognosis is dismal. He is unlikely to survive this hospitalization. If he survives, he is unlikely to become strong enough to undergo chemotherapy. TIME SPENT: Critical care 30+ minutes. cc: Donnell Weber MD
[2018-12-19] MEDS: PROTONIX IV SCH (23:22)
[2018-12-20] MEDS: ATIVAN IV PRN ×2 (01:17→06:14)
[2018-12-20] MEDS: DUONEB (A & A) INH SCH ×3 (03:13→15:47)
[2018-12-20 04:33] LABS: ALLEN TEST YES; BE -12.5 mmoll (-3.0-3.0); BLOOD TYPE ARTERIAL; HCO3-(ACT) 15.1 mmoll (20.0-26.0); METHB 1.5 % (0.0-1.5); O2HB 91.5 % (95.0-99.0); PO2(98.6) 70 mmHg (60-100); SAMPLE BLOOD; SAO2 95.7 % (95.0-100.0); SRATE 20 BPM; THB 9.3 g/dL (11.5-17.4); TVOL 400 mL
[2018-12-20 04:35] LABS: MODALITY VENTILATOR
[2018-12-20] MEDS: NEO-SYNEPHRINE 50 MG in NS 250 ML IV SCH ×2 (04:50→16:38)
[2018-12-20] MEDS: CARDIZEM 100 MG in NS 80 ML IV SCH ×2 (04:50→11:17)
[2018-12-20 05:32] LABS: CREATININE 2.7 mg/dL (0.7-1.2); POTASSIUM 3.5 mmol/L (3.5-5.1); TOTAL IRON 131 ug/dL (53-167)
[2018-12-20 05:37] LABS: CALCIUM 6.2 mg/dL (8.8-10.2)
[2018-12-20] MEDS: LEVOPHED 8 MG in D5 1/2 NS 250 ML IV SCH ×3 (05:41→16:37)
[2018-12-20] MEDS ORDERED: NS 2,000 ML MISC PRN (06:05)
[2018-12-20 06:10] LABS: FERRITIN 9368 ng/mL (30-400)
[2018-12-20] MEDS ORDERED: ATIVAN IV PRN (06:35)
[2018-12-20 06:43] LABS: UNBOUND IRON < 1 ug/dL (112-346)
--- NOTE | 2018-12-20 07:18 | EKG Report ---
Test Performed on : 12/20/2018 03:54:26 AM Test Reason : ELEVATED HR Blood Pressure : / mmHG Vent. Rate : 120 BPM Atrial Rate : 122 BPM P-R Int : 000 ms QRS Dur : 080 ms QT Int : 384 ms P-R-T Axes : 000 007 209 degrees QTc Int : 542 ms Atrial fibrillation. with rapid ventricular response. Septal infarct , age undetermined Prolonged QT Abnormal ECG No previous ECGs available Confirmed by Jessica JONES, Joe Mckeon ([id number]) on 12/20/2018 8:42:21 AM
[2018-12-20] MEDS ORDERED: CALCIUM GLUCONATE 2 GM in NS 100 ML IV ONE (07:30)
--- NOTE | 2018-12-20 07:36 | Diag Imaging Result Doc PS360 ---
EXAM: CHEST-PORTABLE HISTORY: Respiratory failure TECHNIQUE: Portable chest single view COMPARISON: 12/19/2018 FINDINGS: There is opacification of the majority of the right hemithorax. There is atelectasis and infiltrates in the visualized portion of the lower right lung. There are dense infiltrates throughout the left lung with air bronchograms. A nasogastric tube overlies the esophagus and stomach. There is also a right subclavian catheter. IMPRESSION: No interval improvement. Electronically signed by Shelton Link 12/20/2018 7:34 AM
[2018-12-20] MEDS: TEFLARO 400 MG in NS 250 ML IV SCH (08:05)
[2018-12-20] MEDS: SODIUM BICARBONATE 8.4% 100 MEQ in D5W 1,000 ML IV SCH (08:05)
[2018-12-20] MEDS: APRESOLINE PO SCH (08:46)
[2018-12-20 09:18] LABS: PCO2(98.6) 60 mmHg (35-45)
[2018-12-20 09:19] LABS: pH(98.6) 7.07 (7.35-7.45)
[2018-12-20 09:42] LABS: BASO# 0.02 X1000 (0.0-0.2); BASO% 0.1 % (0.0-0.8); HEMATOCRIT 29.2 % (42.0-52.0); HEMOGLOBIN 8.4 g/dL (14.0-18.0); IMM GRAN# 0.16 X1000 (0.0-0.04); LYMPH# 0.81 X1000 (1.2-3.4); LYMPH% 4.9 % (20.5-51.1); MCH 29.1 PG (27-31); MCHC 28.8 g/dL (33-37); MONO# 0.79 X1000 (0.11-0.59); MONO% 4.8 % (1.7-9.3); NEUT% 89.2 % (42.2-75.2); PLT 14 X1000 (130-400); RBC 2.89 XMIL (4.7-6.1); RDW 20.4 % (11.5-14.5); WBC 16.58 X1000 (4.8-10.8)
--- NOTE | 2018-12-20 09:51 | PROGRESS NOTE ---
DATE: 12/20/2018 SUBJECTIVE: The patient continues to be sedated and intubated. Yesterday, we needed to start vasopressors again; in this case, Levophed. He started having atrial fibrillation with rapid ventricular rate. OBJECTIVE: Vital Signs: Temperature 96.7 degrees, heart rate 137, respiratory rate 20, blood pressure 86/72, O2 saturation 97% on mechanical ventilator at 80%. General Examination: This is a chronically ill-looking, 53-year-old, male, lying in bed, in no acute distress. HEENT: Head is normocephalic and atraumatic. Mucous membranes are very dry. Pupils are mydriatic. Patient is intubated. Neck: No JVD noted. No carotid bruits. No lymphadenopathy. No thyromegaly. Cardiovascular Examination: S1 and S2 heard. Irregularly irregular. Tachycardic. No murmurs, gallops, or rubs noted. Respiratory Examination: Coarse breath sounds noted in both pulmonary bases. The patient is not using any accessory muscles or having work of breathing. Abdomen: A little bit distended with bowel sounds present but no organomegaly noted. No signs of peritoneal irritation. Extremities: No clubbing, cyanosis, or edema. Peripheral pulses are almost absent. Neurological Examination: The patient is sedated and intubated. Laboratory Data: White cell count still pending. Platelets from yesterday were 14,000. ABG shows pH of 7.27, with pCO2 of 60, PO2 of 70, with lactate 12.0, and FiO2 80%. Creatinine 2.7, calcium 6.2. ASSESSMENT AND PLAN: 1. Acute respiratory failure, on ventilator. Unfortunately, this patient continues to be ventilator dependent and continues to require a high amount of oxygen. The patient had been intubated 3 days ago. Since then, his oxygen needs have been 180%. We will continue to monitor this patient closely. 2. Right lower lobe pneumonia. Patient is on ceftaroline. White cell count is still elevated. The CBC from today is not resulted yet. We will continue to monitor. 3. Non-small cell lung cancer. That condition was getting worse, according to oncology. Considering his severe clinical condition, they are not planning to do any active treatment. 4. Pancytopenia, most likely related to chemotherapy. Platelets continue to be low. We will continue to monitor. 5. Acute kidney injury, requiring dialysis. The patient underwent dialysis yesterday but, unfortunately, his labs still are showing severe metabolic and respiratory acidosis with elevated lactate. His prognosis is very poor. Nephrology planning to do sustained low- efficiency dialysis today. 6. Shock, multifactorial. Patient started requiring vasopressors yesterday. Lactate is getting higher. We will continue to monitor. Prognosis is very poor. 7. Diabetes mellitus type 2. We will continue with sliding scale insulin, and Accu-Chek before meals and also at bedtime. 8. History of hepatitis C. Aware. 9. Acute pancreatitis. Lipase is getting down. We will continue with intravenous fluids. 10. Disposition. I have personally talked with the family, in this case son and sister about his current clinical condition and how he is doing now. I talked to them and explained that he is not going to survive this episode. I explained to them that despite all our efforts and measures, the patient continues to decline. One of the family members works for a hospice company. At this time, they acknowledged understanding and they said that they are going to talk with the rest of the family and see if they are okay to do withdrawal care or not. Until we are told not to do that, we will continue to provide full care for this patient. The prognosis, as I mentioned before, is very poor. I do not think this patient will survive this hospitalization. CRITICAL CARE TIME: 50 minutes. cc: Chuck Smith MD [facility]
[2018-12-20 10:22] LABS: BANDS 8 % (0-1); HYPOCHROM 1+; LYMPHS 2 % (21-51); SEGS 86 % (42-75)
--- NOTE | 2018-12-20 10:24 | PULMONOLOGY PROGRESS NOTE ---
DATE: 12/20/2018 SUBJECTIVE: The patient by report has had some seizure activity. He does not respond to pain. He has had increasing Levophed requirements and is now on Tien-Synephrine. PHYSICAL EXAMINATION: Vital Signs: BP 102/67, heart rate 115, respiratory rate 20, oxygen saturation 97%. HEENT: Pupils are equal. There is some rhythmic activity left to right/right to the left. Neck: Supple. Chest: Reveals coarse rhonchi throughout all lung rashid with decreased breath sounds in the right base. Cardiac Examination: Increased rate. Regular rhythm. Abdomen: Soft. No bowel sounds are present. Extremities: Reveal 1+ peripheral edema. LABORATORIES: White blood count 16.6, hemoglobin 8.4, platelet count 14,000. Arterial blood gas reveals a pH of 7.07, pCO2 of 60, PO2 of 70, with an increase in lactate to 12. Sodium 141, potassium 3.5, chloride 100, bicarbonate 17, BUN 28, creatinine 2.7. IMPRESSION: A 53-year-old with: 1. Acute hypoxemic respiratory failure. 2. Acute hypercapnic respiratory failure. 3. Septic shock with progressive lactic acidosis. 4. Metastatic lung cancer. 5. Bilateral pneumonia/acute respiratory distress syndrome. 6. Pleural effusions. 7. Cirrhosis. 8. Renal failure. 9. Intractable thrombocytopenia. 10. Possible pancreatitis. 11. Protein calorie malnutrition. RECOMMENDATIONS: 1. Continue ventilatory support. 2. Continue broad-spectrum antibiotics. 3. Continue vasopressors. 4. Hemodialysis under the direction of Dr. Juarez. 5. Overall prognosis remains dismal. His prognosis is worse today than it was the day before. He is now requiring significant vasopressors, significant ventilatory support, and has progressive lactic acidosis. He is unlikely to survive this hospital stay. End of life discussion are in progress with the family per the hospitalist service. TIME SPENT FOR CRITICAL CARE: Thirty plus minutes. cc: Donnell Weber MD
[2018-12-20] MEDS ORDERED: CEREBYX 1,500 MG in NS 100 ML IV ONE (10:47)
--- NOTE | 2018-12-20 11:03 | PROGRESS NOTE ---
DATE: 12/20/2018 Mr. Sparrow had some behavior raising question of seizure. On my rounds, he has some irregular, arrhythmic facial muscle contraction, which is more prominent than what I saw yesterday. There is full lateral eye movement. Pupils are slightly unequal, but both react to bright light. There is no meningismus. I did not see any clonic activity or other evidence of sabrina seizure. The family has not made a definite decision to withhold further care, to withdrawal current support, or to make any other changes. I will load him with fosphenytoin and order EEG. If family makes determination that they do not want further workup, we can cancel the EEG. Thanks for asking Neurology to see Mr. Sparrow. cc: Maria Antonia Augustine III, MD
[2018-12-20] MEDS ORDERED: D10W IV SCH (16:30)
[2018-12-20] MEDS ORDERED: SODIUM BICARBONATE IV SCH (16:30)
[2018-12-20] MEDS ORDERED: MORPHINE IV PRN (16:38)
[2018-12-20 18:07] VITALS: BP 73/38
--- NOTE | 2018-12-20 20:02 | DISCHARGE SUMMARY ---
ADMISSION DATE: 12/11/2018 DISCHARGE DATE: 12/20/2018 DATE OF DISCHARGE / DATE OF EXPIRATION: 12/20/2018. DISCHARGE DIAGNOSES: Unfortunately, the patient passed today at 5:32 p.m. from the following diagnoses: 1. Acute respiratory failure, on ventilator. 2. Right lower lobe pneumonia. 3. Worsening non small-cell lung cancer. 4. Pancytopenia. 5. Oliguric and anuric. Acute kidney injury requiring dialysis. 6. Shock, multifactorial. 7. Atrial fibrillation with rapid ventricular response. 8. Diabetes mellitus type 2. 9. Hepatitis C. 10. Acute pancreatitis. CONSULTATIONS: 1. Dr. Weber from Pulmonary. 2. Dr. Augustine from Neurology. 3. Dr. Asad Alvares from General Surgery. 4. Dr. Reinier Mendoza from Infectious Disease. 5. Dr. Brant Juarez from Nephrology. 6. Dr. Ramires from Hematology/Oncology. PROCEDURES: 1. Chest x-ray done on admission showed worsening atelectasis and old pneumonia in the right upper lobe. 2. Chest CT showed interval increase in size of the right upper lobe lung mass, with worsening also seen in right upper lobe collapse. Decreased in size in most of his old infiltrates, secondary mass that is seen in both lungs with bilateral infiltrates that is worse in the left upper lobe that is suspicious for pneumonia and also skeletal metastatic disease. 3. Brain MRI showed a couple of tiny foci of apparent restricted diffusion with a liter if any corresponding ADC low signal suggesting artifact. No intracranial metastatic disease identified. 4. Chest, abdomen and pelvis CT showed worsening right pleural effusion and atelectasis, pneumonia in the right lung with pulmonary edema and worsening anasarca from pancreatitis as well. 5. Placement of Vas-Catheter performed by Dr. Alvares. HOSPITAL COURSE: In brief, this is a patient who was admitted to the hospital for apparently shortness of breath and we thought initially this was a pneumonia that was not resolved completely. We have done a CT of the chest which basically confirmed the examination and enlargement of the lung cancer. After the second day of hospitalization, his mental status started to get worse and worse, and his oxygen needs also started to come out, so we have consulted Dr. Augustine. Initially, we were suspecting a [employer] infection, but the lumbar puncture and CSF analysis did not show any infection. We suspected that there may be examination of the small cell lung cancer. In any case, we continued with antibiotics. Also, his oxygen needs that were mentioned before were getting higher. So, at some point, we talked with the family before and they decided to proceed with intubation. After he was intubated, he blood pressure started going down. He was started on vasopressors. He also developed atrial fibrillation with rapid ventricular rate that we were not able to control completely because medication that we were using for control of heart rate was also affecting the blood pressure. Also, unfortunately this patient developed acute renal failure. He become completely anuric, so as a heroic maneuver, we decided to do dialysis. Unfortunately, this did not help the patient at all. The patient continues to have worsening severe lactic acidosis. At that point, we prefer to talk with the family and I was realistic with them, that he is not going to survive this hospitalization and finally they had an agreement to change code status to DNR level 1 and also we will proceed with withdrawal of care. That was done today. Unfortunately, this patient at 1735 today. cc: Chuck Smith MD [facility]
--- NOTE | 2018-12-20 22:59 | NEPHROLOGY PROGRESS NOTE ---
DATE: 12/20/2018 SUBJECTIVE: He appears to be seizing at the time of my exam, which was approximately 0700. Eyes deviate to the right and up, and he has rhythmic movement of the head and neck. OBJECTIVE: Vital Signs: Blood pressure 88/42, heart rate 62, respirations 20. Intake 4.3 L. Output 2.5. General: Physical exam as above. Heart: Regular rate and rhythm. Lungs: Equal. No crackles. Abdomen: Soft. Decreased bowel sounds. Nontender. Extremities: 2+ edema. IMPRESSION: Acute kidney injury. We planned for dialysis today, but we ended up holding his treatment, as decisions are being made regarding appropriateness of ongoing care. He does have a moderate metabolic acidosis, but volume status is acceptable, and oxygenating acceptably. Worsening lactic acidosis. Again, apparent seizure. Very poor prognosis. cc: Brant Juarez MD
== END 2018-12-20 17:32 | disposition expired | DRG 208 ==
LOC: ED 16:41 → SUATTDRO 22:23 → EDIPHOLD 22:23 → 3N 23:23 → ICU 12-14 21:15
PROVIDERS: ATTEND Internal Medicine
CPT/HCPCS: 31500; 36430; 70553; 71010; 71020; 71045; 71046; 71250; 74019; 74020; 74176; 80048; 80053; 80069; 80101; 80301; 80307; 80324; 80345; 80346; 80353; 80358; 80361; 80365; 81001; 82040; 82140; 82270; 82330; 82550; 82570; 82607; 82728; 82746; 82805; 82948; 83540; 83550; 83605; 83690; 83735; 83992; 84145; 84156; 84300; 84484; 85025; 85049; 85384; 85610; 85730; 86022; 86850; 86900; 86901; 86920; 87015; 87040; 87045; 87046; 87070; 87116; 87205; 87206; 87324; 87496; 87529; 87532; 87653; 87798; 88112; 89050; 89055; 93005; 93010; 94002; 94003; 94640; 94660; 94761; 94799; 95816; 96365; 99285; A9270; A9579; C1725; C9113; G0431; G0434; G0479; G0480; J0330; J0610; J0692; J0712; J1170; J1446; J1447; J1630; J1720; J1940; J2020; J2060; J2270; J2370; J3370; J3475; J7030; J7040; J7050; J7070; P9016; P9035; P9047; Q2009; S0164; XXXXX